=== PATIENT | female | born 1990 | race Caucasian/White ===

== ENCOUNTER 2021-11-12 09:19 | Outpatient (CLI) | payer OTHER, SELFPAY ==
[2021-11-12 10:00] LABS: Hemoglobin* 11.7 gm/dL (12.0-16.0)
[2021-11-13 20:11] LABS: Rapid Plasma Reagin (RPR) Non Reactive (Non Reactive)
== END 2021-11-12 09:20 | disposition home or self-care (01) ==
PROVIDERS: Advanced Practice Midwife; Visit Provider Advanced Practice Midwife
DX: Z34.93 Encounter for supervision of normal pregnancy, unspecified, third trimester (principal); Z3A.28 28 weeks gestation of pregnancy
CPT/HCPCS: 85018; 86592

== ENCOUNTER 2022-01-06 11:04 | Outpatient (CLI) | payer OTHER, SELFPAY ==
--- OUTSIDE RECORDS SUMMARY | 2022-01-06 11:07 | XMS_ITS | Encounter Summary ---
:1990 Author Organization [facility] Address [address] [place] [address] Care Team Providers Name Role Phone Leidy Sauceda APRN, C.NKobe., M.S. Primary Care Provider [phone] Encounter Details Date Type Department Care Team Description 05/24/2021 Orders Only Department of Carlotta Araujo Examination Obstetrics and N, R.N. Unconfirmed Result Gynecology in [address] [facility] (Primary Dx) [place], [place] [address] [facility] [address] [place], [place] [phone] (Work) [phone] Social History Tobacco Use Types Packs/Day Years Used Date Smoking Tobacco: Never Smokeless Tobacco: Never Alcohol Use Standard Drinks/Week Comments Yes 0 (1 standard drink = 0.6 oz pure rare u se, couple times per month alcohol) Alcohol Habits Answer Date Recorded How often do you have a drink Monthly or less 05/08/2021 containing alcohol? How many drinks containing alcohol do 1 or 2 you have on a typical day when you are drinking? How often do you have six or more Never 2021 drinks on one occasion? Comment: rare use, couple times per month 021 Social Isolation Answer Date Recorded In a typical week, how many times do you More than three orion es a week 05/08/2021 talk on the phone with family, friends, or neighbors? How often do you get together with friends Once a week 05/08/2021 or relatives? How often do you attend adventist or More than 4 times per year 05/08/2021 pentecostal services? Do you belong to any clubs or Yes 05/08/2021 organizations such as adventist groups, unions, fraternal or athletic groups, or school groups? How often do you attend meetings of the More than 4 times pe r year 05/08/2021 clubs or organizations you belong to? Are you now , , , 05/08/2021 , never or living with a partner? Physical Activity Answer Date Recorded On average, how many days per week do you engage in moderate to 5 days 05/08/2021 strenuous exercise (like walking fast, running, jogging, dancing, swimming, biking, or other activities that cause a light or heavy sweat)? On average, how many minutes do you engage in exercise at th is 30 min 05/08/2021 level? Stress Answer Date Recorded Do you feel stress - tense, restless, nervous, or Only a lit tle 05/08/2021 anxious, or unable to sleep at night because your mind is troubled all the time - these days? Financial Resource Strain Answer Date Recorded How hard is it for you to pay for the very basics like Not h heide at all 05/08/2021 food, housing, medical care, and heating? Intimate Partner Violence Answer Date Recorded Within the last year, have you been afraid of your partner o r No 05/08/2021 ex-partner? Within the last year, have you been humiliated or emotionall y No 05/08/2021 abused in other ways by your partner or ex-partner? Within the last year, have you been kicked, hit, slapped, or No 05/08/2021 otherwise physically hurt by your partner or ex-partner? Within the last year, have you been raped or forced to have any No 05/08/2021 kind of sexual activity by your partner or ex-partner? Food Insecurity Answer Date Recorded Within the past 12 months, you worried that your food would Never true 05/08/2021 run out before you got money to buy more. Within the past 12 months, the food you bought just didn't N ever true 05/08/2021 last and you didn't have money to get more. Transportation Needs Answer Date Recorded In the past 12 months, has lack of transportation kept you f rom No 05/08/2021 medical appointments or from getting medications? In the past 12 months, has lack of transportation kept you f rom No 05/08/2021 meetings, work, or getting things needed for daily living? Housing Stability Answer Date Recorded In the last 12 months, was there a time when you were not ab le No 05/08/2021 to pay the mortgage or rent on time? In the last 12 months, how many places have you lived? 1 05/08/2021 In the last 12 months, was there a time when you did not hav e a No 05/08/[address] or slept in a intermediate (including now)? Education Answer Date Recorded What is the highest level of school Bachelor's degree (e.g., BA, AB, 09/22/2020 you have completed or the highest BS) degree you have received? Sex Assigned at Date Recorded Female 09/07/2017 4:11 PM CDT documented as of this encounter Plan of Treatment Not on filedocumented as of this encounter Visit Diagnoses Diagnosis Examination Unconfirmed Result - Primary documented in this encounter Additional Health Concerns Assessment Noted Time PHQ-9 Depression Total Score: 1 09/25/2020 7:35 AM CDT documented as of this encounter Care Teams Vp Integration Relationship Specialty Start Date End Date Leidy aSuceda APRN, C.N.P., M.S. PCP - General Family Medicine 04/10/15 [address] [place] [address] documented as of this encounter
--- OUTSIDE RECORDS SUMMARY | 2022-01-06 11:07 | XMS_ITS | Encounter Summary ---
:1990 Author Organization [facility] Address [address] [place] [address] Care Team Providers Name Role Phone Leidy Sauceda APRN, C.N.P., M.S. Primary Care Provider Encounter Details Date Type Department Care Team Description 03/25/2021 Orders Only Pharmacy Prior Auth RO Leidy Sauceda APRN, C.N.P., M.S. [address] [place] [address] (Wo rk) Social History Tobacco Use Types Packs/Day Years [...] or relatives? How often do you attend adventism or More than 4 times per year 05/08/2021 restoration services? Do you belong to any clubs or Yes 05/08/2021 organizations such as adventism groups, unions, fraternal or athletic groups, or [...] place to sleep or slept in a longterm (including now)? Education Answer Date Recorded What is the highest level of school Bachelor's degree (e.g., BA, AB, 09/22/2020 you have completed or the highest BS) degree you have received? Sex Assigned at Date Recorded Female 09/07/2017 4:11 PM CDT documented as of this encounter Plan of Treatment Not on filedocumented as of this encounter Visit Diagnoses Not on filedocumented in this encounter Additional Health Concerns Assessment Noted Time PHQ-9 Depression Total Score: 1 09/25/2020 7:35 AM CDT documented as of this encounter Care Teams Tabular Typist Relationship Specialty Start Date End Date Leidy Sauceda APRN, C.N.P., M.S. PCP - General Family Medicine 04/10/15 [address] [place] [address] documented as of this encounter
--- OUTSIDE RECORDS SUMMARY | 2022-01-06 11:07 | XMS_ITS | Encounter Summary ---
:1990 Author Organization [facility] Address [address] [place] [address] Care Team Providers Name Role Phone Leidy Sauceda APRN, C.N.P., M.S. Primary Care Provider [phone] Reason for Visit Reason Comments Medication Question Encounter Details Date Type Department Care Team Description 01/21/2021 Clinical Communication Department of Mary Jaquez Obstetrics and Nicole Madrigal R.N. Gynecology in [address] [place] [phone] [place] [address] [place], [place] (Work) [phone] Social History Tobacco Use Types Packs/Day Years [...] or relatives? How often do you attend scientology or More than 4 times per year 05/08/2021 latter-day services? Do you belong to any clubs or Yes 05/08/2021 organizations such as scientology groups, unions, fraternal or athletic groups, or [...] place to sleep or slept in a senior living (including now)? Education Answer Date Recorded What is the highest level of school Bachelor's degree (e.g., BA, AB, 09/22/2020 you have completed or the highest BS) degree you have received? Sex Assigned at Date Recorded Female 09/07/2017 4:11 PM CDT documented as of this encounter Miscellaneous Notes Telephone Encounter - Nicole Jaquez R.N. - 01/21/2021 4:24 PM CDT PLAN The following information was provided: Patient had questions about the timing of her Letrozole. She wanted to know more about Ovidrel. She perfers this cycle to be just Letrozole and TIC. She is willing to discuss more options if this cycleis unsuccessful. Information/Education: patient/caller able to teach back The following references were used: nursing clinical judgement documented in this encounter Plan of Treatment Not on filedocumented as of this encounter Visit Diagnoses Not on filedocumented in this encounter Additional Health Concerns Assessment Noted Time PHQ-9 Depression Total Score: 1 09/25/2020 7:35 AM CDT documented as of this encounter Care Teams Rn Navigator Relationship Specialty Start Date End Date Leidy Sauceda APRN, C.N.P., M.S. PCP - General Family Medicine 04/10/15 [address] [place] [address] documented as of this encounter
--- OUTSIDE RECORDS SUMMARY | 2022-01-06 11:07 | XMS_ITS | Encounter Summary ---
:1990 Author Organization [facility] Address [address] [place] [address] Care Team Providers Name Role Phone Leidy Sauceda APRN, C.N.P., M.S. Primary Care Provider [phone] Reason for Referral Outpatient (Routine) - Authorized Specialty Diagnoses / Procedures Referred By Contact Refer red To Contact Obstetrics and Diagnoses [facility] Harmony Workman M.D. [address] [place] [address] Referral ID Status Reason Start Date Expiration Date Visits V isits Requested Authorized [id number] Authorized 03/23/2021 03/23/2022 1 1 edication Prior Authorization - Denied Specialty Diagnoses / Procedures Referred By Contact Refer red To Contact Harmony Chavez M.D. [address] [place] [address] Referral ID Status Reason Start Date Expiration Date Visits Requ ested Visits Authorized [id number] Denied 1 1 LY CHAIN LOGISTICS MANAGER Encounter Details Date Type Department Care Team Description 03/23/2021 Orders Only Department of Nancy Vicente Infertilit y Female Obstetrics and R.N. (Primary Dx) Gynecology in [address] [place], [place] [address] [facility] [address] [place] [address] Social History Tobacco Use Types Packs/Day Years [...] or relatives? How often do you attend christianity or More than 4 times per year 05/08/2021 congregational services? Do you belong to any clubs or Yes 05/08/2021 organizations such as christianity groups, unions, fraternal or athletic groups, or [...] place to sleep or slept in a assisted (including now)? Education Answer Date Recorded What is the highest level of school Bachelor's degree (e.g., BA, AB, 09/22/2020 you have completed or the highest BS) degree you have received? Sex Assigned at Date Recorded Female 09/07/2017 4:11 PM CDT documented as of this encounter Plan of Treatment Scheduled Referrals Name Type Priority Associated Order Schedule Diagnoses SALOME Referral Outpatient Referral Routine Infertility Female Ex pected: authorization and 03/23/2021 , benefits check Expires: 03/23/2022 documented as of this encounter Results US SALOME Pelvic - Follicle Tracking OI (04/01/2021 9:22 AM SUPPLY CHAIN LOGISTICS MANAGER) Anatomical Region Laterality Modality Ultrasound OB RST LOS, Ultrasound ARZ LOS Ultrasound Specimen (Source) Anatomical Location Collection Method / Collectio n Time Received Time / Laterality Volume Narrative 04/01/2021 11:12 AM SUPPLY CHAIN LOGISTICS MANAGER 9b Lt adx ff Harmony Nunez M.D. IMG OB US PROCEDURES documented in this encounter Visit Diagnoses Diagnosis Infertility Female - Primary Infertility Female documented in this encounter Additional Health Concerns Assessment Noted Time PHQ-9 Depression Total Score: 1 09/25/2020 7:35 AM CDT documented as of this encounter Care Teams Manager Cancer Relationship Specialty Start Date End Date Leidy Sauceda APRN, C.N.P., M.S. PCP - General Family Medicine 04/10/15 [address] [place] [address] documented as of this encounter
--- OUTSIDE RECORDS SUMMARY | 2022-01-06 11:07 | XMS_ITS | Encounter Summary ---
:1990 Author Organization [facility] Address [address] [place] [address] Care Team Providers Name Role Phone Leidy Sauceda APRN, C.N.P., M.S. Primary Care Provider [phone] Reason for Referral Outpatient (Routine) - Authorized Specialty Diagnoses / Procedures Referred By Contact Refer red To Contact Obstetrics and Diagnoses Infertility Female Rakel Nelson [facility] Gynecology Malcom, Ph.D. [address] [place] [address] Referral ID Status Reason Start Date Expiration Date Visits V isits Requested Authorized [id number] Authorized 01/21/2021 01/21/2022 1 1 utpatient (Routine) - Closed Specialty Diagnoses / Procedures Referred By Contact Refer red To Contact Diagnoses Infertility Female Rakle Nelson [facility] Procedures [place] Hysterosalpingogram Malocm, Ph.D. [address] [place] [address] Referral ID Status Reason Start Date Expiration Date Visits Requ ested Visits Authorized [id number] Closed 01/21/2021 01/21/2022 1 1 Encounter Details Date Type Department Care Team Description 01/21/2021 Orders Only Department of Brandie Crouch SalvadorRubio ty Female Obstetrics and R.N. (Primary Dx) Gynecology in 200 [place], [place] 200 [email or web address] [address] [place], [place] [phone] [address] (Work) [phone] Social History Tobacco Use Types Packs/Day Years [...] or relatives? How often do you attend gnosticism or More than 4 times per year 05/08/2021 moravian services? Do you belong to any clubs or Yes 05/08/2021 organizations such as gnosticism groups, unions, fraternal or athletic groups, or [...] place to sleep or slept in a long-term (including now)? Education Answer Date Recorded What [...] Routine Infertility Female Ex pected: authorization and 01/21/2021 , benefits check Expires: 01/21/2022 documented as of this encounter Results US SALOME Pelvic - Follicle Tracking OI (02/28/2021 9:57 AM CDT) Anatomical Region Laterality Modality Ultrasound OB RST LOS, Ultrasound ARZ LOS Ultrasound Specimen (Source) Anatomical Location Collection Method / Collectio n Time Received Time / Laterality Volume Narrative 02/28/2021 3:54 PM CDT 6b I have reviewed the ultrasound. Follicle s and findings documented in the stimulation summary. Poli Billy M.D. Rakel Nelson M.D., Ph.D. IMG OB US PROCEDURES [place] Hysterosalpingogram (01/28/2021 2:04 PM CDT) Anatomical Region Laterality Modality Genito Urinary, Abdominal RST LOS, Abdominal ARZ LOS, N/A Digital Radiography Abdominal FLA LOS Specimen (Source) Anatomical Collection Method Collection Time Re ceived Time Location / / Volume Laterality 01/28/2021 2:49 PM CDT Impressions 01/28/2021 3:32 PM CDT Patent right fallopian tube with spillage of contrast into the peritoneal cavity. Left salpingectomy. HAIR OR BEAUTY SALON MANAGER Narrative 01/28/2021 3:32 PM CDT EXAM: ??FL HYSTEROSALPINGOGRAM COMPARISON: ??Pelvic ultrasound 12/29/19 21. FINDINGS: ?? Fluoroscopic hysterosalpingogram was per formed using a retrograde injection of water soluble contrast following cannula tion of the cervical opening with the upholstery cutter. Normal filling of the uterus without chet dence of contour abnormality or filling defect. The right fallopian tube is ramirez nt with spillage of contrast into the peritoneal cavity. The left fallopian tu be was surgically removed. Procedure Note Yudelka Shirley M.D. - 01/28/2021Forma tting of this note might be different from the original. EXAM: FL HYSTEROSALPINGOGRAM COMPARISON: Pelvic ultrasound 12/28/2020 . FINDINGS: Fluoroscopic hysterosalpingogram was per formed using a retrograde injection of water soluble contrast following cannula tion of the cervical opening with the upholstery cutter. Normal filling of the uterus without chet dence of contour abnormality or filling defect. The right fallopian tube is ramirez nt with spillage of contrast into the peritoneal cavity. The left fallopian tu be was surgically removed. IMPRESSION: Patent right fallopian tube with spillag e of contrast into the peritoneal cavity. Left salpingectomy. HAIR OR BEAUTY SALON MANAGER Rakel Nelson M.D., Ph.D. IMG FLUOROSCOPY PROCEDU RES documented in this encounter Visit Diagnoses Diagnosis Infertility Female - Primary Infertility Female Infertility Female documented in this encounter Additional Health Concerns Assessment Noted Time PHQ-9 Depression Total Score: 1 09/25/2020 7:35 AM CDT documented as of this encounter Care Teams Human Factors Specialist Relationship Specialty Start Date End Date Leidy Sauceda APRN, C.N.P., M.S. PCP - General Family Medicine 04/10/15 [address] [place] [address] documented as of this encounter
--- OUTSIDE RECORDS SUMMARY | 2022-01-06 11:07 | XMS_ITS | Encounter Summary ---
:1990 Author Organization [facility] Address [address] [place] [address] Care Team Providers Name Role Phone Leidy Sauceda APRN, C.N.P., M.S. Primary Care Provider [phone] Reason for Visit Reason Comments Proir Authorization Encounter Details Date Type Department Care Team Description 03/25/2021 Clinical Communication Department of Linden Billy Authorization Obstetrics and Malcom [place] Gynecology in [address] [place] [phone] [place] [address] [place], [place] (Work) [phone] Social History Tobacco Use Types Packs/Day Years [...] or relatives? How often do you attend latter-day or More than 4 times per year 05/08/2021 yarsani services? Do you belong to any clubs or Yes 05/08/2021 organizations such as latter-day groups, unions, fraternal or athletic groups, or [...] place to sleep or slept in a correction (including now)? Education Answer Date Recorded What is the highest level of school Bachelor's degree (e.g., BA, AB, 09/22/2020 you have completed or the highest BS) degree you have received? Sex Assigned at Date Recorded Female 09/07/2017 4:11 PM CDT documented as of this encounter Miscellaneous Notes Telephone Encounter - Jody Bello - 03/25/2021 10:23 AM CST We received your prior authorization request for ovidrel and have it added to our workflow. We will get to this as soon as possible. Thank you, [facility] Prior Authorization Team If wishing to discuss this PA with the [facility] Specialty team, please send a communication within [employer] to SPECIALTY [employer] and your inquiry will be reviewed. PATIONAL HEALTH PHYSICIAN Telephone Encounter - Reina Schneider - 03/25/2021 9:10 AM CST Pt calling in to give a number for Ovidrel prior authorization. Pt was told that [phone] needed to be call to get [facility] you. PATIONAL HEALTH PHYSICIAN documented in this encounter Plan of Treatment Not on filedocumented as of this encounter Visit Diagnoses Not on filedocumented in this encounter Additional Health Concerns Assessment Noted Time PHQ-9 Depression Total Score: 1 09/25/2020 7:35 AM CDT documented as of this encounter Care Teams Sand Blaster Relationship Specialty Start Date End Date Leidy Sauceda APRN C.N.P., M.S. PCP - General Family Medicine 04/10/15 [address] [place] [address] documented as of this encounter
--- OUTSIDE RECORDS SUMMARY | 2022-01-06 11:07 | XMS_ITS | Encounter Summary ---
:1990 Author Organization [facility] Address [address] [place] [address] Care Team Providers Name Role Phone Leidy Sauceda APRN, C.N.P., M.S. Primary Care Provider [phone] Reason for Referral Outpatient (Routine) - Closed Specialty Diagnoses / Procedures Referred By Contact Refer red To Contact Diagnoses Infertility Female Rakel Nelson, [facility] Procedures [place] Hysterosalpingogram Malcom, Ph.D. [address] [place] [address] Referral ID Status Reason Start Date Expiration Date Visits Requ ested Visits Authorized [id number] Closed 01/21/2021 01/21/2022 1 1 Reason for Visit Outpatient (Routine) - Closed Specialty Diagnoses / Procedures Referred By Contact Refer red To Contact Diagnoses Infertility Female Rakel Nelson [facility] Procedures [place] Hysterosalpingogram Malcom, Ph.D. [address] [place] [address] Referral ID Status Reason Start Date Expiration Date Visits Requ ested Visits Authorized [id number] Closed 01/21/2021 01/21/2022 1 1 Encounter Details Date Type Department Care Team Description 01/28/2021 Hospital Encounter Department of Maribell Nelson M.D., Ph.D. [address] [place] [phone] Infertility Female Radiology, Reina Huff M.D. [address] [place] [phone] Building, in [place], [place] [address] [place] [phone] Social History Tobacco Use Types Packs/Day Years [...] or relatives? How often do you attend sabianist or More than 4 times per year 05/08/2021 rastafari services? Do you belong to any clubs or Yes 05/08/2021 organizations such as sabianist groups, unions, fraternal or athletic groups, or [...] minutes do you engage in exercise at is 30 min 05/08/2021 level? Stress Answer [...] place to sleep or slept in a alf (including now)? Education Answer Date Recorded What is the highest level of school Bachelor's degree (e.g., BA, AB, 09/22/2020 you have completed or the highest BS) degree you have received? Sex Assigned at Date Recorded Female 09/07/2017 4:11 PM CDT documented as of this encounter Medications at Time of Discharge Medication Sig Dispensed Refills Start Date End Date cholecalciferol, vitamin D3, 0 020 (Vitamin D3) 10 mcg (400 unit) capsule vitamin-iron 0 fumarate-FA 28 mg iron- 800 mcg tablet UNABLE TO FIND Vitex 0 06/29/2020 choriogonadotropin (OVIDREL) Inject 0.5 mL 0.5 mL 0 12/2702/20/2021 250 mcg/0.5 mL syringe (0.25 mg total) injection under the skin as needed (Administer when directed by SALOME team). letrozole (FEMARA) 2.5 mg Take 1 tablet 5 tablet 0 021 02/20/2021 tablet (2.5 mg total) by mouth daily. letrozole (FEMARA) 2.5 mg Take 1 tablet 5 tablet 0 021 02/20/2021 tablet (2.5 mg total) by mouth daily. letrozole (FEMARA) 2.5 mg Take 1 tablet 5 tablet 0 021 02/20/2021 tablet (2.5 mg total) by mouth daily. documented as of this encounter Procedure Notes Harmony Chavez M.D. - 01/28/2021 1:30 PM CDTAssociated Order(s): RAD Hysterosalpingogram Post-Procedure Diagnose(s): Infertility Female RAD Hysterosalpingogram Date/Time: 01/28/2021 3:04 PM Performed by: Harmony Chavez M.D. Authorized by: Reina Carlson M.D. Care team members present 1. Reina Carlson M.D. 2. Veronica Fairchild R.N. 3. Harmony Chavez M.D. PROCEDURE DETAILS Speculum placed in the vagina: yes Cervix prepped with antiseptic solution: yes HSG catheter placed in uterus: yes Balloon inflated: yes Radiopaque dye was administered through catheter into uterine cavity: Yes Speculum removed: yes Fluoroscopic image guidance used to localize target, identify at risk structures, and dynamically used to direct therapy to the target. Image(s) acquired and saved. Catheter was removed: yes Rt fallopian tube: Free, fill and spill Lt fallopian tube: Absent (Laparoscopic salpingectomy for ectopic ) Radiologist present and confirmed findings: Yes HSG uncomplicated. Uterine contour normal in appearance. Bilateral fallopian tubes normal in appearance and patent bilaterally. Patient aware of findings. CONSENT Consent obtained: verbal Consent given by: patient The benefits, risks and alternatives to the procedure and the potential need for sedation or anesthesia as well as the names, roles, and responsibilities of healthcare team members performing significant interventional tasks were discussed with the patient and/or decision maker. UNIVERSAL PROTOCOL All relevant documentation and testing were reviewed and available. All required blood products, implants, devices and or special equipment were made available as applicable. Pre-procedure verificationwas conducted and the correct site was marked if required. A fire risk assessment was done as applicable. The procedural time-out was conducted prior to performing the procedure and confirmed in a procedural pause. PRE-PROCEDURE DETAILS Assessment - reasonably exclude based on: PREG criteria Indications: Infertility Appropriate hand hygiene, gown, cap, mask, protective eyewear, sterile gloves, skin preparation, sterile drape, and strict aseptic technique were utilized as applicable for the procedure.: yes Site preparation: Povidone-iodine SEDATION / ANESTHESIA Anesthesia method: none POST-PROCEDURE DETAILS Patient tolerance of procedure: Patient tolerated the procedure well Procedure completed successfully: yes Complications: no apparent complications ATTESTATION STATEMENT A resident or fellow participated in the procedure, and the philatelic consultant was present for the entire procedure. Genitourinary Comments: Pelvic exam was performed with patient supine. Labia: There is no lesion or ulceration on the right labia. There is no lesion or ulceration on the left labia. Perineum: The perineum is normal. Vagina: The vagina is normal. The vagina exhibits no lesion and no vaginal ulcerations. Cervix: Cervix does not exhibit discharge or lesion. Of note, cervix off to the patient's left. Harmony Nunez M.D. Associated attestation - Reina Carlson M.D. - 01/28/2021 3:26 PM CDT I was present for the entirety of the procedure. documented in this encounter Plan of Treatment Not on filedocumented as of this encounter Procedures Procedure Name Priority Date/Time Associated Comments Diagnosis VT HSG S&I Routine 01/28/2021 Infertility Results for 3:04 PM CDT Female this procedure are in the results section. VT CATH W INJ CNTRST HSG Routine 01/28/2021 Infertility Res ults for 3:04 PM CDT Female this procedure are in the results section. FL HYSTEROSALPINGOGRAM RAD - Routine 01/28/2021 Infertility Resu lts for (most inpatients 2:04 PM CDT Female this proced ure and all are in the outpatients) results section. documented in this encounter Results VT CATH W INJ CNTRST HSG, VT HSG S&I (01/28/2021 3:04 PM CDT) Narrative Reina Carlson M.D. - 01/28/2021 3:04 PM CDT Harmony Chavez M.D. ? 01/28/2021 ??3:08 PM RAD Hysterosalpingogram Date/Time: 01/28/2021 3:04 PM Performed by: Harmony Chavez M.D. Authorized by: Reina Carlson M.D . Care team members present 1. Reina Carlson M.D. 2. Veronica Fairchild R.N. 3. Harmony Chavez M.D. PROCEDURE DETAILS ??Speculum placed in the vagina: yes ?Cervix prepped with antiseptic soluti on: yes ?HSG catheter placed in uterus: yes ?Balloon inflated: yes ?Radiopaque dye was administered throu gh catheter into uterine cavity: Yes ?Speculum removed: yes ?Fluoroscopic image guidance used to l ocalize target, identify at risk structures, and dynamically used to dire ct therapy to the target. Image(s) acquired and saved. ?Catheter was removed: yes ?Rt fallopian tube: ??Free, fill and s pill ??Lt fallopian tube: ??Absent (Laparosc opic salpingectomy for ectopic ) ??Radiologist present and confirmed fin dings: ??Yes ?? HSG uncomplicated. Uterine contour n ormal in appearance. Bilateral fallopian tubes normal in appearance and patent bilaterally. Patient aware of findings. CONSENT Consent obtained: verbal Consent given by: patient The benefits, risks and alternatives to the procedure and the potential need for sedation or anesthesia as well as the names, roles, and responsibilities of healthcare team memb ers performing significant interventional tasks were discussed with the patient and/or decision maker. UNIVERSAL PROTOCOL All relevant documentation and testing w ere reviewed and available. All required blood products, implants, devic es and or special equipment were made available as applicable. Pre-proced ure verification was conducted and the correct site was marked if required. A fire risk assessment was done as applicable. The procedural time-out w as conducted prior to performing the procedure and confirmed in a procedu ral pause. PRE-PROCEDURE DETAILS ?? Assessment - reas onably exclude based on: ??PREG criteria ??Indications: ??Infertility ??Appropriate hand hygiene, gown, cap, mask, protective eyewear, sterile gloves, skin preparation, sterile drape, and strict aseptic technique were utilized as applicable for the procedure .: yes ?Site preparation: ??Povidone-iodine SEDATION / ANESTHESIA Anesthesia method: none POST-PROCEDURE DETAILS ??Patient tolerance of procedure: ??Pat ient tolerated the procedure well ??Procedure completed successfully: yes ?Complications: no apparent complicati ons ?? ATTESTATION STATEMENT A resident or fellow participated in the procedure, and the philatelic consultant was present for the entire procedure. Reina Carlson M.D. OB GYNE ORDERABLES FL Hysterosalpingogram (01/28/2021 2:04 PM CDT) Anatomical Region Laterality Modality Genito Urinary, Abdominal RST LOS, Abdominal ARZ LOS, N/A Digital Radiography Abdominal FLA LOS Specimen (Source) Anatomical Collection Method Collection Time Re ceived Time Location / / Volume Laterality 01/28/2021 2:49 PM CDT Impressions 01/28/2021 3:32 PM CDT Patent right fallopian tube with spillage of contrast into the peritoneal cavity. Left salpingectomy. FIELD NATURALIST Narrative 01/28/2021 3:32 PM CDT EXAM: ??FL HYSTEROSALPINGOGRAM COMPARISON: ??Pelvic ultrasound 12/29/19. FINDINGS: ?? Fluoroscopic hysterosalpingogram was per formed using a retrograde injection of water soluble contrast following cannula tion of the cervical opening with the facing machine operator. Normal filling of the uterus without chet [...] tion of the cervical opening with the facing machine operator. Normal filling of the uterus without chet dence of contour abnormality or filling defect. The right fallopian tube is ramirez nt with spillage of contrast into the peritoneal cavity. The left fallopian tu be was surgically removed. IMPRESSION: Patent right fallopian tube with spillag e of contrast into the peritoneal cavity. Left salpingectomy. FIELD NATURALIST Rakel Nelson M.D., Ph.D. IMG FLUOROSCOPY PROCEDU RES documented in this encounter Visit Diagnoses Diagnosis Infertility Female documented in this encounter Administered Medications Inactive Administered Medications - up to 3 most recent administrations Medication Order MAR Action Action Date Dose Rate Site iothalamate meglumine 60 % Given 01/28/2021 2:05 PM CDT 10 mL injection (CONRAY) intravenous, Code/trauma/sedation medication, Starting on 01/28/21 at 1405 documented in this encounter Additional Health Concerns Assessment Noted Time PHQ-9 Depression Total Score: 1 09/25/2020 7:35 AM CDT documented as of this encounter Care Teams Sandstone Splitter Relationship Specialty Start Date End Date Leidy Sauceda APRN, C.N.P., M.S. PCP - General Family Medicine 04/10/[address] [place] [address] documented as of this encounter
--- OUTSIDE RECORDS SUMMARY | 2022-01-06 11:07 | XMS_ITS | Encounter Summary ---
:1990 Author Organization [facility] Address [address] [place] [address] Care Team Providers Name Role Phone Leidy Sauceda APRN, C.NFantasma, M.S. Primary Care Provider [phone] Encounter Details Date Type Department Care Team Description 01/10/2021 Hospital Encounter Department of Marisol Nelson Female Laboratory Medicine Rakel Ricardo M.D., in [place], Ph.D. [address] [phone] Social History Tobacco Use Types Packs/Day Years [...] or relatives? How often do you attend restorationism or More than 4 times per year 05/08/2021 quaker services? Do you belong to any clubs or Yes 05/08/2021 organizations such as restorationism groups, unions, fraternal or athletic groups, or [...] to sleep or slept in a senior care (including now)? Education Answer Date Recorded What is the highest level of school Bachelor's degree (e.g., BA, AB, 09/22/2020 you have completed or the highest BS) degree you have received? Sex Assigned at Date Recorded Female 09/07/2017 4:11 PM CDT documented as of this encounter Medications at Time of Discharge Medication Sig Dispensed Refills Start Date End Date cholecalciferol, vitamin 0 02/26/2020 D3, (Vitamin D3) 10 mcg (400 unit) capsule vitamin-iron 0 fumarate-FA 28 mg iron- 800 mcg tablet UNABLE TO FIND Vitex 0 06/29/2020 letrozole (FEMARA) 2.5 mg Take 1 tablet (2.5 5 tablet 0 02/20/2021 tablet mg total) by mouth daily. letrozole (FEMARA) 2.5 mg Take 1 tablet (2.5 5 tablet 0 02/20/2021 tablet mg total) by mouth daily. documented as of this encounter Plan of Treatment Not on filedocumented as of this encounter Procedures Procedure Name Priority Date/Time Associated Diagnosis Comme nts PROGESTERONE, S Routine 01/10/2021 1:01 PM Infertility Female Results for this CDT procedure are i n the results section. documented in this encounter Results Progesterone Level (01/10/2021 1:01 PM CDT) P athologist Signature Progesterone, S 22 See Note* 01/10/2021 ECLR ng/mL 10:21 PM CDT Comment: Reference intervals are central 90th % o f healthy population. Follicular phase: <=0.89 ng/mL Ovulation: <=12 ng/mL Luteal phase: 1.8-24 ng/ml Post-menopausal: <0.20 ng/mL 1st Trimester: 11-44 ng/mL 2nd Trimester: 25-83 ng/mL 3rd Trimester: 58-214 ng/mL Biotin has been identified by the james ritchie as a potential interfering substance. ??Higher concentr ations of biotin may be found in multivitamins, hair/nail supple ments, and workout supplements. ??If the result does not ma h clinical observations, repeat testing after patient refrains fr om the use of supplements for at least 12 hours. Specimen Anatomical Collection Method Collection Time Receive d Time (Source) Location / / Volume Laterality Blood (Blood, 01/10/2021 1:01 PM 01/11/20 9:35 Venous) CDT PM CDT Rakel Nelson M.D., Ph.D. LAB BLOOD ADD-ON Performing Organization Address City/State/ZIP Code Phon e Number [facility] [address] [place] [address] [phone] [facility] [place] [address] System in [address] documented in this encounter Visit Diagnoses Diagnosis Infertility Female documented in this encounter Additional Health Concerns Assessment Noted Time PHQ-9 Depression Total Score: 1 09/25/2020 7:35 AM CDT documented as of this encounter Care Teams Band Attacher Relationship Specialty Start Date End Date Leidy Sauceda APRN, C.N.P., M.S. PCP - General Family Medicine 04/10/[address] [place] [address] documented as of this encounter
--- OUTSIDE RECORDS SUMMARY | 2022-01-06 11:07 | XMS_ITS | Encounter Summary ---
:1990 Author Organization [facility] Address [address] [place] [address] Care Team Providers Name Role Phone Leidy Sauceda APRN, C.N.P., M.S. Primary Care Provider [phone] Encounter Details Date Type Department Care Team Description 04/01/2021 Ancillary Procedure Department of Charli limon Female Obstetrics and Rauchfu, Gynecology in [place] Workman M.D. [place], [place] [address] [facility] [address] [place] [phone] Social History Tobacco Use Types Packs/Day Years [...] or relatives? How often do you attend religious or More than 4 times per year 05/08/2021 samaritan services? Do you belong to any clubs or Yes 05/08/2021 organizations such as religious groups, unions, fraternal or athletic groups, or [...] Procedure Name Priority Date/Time Associated Comments Diagnosis US SALOME PELVIC - RAD - Routine 04/01/2021 9:22 Infertility Female Re sults for this FOLLICLE TRACKING (most inpatients AM MAMMALOGY TEACHER proced ure are in OI and all the results outpatients) section. documented in this encounter Results US SALOME Pelvic - Follicle Tracking OI (04/01/2021 9:22 AM MAMMALOGY TEACHER) Anatomical Region Laterality Modality Ultrasound OB RST LOS, Ultrasound ARZ LOS Ultrasound Specimen (Source) Anatomical Location Collection Method / Collectio n Time Received Time / Laterality Volume Narrative 04/01/2021 11:12 AM MAMMALOGY TEACHER 9b Lt adx ff Harmony Nunez M.D. IMHattie OB US PROCEDURES documented in this encounter Visit Diagnoses Diagnosis Infertility Female documented in this encounter Additional Health Concerns Assessment Noted Time PHQ-9 Depression Total Score: 1 09/25/2020 7:35 AM CDT documented as of this encounter Care Teams Water Conservation Specialist Relationship Specialty Start Date End Date Leidy Sauceda, SHA, C.N.P., M.S. PCP - General Family Medicine 04/10/15 [address] [place] [address] documented as of this encounter
--- OUTSIDE RECORDS SUMMARY | 2022-01-06 11:07 | XMS_ITS | Encounter Summary ---
:1990 Author Organization [facility] Address [address] [place] [address] Care Team Providers Name Role Phone Leidy Sauceda APRN, C.NKobe., M.S. Primary Care Provider Encounter Details Date Type Department Care Team Description 05/22/2021 Hospital Encounter Department of Charli Nunez Am enorrhea Laboratory Medicine in [place] Workman M.D. [facility] advertising display rotator [address] [place] [address] [phone] Social History Tobacco Use Types Packs/Day Years [...] or relatives? How often do you attend quaker or More than 4 times per year 05/08/2021 holiness services? Do you belong to any clubs or Yes 05/08/2021 organizations such as quaker groups, unions, fraternal or athletic groups, or [...] place to sleep or slept in a group home (including now)? Education Answer Date Recorded What [...] (Vitamin D3) 10 mcg (400 unit) capsule choriogonadotropin (OVIDREL) Inject 0.5 mL 0.5 mL 0 02/26 250 mcg/0.5 mL syringe (0.25 mg total) injection under the skin as needed (Administer when directed by [facility] team). letrozole (FEMARA) 2.5 mg Take 1 tablet (2.5 5 tablet 0 tablet mg total) by mouth daily. vitamin-iron 0 fumarate-FA 28 mg iron- 800 mcg tablet UNABLE TO FIND Vitex 0 06/29/2020 documented as of this encounter Plan of Treatment Not on filedocumented as of this encounter Procedures Procedure Name Priority Date/Time Associated Comments Diagnosis HUMAN CHORIONIC Routine 05/22/2021 7:19 AM Amenorrhea Result s for this GONADOTROPIN (HCG), PIN TICKET MACHINE OPERATOR procedur e are in MARIA R, the results section. documented in this encounter Results (ABNORMAL) hCG (Human Chorionic Gonadotropin), Quantitative, (05/22/2021 7:19 AM PIN TICKET MACHINE OPERATOR) P athologist Signature HCG, 76 (H) <5 IU/L 05/22/2021 CNFL Quantitative, 7:59 AM PIN TICKET MACHINE OPERATOR , P Comment: Biotin has been identified by the james ritchie as a potential interfering substance. ??Higher concentr ations of biotin may be found in multivitamins, hair/nail supple ments, and workout supplements. ??If the result does not ma [facility] clinical observations, repeat testing after patient refrains fr om the use of supplements for at least 12 hours. Specimen Anatomical Collection Method Collection Time Receive d Time (Source) Location / / Volume Laterality Blood (Blood, 05/22/2021 7:19 AM 05/22/19 22 7:20 Venous) PIN TICKET MACHINE OPERATOR AM PIN TICKET MACHINE OPERATOR Harmony Nunez M.D. LAB BLOOD ADD-ON Performing Organization Address City/State/ZIP Code Phon e Number [address] [address] [place] [address] System in [address] documented in this encounter Visit Diagnoses Diagnosis Amenorrhea documented in this encounter Additional Health Concerns Assessment Noted Time PHQ-9 Depression Total Score: 1 09/25/2020 7:35 AM CDT documented as of this encounter Care Teams Furnace Roaster Relationship Specialty Start Date End Date Leidy Sauceda APRN, C.N.P., M.S. PCP - General Family Medicine 04/10/[address] [place] [address] documented as of this encounter
--- OUTSIDE RECORDS SUMMARY | 2022-01-06 11:07 | XMS_ITS | Encounter Summary ---
:1990 Author Organization [facility] Address [address] [place] [address] Care Team Providers Name Role Phone Leidy Sauceda APRN, C.NFantasma, M.S. Primary Care Provider [phone] Reason for Visit Reason Comments Rx Prior Authorization PA DENIED OVIDREL 250MCG/0.5 ML Encounter Details Date Type Department Care Team Description 03/25/2021 Clinical Department of Charli Rx Prior Communication Obstetrics and Rauchfuss, Authorandres n (DANE Gynecology in [place] Workman M.D. DENIED OVIDREL [place], [address] [place] [address] 250MCG/0.5ML) [place], [place] [address] [facility] [address] [place], [place] [phone] (Work) [phone] Social History Tobacco Use Types Packs/Day Years [...] or relatives? How often do you attend zoroastrianism or More than 4 times per year 05/08/2021 zoroastrian services? Do you belong to any clubs or Yes 05/08/2021 organizations such as zoroastrianism groups, unions, fraternal or athletic groups, or [...] place to sleep or slept in a care home (including now)? Education Answer Date Recorded What is the highest level of school Bachelor's degree (e.g., BA, AB, 09/22/2020 you have completed or the highest BS) degree you have received? Sex Assigned at Date Recorded Female 09/07/2017 4:11 PM CDT documented as of this encounter Miscellaneous Notes Telephone Encounter - Windy Keane R.N. - 03/26/2021 2:41 PM CST Portal message update sent to patient. IFIED ANESTHESIOLOGIST ASSISTANT Telephone Encounter - Royce Botello - 03/25/2021 1:17 PM CST Images from the original note were not included. The patient's health insurer has denied prior authorization for OVIDREL 250MCG/0.5ML. A quick view of the denial reason is in this communication message. To view the denial letter: 1. Go to Snapshot 2. Go to the purple Medications box 3. Click on the blue Prior Authorizations link 4. Under Denied, click on the blue medication link to open and view the attachment. As the prescriber your options are: ??? Appeal the decision to the insurer directly (see denial letter for how to appeal). ??? Write a new Rx for an alternative medication therapy. ??? Release the Rx to the pharmacy so the patient can pay out of pocket if they desire. To Release Rx: Open this encounter, go to Meds & Orders, click on the medication, and click the blue ???Release Rx?? button. PLEASE NOTE: If the ???Release Rx?? button is not visible, the Rx has already been released to the pharmacy. If you have questions, please reply via QuickNote to Emma MALDONADO. Thank you, The [facility]PP[facility] Team IFIED ANESTHESIOLOGIST ASSISTANT documented in this encounter Plan of Treatment Not on filedocumented as of this encounter Visit Diagnoses Not on filedocumented in this encounter Additional Health Concerns Assessment Noted Time PHQ-9 Depression Total Score: 1 09/25/2020 7:35 AM CDT documented as of this encounter Care Teams Heliarc Welder Relationship Specialty Start Date End Date Leidy Sauceda APRN, C.N.P., M.S. PCP - General Family Medicine 04/10/15 [address] [place] [address] documented as of this encounter
--- OUTSIDE RECORDS SUMMARY | 2022-01-06 11:07 | XMS_ITS | Encounter Summary ---
:1990 Author Organization [facility] Address [address] [place] [address] Care Team Providers Name Role Phone Leidy Sauceda APRN, C.NKobe., M.S. Primary Care Provider [phone] Encounter Details Date Type Department Care Team Description 05/24/2021 Hospital Encounter Department of Charli Nunez Am enorrhea Laboratory Medicine in [place] Workman M.D. [facility] umberto [address] [place] [address] [phone] Social History Tobacco Use Types Packs/Day Years [...] or relatives? How often do you attend mosque or More than 4 times per year 05/08/2021 pentecostalism services? Do you belong to any clubs or Yes 05/08/2021 organizations such as mosque groups, unions, fraternal or athletic groups, or [...] place to sleep or slept in a [facility] (including now)? Education Answer Date Recorded What [...] Procedure Name Priority Date/Time Associated Comments Diagnosis TESTING LOCATION Routine 05/24/2021 7:28 AM Resul ts for this YARD SWITCHER procedure are i n the results section. TYPE AND SCREEN Routine 05/24/2021 7:28 AM Amenorrhea Result s for this YARD SWITCHER procedure are i n the results section. HUMAN CHORIONIC Routine 05/24/2021 7:28 AM Amenorrhea Result s for this GONADOTROPIN (HCG), YARD SWITCHER procedur e are in MARIA R, the results section. documented in this encounter Results Testing Location (05/24/2021 7:28 AM YARD SWITCHER) P athologist Signature Testing [facility] DEFAULT 05/24/2021 [facility] Location 7:31 AM YARD SWITCHER Specimen Anatomical Collection Method Collection Time Receive d Time (Source) Location / / Volume Laterality Blood 05/24/2021 7:28 AM 7:31 YARD SWITCHER AM YARD SWITCHER Harmony Nunez M.D. LAB BLOOD BANK TEST OR DERABLES Performing Organization Address City/State/ZIP Code Phon e Number [facility]- [address] [place], [place] [address] [facility] [place] [address] System in [place] [address] Type and Screen (with reflex Antibody ID) (05/24/2021 7:28 AM YARD SWITCHER) [facility] gist Method Time Signature ABO Group A 05/24/2021 RDWG 1:56 PM YARD SWITCHER Rh Type POS 05/24/2021 [facility] 1:56 PM YARD SWITCHER Antibody Screen NEG 05/24/2021 [facility] 1:56 PM YARD SWITCHER Type & Screen 05/27/2021 05/24/2021 [facility] Expiration 23:59 1:56 PM YARD SWITCHER ELXM Eligible Y 05/24/2021 [facility] 1:56 PM YARD SWITCHER Specimen Anatomical Collection Method Collection Time Receive d Time (Source) Location / / Volume Laterality Blood (Blood, 05/24/2021 7:28 AM 05/24/19 22 7:31 Venous) YARD SWITCHER AM YARD SWITCHER Harmony Nunez M.D. LAB BLOOD BANK TEST OR DERABLES Performing Organization Address City/State/ZIP Code Phon e Number [facility]- [address] [place], [place] [address] [facility] [place] [address] System in [place] [address] (ABNORMAL) hCG (Human Chorionic Gonadotropin), Quantitative, (05/24/2021 7:28 AM YARD SWITCHER) P athologist Signature HCG, 206 (H) <5 IU/L 05/24/2021 CNFL Quantitative, 8:02 AM YARD SWITCHER , P Comment: Biotin has been identified by the james ritchie as a potential interfering substance. ??Higher concentr ations of biotin may be found in multivitamins, hair/nail supple ments, and workout supplements. ??If the result does not [facility] clinical observations, repeat testing after patient refrains fr om the use of supplements for at least 12 hours. Specimen Anatomical Collection Method Collection Time Receive d Time (Source) Location / / Volume Laterality Blood (Blood, 05/24/2021 7:28 AM 05/24/19 22 7:31 Venous) YARD SWITCHER AM YARD SWITCHER Harmony Nunez M.D. LAB BLOOD ADD-ON Performing Organization Address City/State/ZIP Code Phon e Number [address] [address] [place] [address] System [address] documented in this encounter Visit Diagnoses Diagnosis Amenorrhea documented in this encounter Additional Health Concerns Assessment Noted Time PHQ-9 Depression Total Score: 1 09/25/2020 7:35 AM CDT documented as of this encounter Care Teams Para Machine Operator Relationship Specialty Start Date End Date Leidy Sauceda APRN, C.N.P., M.S. PCP - General Family Medicine 04/10/[address] [place] [address] documented as of this encounter
--- OUTSIDE RECORDS SUMMARY | 2022-01-06 11:07 | XMS_ITS | Encounter Summary ---
:1990 Author Organization [facility] Address [address] [place] [address] Care Team Providers Name Role Phone Leidy Sauceda APRN, C.NFantasma, M.S. Primary Care Provider [phone] Encounter Details Date Type Department Care Team Description 09/11/2021 Orders Only RST PCP [facility] Rakel Kaur M.D. [address] [place], [place] [phone] (Wo rk) Social History Tobacco Use Types [...] or relatives? How often do you attend presybeterian or More than 4 times per year 05/08/2021 gnosticist services? Do you belong to any clubs or Yes 05/08/2021 organizations such as presybeterian groups, unions, fraternal or athletic groups, or [...] place to sleep or slept in a usp (including now)? Education Answer Date Recorded What [...] documented as of this encounter Care Teams Grocery Carrier Relationship Specialty Start Date End Date Leidy Sauceda APRN, C.N.P., M.S. PCP - General Family Medicine 04/10/15 [address] [place] [address] documented as of this encounter
--- OUTSIDE RECORDS SUMMARY | 2022-01-06 11:07 | XMS_ITS | Encounter Summary ---
:1990 Author Organization [facility] Address [address] [place] [address] Care Team Providers Name Role Phone Leidy Sauceda APRN C.NKobe., M.S. Primary Care Provider [phone] Encounter Details Date Type Department Care Team Description 02/28/2021 Clinical Communication Department of Rakel Nelson Obstetrics and CMalcom, Ph.D. Gynecology in [address] [place], [place] [address] [facility] [address] [place], [place] [phone] (Work) [phone] Social History Tobacco Use Types Packs/Day Years [...] or relatives? How often do you attend bahai or More than 4 times per year 05/08/2021 yazdanism services? Do you belong to any clubs or Yes 05/08/2021 organizations such as bahai groups, unions, fraternal or athletic groups, or [...] documented as of this encounter Care Teams Motor Driver Relationship Specialty Start Date End Date Leidy Sauceda APRN, C.N.P., M.S. PCP - General Family Medicine 04/10/15 [address] [place] [address] documented as of this encounter
--- OUTSIDE RECORDS SUMMARY | 2022-01-06 11:07 | XMS_ITS | Encounter Summary ---
:1990 Author Organization [facility] Address [address] [place] [address] Care Team Providers Name Role Phone Leidy Sauceda APRN, C.N.Emma., M.S. Primary Care Provider Encounter Details Date Type Department Care Team Description 04/05/2021 Orders Only Department of Obstetrics Elizabeth Jaquez ea, and Gynecology in [place], [place] [address] [facility] [address] [place] [address] [phone] Social History Tobacco Use Types Packs/Day Years [...] or relatives? How often do you attend shinto or More than 4 times per year 05/08/2021 yazidism services? Do you belong to any clubs or Yes 05/08/2021 organizations such as shinto groups, unions, fraternal or athletic groups, or [...] place to sleep or slept in a long term (including now)? Education Answer Date Recorded What [...] documented as of this encounter Care Teams Chemical Processing Laborer Relationship Specialty Start Date End Date Leidy Sauceda APRN, C.N.P., M.S. PCP - General Family Medicine 04/10/15 [address] [place] [address] documented as of this encounter
--- OUTSIDE RECORDS SUMMARY | 2022-01-06 11:07 | XMS_ITS | Encounter Summary ---
:1990 Author Organization [facility] Address [address] [place] [address] Care Team Providers Name Role Phone Leiyd Sauceda APRN, C.N.P., M.S. Primary Care Provider [phone] Reason for Referral Specialty Diagnoses / Procedures Referred By Contact Refer red To Contact Rakel Kaur M.D. [facility] [address] [place] [address] Referral ID Status Reason Start Date Expiration Date Visits Requ ested Visits Authorized Encounter Details Date Type Department Care Team Description 01/17/2021 Orders Only [facility] Rakel Kaur M.[facility]. [address] [place] [phone] (Wo rk) Social History Tobacco [...] or relatives? How often do you attend hindu or More than 4 times per year 05/08/2021 congregational services? Do you belong to any clubs or Yes 05/08/2021 organizations such as hindu groups, unions, fraternal or athletic groups, or [...] Name Type Priority Associated Order Schedule Diagnoses Covid immunization Outpatient Referral Routine Ex pected: office visit Booster 021 (Approximate), Expires: 01/17/2022 documented as of this encounter Visit Diagnoses Not on filedocumented in this encounter Additional Health Concerns Assessment Noted Time PHQ-9 Depression Total Score: 1 09/25/2020 7:35 AM CDT documented as of this encounter Care Teams Staple Shear Operator Relationship Specialty Start Date End Date Leidy Sauceda APRN, C.N.P., M.S. PCP - General Family Medicine 04/10/[address] [place] [address] documented as of this encounter
--- OUTSIDE RECORDS SUMMARY | 2022-01-06 11:07 | XMS_ITS | Encounter Summary ---
:[address] [facility] Address [address] [place] [address] Care Team Providers Name Role Phone Leidy Sauceda APRN, C.NFantasma, M.S. Primary Care Provider [phone] Encounter Details Date Type Department Care Team Description 02/28/2021 Ancillary Procedure Department of Vivi Nelson Female Obstetrics and Rakel Ricardo M.D., Gynecology in Ph.D. [place], [place] [address] [facility] [address] [place] [address] [phone] Social History Tobacco Use Types Packs/Day Years [...] or relatives? How often do you attend roman catholic or More than 4 times per year 05/08/2021 episcopal services? Do you belong to any clubs or Yes 05/08/2021 organizations such as roman catholic groups, unions, fraternal or athletic groups, or [...] US [facility] PELVIC - RAD - Routine 02/28/2021 9:57 Infertility Female Re sults for this FOLLICLE TRACKING (most inpatients AM CDT proced ure are in OI and all [...] Nelson M.D., Ph.D. IMG OB US PROCEDURES documented in this encounter Visit Diagnoses Diagnosis Infertility Female documented in this encounter Additional Health Concerns Assessment Noted Time PHQ-9 Depression Total Score: 1 09/25/2020 7:35 AM CDT documented as of this encounter Care Teams Mold Insert Changer Relationship Specialty Start Date End Date Leidy Sauceda APRN C.N.P., M.S. PCP - General Family Medicine 04/10/15 [address] [place] [address] documented as of this encounter
--- OUTSIDE RECORDS SUMMARY | 2022-01-06 11:07 | XMS_ITS | Encounter Summary ---
:1990 Author Organization [facility] Address [address] [place] [address] Care Team Providers Name Role Phone Leidy Sauceda APRN, C.N.P., M.S. Primary Care Provider [phone] Reason for Visit Outpatient (Routine) - Closed Specialty Diagnoses / Procedures Referred By Contact Refer red To Contact Obstetrics and Charli Nunez, [facility] Gynecology Harmony Workman M.D. 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 How often do you attend congregational or More than 4 times per year 05/08/2021 confucianist services? Do you belong to any clubs or Yes 05/08/2021 organizations such as congregational groups, unions, fraternal or athletic groups, or [...] place to sleep or slept in a nursing home (including now)? Education Answer Date Recorded What is the highest level of school Bachelor's degree (e.g., BA, AB, 09/22/2020 you have completed or the highest BS) degree you have received? Sex Assigned at Date Recorded Female 09/07/2017 4:11 PM CDT documented as of this encounter Progress Notes Manuel Eastman M.D. - 05/08/2021 3:30 PM CST SUBJECTIVE Vin Canada is a 30 y.o. who presents today to discuss the option of embryo donation. She is seen today alongside her partner, Pavan. Reproductive history notable for left tubal ectopic s/p left salpingectomy (September 2020) andPCOS. She is s/p 4 cycles of letrozole + timed intercourse without achieving . HSG was completed in January 2021 with no evidence of right tubal occlusion. She is here today to discuss next steps and consideration of embryo donation. OBJECTIVE BMI Readings from Last 1 Encounters: 09/10/18 20.55 kg/m?? Blood Type: Unknown Ovarian [place]: normal for her age and is suggestive of robust ovarian reserve consistent with PCOS. 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 Canada is a 30 yo seen for discussion of next steps and consideration of embryo donation in the setting of PCOS and left salpingectomy 2/2 tubal ectopic. She is s/p 4 cycles of letrozole + OPK + timed intercourse without achieving . We reviewed our spectrum of fertility treatment options ranging from timed intercourse, ovulation induction, Intrauterine Insemination, and In Vitro Fertilization. We compared and contrasted success rates for these options. Given we have been unable to achieve with 4 cycles of letrozole + TIC, we reviewed next steps to consider of letrozole + IUI, IVF or FET with embryo donation. We reviewed level of involvement between biological and intended parents and the ability to specify the couple's preferences through [facility]. We reviewed the pre-embryo donation evaluation including uterine and prepregnancy evaluation, reproductive psychology and coordination of legal contracts. We reviewed the possible limitations of embryo donation including retrospective FDA testing on the donors and risk of thawing an embryo that was created elsewhere. Vin and Pavan will continue to consider their options further. They will reach out via portal with questions and to facilitate next steps once they've reached a decision. In the mean time, they will continue to attempt spontaneous . I personally spent 30 minutes in care of the patient today. Time includes both non face to face and face to face patient care. Manuel Eastman M.D. 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 PCP - General Family Medicine 04/10/15 [address] [place] [address] documented as of this encounter
--- OUTSIDE RECORDS SUMMARY | 2022-01-06 11:07 | XMS_ITS | Encounter Summary ---
:1990 Author Organization [facility] Address [address] [place] [address] Care Team Providers Name Role Phone Leidy Sauceda APRN, C.NFantasma, M.S. Primary Care Provider [phone] Encounter Details Date Type Department Care Team Description 03/25/2021 Orders Only Pharmacy Prior Auth RO Charli Nunez, Harmony Workman M.D. [address] [place] [address] (Wo rk) Social History Tobacco Use Types [...] or relatives? How often do you attend yarsanism or More than 4 times per year 05/08/2021 baptism services? Do you belong to any clubs or Yes 05/08/2021 organizations such as yarsanism groups, unions, fraternal or athletic groups, or [...] place to sleep or slept in a fci (including now)? Education Answer Date Recorded What [...] documented as of this encounter Care Teams Darkroom Worker Relationship Specialty Start Date End Date Leidy Sauceda APRN, C.N.P., M.S. PCP - General Family Medicine 04/10/15 [address] [place] [address] documented as of this encounter
--- OUTSIDE RECORDS SUMMARY | 2022-01-06 11:07 | XMS_ITS | Encounter Summary ---
:1990 Author Organization [facility] Address [address] [place] [address] Care Team Providers Name Role Phone Leidy Sauceda APRN, C.N.P., M.S. Primary Care Provider [phone] Encounter Details Date Type Department Care Team Description 01/28/2021 Clinical Communication Department of Charli Nunez , Obstetrics and Harmony Workman M.D. Gynecology in [address] [place], [place] [address] [facility] [address] [place], [place] [phone] [address] (Work) [phone] Social History Tobacco Use Types Packs/Day Years [...] or relatives? How often do you attend religion or More than 4 times per year 05/08/2021 sabianism services? Do you belong to any clubs or Yes 05/08/2021 organizations such as religion groups, unions, fraternal or athletic groups, or [...] place to sleep or slept in a [place] [facility] [place] (including now)? Education Answer Date Recorded What [...] documented as of this encounter Care Teams Crew Scheduler Relationship Specialty Start Date End Date Leidy Sauceda APRN, C.N.P., M.S. PCP - General Family Medicine 04/10/15 [address] [place] [address] documented as of this encounter
--- OUTSIDE RECORDS SUMMARY | 2022-01-06 11:07 | XMS_ITS | Clinical Summary ---
:1990 Author Organization [facility] Address [address] [place] [address] Care Team Providers Name Role Phone Leidy Sauceda APRN, C.N.P., M.S. Primary Care Provider [phone] Source Comments Patient records contain information from all sites at [facility]. For routine questions regarding patient records, call [phone] during business hours, M-F 8:00 AM - 5:00 PM Central Time. Record requests for emergency care only can be directed to [phone] at any time.[facility] Allergies No known active allergies Medications Medication Sig Dispensed Refills Start Date End Date Status vitamin-iron 0 Active fumarate-FA 28 mg iron- 800 mcg tablet UNABLE TO FIND Vitex 0 06/29/2020 Acti ve cholecalciferol, 0 02/26/2020 Ac tive vitamin D3, (Vitamin D3) 10 mcg (400 unit) capsule letrozole (FEMARA) 2.5 Take 1 tablet (2.5 5 tablet 0 03/23/20 21 Active mg tablet mg total) by mouth daily. Additional Information Patient not taking. Reported on 05/08/2021 choriogonadotropin (OVIDREL) 250 Inject 0.5 mL (0.25 mg 0.5 mL 0 03/24/2021 Active mcg/0.5 mL syringe injection total) under the skin as needed (Administer when directed by [facility] team). Additional Information Patient not taking. Reported on 05/08/2021 Active Problems Problem Noted Date Endometriosis 11/05/2020 Overview: Stage 1-2, Status post fulguration 1 Polycystic Ovary Syndrome 11/05/2020 Gastroesophageal Reflux Disease 09/10/2018 Nevus Face 09/08/2017 Comments Yes Encounters Date Type Specialty Care Team Description 12/13/2021 Orders Only Leidy Sauceda APRN C.N.P., M.S. from Last 3 Months Immunizations Name Administration Dates Next Due HepB, Unspecified 12/23/2011, 07/22/2011, 06/17/2011 Influenza Split 02/24/2017 MMR 04/05/1997, 11/05/1994 Tdap 06/17/2011 ZOHRA 06/17/2011, 05/08/1999 influenza vaccine quad (FLUZONE/FLUARIX) 02/14/2020, 019, 02/14/2015 (6 months and older)(PF) Family History Medical History Relation Name Comments Pancreatic cancer Aunt early detectio n, survivor Healthy adult Father Cardiac pacemaker Maternal Grandfather Heart attack Maternal Grandfather Hypertension Maternal Grandmother Hypertension Mother Parkinson disease Paternal Grandfather Skin cancer Paternal Grandfather Stroke Paternal Grandfather Dementia Paternal Grandmother Healthy adult Sister 3 sisters, mandy nt is a twin Heart valve replacement Uncle Relation Name Status Comments Aunt Father Maternal Grandfather Maternal Grandmother Mother Paternal Grandfather Paternal Grandmother Sister Uncle Social History Tobacco Use Types Packs/Day Years [...] or relatives? How often do you attend worship or More than 4 times per year 05/08/2021 yarsanism services? Do you belong to any clubs or Yes 05/08/2021 organizations such as worship groups, unions, fraternal or athletic groups, or [...] the highest BS) degree you have received? Comments Yes Sex Assigned at Date Recorded Female 09/07/2017 4:11 PM CDT Last Filed Vital Signs Vital Sign Reading Time Taken Comments Blood Pressure 107/70 09/10/2018 12:53 PM CDT Pulse 81 09/10/2018 12:53 PM CDT Temperature - - Respiratory Rate 16 06/18/2016 12:02 Vital sign result PM REFRIGERATION SERVICE TECHNICIAN from Clinical No gabe. Oxygen Saturation - - Inhaled Oxygen - - Concentration Weight 54.6 kg (120 lb 5.9 09/10/2018 12:53 oz) PM CDT Height 163 cm (5' 4.17) 09/10/2018 12:53 PM CDT Body Mass Index 20.55 09/10/2018 12:53 PM CDT Plan of Treatment Health Maintenance Due Date Last Done Comments HIV Screening 1990 Hepatitis C Screening 1990 COVID-19 Vaccine (2 - 01/23/2021 12/26/2020 Elvira risk series) Depression Screening 04/27/2021 (Annual PHQ-2) Cervical Cancer Screening 09/10/2021 09/10/2018, 09/10/2018 Influenza Vaccine (#1) 2022 02/14/2020, 02/01/2019, 02/25/2018, Additional history exists DTaP,Tdap,and Td Vaccines 11/27/2031 11/26/2021, 06/17/2011 (3 - Td or Tdap) Hepatitis B Vaccines Completed 12/23/2011, 07/22/2011, 06/17/2011 Pneumococcal vaccine (0-64 Aged Out No lo nger eligible years) based on patient 's age to complete this topic Insurance Payer Benefit Plan Subscriber ID Effective Phone Address Typ e / Group Dates [facility] [id number] 2020-Pres [phone] [address] 2021 PPO EMPLOYEES [address] [address] (Home) [address] [phone] [place] , ([place]) [place] [address] Care Teams Cleaner Operator Relationship Specialty Start Date End Date Leidy Sauceda, SHA, C.N.P., M.S. PCP - General Family Medicine 04/10/15 [address] [place] [address]
--- OUTSIDE RECORDS SUMMARY | 2022-01-06 11:07 | XMS_ITS | Encounter Summary ---
:1990 Author Organization [facility] Address [address] [place] [address] Care Team Providers Name Role Phone Leidy Sauceda APRN, C.NKobe., M.S. Primary Care Provider [phone] Encounter Details Date Type Department Care Team Description 12/28/2020 Orders Only Department of Obstetrics and Swe Brandie barnes R.N. Gynecology in [place], [address] [place], [place] [address] [facility] [address] [place] [address] [phone] Social History Tobacco Use Types Packs/Day Years [...] More than 4 times per year 05/08/2021 christian services? Do you belong to any clubs [...] documented as of this encounter Care Teams Vice President Corporate Communications Relationship Specialty Start Date End Date Leidy Sauceda APRN, C.N.P., M.S. PCP - General Family Medicine 04/10/15 [address] [place] [address] documented as of this encounter
--- OUTSIDE RECORDS SUMMARY | 2022-01-06 11:07 | XMS_ITS | Encounter Summary ---
:1990 Author Organization [facility] Address [address] [place] [address] Care Team Providers Name Role Phone Leidy Sauceda APRN, C.NFantasma, M.S. Primary Care Provider Reason for Referral Outpatient (Routine) - Authorized Specialty Diagnoses / Procedures Referred By Contact Refer red To Contact Family Medicine Leidy Sauceda APRN [facility] jeremi Lopez, M.S. [address] [place] [phone] Referral ID Status Reason Start Date Expiration Date Visits V isits Requested Authorized [id number] Authorized 12/13/2021 12/12/2024 1 1 Encounter Details Date Type Department Care Team Description 12/13/2021 Orders Only RST PCP HLTH MNT Leidy Sauceda A PRN, C.N.P., M.S. [address] [place] [address] [phone] (Wo rk) Social History Tobacco [...] or relatives? How often do you attend samaritan or More than 4 times per year 05/08/2021 hinduism services? Do you belong to any clubs or Yes 05/08/2021 organizations such as samaritan groups, unions, fraternal or athletic groups, or [...] place to sleep or slept in a fpc (including now)? Education Answer Date Recorded What is the highest level of school Bachelor's degree (e.g., BA, AB, 09/22/2020 you have completed or the highest BS) degree you have received? Sex Assigned at Date Recorded Female 09/07/2017 4:11 PM CDT documented as of this encounter Plan of Treatment Scheduled Referrals Name Type Priority Associated Diagnoses Order [facility] Family Medicine Outpatient Referral Routine Expec arnulfo: office visit 12/27/2021, (clinic) Expires: 06/11/2022 documented as of this encounter Visit Diagnoses Not on filedocumented in this encounter Additional Health Concerns Assessment Noted Time PHQ-9 Depression Total Score: 1 09/25/2020 7:35 AM CDT documented as of this encounter Care Teams Book Mender Relationship Specialty Start Date End Date Leidy Sauceda APRN, C.N.P., M.S. PCP - General Family Medicine 04/10/[address] [place] [address] documented as of this encounter
--- OUTSIDE RECORDS SUMMARY | 2022-01-06 11:07 | XMS_ITS | Encounter Summary ---
:1990 Author Organization [facility] Address [address] [place] [address] Care Team Providers Name Role Phone Leidy Sauceda APRN, C.N.P., M.S. Primary Care Provider [phone] Reason for Referral Outpatient (Routine) - Closed Specialty Diagnoses / Procedures Referred By Contact Refer red To Contact Obstetrics and Charli Nunez [facility] Gynecology Harmony Workman M.D. 200 [place] [address] Referral ID Status Reason Start Date Expiration Date Visits Requ ested Visits Authorized [id number] Closed 04/01/2021 04/01/2022 1 1 Scheduling Instructions Next Step Visit (non IVF) CH SALES MANAGER Encounter Details Date Type Department Care Team Description 04/01/2021 Clinical Communication Department of Avery Chavez and Harmony Workman M.D. Gynecology in [address] [place] [address] [place] [address] [place], [place] [phone] (Work) [phone] Social History Tobacco Use Types Packs/Day Years [...] or relatives? How often do you attend buddhist or More than 4 times per year 05/08/2021 confucianist services? Do you belong to any clubs or Yes 05/08/2021 organizations such as buddhist groups, unions, fraternal or athletic groups, or [...] Name Type Priority Associated Order Schedule Diagnoses Obstetrics and Outpatient Referral Routine Expect ed: Gynecology office 04/01/2021 visit (clinic) (Approximate) , Expires: 06/30/2022 documented as of this encounter Visit Diagnoses Not on filedocumented in this encounter Additional Health Concerns Assessment Noted Time PHQ-9 Depression Total Score: 1 09/25/2020 7:35 AM CDT documented as of this encounter Care Teams Branch Rental Manager Relationship Specialty Start Date End Date Leidy Sauceda APRN, C.N.P., M.S. PCP - General Family Medicine 04/10/15 [address] [place] [address] documented as of this encounter
--- OUTSIDE RECORDS SUMMARY | 2022-01-06 11:07 | XMS_ITS | Encounter Summary ---
:1990 Author Organization [facility] Address [address] [place] [address] Care Team Providers Name Role Phone Leidy Sauceda APRN, C.NKobe., M.S. Primary Care Provider [phone] Encounter Details Date Type Department Care Team Description 01/21/2021 Clinical Communication Department of Brandie Crouch, Obstetrics and R.Maryam. Gynecology in [address] [place], [place] [address] [facility] [address] [place], [place] [phone] (Work) [phone] Social History Tobacco Use Types Packs/Day Years [...] or relatives? How often do you attend yazidi or More than 4 times per year 05/08/2021 rastafari services? Do you belong to any clubs or Yes 05/08/2021 organizations such as yazidi groups, unions, fraternal or athletic groups, or [...] place to sleep or slept in a mcfp (including now)? Education Answer Date Recorded What [...] documented as of this encounter Care Teams Protective Signal Operator Relationship Specialty Start Date End Date Leidy Sauceda APRN, C.N.P., M.S. PCP - General Family Medicine 04/10/15 [address] [place] [address] documented as of this encounter
--- OUTSIDE RECORDS SUMMARY | 2022-01-06 11:07 | XMS_ITS | Encounter Summary ---
:1990 Author Organization [facility] Address [address] [place] [address] Care Team Providers Name Role Phone Leidy Sauceda APRN, C.N.P., M.S. Primary Care Provider [phone] Encounter Details Date Type Department Care Team Description 05/21/2021 Orders Only Department of Ami Vidal (Primary Obstetrics and M, R.N. Dx) Gynecology in [address] [place] [address] [place] [phone] [place] [phone] Social History Tobacco Use Types Packs/Day Years [...] More than 4 times per year 05/08/2021 christianity services? Do you belong to any clubs [...] place to sleep or slept in a detention (including now)? Education Answer Date Recorded What is the highest level of school Bachelor's degree (e.g., BA, AB, 09/22/2020 you have completed or the highest BS) degree you have received? Sex Assigned at Date Recorded Female 09/07/2017 4:11 PM CDT documented as of this encounter Plan of Treatment Not on filedocumented as of this encounter Results Type and Screen (with reflex Antibody ID) (05/24/2021 7:28 AM CITY BAILIFF) [facility] gist Method Time Signature ABO Group A 05/24/2021 RDWG 1:56 PM CITY BAILIFF Rh Type POS 05/24/2021 RDWG 1:56 PM CITY BAILIFF Antibody Screen NEG 05/24/2021 RDWG 1:56 PM CITY BAILIFF Type & Screen 05/27/2021 05/24/2021 RDWG Expiration 23:59 1:56 PM CITY BAILIFF ELXM Eligible Y 05/24/2021 RDWG 1:56 PM CITY BAILIFF Specimen Anatomical Collection Method Collection Time Receive d Time (Source) Location / / Volume Laterality Blood (Blood, 05/24/2021 7:28 AM 05/24/19 7:31 Venous) CITY BAILIFF AM [facility] BAILIFF Harmony Nunez M.D. LAB BLOOD BANK TEST OR DERABLES Performing Organization Address City/State/ZIP Code Phon e Number [facility]- [address] [facility] RDWG [facility] [place] [address] System in [place] [address] (ABNORMAL) hCG (Human Chorionic Gonadotropin), Quantitative, (05/24/2021 7:28 AM CITY BAILIFF) athologist Signature HCG, 206 (H) <5 IU/L 05/24/2021 CNFL Quantitative, 8:02 AM CITY BAILIFF , P Comment: Biotin has been identified by the james ritchie as a potential interfering substance. ??Higher concentr ations of biotin may be found in multivitamins, hair/nail supple ments, and workout supplements. ??If the result does not ma tc clinical observations, repeat testing after patient refrains fr om the use of supplements for at least 12 hours. Specimen Anatomical Collection Method Collection Time Receive d Time (Source) Location / / Volume Laterality Blood (Blood, 05/24/2021 7:28 AM 05/24/19 7:31 Venous) CITY BAILIFF AM [facility] BAILIFF Harmony Nunez M.D. LAB BLOOD ADD-ON Performing Organization Address City/State/ZIP Code Phon e Number [facility]- [address] [place] [address] [place] [address] (ABNORMAL) hCG (Human Chorionic Gonadotropin), Quantitative, (05/22/2021 7:19 AM CITY BAILIFF) athologist Signature HCG, 76 (H) <5 IU/L 05/22/2021 CNFL Quantitative, 7:59 AM CITY BAILIFF , P Comment: Biotin has been identified by the james ritchie as a potential interfering substance. ??Higher concentr ations of biotin may be found in multivitamins, hair/nail supple ments, and workout supplements. ??If the result does not ma tc clinical observations, repeat testing after patient refrains fr om the use of supplements for at least 12 hours. Specimen Anatomical Collection Method Collection Time Receive d Time (Source) Location / / Volume Laterality Blood (Blood, 05/22/2021 7:19 AM 05/22/19 22 7:20 Venous) CITY BAILIFF AM CITY BAILIFF Harmony M Charli Rauchfuss M.D. LAB BLOOD ADD-ON Performing Organization Address City/State/ZIP Code Phon e Number [facility]- [address] [place] [address] [place] [address] [place] [address] System [address] documented in this encounter Visit Diagnoses Diagnosis Amenorrhea - Primary documented in this encounter Additional Health Concerns Assessment Noted Time PHQ-9 Depression Total Score: 1 09/25/2020 7:35 AM CDT documented as of this encounter Care Teams Beater Engineer Relationship Specialty Start Date End Date Leidy Sauceda APRN, C.N.P., M.S. PCP - General Family Medicine 04/10/[address] [place] [address] documented as of this encounter
--- OUTSIDE RECORDS SUMMARY | 2022-01-06 11:07 | XMS_ITS | Encounter Summary ---
:1990 Author Organization [facility] Address [address] [place] [address] Care Team Providers Name Role Phone Leidy Sauceda APRN, C.NFantasma, M.S. Primary Care Provider [phone] Reason for Referral Outpatient (Routine) - Authorized Specialty Diagnoses / Procedures Referred By Contact Refer red To Contact Obstetrics and Diagnoses [facility]ertility [facility] Harmony Workman M.D. [address] [place] [address] Referral ID Status Reason Start Date Expiration Date Visits V isits Requested Authorized [id number] Authorized 02/20/2021 02/20/2022 1 1 Encounter Details Date Type Department Care Team Description 02/20/2021 Orders Only Department of Windy Keane Infertilit y Female Obstetrics and R.N. (Primary Dx) Gynecology in [place], [place] [address] [place] [phone] Social History Tobacco Use Types Packs/Day Years [...] or relatives? How often do you attend mormonism or More than 4 times per year 05/08/2021 anglican services? Do you belong to any clubs or Yes 05/08/2021 organizations such as mormonism groups, unions, fraternal or athletic groups, or [...] Routine Infertility Female Ex pected: authorization and 02/20/2021 , benefits check Expires: 02/20/2022 documented as of this encounter Visit Diagnoses Diagnosis Infertility Female - Primary documented in this encounter Additional Health Concerns Assessment Noted Time PHQ-9 Depression Total Score: 1 09/25/2020 7:35 AM CDT documented as of this encounter Care Teams Bowling Pin Refinisher Relationship Specialty Start Date End Date Leidy Sauceda APRN, C.N.P., M.S. PCP - General Family Medicine 04/10/15 [address] [place] [address] documented as of this encounter
--- OUTSIDE RECORDS SUMMARY | 2022-01-06 11:08 | XMS_ITS | Encounter Summary ---
:1990 Author Organization [facility] Address [address] [place] [address] Care Team Providers Name Role Phone Leidy Sauceda APRN, C.N.P., M.S. Primary Care Provider [phone] Reason for Referral Outpatient (Routine) - Closed Specialty Diagnoses / Procedures Referred By Contact Refer red To Contact Obstetrics and Tenisha Alicea [facility] Gynecology Malcom Madrigal 200 [place] [address] Referral ID Status Reason Start Date Expiration Date Visits Requ ested Visits Authorized [id number] Closed 10/08/2020 10/08/2021 1 1 Scheduling Instructions Review results of ordered testing Encounter Details Date Type Department Care Team Description 10/08/2020 Orders Only Department of Mariam Corbett Amenorrhea (Primary Obstetrics and M, R.N. Dx) Gynecology in [phone] [place], [place] (Work) [address] [place] [phone] Social History Tobacco Use Types Packs/Day Years [...] or relatives? How often do you attend uatsdin or More than 4 times per year 05/08/2021 buddhist services? Do you belong to any clubs or Yes 05/08/2021 organizations such as uatsdin groups, unions, fraternal or athletic groups, or [...] Outpatient Referral Routine Expect ed: Gynecology office 10/22/2020 visit (clinic) (Approximate) , Expires: 10/09/2023 documented as of this encounter Visit Diagnoses Diagnosis Amenorrhea - Primary documented in this encounter Additional Health Concerns Assessment Noted Time PHQ-9 Depression Total Score: 1 09/25/2020 7:35 AM CDT documented as of this encounter Care Teams Clinical Operations Consultant Relationship Specialty Start Date End Date Leidy Sauceda APRN, C.N.P., M.S. PCP - General Family Medicine 04/10/[address] [place] [phone] documented as of this encounter
--- OUTSIDE RECORDS SUMMARY | 2022-01-06 11:08 | XMS_ITS | Encounter Summary ---
:1990 Author Organization [facility] Address [address] [place] [address] Care Team Providers Name Role Phone Leidy Sauceda APRN, C.NFantasma, M.S. Primary Care Provider [phone] Encounter Details Date Type Department Care Team Description 12/04/2020 Admin Visit Urgent Care in [address] [phone] Social History Tobacco Use Types Packs/Day Years [...] or relatives? How often do you attend moravian or More than 4 times per year 05/08/2021 anabaptist services? Do you belong to any clubs or Yes 05/08/2021 organizations such as moravian groups, unions, fraternal or athletic groups, or [...] place to sleep or slept in a residential (including now)? Education Answer Date Recorded What [...] filedocumented in this encounter Additional Health Concerns Infection Onset Date Last Indicated Resolved Time COVID19 Pending 12/04/2020 12/04/2020 12/05/2020 2:47 AM CDT Assessment Noted Time PHQ-9 Depression Total Score: 1 09/25/2020 7:35 AM CDT documented as of this encounter Care Teams Brush And Broom Clipper Relationship Specialty Start Date End Date Leidy Sauceda APRN, C.N.P., M.S. PCP - General Family Medicine 04/10/15 [address] [place] [address] documented as of this encounter
--- OUTSIDE RECORDS SUMMARY | 2022-01-06 11:08 | XMS_ITS | Encounter Summary ---
:[address] [facility] Address [address] [place] [address] Care Team Providers Name Role Phone Leidy Sauceda APRN C.NKobe., M.S. Primary Care Provider [phone] Encounter Details Date Type Department Care Team Description 12/28/2020 Clinical Communication Department of Rakel Nelson Obstetrics and CMalcom, Ph.D. Gynecology in [address] [place], [place] [address] [facility] [address] [place], [place] [phone] (Work) [phone] Social History Tobacco Use Types Packs/Day Years [...] documented as of this encounter Care Teams Waterproof Bag Cutting Machine Operator Relationship Specialty Start Date End Date Leidy Sauceda APRN, C.N.P., M.S. PCP - General Family Medicine 04/10/15 [address] [place] [address] documented as of this encounter
--- OUTSIDE RECORDS SUMMARY | 2022-01-06 11:08 | XMS_ITS | Encounter Summary ---
:1990 Author Organization [facility] Address [address] [place] [address] Care Team Providers Name Role Phone Leidy Sauceda APRN, C.N.PAilin, M.S. Primary Care Provider Encounter Details Date Type Department Care Team Description 10/04/2020 Hospital Encounter Department of Rayray Angulo ecified Laboratory Medicine Veronica Franco APRN, Abnor mal Uterine And in [place]MamtaNFantasma, M.S. Vaginal Bleeding [place] [address] [phone] Social History Tobacco Use Types Packs/Day Years [...] or relatives? How often do you attend scientologist or More than 4 times per year 05/08/2021 confucianism services? Do you belong to any clubs or Yes 05/08/2021 organizations such as scientologist groups, unions, fraternal or athletic groups, or [...] place to sleep or slept in a retirement (including now)? Education Answer Date Recorded What is the highest level of school Bachelor's degree (e.g., BA, AB, 09/22/2020 you have completed or the highest BS) degree you have received? Sex Assigned at Date Recorded Female 09/07/2017 4:11 PM CDT documented as of this encounter Medications at Time of Discharge Medication Sig Dispensed Refills Start Date End Date cholecalciferol, vitamin D3, (Vitamin D3) 0 02/26/2020 10 mcg (400 unit) capsule vitamin-iron fumarate-FA 28 mg 0 iron- 800 mcg tablet UNABLE TO FIND Vitex 0 06/29/2020 documented as of this encounter Plan of Treatment Not on filedocumented as of this encounter Procedures Procedure Name Priority Date/Time Associated Comments Diagnosis HUMAN CHORIONIC Routine 10/04/2020 3:33 PM Other Specified Res ults for this GONADOTROPIN (HCG), CDT Abnormal Uterine proc edure are in MARIA R, And Vaginal the results Bleeding section. documented in this encounter Results (ABNORMAL) hCG (Human Chorionic Gonadotropin), Quantitative, (10/04/2020 3:33 PM CDT) P athologist Signature HCG, 153 (H) <5 IU/L 10/04/2020 CNFL Quantitative, 4:00 PM CDT , P Comment: Biotin has been identified [...] Location / / Volume Laterality Blood (Blood, 10/04/2020 3:33 PM 10/05/19 3:35 Venous) CDT PM CDT Yenifer Shah APRN.Emma., M.S. LAB BLOOD ADD-ON Performing Organization Address City/State/[facility] Phon e Number [facility]- [address] [place] [address] [place] [address] System [address] documented in this encounter Visit Diagnoses Diagnosis Other Specified Abnormal Uterine And Vag inal Bleeding documented in this encounter Additional Health Concerns Assessment Noted Time PHQ-9 Depression Total Score: 1 09/25/2020 7:35 AM CDT documented as of this encounter Care Teams Bottom Hoop Driver Relationship Specialty Start Date End Date Leidy Sauceda APRN, C.N.P., M.S. PCP - General Family Medicine 04/10/15 [address] [place] [address] documented as of this encounter
--- OUTSIDE RECORDS SUMMARY | 2022-01-06 11:08 | XMS_ITS | Encounter Summary ---
:1990 Author Organization [facility] Address [address] [place] [address] Care Team Providers Name Role Phone Leidy Sauceda APRN, C.NFantasma, M.S. Primary Care Provider [phone] Encounter Details Date Type Department Care Team Description 10/02/2020 Ancillary Department of Leighann Patel Counseling Procedure Obstetrics and Malcom Workman Preconception Gynecology in [place], [place] [address] [place] [address] Social History Tobacco Use Types Packs/Day Years [...] place to sleep or slept in a penitentiary (including now)? Education Answer Date Recorded What [...] Name Priority Date/Time Associated Diagnosis Comme nts SAOLME PELVIC - RAD - Routine 10/02/2020 3:06 Counseling Results for DIAGNOSTIC AND (most inpatients PM CDT Preconception this pro cedure ANTRAL FOLLICLE and all are in the COUNT outpatients) results section. documented in this encounter Results US SALOME Pelvic Diagnostic and Antral Follicle Count (10/02/2020 3:06 PM CDT) Anatomical Region Laterality Modality Ultrasound OB RST LOS, Ultrasound ARZ LOS Ultrasound Specimen (Source) Anatomical Location Collection Method / Collectio n Time Received Time / Laterality Volume Narrative 10/02/2020 4:57 PM CDT GUERRERO CANADA SALOME Pelvic Ultrasound Exam, 10/02/2020 EXAM INFORMATION Patient Name: ??GUERRERO CANADA : ??1990 Age: ??29 yrs Sex: ??Female Ref Phys: ??LEIGHANN PATEL Exam Date: 10/02/2020 Procedure: [facility] PELVIC - DIAGNOSTIC AND A NTRAL FOLLICLE COUNT Exam Site: [facility] #1 History: ?? afc/diagnosticcd 4 IMPRESSION: Normal uterus and ovaries. Total AFC= 40 FINDINGS: Uterus ------ The uterus appears normal and measures 4 .26 cm x 4.48 cm x 4.87 cm with a volume of 48.67 cm3. Endometrium The endometrium measures 6.73 mm in [facility]. Right Ovary The right ovary appear normal and measur es 3.39 cm x 2.37 cm x 1.8 cm with a volume of 7.57 cm3. AFC=18. Right Adnexa No abnormality visualized. Left Ovary The left ovary appears normal and measur es 2.28 cm x 3.27 cm x 1.51 cm with a volume of 5.9 cm3. AFC=22. Left Adnexa No abnormality visualized. Cul-de-Sac There is a small amount of fluid in the cul-de-sac. Doppler ------- Color Doppler was performed to assess th e vascularity of the ovaries. Preliminary Read by Marybel Wellington on 10/02/2020 2:47:17 PM. Medical Underwriter: ?Agustin Wellington Thank You For This Referral Procedure Note Reina Carlson M.D. - 10/02/2020F ormatting of this note might be different from the original. GUERRERO CANADA Pelvic Ultrasound Exam, 10/02/2020 EXAM INFORMATION Patient Name: GUERRERO CANADA : 1990 Age: 29 yrs Sex: Female Ref Phys: LEIGHANN Jacinta PATEL Exam Date: 10/02/2020 Procedure: [facility] PELVIC - DIAGNOSTIC AND A NTRAL FOLLICLE COUNT Exam Site: [facility] #1 History: afc/diagnosticcd 4 IMPRESSION: Normal uterus and ovaries. Total AFC= 40 FINDINGS: Uterus ------ The uterus appears normal and measures 4 .26 cm x 4.48 cm x 4.87 cm with a volume of 48.67 cm3. Endometrium The endometrium measures 6.73 mm in [facility]. Right Ovary The right ovary appear normal and measur es 3.39 cm x 2.37 cm x 1.8 cm with a volume of 7.57 cm3. AFC=18. Right Adnexa No abnormality visualized. Left Ovary The left ovary appears normal and measur es 2.28 cm x 3.27 cm x 1.51 cm with a volume of 5.9 cm3. AFC=22. Left Adnexa No abnormality visualized. Cul-de-Sac There is a small amount of fluid in the cul-de-sac. Doppler ------- Color Doppler was performed to assess th e vascularity of the ovaries. Preliminary Read by Marybel Be on 10/02/2020 2:47:17 PM. Medical Underwriter: Marybel Be Thank You For This Referral Leighann Patel M.D. IMG OB US PROCEDURES documented in this encounter Visit Diagnoses Diagnosis Counseling Preconception documented in this encounter Additional Health Concerns Assessment Noted Time PHQ-9 Depression Total Score: 1 09/25/2020 7:35 AM CDT documented as of this encounter Care Teams Corporation Secretary Relationship Specialty Start Date End Date Leidy Sauceda APRN, C.N.P., M.S. PCP - General Family Medicine 04/10/15 [address] [place] [address] documented as of this encounter
--- OUTSIDE RECORDS SUMMARY | 2022-01-06 11:08 | XMS_ITS | Encounter Summary ---
:1990 Author Organization [facility] Address [address] [place] [address] Care Team Providers Name Role Phone Leidy Sauceda APRN, C.N.P., M.S. Primary Care Provider [phone] Reason for Visit Reason Onset Date Comments Testing For Upper Respiratory Virus Symptoms 12/04/2020 Encounter Details Date Type Department Care Team Description 12/04/2020 External Outreach Department of [facility] Tiana Waters Contact With And Medicine, Valatie Dave Mccain (Suspected) Exposure Clinic, in [address] To [facility]-19 (Primary [place], [place] Dx) [address] [place] [address] [place], [place] [phone] (Work) [phone] Social History Tobacco Use Types Packs/Day Years [...] or relatives? How often do you attend anglican or More than 4 times per year 05/08/2021 yazdanism services? Do you belong to any clubs or Yes 05/08/2021 organizations such as anglican groups, unions, fraternal or athletic groups, or [...] documented as of this encounter Progress Notes Alyssa Cleveland R.N. - 12/04/2020 11:25 AM CDT Encounter created for symptomatic infectious disease screening with possible COVID, Influenza, RSV, and/or Group A Strep testing. documented in this encounter Miscellaneous Notes Result Encounter Note - Veronica Xavier R.N. - 12/05/2020 8:15 AM CDT The patient will be contacted if they are eligible for Monoclonal Antibody Infusion (MASS 1 or greater) and/or Remote Patient Monitoring (MASS 3 or greater). The [facility] (CCT) sends general guidance about COVID-19 to all patients by letter or portal, except when a patient is hospitalized or resides in a retirement. [facility] will call all adult patients at highest risk for severe complications of COVID-19 (MASS 3 or greater), those without an online services account, and those who require an silvering department supervisor. Any patient with a MASS score 1 or greater or a COVID-19 score 1 or greater may be at higher risk ofsevere disease. These patients will follow up directly with primary care. The primary care team willdecide if the patient needs a phone call or a follow up portal message to assess symptom severity, provide individualized guidance on symptom monitoring or symptom management, or to reinforce when to se ek care. [facility] encourages patients to follow up with their PCP with questions, worsening symptoms, or for symptom management. For questions, contact the [facility] ([facility]): Pager: [phone] In basket: P RST/[facility] COVID-19 POSITIVE Covid Care e-consult Components of the Monoclonal Antibody Selection Score (MASS) Compromised Immune System/Transplant = 4 points Chronic Kidney Disease on Dialysis = 4 points Age greater than or equal to 55 and chronic pulmonary disease = 3 points Age greater than or equal to 65 = 2 points Age greater than or equal to = 2 points Diabetes = 2 points Age greater than or equal to 55 AND cardiovascular disease = 2 points Age greater than or equal to 55 and hypertension = 1 point NOTE: At the time of testing, patients are instructed to obtain the result by calling the [employer] result line or by checking the online services account. documented in this encounter Plan of Treatment Not on filedocumented as of this encounter Procedures Procedure Name Priority Date/Time Associated Diagnosis Comme nts SARS CORONAVIRUS-2 Routine 12/04/2020 4:19 PM Contact With And Results for this RNA, V CDT (Suspected) Exposure procedu re are in To COVID-19 the results section. documented in this encounter Results (ABNORMAL) SARS Coronavirus-2 RNA, V Symptomatic (12/04/2020 4:19 PM CDT) [facility] Method Time Signature SARS-CoV-2 Swab, 12/05/2020 ECLR Specimen Nasopharynx 2:46 AM CDT Source SARS CoV-2 Detected (A) Undetected 12/05/2020 ECLR RNA, TMA 2:46 AM CDT Comment: SARS-CoV-2 RNA present. ----ADDITIONAL INFORMATION---- This molecular amplification test was pe rformed using the Aptima SARS-CoV-2 assay ([employer] on the Primes[employer] tem under emergency use authorization (EUA) by the U.S. Food and Drug Administ heather. Fact sheets for this EUA assay can be fo und at the following links: For Healthcare Providers: https://www.Additech a.gov/media/456725/download For Patients: https://www.fda.gov/media/ 290801/download Specimen Anatomical Collection Method Collection Time Receive d Time (Source) Location / / Volume Laterality Varies 12/04/2020 4:19 PM 9:28 (Nasopharynx) CDT PM CDT Eric Waters P.A.-C. LAB MICROBIOLOGY - GENERAL O [place] Performing Organization Address City/State/ZIP Code Phon e Number [facility]- [address] [place] [phone] [facility] [place] [address] System [address] documented in this encounter Visit Diagnoses Diagnosis Contact With And (Suspected) Exposure To COVID-19 - Primary documented in this encounter Additional Health Concerns Infection Onset Date Last Indicated Resolved Time COVID19 Pending 12/04/2020 12/04/2020 12/05/2020 2:47 AM CDT Assessment Noted Time PHQ-9 Depression Total Score: 1 09/25/2020 7:35 AM CDT documented as of this encounter Care Teams Registered Pharmacist Relationship Specialty Start Date End Date Leidy Sauceda APRN C.N.P., M.S. PCP - General Family Medicine 04/10/15 [address] [place] [address] documented as of this encounter
--- OUTSIDE RECORDS SUMMARY | 2022-01-06 11:08 | XMS_ITS | Encounter Summary ---
:1990 Author Organization [facility] Address [address] [place] [address] Care Team Providers Name Role Phone Leidy Sauceda APRN, C.N.P., M.S. Primary Care Provider [phone] Encounter Details Date Type Department Care Team Description 10/04/2020 Orders Only Department of Brandie Crouch Amenorrhe a (Primary Dx) Obstetrics and R.N. Gynecology in [address] [place], [place] [address] [facility] [address] [place], [place] [phone] (Work) [phone] Social History Tobacco Use Types Packs/Day Years [...] or relatives? How often do you attend voodoo or More than 4 times per year 05/08/2021 lutheran services? Do you belong to any clubs or Yes 05/08/2021 organizations such as voodoo groups, unions, fraternal or athletic groups, or [...] on filedocumented as of this encounter Results (ABNORMAL) hCG (Human Chorionic Gonadotropin), Quantitative, (2020 9:45 AM CDT) P athologist Signature HCG, 205 (H) <5 IU/L 2020 [place] Quantitative, 10:13 AM CDT , P Comment: Biotin has been identified by the james ritchie as a potential interfering substance. ??Higher concentr ations of biotin may be found in multivitamins, hair/nail supple ments, and workout supplements. ??If the result does not ma [facility] clinical observations, repeat testing after patient refrains fr om the use of supplements for at least 12 hours. Specimen Anatomical Collection Method Collection Time Receive d Time (Source) Location / / Volume Laterality Blood (Blood, 2020 9:45 AM 10/07/19 9:53 Venous) CDT AM CDT Tenisha Alicea M.D. LAB BLOOD ADD-ON Performing Organization Address City/State/ZIP Code Phon e Number [facility]- [address] [address] [place] [address] System in [address] documented in this encounter Visit Diagnoses Diagnosis Amenorrhea - Primary documented in this encounter Additional Health Concerns Assessment Noted Time PHQ-9 Depression Total Score: 1 09/25/2020 7:35 AM CDT documented as of this encounter Care Teams B2B Sales Executive Relationship Specialty Start Date End Date Leidy Sauceda APRN, C.N.P., M.S. PCP - General Family Medicine 04/10/15 [address] [place] [address] documented as of this encounter
--- OUTSIDE RECORDS SUMMARY | 2022-01-06 11:08 | XMS_ITS | Encounter Summary ---
:1990 Author Organization [facility] Address [address] [place] [address] Care Team Providers Name Role Phone Leidy Sauceda APRN, C.NFantasma, M.S. Primary Care Provider Reason for Visit Reason Comments Patient Education Encounter Details Date Type Department Care Team Description 12/05/2020 Clinical Communication Department of Chana Ware ent Education Infusion Therapy in Corrina Gregory [place], [address] [place], [place] [address] [address] [place] [phone] Social History Tobacco Use Types Packs/Day Years [...] or relatives? How often do you attend rastafarian or More than 4 times per year 05/08/2021 baptist services? Do you belong to any clubs or Yes 05/08/2021 organizations such as rastafarian groups, unions, fraternal or athletic groups, or [...] this encounter Miscellaneous Notes Telephone Encounter - Nay Ware RAilinN. - 12/05/2020 4:31 PM CDT SUBJECTIVE CHIEF COMPLAINT / REASON FOR CALL Patient Education Information Discussed Monoclonal education: Patient feels she doing well and does not need the monoclonal education or medication. Sym 8-5-21. documented in this encounter Plan of Treatment Not on filedocumented as of this encounter Visit Diagnoses Not on filedocumented in this encounter Additional Health Concerns Infection Onset Date Last Indicated Resolved Time COVID19 Pending 12/04/2020 12/04/2020 12/05/2020 2:47 AM CDT COVID19 12/04/2020 12/04/2020 12/24/2020 4:45 AM CDT Assessment Noted Time PHQ-9 Depression Total Score: 1 09/25/2020 7:35 AM CDT documented as of this encounter Care Teams Station Engineer Main Line Relationship Specialty Start Date End Date Leidy Sauceda APRN, C.N.P., M.S. PCP - General Family Medicine 12/15/15 [address] [place] [address] documented as of this encounter
--- OUTSIDE RECORDS SUMMARY | 2022-01-06 11:08 | XMS_ITS | Encounter Summary ---
:1990 Author Organization [facility] Address [address] [place] [address] Care Team Providers Name Role Phone Leidy Sauceda APRN, C.NKobe., M.S. Primary Care Provider [phone] Encounter Details Date Type Department Care Team Description 12/18/2020 Hospital Encounter Department of Charli Nunez Am enorrhea Laboratory Medicine in [place] Workman M.D. [facility] qa software tester [address] [place] [id number] [phone] Social History Tobacco Use Types Packs/Day Years [...] or relatives? How often do you attend denominational or More than 4 times per year 05/08/2021 sabianist services? Do you belong to any clubs or Yes 05/08/2021 organizations such as denominational groups, unions, fraternal or athletic groups, or [...] Date/Time Associated Comments Diagnosis HUMAN CHORIONIC Routine 12/18/2020 11:42 Amenorrhea Results for this GONADOTROPIN (HCG), AM CDT procedur e are in MARIA R, the results section. documented in this encounter Results hCG (Human Chorionic Gonadotropin), Quantitative, (12/18/2020 11:42 AM CDT) P athologist Signature HCG, <0.5 <5 IU/L 12/18/2020 [facility] Quantitative, 12:05 PM CDT , P Comment: Biotin has been identified by the james ritchie as a potential interfering substance. ??Higher concentr ations of biotin may be found in multivitamins, hair/nail supple ments, and workout supplements. ??If the result does not ma tch clinical observations, repeat testing after patient refrains fr om the use of supplements for at least 12 hours. Specimen Anatomical Collection Method Collection Time Receive d Time (Source) Location / / Volume Laterality Blood (Blood, 12/18/2020 11:42 12/18/2020 Venous) AM CDT 11:43 AM CDT Harmony Nunez M.D. LAB BLOOD ADD-ON Performing Organization Address City/State/[facility] Code Phon e Number [address] [address] [place] [address] System in [address] documented in this encounter Visit Diagnoses Diagnosis Amenorrhea documented in this encounter Additional Health Concerns Infection Onset Date Last Indicated Resolved Time COVID19 12/04/2020 12/04/2020 12/24/2020 4:45 AM CDT Assessment Noted Time PHQ-9 Depression Total Score: 1 09/25/2020 7:35 AM CDT documented as of this encounter Care Teams Process Engineering Technician Relationship Specialty Start Date End Date Leidy Sauceda APRN, C.N.P., M.S. PCP - General Family Medicine 04/10/15 [address] [place] [address] documented as of this encounter
--- OUTSIDE RECORDS SUMMARY | 2022-01-06 11:08 | XMS_ITS | Encounter Summary ---
:1990 Author Organization [facility] Address [address] [place] [address] Care Team Providers Name Role Phone Leidy Sauceda APRN, C.NFantasma, M.S. Primary Care Provider [phone] Encounter Details Date Type Department Care Team Description 10/10/2020 Orders Only Department of Brandie Crouch Amenorrhe a (Primary Dx) Obstetrics and R.N. Gynecology in [address] [place], [place] [address] [facility] [address] [place], [place] [phone] [address] (Work) [phone] Social History Tobacco Use Types Packs/Day Years [...] More than 4 times per year 05/08/2021 bahai services? Do you belong to any clubs [...] on filedocumented as of this encounter Results hCG (Human Chorionic Gonadotropin), Quantitative, (10/22/2020 1:47 PM CDT) P athologist Signature HCG, 0.7 <5 IU/L 10/22/2020 [facility] Quantitative, 2:17 PM CDT , P Comment: Biotin has been identified by the james ritchie as a potential interfering substance. ??Higher concentr ations of biotin may be found in multivitamins, hair/nail supple ments, and workout supplements. ??If the result does not ma [facility] clinical observations, repeat testing after patient refrains fr om the use of supplements for at least 12 hours. Specimen Anatomical Collection Method Collection Time Receive d Time (Source) Location / / Volume Laterality Blood (Blood, 10/22/2020 1:47 PM 10/23/19 1:50 Venous) CDT PM CDT Layo Santiago II, M.D. LAB BLOOD ADD-ON Performing Organization Address City/State/ZIP Code Phon e Number [facility]- [address] [place] [place] [address] [place] [address] System in [place] [address] [address] documented in this encounter Visit Diagnoses Diagnosis Amenorrhea - Primary documented in this encounter Additional Health Concerns Assessment Noted Time PHQ-9 Depression Total Score: 1 09/25/2020 7:35 AM CDT documented as of this encounter Care Teams Shotweld Operator Relationship Specialty Start Date End Date Leidy Sauceda APRN C.N.P., M.S. PCP - General Family Medicine 04/10/15 [address] [place] [address] documented as of this encounter
--- OUTSIDE RECORDS SUMMARY | 2022-01-06 11:08 | XMS_ITS | Encounter Summary ---
:1990 Author Organization [facility] Address [address] [place] [address] Care Team Providers Name Role Phone Leidy Sauceda APRN, C.N.P., M.S. Primary Care Provider [phone] Encounter Details Date Type Department Care Team Description 2020 Hospital Encounter Department of Tenisha Aliceaorrhea Laboratory Medicine in [place] Madrigal Wisner, [address] [place] [address] [place], [place] [phone] (W ork) [address] [phone] Social History Tobacco Use Types Packs/Day Years [...] or relatives? How often do you attend lutheran or More than 4 times per year 05/08/2021 congregation services? Do you belong to any clubs or Yes 05/08/2021 organizations such as lutheran groups, unions, fraternal or athletic groups, or [...] place to sleep or slept in a chcf (including now)? Education Answer Date Recorded What [...] Date/Time Associated Comments Diagnosis HUMAN CHORIONIC Routine 2020 9:45 AM Amenorrhea Result s for this GONADOTROPIN (HCG), CDT procedur e are in MARIA R, the results section. documented in this encounter Results (ABNORMAL) hCG (Human Chorionic Gonadotropin), Quantitative, (2020 9:45 AM CDT) P athologist Signature HCG, 205 (H) <5 IU/L 2020 [facility] Quantitative, 10:13 AM CDT , P Comment: Biotin has been identified by the james ritchie as a potential interfering substance. ??Higher concentr ations of biotin may be found in multivitamins, hair/nail supple ments, and workout supplements. ??If the result does not ma [facility] clinical observations, repeat testing after patient refrains fr om the use of supplements for at least 12 hours. Specimen Anatomical Collection Method Collection Time Receive d Time (Source) Location / / Volume Laterality Blood (Blood, 2020 9:45 AM 10/07/19 9:53 Venous) CDT AM CDT Tenisha Alicea M.D. LAB BLOOD ADD-ON Performing Organization Address City/State/[facility] Code Phon e Number [facility]- [address] [place] [address] Bl[address] [place], [place] [id number] [place] [address] [place] [address] System in [address] documented in this encounter Visit Diagnoses Diagnosis Amenorrhea documented in this encounter Additional Health Concerns Assessment Noted Time PHQ-9 Depression Total Score: 1 09/25/2020 7:35 AM CDT documented as of this encounter Care Teams Personnel Coordinator Relationship Specialty Start Date End Date Leidy Sauceda, SHA, C.N.P., M.S. PCP - General Family Medicine 04/10/[address] [place] [address] documented as of this encounter
--- OUTSIDE RECORDS SUMMARY | 2022-01-06 11:08 | XMS_ITS | Encounter Summary ---
:1990 Author Organization [facility] Address [address] [place] [address] Care Team Providers Name Role Phone Leidy Sauceda APRN, C.N.P., M.S. Primary Care Provider [phone] Reason for Visit Reason Comments Communication Encounter Details Date Type Department Care Team Description 12/18/2020 Clinical Communication Department of Poli Billy C ommunication Obstetrics and M.D. Gynecology in [address] [place], [place] [address] [facility] [address] [place], [place] [phone] [address] (Work) [phone] Social History Tobacco Use Types Packs/Day Years [...] or relatives? How often do you attend advent or More than 4 times per year 05/08/2021 buddhist services? Do you belong to any clubs or Yes 05/08/2021 organizations such as advent groups, unions, fraternal or athletic groups, or [...] this encounter Miscellaneous Notes Telephone Encounter - Brandie Crouch R.N. - 12/18/2020 10:05 AM CDT Information Discussed Plan to do a HCG today to rule out with past history of negative home test, but then positive blood test prior to her ectopic . If HCG is negative and patient establishes a menses (cycle day 1) today, we will set up Letrozole cycle. Pain has subsided currently to 1-2/10 from 01/04 earlier today. Did provide ectopic precautions and when to seek medical attention. PLAN Disposition/Recommendation: patient to schedule appointment and will call Information/Education: patient/caller able to teach back Caller agreeable to plan of care: yes The following references were used: provider fellow Telephone Encounter - Brandie Crouch R.N. - 12/18/2020 9:39 AM CDT ASSESSMENT Not currently . Cycle day 34 of her cycle. She has taken test on Thursday and one yesterday morning which are both negatvie. Cramping for the last 3-4 hours which was sustained-low abdominal pain and radiating down both of her inner thighs. Her pain was very severe this morning, like her ectopic pain. Unlike her ectopic ,it was only one sided. Some bleeding started this morning and it is bright red. She has not needed to change a pad yet. Nausea also noted this morning with the pain, this has improved. Lower back tightness noted. She took tylenol 1000 mg this morning. Has also tried a heating pad with no improvement. Positive with Covid 19. She had chills, never really had fever, sore throat, loss of taste and smell. She is back to work already and symptoms have improved. One period since her ectopic and it was a phlebotomy specialist period that time. She did not note the pain with that she is experiencing today. PLAN Share this information with the providers and reach out with a plan. Patient will also let us know if her bleeding continues. Disposition/Recommendation: notified provider and awaiting recommendations. Information/Education: not applicable . Caller agreeable to plan of care: yes. The following references were used: none. Telephone Encounter - Claudy Jiménez - 12/18/2020 9:10 AM CDT Pt called in wanting to speak with a steam boiler fireman as she has been having extreme pain and cramping. She stated she experienced an ectopic a couple months ago and her symptoms feel very similarto that. Please reach out to pt. Thanks! documented in this encounter Plan of Treatment Not on filedocumented as of this encounter Results hCG (Human Chorionic Gonadotropin), Quantitative, (12/18/2020 11:42 AM CDT) P athologist Signature HCG, <0.5 <5 IU/L 12/18/2020 [facility] Quantitative, 12:05 PM CDT , P Comment: Biotin has been identified by the manufa cturer as a potential interfering substance. ??Higher concentr ations of biotin may be found in multivitamins, hair/nail supple ments, and workout supplements. ??If the result does not ma [facility] clinical observations, repeat testing after patient refrains fr om the use of supplements for at least 12 hours. Specimen Anatomical Collection Method Collection Time Receive d Time (Source) Location / / Volume Laterality Blood (Blood, 12/18/2020 11:42 12/18/2020 Venous) AM CDT 11:43 AM CDT Harmony Nunez M.D. LAB BLOOD ADD-ON Performing Organization Address City/State/[facility] Code Phon e Number [facility]- [address] [place] [address] [place] [address] System in [address] documented in this encounter Visit Diagnoses Diagnosis Amenorrhea - Primary documented in this encounter Additional Health Concerns Infection Onset Date Last Indicated Resolved Time COVID19 12/04/2020 12/04/2020 12/24/2020 4:45 AM CDT Assessment Noted Time PHQ-9 Depression Total Score: 1 09/25/2020 7:35 AM CDT documented as of this encounter Care Teams Weight Shifter Relationship Specialty Start Date End Date Leidy Sauceda APRN, C.N.P., M.S. PCP - General Family Medicine 04/10/15 [address] [place] [address] documented as of this encounter
--- OUTSIDE RECORDS SUMMARY | 2022-01-06 11:08 | XMS_ITS | Encounter Summary ---
:1990 Author Organization [facility] Address [address] [place] [address] Care Team Providers Name Role Phone Leidy Sauceda APRN, C.N.P., M.S. Primary Care Provider [phone] Reason for Visit Reason Comments COVID Inquiry Encounter Details Date Type Department Care Team Description 10/22/2020 Clinical Communication Department of Leidy Lr, COVID Inquiry Medicine, [facility] John DALTON, Clinic [facility], in [place]. [place], [place] [address] [place] [id number] [facility] [place] [phone] Social History Tobacco Use Types Packs/Day Years [...] or relatives? How often do you attend alevism or More than 4 times per year 05/08/2021 gnosticist services? Do you belong to any clubs or Yes 05/08/2021 organizations such as alevism groups, unions, fraternal or athletic groups, or [...] this encounter Miscellaneous Notes Telephone Encounter - Shyanne Christensen I - 10/22/2020 8:07 AM CDT What is the purpose of the call?: Standard Appointment Process Standard Appointment Process Have you tested positive for COVID-19 in the last 20 days OR do you have a pending COVID-19 test because you had symptoms?: No, neither apply What region is the appointment being requested?: Less than 14 days [place] In the past 14 days are any of the following symptoms new to you and not related to an existing health condition?: No symptoms noted In the past 14 days have you had close contact* with a person who has a LABORATORY CONFIRMED case ofCOVID-19?: No exposure noted, follow appt process (End Screening) Testing Recommendation Endpoint Is testing recommended? : Not recommended to test Plan: Endpoint recommendation: Followed regional OTG *Reminder if sending patient for testing in [facility] or [facility], route encounter to the correct testing pool. documented in this encounter Plan of Treatment Not on filedocumented as of this encounter Visit Diagnoses Not on filedocumented in this encounter Additional Health Concerns Assessment Noted Time PHQ-9 Depression Total Score: 1 09/25/2020 7:35 AM CDT documented as of this encounter Care Teams Ambulatory Care Relationship Specialty Start Date End Date Leidy Sauceda APRN, C.N.P., M.S. PCP - General Family Medicine 04/10/15 [address] [place] [address] documented as of this encounter
--- OUTSIDE RECORDS SUMMARY | 2022-01-06 11:08 | XMS_ITS | Encounter Summary ---
:1990 Author Organization [facility] Address [address] [place] [address] Care Team Providers Name Role Phone Leidy Sauceda APRN, C.NFantasma, M.S. Primary Care Provider [phone] Encounter Details Date Type Department Care Team Description 12/24/2020 Orders Only Department of Brandie Crouch Infertili ty Female Obstetrics and R.N. (Primary Dx) Gynecology in [address] [place], [place] [address] [facility] [address] [place], [place] [phone] (Work) [phone] Social History Tobacco Use Types Packs/Day Years [...] More than 4 times per year 05/08/2021 sikh services? Do you belong to any clubs [...] on filedocumented as of this encounter Results US SALOME Pelvic - Follicle Tracking OI (12/28/2020 9:58 AM CDT) Anatomical Region Laterality Modality Ultrasound OB RST LOS, Ultrasound ARZ LOS Ultrasound Specimen (Source) Anatomical Location Collection Method / Collectio n Time Received Time / Laterality Volume Narrative 12/28/2020 11:13 AM CDT 9b Left ovary >10 echogenic FF noted small amount Rakel Nelson M.D., Ph.D. IMG OB US PROCEDURES documented in this encounter Visit Diagnoses Diagnosis Infertility Female - Primary Infertility Female documented in this encounter Additional Health Concerns Infection Onset Date Last Indicated Resolved Time COVID19 12/04/2020 12/04/2020 12/24/2020 4:45 AM CDT Assessment Noted Time PHQ-9 Depression Total Score: 1 09/25/2020 7:35 AM CDT documented as of this encounter Care Teams Lock Plater Relationship Specialty Start Date End Date Leidy Sauceda, SHA, C.N.P., M.S. PCP - General Family Medicine 04/10/15 [address] [place] [address] documented as of this encounter
--- OUTSIDE RECORDS SUMMARY | 2022-01-06 11:08 | XMS_ITS | Encounter Summary ---
:1990 Author Organization [facility] Address [address] [place] [address] Care Team Providers Name Role Phone Leidy Sauceda APRN, C.N.P., M.S. Primary Care Provider [phone] Reason for Visit Reason Comments Treatment Questions Encounter Details Date Type Department Care Team Description 10/31/2020 Clinical Communication Department of Mimi Angulo Questions Obstetrics and Veronica Franco, [facility] [address] [facility] [address] [place] [address] [phone] Social History Tobacco Use Types Packs/Day Years [...] or relatives? How often do you attend protestant or More than 4 times per year 05/08/2021 gnosticist services? Do you belong to any clubs or Yes 05/08/2021 organizations such as protestant groups, unions, fraternal or athletic groups, or [...] this encounter Miscellaneous Notes Telephone Encounter - Veronica Angulo APRN, C.N.P., M.S. - 11/05/2020 11:44 AM CDT Agree, I am not seeing concerns of endometriosis, unless this was diagnosis made at another facility. I'm happy to discuss at her appointment. Telephone Encounter - Nikki Marion - 10/31/2020 3:53 PM CDT Pt has a video consult with Veronica on 11/05. She calls asking if from her [facility] if we can determine thestage of her endometriosis. This was never discussed with her at the other facility. Pt can discuss before or during her appt on 11/05. Thank you documented in this encounter Plan of Treatment Not on filedocumented as of this encounter Visit Diagnoses Not on filedocumented in this encounter Additional Health Concerns Assessment Noted Time PHQ-9 Depression Total Score: 1 09/25/2020 7:35 AM CDT documented as of this encounter Care Teams Stereotype Molder Relationship Specialty Start Date End Date Leidy Sauceda APRN C.N.P., M.S. PCP - General Family Medicine 04/10/15 [address] [place] [address] documented as of this encounter
--- OUTSIDE RECORDS SUMMARY | 2022-01-06 11:08 | XMS_ITS | Encounter Summary ---
:1990 Author Organization [facility] Address [address] [place] [address] Care Team Providers Name Role Phone Leidy Sauceda APRN, C.N.Alison, M.S. Primary Care Provider [phone] Reason for Visit Outpatient (Routine) - Closed Specialty Diagnoses / Procedures Referred By Contact Refer red To Contact Obstetrics and Leighann Kennedy [facility] Gynecology [place] Referral ID Status Reason Start Date Expiration Date Visits Requ ested Visits Authorized [id number] Closed 09/25/2020 09/25/2021 1 1 Encounter Details Date Type Department Care Team Description 10/04/2020 Telemedicine Department of Veronica Angulo Spec ified Abnormal Uterine And Vaginal Bleeding (Primary Dx); Obstetrics and KSHA C.NAilinPAilin, Polycysti c Ovary Syndrome Gynecology in [place], [place] 200 [facility] [address] [place] [address] [phone] Social History Tobacco Use Types Packs/Day Years [...] or relatives? How often do you attend congregation or More than 4 times per year 05/08/2021 adventism services? Do you belong to any clubs or Yes 05/08/2021 organizations such as congregation groups, unions, fraternal or athletic groups, or [...] documented as of this encounter Progress Notes Veronica Angulo, SHA, C.N.P., M.S. - 10/04/2020 2:30 PM CDT SUBJECTIVE Vin Canada is a 29 y.o. who presents today to review test results. Please see prior notes for details. In summary, Vin has noted irregular and longer cycles, averaging up to 38 days. Most recently, she has noted abnormal uterine bleeding, with prolonged bleeding and at times severe cramping. She took a home test this morning which was positive. She believes her last menstrual period was 09/15/20, prior to that was 08/08/2020 (detected surge on 08/29). She has irregular ovulation, with irregular detection in LH surge. OBJECTIVE BMI Readings from Last 1 Encounters: 09/10/18 20.55 kg/m?? 05/31/20 FSH 8.4, E2 50 AMH 18.803 TSH 1.590 17 OHP (119.6) Testosterone (Total 39, Free 4.6) Prolactin 5.2 Rubella immune Ovarian [place]: normal for her age and is suggestive of robust ovarian reserve. AFC 40 Sperm parameters: normal Tubal evaluation: not assessed, low risk ASSESSMENT / PLAN #1 Other Specified Abnormal Uterine And Vaginal Bleeding #2 Irregular and long cycles, r/t mild PCOS #3 Recent positive home test It was a pleasure to meet with Vin and Pavan today to review recent fertility testing. We reviewed her ultrasound, consistent with polycystic ovarian morphology. As she has evidence of oligo ovulation, she meets [place]ter[place] criteria for PCOS. She reports a positive home test today, we will confirm this with serum testing. Dating isuncertain, given her irregular ovulation, as well as persistent bleeding. We will plan for early ultrasound for determination of due date. Cramping has since subsided, if she would note severe crampingonce again, she will reach out. We reviewed her ultrasound from 2 days ago, where no intrauterine is present, and no adnexal masses. We discussed ovulation induction as desired in the setting of oligo-ovulation. In the event that this is nonviable, we discussed consideration of letrozole cycles. This can be discussed further at a future appointment as needed. PLAN: 1. HCG today, repeat 48 hrs (patient will contact via portal message with desired clinic. 2. If HCG appropriately rising, obtain US scan when HCG at least 1500, or with change in bleeding/pain. TT 30 min. Veronica Angulo APRN, C.N.P., M.S. documented in this encounter Plan of Treatment [...] supplements. ??If the result does not ma [facility] clinical observations, repeat testing after patient refrains fr om the use of supplements for at least 12 hours. Specimen Anatomical Collection Method Collection Time Receive d Time (Source) Location / / Volume Laterality Blood (Blood, 10/04/2020 3:33 PM 10/05/19 3:35 Venous) CDT PM CDT Davion Shah APRN.N.Emma., M.S. LAB BLOOD ADD-ON Performing Organization Address City/State/ZIP Code Phon e Number [address] [address] [place] [address] System [address] documented in this encounter Visit Diagnoses Diagnosis Other Specified Abnormal Uterine And Vag inal Bleeding - Primary Polycystic Ovary Syndrome documented in this encounter Additional Health Concerns Assessment Noted Time PHQ-9 Depression Total Score: 1 09/25/2020 7:35 AM CDT documented as of this encounter Care Teams Accident Report Clerk Relationship Specialty Start Date End Date Leidy Sauceda APRN C.N.P., M.S. PCP - General Family Medicine 04/10/[address] [place] [address] documented as of this encounter
--- OUTSIDE RECORDS SUMMARY | 2022-01-06 11:08 | XMS_ITS | Encounter Summary ---
:1990 Author Organization [facility] Address [address] [place] [address] Care Team Providers Name Role Phone Leidy Sauceda APRN, C.NKobe., M.S. Primary Care Provider [phone] Encounter Details Date Type Department Care Team Description 12/18/2020 Orders Only Department of Obstetrics and Swe Brandie barnes R.N. Gynecology in [place], [address] [place], [place] [address] [facility] [address] [place] [address] [phone] Social History Tobacco Use Types Packs/Day Years [...] or relatives? How often do you attend sabianism or More than 4 times per year 05/08/2021 yazidi services? Do you belong to any clubs or Yes 05/08/2021 organizations such as sabianism groups, unions, fraternal or athletic groups, or [...] place to sleep or slept in a custodial (including now)? Education Answer Date Recorded What [...] documented as of this encounter Care Teams Hepatologist Relationship Specialty Start Date End Date Leidy Sauceda APRN, C.N.P., M.S. PCP - General Family Medicine 04/10/15 [address] [place] [address] documented as of this encounter
--- OUTSIDE RECORDS SUMMARY | 2022-01-06 11:08 | XMS_ITS | Encounter Summary ---
:1990 Author Organization [facility] Address [address] [place] [address] Care Team Providers Name Role Phone Leidy Sauceda APRN, C.NFantasma, M.S. Primary Care Provider [phone] Encounter Details Date Type Department Care Team Description 12/03/2020 Patient Self-Triage CONNECTED CARE Symptom Electronics Hardware Design Engineer, Provider Social History Tobacco Use Types Packs/Day Years [...] of the More than 4 times pe year 05/08/2021 clubs or organizations you belong [...] place to sleep or slept in a skilled nursing (including now)? Education Answer Date Recorded What [...] documented as of this encounter Care Teams Grinder Lap Relationship Specialty Start Date End Date Leidy Sauceda APRN, C.N.P., M.S. PCP - General Family Medicine 04/10/15 [address] [place] [address] documented as of this encounter
--- OUTSIDE RECORDS SUMMARY | 2022-01-06 11:08 | XMS_ITS | Encounter Summary ---
:1990 Author Organization [facility] Address [address] [place] [address] Care Team Providers Name Role Phone Leidy Sauceda APRN, C.NFantasma, M.S. Primary Care Provider [phone] Encounter Details Date Type Department Care Team Description 12/28/2020 Ancillary Procedure Department of Vivi Nelson Female Obstetrics and Rakel Ricardo M.D., Gynecology in Ph.D. [place], [place] [address] [facility] [address] [place] [address] [phone] Social History Tobacco Use Types Packs/Day Years [...] or relatives? How often do you attend yazdanism or More than 4 times per year 05/08/2021 restorationist services? Do you belong to any clubs or Yes 05/08/2021 organizations such as yazdanism groups, unions, fraternal or athletic groups, or [...] US SALOME PELVIC - RAD - Routine 12/28/2020 9:58 Infertility Female Re sults for this FOLLICLE [...] documented as of this encounter Care Teams Metal Furniture Assembly Supervisor Relationship Specialty Start Date End Date Leidy Sauceda APRN, C.N.P., M.S. PCP - General Family Medicine 04/10/15 [address] [place] [address] documented as of this encounter
--- OUTSIDE RECORDS SUMMARY | 2022-01-06 11:08 | XMS_ITS | Encounter Summary ---
:[address] [facility] Address [address] [place] [address] Care Team Providers Name Role Phone Leidy Sauceda APRN, C.NFantasma, M.S. Primary Care Provider [phone] Reason for Visit Outpatient (Routine) - Closed Specialty Diagnoses / Procedures Referred By Contact Refer red To Contact Obstetrics and Tenisha Alicea [facility] Gynecology [place] Madrigal [address] [place] [address] Referral ID Status Reason Start Date Expiration Date Visits Requ ested Visits Authorized [id number] Closed 10/08/2020 10/08/2021 1 1 Encounter Details Date Type Department Care Team Description 11/05/2020 Telemedicine Department of Veronica Angulo Counseling Fertility (Primary Dx); Obstetrics and KSHA C.N.PAilin, Polycysti c Ovary Syndrome; Gynecology in .[place]. Salpingectomy Unilateral Status Post; [place], [place] [address] [facility] Endometriosis [address] [place] [phone] Social History Tobacco Use Types Packs/Day Years [...] or relatives? How often do you attend evangelical or More than 4 times per year 05/08/2021 mandaeism services? Do you belong to any clubs or Yes 05/08/2021 organizations such as evangelical groups, unions, fraternal or athletic groups, or [...] documented as of this encounter Progress Notes Windy Keane R.N. - 11/05/2020 2:00 PM CDT I met with Vin to review the timeline and medication instructions for a Letrozole cycle. We discussed that ultrasound is only planned for her first cycle if appropriate follicle growth is seen. We discussed using ovulation predictor kits and timing intercourse approximately 12-36 hours following a pos itive test. Veronica Angulo, SHA, C.N.P., M.S. - 11/05/2020 2:00 PM CDT SUBJECTIVE Vin Canada is a 30 y.o. who presents today to to discuss next steps. Please see prior notes for details. In summary, this patient presented with oligo menorrhea, meetingRotterdam criteria for PCOS with polycystic ovarian morphology on ultrasound imaging. At her last appointment, she noted a positive spontaneous home test. She had an abnormal rise in serum HCG, and experienced left adnexal pain. She was seen in [place] (on vacation), and underwent left salpingectomy for ruptured ectopic . At the time of surgery, to endometriosis implants were alsonoted in the posterior cul-de-sac, reported at approximately 1 cm and 1 mm, which were fulgurated. OBJECTIVE BMI Readings from Last 1 Encounters: 09/10/18 20.55 kg/m?? 05/31/20 FSH 8.4, E2 50 AMH 18.803 TSH 1.590 17 OHP (119.6) Testosterone (Total 39, Free 4.6) Prolactin 5.2 Rubella immune Ovarian [place]: normal for her age and is suggestive of normal ovarian reserve. AFC 40 Sperm parameters: normal Tubal evaluation: s/p salpingectomy, right tube reported appeared normal at time of surgery ASSESSMENT / PLAN #1 Counseling Fertility #2 Polycystic Ovary Syndrome #3 Hx of ectopic , s/p left salpingectomy #4 Endometriosis, stage 1, s/p fulguration It was a pleasure to meet with Vin and Pavan today to discuss next steps. Condolences were offered on their recent loss. The couple is interested in moving forward with next steps. We discussed my suspicion for oligo-ovulation as a primary cause of the couples' subfertility, however, endometriosis/tubal factor as a secondary factor. We discussed consideration of hysterosalpingogram to further evaluate tubal patency of her remaining right fallopian tube. As previously discussed, Vin has experienced oligo ovulation related to PCOS. We discussed ovulation induction in the setting of PCOS including use of letrozole. She would like to proceed with ovulation induction cycles. The risks, benefits and alternatives of letrozole were discussed with the patient for the indicationof ovulatory dysfunction. The risks of letrozole include, but are not limited to: multiple (primarily twins but small risk of high order multiple gestation), ovarian cysts, cancellation, ovarian hyperstimulation, ectopic , miscarriage, defects, ovarian cyst formation and direct effects of fertility drugs on the ovaries. We recommend checking a test before beginning each new round of letrozole. This is an off label use of this medication. The patient verbalized understanding and wishes to proceed. All of the patient's questions were answered. The plan is for the patient to undergo a maximum of 4 cycles of letrozole before reevaluation. If she attempts these cycles consecutively, she may require baseline ultrasound evaluations to rule out residual cysts. Letrozole was given at a dose of2.5 mg to be taken on cycle days 3-7. The treatment plan will also include use of ultrasound monitoring of timed intercourse. PLAN: 1. Consider HSG to determine right tubal patency. I will message with results. 2. Letrozole 2.5 mg + US (first cycle only) + LH surge + TI, 4 cycles 3. Ectopic precautions with future pregnancies TT 30 min. Veronica Angulo APRN, Davion.N.P., M.S. documented in this encounter Plan of Treatment Not on filedocumented as of this encounter Visit Diagnoses Diagnosis Counseling Fertility - Primary Polycystic Ovary Syndrome Salpingectomy Unilateral Status Post Endometriosis documented in this encounter Additional Health Concerns Assessment Noted Time PHQ-9 Depression Total Score: 1 09/25/2020 7:35 AM CDT documented as of this encounter Care Teams Garland Machine Operator Relationship Specialty Start Date End Date Leidy Sauceda APRN C.N.P., M.S. PCP - General Family Medicine 04/10/[address] [place] [address] documented as of this encounter
--- OUTSIDE RECORDS SUMMARY | 2022-01-06 11:08 | XMS_ITS | Encounter Summary ---
:1990 Author Organization [facility] Address [address] [place] [address] Care Team Providers Name Role Phone Leidy Sauceda APRN, C.NKobe., M.S. Primary Care Provider [phone] Encounter Details Date Type Department Care Team Description 10/22/2020 Hospital Encounter Department of Layo Santiago Am Laboratory Medicine in [place] ANGLIN [facility] umberto [address] [place] [address] [phone] Social History Tobacco Use Types Packs/Day Years [...] place to sleep or slept in a fdc (including now)? Education Answer Date Recorded What [...] tablet UNABLE TO FIND Vitex 0 06/29/2020 ibuprofen (ADVIL,MOTRIN) Take 600 mg by 0 021 11/07/2020 600 mg tablet mouth. documented as of this encounter Plan of Treatment Not on filedocumented as of this encounter Procedures Procedure Name Priority Date/Time Associated Comments Diagnosis HUMAN CHORIONIC Routine 10/22/2020 1:47 PM Amenorrhea Result s for this GONADOTROPIN (HCG), CDT procedur e are in MARIA R, the results section. documented in this encounter Results hCG (Human Chorionic Gonadotropin), Quantitative, (10/22/2020 1:47 PM CDT) P athologist Signature HCG, 0.7 <5 IU/L 10/22/2020 [facility]FL Quantitative, 2:17 PM CDT , P Comment: Biotin has been identified by the james ritchie as a potential interfering substance. ??Higher concentr ations of biotin may be found in multivitamins, hair/nail supple ments, and workout supplements. ??If the result does not [facility] clinical observations, repeat testing after patient refrains fr om the use of supplements for at least 12 hours. Specimen Anatomical Collection Method Collection Time Receive d Time (Source) Location / / Volume Laterality Blood (Blood, 10/22/2020 1:47 PM 10/23/19 1:50 Venous) CDT PM CDT Layo Santiago II, M.D. LAB BLOOD ADD-ON Performing Organization Address City/State/[facility] Phon e Number [address] [address] [place] [address] System in [address] documented in this encounter Visit Diagnoses Diagnosis Amenorrhea documented in this encounter Additional Health Concerns Assessment Noted Time PHQ-9 Depression Total Score: 1 09/25/2020 7:35 AM CDT documented as of this encounter Care Teams Tube Mounter Relationship Specialty Start Date End Date Leidy Sauceda APRN, C.N.P., M.S. PCP - General Family Medicine 04/10/[address] [place] [address] documented as of this encounter
--- OUTSIDE RECORDS SUMMARY | 2022-01-06 11:08 | XMS_ITS | Encounter Summary ---
:1990 Author Organization [facility] Address [address] [place] [id number] Care Team Providers Name Role Phone Leidy Sauceda APRN, C.N.P., M.S. Primary Care Provider [phone] Reason for Visit Reason Comments [facility] [place] Miguel Gupta Encounter Details Date Type Department Care Team Description 10/09/2020 Clinical Communication Department of [facility] for Miguel Gupta Obstetrics and [facility] in [address] [place] [phone] [place] [address] [place], [place] (Work) [phone] Social History Tobacco Use [...] or relatives? How often do you attend mormon or More than 4 times per year 05/08/2021 jainism services? Do you belong to any clubs or Yes 05/08/2021 organizations such as mormon groups, unions, fraternal or athletic groups, or [...] place to sleep or slept in a halfway (including now)? Education Answer Date Recorded What is the highest level of school Bachelor's degree (e.g., BA, AB, 09/22/2020 you have completed or the highest BS) degree you have received? Sex Assigned at Date Recorded Female 09/07/2017 4:11 PM CDT documented as of this encounter Miscellaneous Notes Telephone Encounter - Brandie Crouch R.N. - 10/10/2020 11:30 AM CDT Lab work was reordered to Miguel Gupta to follow the beta to zero after an ectopic . The follow up appointment is later than 2 weeks as requested by the provider. Did ask patient if this was ascheduling conflict for her or if it was on our end. Telephone Encounter - Carina Sparrow - 10/09/2020 3:41 PM CDT Pt has orders for a repeat HCG for 10/22 to be done in [place] right now. Pt is hoping to get orders switched to Miguel Gupta. Please place orders for CF if appropriate. Thanks! documented in this encounter Plan of Treatment Not on filedocumented as of this encounter Visit Diagnoses Not on filedocumented in this encounter Additional Health Concerns Assessment Noted Time PHQ-9 Depression Total Score: 1 09/25/2020 7:35 AM CDT documented as of this encounter Care Teams Rn Clinical Trials Relationship Specialty Start Date End Date Leidy Sauceda APRN C.N.P., M.S. PCP - General Family Medicine 04/10/15 [address] [place] [address] documented as of this encounter
--- OUTSIDE RECORDS SUMMARY | 2022-01-06 11:09 | XMS_ITS | Encounter Summary ---
:1990 Author Organization [facility] Address [address] [place] [address] Care Team Providers Name Role Phone Leidy Sauceda APRN, C.NFantasma, M.S. Primary Care Provider Encounter Details Date Type Department Care Team Description 05/10/2020 Orders Only [facility] PCP [facility] Sa chano Steinberg M.D. [address] [place], [place] [phone] (Wo rk) Social History Tobacco Use Types Packs/Day Years Used Date Smoking Tobacco: Never Smokeless Tobacco: Never Alcohol Use Standard Drinks/Week Comments Yes 0 (1 standard drink = 0.6 oz pure alcoho l) rare use Alcohol Habits Answer Date Recorded How often do you have a drink containing alcohol? Monthly or less 05/08/2021 How many drinks containing alcohol do you have on a 1 or 2 05/08/2021 typical day when you are drinking? How often do you have six or more drinks on one Never 05/08/2021 occasion? Comment: rare use 09/08/2017 Social Isolation Answer Date Recorded In a typical week, how many times do you More than three orion es a week 05/08/2021 talk on the phone with family, friends, or neighbors? How often do you get together with friends Once a week 05/08/2021 or relatives? How often do you attend anabaptist or More than 4 times per year 05/08/2021 gnosticism services? Do you belong to any clubs or Yes 05/08/2021 organizations such as anabaptist groups, unions, fraternal or athletic groups, or [...] or slept in a [facility] (including now)? Sex Assigned at Date Recorded Female 09/07/2017 4:11 PM CDT documented as of this encounter Plan of Treatment Not on filedocumented as of this encounter Visit Diagnoses Not on filedocumented in this encounter Care Teams Strip Cleaner Relationship Specialty Start Date End Date Leidy Sauceda APRN, C.N.P., M.S. PCP - General Family Medicine 04/10/15 [address] [place] [address] documented as of this encounter
--- OUTSIDE RECORDS SUMMARY | 2022-01-06 11:09 | XMS_ITS | Encounter Summary ---
:1990 Author Organization [facility] Address [address] [place] [address] Care Team Providers Name Role Phone Leidy Sauceda APRN, C.N.P., M.S. Primary Care Provider [phone] Reason for Visit Reason Comments Med Refill Encounter Details Date Type Department Care Team Description 02/18/2019 Refill Department of Family Medicine, Leidy Sauceda APRN, Med Refill [facility] Mamta Arreguin N.P., M.S. in [facility] umberto [address] [facility] [address] [place] [address] [place], [place] [address] [phone] Social History Tobacco Use Types Packs/Day Years [...] or relatives? How often do you attend confucianism or More than 4 times per year 05/08/2021 jew services? Do you belong to any clubs or Yes 05/08/2021 organizations such as confucianism groups, unions, fraternal or athletic groups, or [...] or slept in a [facility] (including now)? Sex Assigned at Date Recorded Female 09/07/2017 4:11 PM CDT documented as of this encounter Plan of Treatment Not on filedocumented as of this encounter Visit Diagnoses Not on filedocumented in this encounter Care Teams Manager Clinic Relationship Specialty Start Date End Date Leidy Sauceda APRN, C.N.P., M.S. PCP - General Family Medicine 04/10/15 [address] [place] [address] documented as of this encounter
--- OUTSIDE RECORDS SUMMARY | 2022-01-06 11:09 | XMS_ITS | Encounter Summary ---
:1990 Author Organization [facility] Address [address] [place] [address] Care Team Providers Name Role Phone Leidy Sauceda APRN, C.NFantasma, M.S. Primary Care Provider [phone] Reason for Referral Outpatient (Routine) - Closed Specialty Diagnoses / Procedures Referred By Contact Refer red To Contact Obstetrics and Leighann Patel [facility] jesus manuel Dawn M.D. Referral ID Status Reason Start Date Expiration Date Visits Requ ested Visits Authorized [id number] Closed 09/25/2020 09/25/2021 1 1 Scheduling Instructions Review results of ordered testing Reason for Visit Appointment Request (Routine) - Closed Specialty Diagnoses / Procedures Referred By Contact Refer red To Contact Reproductive Diagnoses Infertility Female Endocrinology Referral ID Status Reason Start Date Expiration Date Visits Requ ested Visits Authorized [id number] Closed 09/21/2020 09/21/2021 1 1 Encounter Details Date Type Department Care Team Description 09/25/2020 Telemedicine Department of Leighann Patel Counseling Preconception (Primary Dx); Obstetrics christi Workman M.D. Oligoovulatio n Gynecology in [place], [place] [address] [place] [address] Social History Tobacco Use Types Packs/Day Years [...] or relatives? How often do you attend taoism or More than 4 times per year 05/08/2021 adventist services? Do you belong to any clubs or Yes 05/08/2021 organizations such as taoism groups, unions, fraternal or athletic groups, or [...] PM CDT documented as of this encounter Patient Instructions Patient InstructionsLeighann Patel M.D. - 09/25/2020 8:00 AM CDT Plan 1. Call us/portal message us with 1st day of bleeding to schedule ultrasound in [place]. If no period by cycle day 40, message us about inducing a period 2. Semen analysis for Pavan 3. Return visit in [place] or via video to review the results 4. Consider genetic counseling 5. Continue testing for surge with digital ovulation predictor kits between cycle day 10-26. [place] on the day of surge plus 1-2 days after 6. Call with + test for early monitoring 7. Consider tubal patency testing in the future if unsuccessful after inducing regular ovulation documented in this encounter Consult Notes Leighann Patel M.D. - 09/25/2020 8:00 AM CDT SUBJECTIVE Reason For Consult: infertility, irregular menses History of Present Illness: Guerrero Canada is a 29 y.o. who presents for a Reproductive Endocrinology and Infertility consultation. She is alone today. Her partner is Pavan Canada [phone]. Consult conducted via real-time audio/video technology by Leighann Patel M.D. in [facility] to the patient in he r home. Presenting Problem: Desire to conceive;Abnormal periods Attempting for: Over a year Successful pregnancies with current partner: No Prior fertility evaluation: Bloodwork Prior fertility evaluation: Evaluation and bloodwork done at [facility] in May. Notes and labs faxed to your department. Prior treatment(s): Other Prior treatment(s): Started taking a natural supplement, Vitex (Chasteberry), at the beginning of June per self Other issues/comments/concerns: My cycle is hard to predict. From about Feb-May I had light spottingthat could hardly be considered a period. It seems to be a bit more normal after starting Vitex in June, but my cycles are still long and irregular (last one was 38 days). I have been doing ovulation tests regularly during what I suspect to be my fertile window based on cervical mucous changes, but Ihaven???t been able to consistently get a positive test. I am wondering if I am not ovulating, what further tests could be done to determine why my cycles are irregular, and your advice on taking Clomid like my doctor in [place] suggested or other treatment. Guerrero Canada is a very pleasant 29 y.o. F who presents today for a discussion of infertility x 1 year associated with irregular menses. She reports a long history of irregular cycles and did undergo evaluation in her early 20's as she had missed multiple months in a row of periods. She reportedly had an ultrasound that was overall normal. She was briefly on OCPs for 2 years at the beginning ofher marriage for cycle regulation as well as contraception. She has been trying to conceive with her partner Pavan since August of 2019 without success. She will occasionally get positive OPKs but other times her surge is hard to predict/detect. She was recently evaluated at the [facility] and her testing is below. She has not started infertility treatments at this point. She states that she exercises about 5 days per week, alternating between running for30 minutes or biking/playing tennis for 60 minutes. 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 She denies hirsutism or acne. 05/31/20 FSH 8.4, E2 50 AMH 18.803 TSH 1.590 17 OHP (119.6), Testosterone (Total 39, Free 4.6), Prolactin 5.2 Rubella immune OB History Para Term AB Living 0 0 0 0 0 0 SAB TAB Ectopic Molar Multiple Live Births 0 0 0 0 0 0 Tablet Repair History: Age of menarche: 17 Period length: 5 Regular periods?: Irregular Longest period interval: 43 Shortest period interval: 30 Patient's last menstrual period was 09/15/2020. Intermenstrual bleeding: No Dysmenorrhea: Moderate Can detect ovulation with OPK: Yes Chronic pelvic pain: No H/o contraceptive use: Pills;Condoms Last contraceptive use: 09/01/19 H/o pelvic infections: No Last Pap smear: 09/10/18 H/o abnormal Pap: No Had a mammogram?: No [place] frequency: On average twice/three times per week, but try for ar least every other day during fertile window Uses lubricant with intercourse: Yes Finds intercourse painful: Never Partner History: Partnered: Yes Partnered for: Over 2.5 years Partner age: 26 Partner in good health?: Yes Partner with children from prior relationships?: No Partner tobacco use: No Partner ETOH use: Yes, rarely Partner drug use: No Partner occupation: gauge controller Partner's sex: Male Partner semen eval: No Partner ejaculation/erection problems: No Partner H/o genital surgery: No Past medical history, past surgical history, family history, obstetrical history, genetic history, medications and social history were reviewed and updated through the appropriate history tools. Review of Systems Answers for HPI/ROS submitted by the patient on 09/22/2020 No general issues: Yes No eye issues: Yes No ENT issues: Yes No heart issues: Yes No respiratory issues: Yes No GI issues: Yes No muscle/bone issues: Yes No skin issues: Yes No neurologic issues: Yes No mental health issues: Yes No blood/lymph issues: Yes Menses change or abnormal: Yes OBJECTIVE VITAL SIGNS BMI Readings from Last 1 Encounters: 09/10/18 20.55 kg/m?? Blood Type: A+ per patient report Screening: PHQ9 Score 09/25/2020 PHQ-9 Total Score (max 27) 1 CHERIE-7 Total Score (max 21): 2 (09/25/2020 7:36 AM) Depression and anxiety screening were completed and reviewed at the visit today. Patient was given resources for anxiety and depression, and offered referral as clinically indicated. ASSESSMENT / PLAN Assessment #1 Counseling Preconception #2 Oligoovulation 29 y.o. with irregular menstrual cycles and a history of 1 year of infertility. We reviewed that infertility is defined as the inability to achieve after one year of regular, unprotected intercourse, but that evaluation may be initiated sooner in patients who have risk factors for infertility or if the female partner is older than 35 years. I explained that causes of infertility include male factors, ovulatory dysfunction, uterine abnormalities, and tubal obstruction. Likely, the biggest issue appears to be oligoovulation leading to irregular menstrual cycles. Guerrero has had normal ovarian reserve testing with normal FSH/E2 and elevated AMH as well as normal TSH and Prolactin studies. We reviewed other common causes of oligoovulation including intense exercise and PCOS. We discussed a healthy/moderate amount of exercise, healthy diet, and normal BMI. We reviewed theRotterdam criteria used to make the diagnosis of Polycystic Ovary Syndrome including needing two of the following three: (1) oligoovulation; (2) clinical evidence and/or laboratory evidence of hyperandrogenism; and (3) polycystic appearing ovaries. Based on this, the patient may meet criteria for PCOS. Additional testing for PCOS includes: diagnostic ultrasound for assessment of polycystic ovarian morphology. If +PCOS, would need additional work-up with DHEA-S. We briefly reviewed the diagnosis of PCOS as well as the retirement health implications, including the increased risk of type 2 diabetes, obesity, hypertension, and heart disease. Lack of ovulation can expose the uterus to continuous high levels of estrogen, increasing the risk of abnormal uterine bleeding and endometrial cancer. We discussed that this will be a long-term issue whether her oligoovulation is caused by PCOS or not. I recommended that if she skips 2-3 menstrual cycles she should take Provera to induce a withdrawal bleed. We reviewed options for treatment of anovulation oral ovulation induction medications including clomid and letrozole. We discussed that Pavan should undergo evaluation with a semen analysis. This was ordered today. Evaluation of the uterus and fallopian tubes can be performed by tubal patency study and pelvic ultrasound. We will proceed with evaluation of the uterus via diagnostic ultrasound. Guerrero does not have risk factors for tubal obstruction so we will hold off on this testing unless the couple is unsuccessful after induction of regular, timed ovulation. Preconception issues relevant to infertility patients were discussed including the importance of documenting rubella immunity and a normal TSH, and the use of folic acid supplementation. The adverse effects of smoking, an abnormal body mass index, and stress on fertility were also reviewed as well as current information regarding the retirement risks of fertility drugs and divisional guidelines regarding fertility treatment in the setting of medically complicated obesity. Guerrero is already taking a vitamin and additional vitamin D supplementation. We discussed the option of genetic carrier screening which provides a better understanding of the likelihood and potential impact of inherited genetic disorders on future offspring. We reviewed that traditionally, it has been used with at-risk populations based on ethnicity, focusing on only one or two of the most likely disorders. Today, advances in NGS have led to expanded carrier screening, makingit easier to screen for a greater number of disorders. I explained that the ideal time to do carrierscreening is preconception, as this allows for more options. We also reviewed the implications of negative and positive expanded carrier screening result. Guerrero will consider whether they wish to meet with the genetic counselors for further discussion and testing. We reviewed how to test for +LH surge with digital OPKs. I recommended she reach out to us with a positive home test for early monitoring. All other questions at this point were answered. Plan 1. Diagnostic ultrasound for uterine assessment as well as assessment for PCOM on cycle days 3-12. Call us/portal message us with 1st day of bleeding to schedule. If no period by cycle day 40, message us to set up progesterone/ testing followed by Provera 10mg x 10 days to induce a period 2. Semen analysis for Pavan 3. Return visit to review the results, discuss additional testing if needed, and treatment 4. Consider genetic counseling 5. Continue testing for surge with digital OPKs between cycle day 10-26. [place] on the day of surge plus 1-2 days after 6. Call with + test for early monitoring with beta hcg 7. Consider tubal evaluation if not after successful ovulation induction I personally spent over half of a total 40 minutes face to face with the patient in counseling and discussion and/or coordination of care as described above. Leighann Patel M.D. documented in this encounter Plan of Treatment Scheduled Referrals Name Type Priority Associated Order Schedule Diagnoses Obstetrics and Outpatient Referral Routine Expect ed: Gynecology office 09/25/2020 visit (clinic) (Approximate) , Expires: 09/26/2023 documented as of this encounter Results US [facility] Pelvic Diagnostic and Antral Follicle Count (10/02/2020 3:06 PM CDT) Anatomical Region Laterality Modality Ultrasound OB [facility] LOS, Ultrasound [facility] Ultrasound Specimen (Source) Anatomical Location Collection Method / Collectio n Time Received Time / Laterality Volume Narrative 10/02/2020 4:57 PM CDT GUERRERO CANADA Pelvic Ultrasound Exam, 10/02/2020 EXAM INFORMATION Patient Name: ??GUERRERO CANADA : ??1990 Age: ??29 yrs Sex: ??Female Ref Phys: ??LEIGHANN PATEL Exam Date: 10/02/2020 Procedure: [facility] PELVIC - DIAGNOSTIC AND A NTRAL FOLLICLE COUNT Exam Site: [facility] #1 History: ?? afc/diagnosticcd 4 IMPRESSION: Normal uterus and ovaries. Total AFC= 40 FINDINGS: Uterus ------ The uterus appears normal and measures 4 .26 cm x 4.48 cm x 4.87 cm with a volume of 48.67 cm3. Endometrium The endometrium measures 6.73 mm in [facility]. Right Ovary The right ovary appear normal [...] by Marybel Wellington on 10/02/2020 2:47:17 PM. Business Education Instructor: ??Marybel ?Josue Thank You For This Referral Procedure Note Reina Carlson M.D. - 10/02/2020F ormatting of this note might be different from the original. GUERRERO [place]NADA Pelvic Ultrasound Exam, 10/02/2020 EXAM INFORMATION Patient Name: GUERRERO CANADA : 1990 Age: 29 yrs Sex: Female Ref Phys: LEIGHANN PATEL Exam Date: 10/02/2020 Procedure: [facility] PELVIC - DIAGNOSTIC AND A NTRAL FOLLICLE COUNT Exam Site: [facility] #1 History: afc/diagnosticcd 4 IMPRESSION: Normal uterus and ovaries. Total AFC= 40 FINDINGS: Uterus ------ The uterus appears normal and measures 4 .26 cm x 4.48 cm x 4.87 cm with a volume of 48.67 cm3. Endometrium The endometrium measures 6.73 mm in [facility]. Right Ovary The right ovary appear normal [...] by Marybel Be on 10/02/2020 2:47:17 PM. Business Education Instructor: Marybel Be Thank You For This Referral Leighann Patel M.D. IMG OB US PROCEDURES documented in this encounter Visit Diagnoses Diagnosis Counseling Preconception - Primary Oligoovulation Counseling Preconception documented in this encounter Additional Health Concerns Assessment Noted Time PHQ-9 Depression Total Score: 1 09/25/2020 7:35 AM CDT documented as of this encounter Care Teams Forging Die Sinker Relationship Specialty Start Date End Date Leidy Sauceda APRN, C.N.P., M.S. PCP - General Family Medicine 04/10/15 [address] [place] [address] documented as of this encounter
--- OUTSIDE RECORDS SUMMARY | 2022-01-06 11:09 | XMS_ITS | Encounter Summary ---
:1990 Author Organization [facility] Address [address] [place] [address] Care Team Providers Name Role Phone Leidy Sauceda APRN, C.N.P., M.S. Primary Care Provider [phone] Reason for Visit Reason Comments Annual Exam Encounter Details Date Type Department Care Team Description 09/08/2017 Comprehensive Visit Department of Leidy Lr, General Medical Medicine, [place] DALTON.N.PAilin, Examination Adult [facility] M.S. (Primary Dx) [facility], in [address] [place], [place] [address] [address] [place] [phone] [place], [place] (Work) [phone] Social History Tobacco Use Types Packs/Day Years [...] or relatives? How often do you attend jainism or More than 4 times per year 05/08/2021 orthodoxy services? Do you belong to any clubs or Yes 05/08/2021 organizations such as jainism groups, unions, fraternal or athletic groups, or [...] place to sleep or slept in a half-way (including now)? Sex Assigned at Date Recorded Female 09/07/2017 4:11 PM CDT documented as of this encounter Last Filed Vital Signs Vital Sign Reading Time Taken Comments Blood Pressure - - Pulse - - Temperature - - Respiratory Rate - - Oxygen Saturation - - Inhaled Oxygen Concentration - - Weight 52.3 kg (115 lb 4.8 oz) 09/08/2017 7:59 AM CDT Height 165 cm (5' 4.96) 09/08/2017 7:59 AM CDT Body Mass Index 19.21 09/08/2017 7:59 AM CDT documented in this encounter H&P Notes Leidy Sauceda APRN C.N.P., M.S. - 09/08/2017 8:00 AM CDT General Medical Examination Chief Complaint: Annual Exam History of present illness: Vin Knapp is a 26 y.o. 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 Her current FTE 0.8 the combination of 8 and 12 hr shifts date evening rotation. She is engaged to be this fall, her fiance works as an lawnmower repair mechanic. She does wish to discuss control methods during today's visit. Will proceed with oral control pills, discussed continuous use with 4menstrual cycles per year. Patient is very active and enjoys pedal bike, tennis, running, hiking. Discussed mosquito antic prevention. Patient has multiple nevus none with recent changes, will continueto monitor have provided melanoma refrigerator car during today's visit. Problem Nevus Face The following portions of the patient's history were reviewed and updated as appropriate: allergies,current medications, family history, medical history, social history, surgical history and problem list. Review of Systems: Allergic/immunologic, constitutional, psychiatric, eyes, ears, nose, mouth, throat, cardiovascular, respiratory, hematologic/lymphatic, gastrointestinal, genitourinary, musculoskeletal, integumentary/skin/breast, neurologic, endocrine comprehensive review of systems done and otherwise negative except as noted above. Past Medical History: History reviewed. No pertinent past medical history. Social History: reports that she has never smoked. She has never used smokeless tobacco. She reports that she drinks alcohol. She reports that she does not use drugs. Family History: family history includes Cardiac pacemaker (age of onset: 70) in her maternal grandfather; Dementia (age of onset: 70) in her paternal grandmother; Healthy adult in her father and sister; Heart attack (age of onset: 70) in her maternal grandfather; Heart valve replacement in her uncle; Hypertension in her maternal grandmother and mother; Pancreatic cancer (age of onset: 40) in her aunt; Parkinson disease (age of onset: 70) in her paternal grandfather; Skin cancer in her paternal grandfather; Stroke (age of onset: 70) in her paternal grandfather. Allergies: No Known Allergies Medications: Current Outpatient Prescriptions on File Prior to Visit Medication Sig Dispense Refill ??? MULTIVITAMIN ORAL Take 1 tablet by mouth daily. wooju ??? [DISCONTINUED] HYDROcodone-acetaminophen (for_NORCO) 5-325 mg per tablet Take 1 tablet by mouth every 4 (four) hours as needed. pain No current facility-administered medications on file prior to visit. Physical Examination: There were no vitals filed for this visit. Ht 165 cm Wt 52.3 kg BMI 19.21 kg/m?? General: Neatly groomed dressed appropriately for season. Head: Atraumatic, normocephalic. Skin: Warm, dry, intact, multiple nevus noted none worrisome. Eyes: Pupils equal round reactive light and accommodation, sclera without icterus or injection. ENT: Examined and normal. Neck: Supple without lymphadenopathy. Heart: S1-S2, regular rate and rhythm, without rub gallop or murmur. Lungs: Clear to auscultation all lobes. Abdomen: Flat, soft, without pain, negative hepatosplenomegaly, active bowel sounds x4 quadrants. Mental: Alert and oriented, answers questions appropriately. Lower extremities: Without cyanosis, clubbing, or edema. Neuro: Deep tendon reflexes brisk and symmetric bilaterally. Impression report plan: #1 General Medical Examination Adult Other orders - drospirenone-ethinyl estradiol (TRACEY, 28,) 3-0.02 mg per tablet; Take 1 tablet by mouth daily., Starting Thu09/08/2017, Until Thu09/08/2018, Normal Satisfactory general medical exam to establish care with me today. Will proceed with oral control monophasic tablet have instructed patient in continuous use, with menstrual cycles 4 times per year. She is to contact the clinic should she have any issues or concerns with this. She reports her sisters had difficulty with nausea with oral control pills, however her mother took them withoutdifficulty. She is due for Pap smear testing today, she does wish to defer this secondary to her menstrual cycle will repeat with general medical evaluation next year. Patient education: Ready to learn, no apparent learning barriers were identified; learning preferences include listening. Explained diagnosis and treatment plan; patient/child/caregiver expressed understanding of the content. Answers for HPI/ROS submitted by the patient on 09/07/2017 No general issues: Yes No eye issues: Yes No ENT issues: Yes No heart issues: Yes No respiratory issues: Yes No GI issues: Yes No muscle/bone issues: Yes No skin issues: Yes No neurologic issues: Yes No mental health issues: Yes No blood/lymph issues: Yes No urinary/reproductive issues: Yes documented in this encounter Plan of Treatment Not on filedocumented as of this encounter Visit Diagnoses Diagnosis General Medical Examination Adult - Prim kinjal documented in this encounter Care Teams Marketing Clerk Relationship Specialty Start Date End Date Leidy Sauceda APRN, C.N.P., M.S. PCP - General Family Medicine 04/10/15 [address] [place] [address] documented as of this encounter
--- OUTSIDE RECORDS SUMMARY | 2022-01-06 11:09 | XMS_ITS | Encounter Summary ---
:1990 Author Organization [facility] Address [address] [place] [address] Care Team Providers Name Role Phone Leidy Sauceda APRN C.N.P., M.S. Primary Care Provider Encounter Details Date Type Department Care Team Description 08/05/2017 Abstract DATA ABSTRACTION Provider, Historical Social History Tobacco Use Types Packs/Day Years Used Date Smoking Tobacco: Never Alcohol Habits Answer Date Recorded How often do you have a drink containing alcohol? Monthly or less 05/08/2021 How many drinks containing alcohol do you have on a 1 or 2 05/08/2021 typical day when you are drinking? How often do you have six or more drinks on one Never 05/08/2021 occasion? Comment: Not asked Social Isolation Answer Date Recorded In a typical week, how many times do you More than three orion es a week 05/08/2021 talk on the phone with family, friends, or neighbors? How often do you get together with friends Once a week 05/08/2021 or relatives? How often do you attend buddhism or More than 4 times per year 05/08/2021 yarsanism services? Do you belong to any clubs or Yes 05/08/2021 organizations such as buddhism groups, unions, fraternal or athletic groups, or [...] on filedocumented in this encounter Care Teams Diesel Fitter Mechanic Relationship Specialty Start Date End Date Leidy Sauceda APRN, C.N.P., M.S. PCP - General Family Medicine 04/10/15 [address] [place] [address] documented as of this encounter
--- OUTSIDE RECORDS SUMMARY | 2022-01-06 11:09 | XMS_ITS | Encounter Summary ---
:1990 Author Organization [facility] Address [address] [place] [address] Care Team Providers Name Role Phone Leidy Sauceda APRN, C.NFantasma, M.S. Primary Care Provider [phone] Reason for Visit Reason Onset Date Comments Outpatient COVID-19 Testing 10/25/2019 Encounter Details Date Type Department Care Team Description 10/25/2019 External Outreach Department of Sharee Waters, P.AGabrielC. [address] [place] [address] Encounter For Family Medicine, Employer Based, Covid Serology Testing Screening For Other [facility], in [place], [place] (COVID-19) (Primary [address] [facility] [place]x) [place] [address] Social History Tobacco Use Types Packs/Day Years [...] or relatives? How often do you attend druze or More than 4 times per year 05/08/2021 gnosticism services? Do you belong to any clubs or Yes 05/08/2021 organizations such as druze groups, unions, fraternal or athletic groups, or [...] or slept in a retirement (including now)? Sex Assigned at Date Recorded Female 09/07/2017 4:11 PM CDT documented as of this encounter Progress Notes Jaleesa Mcneil L.P.N. - 10/25/2019 10:31 AM CDT Encounter created for COVID-19 screening. documented in this encounter Plan of Treatment Not on filedocumented as of this encounter Procedures Procedure Name Priority Date/Time Associated Diagnosis Comme nts SARS-COV-2 IGG, Routine 10/25/2019 10:33 AM Encounter For Resu lts for this CORBY, EMP SCRN, CDT Screening For Other proc edure are in BLOOD SPOT Viral Diseases the results (COVID-19) section. documented in this encounter Results SARS-CoV-2 IgG, CORBY, Emp Scrn, Blood Spot (10/25/2019 10:33 AM CDT) P athologist Signature SARS-CoV-2 IgG Negative Negative 10/26/2019 [facility] Emp Scrn, Ab 10:26 PM CDT Comment: No IgG antibodies to SARS-CoV-2 detected . ?? Negative results may occur if the test i s done too soon following infection, or in immunosuppres sed patients. ?? This test does not rule out active or re cent COVID-19. ?? Testing was performed using the [employer] N [id number] CORBY (IgG). ??This test has received Emergency Use Authorization (EUA) by the U.S. Food and Drug Administration and is used per television and radio repairer's instructions, but it is modified from the television and radio repairer's instructions wit h a bridging study to include dried blood spot specimens. ? ? Performance characteristics were verifie d by [facility] in a manner consistent with CLIA require ments. Performance characteristics were verifie d by [facility] in a manner consistent with CLIA require ments. ?? Specimen Anatomical Collection Method Collection Time Receive d Time (Source) Location / / Volume Laterality Blood (Blood, 10/25/2019 10:33 10/26/2019 5:59 Venous) AM CDT PM CDT Covid Serology Testing Employer Based LAB MICROBIOLOGY - BLOOD ORDERABLES Performing Organization Address City/State/ZIP Code Phon e Number [facility] [address] [place], [place] [address] [facility] [place] [address] Laboratory Medicine and Pathology [address] [place] documented in this encounter Visit Diagnoses Diagnosis Encounter For Screening For Other Viral Diseases (COVID-19) - Primary documented in this encounter Care Teams Regulation Supervisor Relationship Specialty Start Date End Date Leidy Sauceda APRN, C.N.P., M.S. PCP - General Family Medicine 04/10/[address] [place] [id number] documented as of this encounter
--- OUTSIDE RECORDS SUMMARY | 2022-01-06 11:09 | XMS_ITS | Encounter Summary ---
:1990 Author Organization [facility] Address [address] [place] [address] Care Team Providers Name Role Phone Leidy Sauceda APRN, C.N.PAilin, M.S. Primary Care Provider Reason for Visit Reason Comments Annual Exam Appointment Request (Routine) - Closed Specialty Diagnoses / Procedures Referred By Contact Refer red To Contact Family Medicine Referral ID Status Reason Start Date Expiration Date Visits Requ ested Visits Authorized [id number] Closed 06/28/2018 06/28/2019 1 1 Encounter Details Date Type Department Care Team Description 09/10/2018 Comprehensive Visit Department of Leidy Sauceda ar Examination (Primary Dx); Family MedicineJacinta APRN, Gastroesoph ageal Reflux Disease [facility] C.N.P., M.S. [facility], in [address] [facility], [facility] [place] [place] [address] [place], [place] [phone] [address] (Work) [phone] Social History Tobacco Use Types Packs/Day Years [...] 05/08/2021 organizations such as mormonism groups, unions, [employer] or athletic groups, or school groups? How [...] PM CDT Temperature - - Respiratory Rate - - Oxygen Saturation - - Inhaled Oxygen Concentration - - Weight 54.6 kg (120 lb 5.9 oz) 09/10/2018 12:53 PM CDT Height 163 cm (5' 4.17) 09/10/2018 12:53 PM CDT Body Mass Index 20.55 09/10/2018 12:53 PM CDT documented in this encounter H&P Notes Leidy Sauceda, SHA, C.N.P., M.S. - 09/10/2018 1:00 PM CDT SUBJECTIVE CHIEF COMPLAINT/REASON FOR VISIT General medical evaluation Pap smear evaluation HISTORY OF PRESENT ILLNESS Vin Canada is a 27 y.o. female, primary care patient mine, who presents today for general medical evaluation. She has no specific concerns, and enjoys high degree of health. Lives with her in [facility] on the [place]. They are both beginning kayak enthusiasts. She reports always wearing her life jacket while on her kayak. 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 Oral control medication, Tita being utilized for family planning. This is patient's 1st Pap smear evaluation. She has 1 lifetime partner, no concerns for STIscreening, no abnormal vaginal discharge, no abnormal periods. Patient reports some dyspepsia, strong family history for same. She reports dentist's has remarked on last to teeth with evidence of erosion. Have discussed elevation of head of bed during sleep, conservative care measures, and Zantac medication 150 mg at bedtime daily. Should patient not have complete resolution of symptoms she will contact the clinic at which time we will proceed with EGD evaluation. The following portions of the patient's history were reviewed and updated as appropriate: allergies,current medications, family history, medical history, social history, surgical history and problem list. REVIEW OF SYSTEMS Gastrointestinal: Positive for diarrhea and heartburn. Neurological: Positive for headaches. The following systems were negative: Constitutional, Skin, Eyes, ENT, CV, Respiratory, , Hematologic, Musculoskeletal, Psych OBJECTIVE VITAL SIGNS Vitals: 09/10/18 1253 BP: 107/70 Pulse: 81 PHYSICAL EXAMINATION General: Neatly groomed dressed appropriately for season. Head: Atraumatic normal cephalic, age appropriate fontanels. Skin: Warm, dry, intact with good turgor, without rashes. Eyes: Pupils equal round reactive to light accommodation sclerae without icterus or injection, EOM intact without nystagmus. ENT: Auditory canals without debris, tympanic membranes clear with prominent landmarks, cone of light present, nasal mucosa pink moist, oral mucosa pink and moist, posterior pharynx unremarkable. Neck: Supple without lymphadenopathy. Heart: S1, S2, regular rate and rhythm, without rubs, gallop, or murmur. Lungs: Clear to auscultation all lobes, without wheezing or focal consolidate. Abdomen: Soft, flat, nontender, without hepatosplenomegaly, negative CV tenderness. Lower extremities: Without cyanosis, clubbing, or edema. Neuro: Deep tendon reflexes brisk and symmetric, cranial nerves II-XII intact. Romberg negative. Mental: Alert and oriented answers questions appropriately. Genitalia: Labia majora labia minora without worrisome lesions, vaginal introitus without discharge,speculum exam reveals healthy vaginal rugae, bimanual exam negative. Breasts: Deferred ASSESSMENT / PLAN #1 Pap Smear Examination - ThinPrep Screen HPV Reflex #2 Gastroesophageal Reflux Disease Other orders - drospirenone-ethinyl estradiol (TITA, 28,) 3-0.02 mg per tablet; Take 1 tablet by mouth daily., Starting Thu09/10/2018, Until 09/10/2019, Normal PLAN: Will contact patient via patient portal with test results and next steps plan of care concerning herPap smear testing. Have renewed yet as medication for an additional year. Have encouraged patient touse [id number] Zantac 150 mg daily at bedtime to help with symptoms GERD. PATIENT EDUCATION: Ready to learn, no apparent learning barriers were identified; learning preferences include listening. Explained diagnosis and treatment plan; patient/child/caregiver expressed understanding of the content. documented in this encounter Plan of Treatment Not on filedocumented as of this encounter Procedures Procedure Name Priority Date/Time Associated Diagnosis Comme nts PHYSICIAN INTERP Routine 09/10/2018 1:20 PM Resul ts for this SCREEN CDT procedure are i n the results section. THINPREP SCREEN HPV Routine 09/10/2018 1:20 PM Pap Smear Re sults for this REFLEX CDT Examination procedure are i n the results section. HPV WITH Routine 09/10/2018 1:20 PM Results f or this GENOTYPING, PCR, CDT procedure a re in THINPREP the results section. documented in this encounter Results Physician Interp Screen (09/10/2018 1:20 PM CDT) Analysis Performed At Patho logist Time Signature PHYSICIAN Performed DEFAULT 09/16/2018 [facility] INTERP SCREEN 11:16 AM CDT LABORATORIES - [facility] Specimen Anatomical Collection Method Collection Time Receive d Time (Source) Location / / Volume Laterality Varies 09/10/2018 1:20 PM 9 4:57 CDT PM CDT Leidy Sauceda APRN C.N.P., M.S. LAB SURG PATH ORDERABLE S Performing Organization Address City/[facility] Code Phon e Number [facility] LAB[facility]ATORIES - [address] [place] [phone] [facility] HPV with Genotyping, PCR, ThinPrep (09/10/2018 1:20 PM CDT) [facility] [employer] Method Time Signature Specimen CERVIX/ENDOC 09/17/2018 [facility] Source ERVIX 5:18 PM CDT LABORATORIES - [facility] HPV High Risk Negative Negative 09/17/2018 [facility] type 16, PCR 5:18 PM CDT LABORATORIES - [facility] HPV High Risk Negative Negative 09/17/2018 [facility] type 18, PCR 5:18 PM CDT LABORATORIES - [facility] HPV other Negative Negative 09/17/2018 [facility] High Risk 5:18 PM CDT LABORATORIES - types, PCR [facility] Comment: The following Other High Risk HPV types were not detected: 31, 33, 35, 39, 45, 51, 52, 56, 58, 59, 66, and 68 This test was ordered in the context of a [facility] SECURITY SERGEANT Cytology case; this result should be int erpreted within the context of the SECURITY SERGEANT cytology report. Specimen Anatomical Collection Method Collection Time Receive d Time (Source) Location / / Volume Laterality Varies 09/10/2018 1:20 PM 9 4:57 CDT PM CDT Mamta Wiggins APRNNKobe., M.S. LAB MICROBIOLOGY - GENE [facility] ORDERABLES Performing Organization Address [facility] Phon e Number [facility]ORATORIES - [address] [place] [phone] [facility] (ABNORMAL) ThinPrep Screen HPV Reflex (09/10/2018 1:20 PM CDT) Component Value Ref Test Analysis Performed At [facility] [employer] Range Method Time Signature (A) 09/21/2018 [facility] 11:53 AM LABORATORIES - CDT [facility] Participated in Gretel Eldridge, 09/21/2018 [facility] the SULEMA, 11:53 AM LABORATORIES - Interpretation B.Ch.-Pathology CDT [facility] (A) CAMPUS Report Luma Rosales M.D. 09/21/2018 [facility] electronically Cytology performed by: Latonya Sahni M.D. 11:53 AM LABORATORIES - signed by HPV results released by: Luma Rosales M.D. CDT [facility] I verify that I have examined all relevant slides/materials CAMPUS for the specimen(s) and rendered or confirmed the diagnosis. (A) Gross Description Received 09/21/2018 [facility] specimen in a 11:53 AM LABORATORIES - ThinPrep vial. CDT [facility] (A) CAMPUS Pap Test Source Cervical/Endoce 09/21/2018 [facility] rvical (A) 11:53 AM LABORATORIES - CDT [facility] Hormone None/Not known 09/21/2018 [facility] Therapy/Contracep (A) 11:53 AM LABORATORIES - tives T [facility] Interpretation Cervical/Endocervical ??(ThinPrep): 09/21/2018 [facility] Satisfactory for Evaluation 11:53 AM [place] BORATORIES - Epithelial Cell Abnormality CDT [facility] Atypical squamous cells of undetermined significance CAMPUS ??High Risk HPV testing results are NEGATIVE. See specific genotype results below. HPV with Genotyping, PCR, ThinPrep: ??HPV High Risk Type 16, PCR: ??NEGATIVE ??HPV High Risk Type 18, PCR: ??NEGATIVE ??HPV other High Risk types, PCR: ??NEGATIVE Other High Risk HPV types include: 31, 33, 35, 39, 45, 51, 52, 56, 58, 59, 66, and 68. (A) Specimen Anatomical Collection Method Collection Time Receive d Time (Source) Location / / Volume Laterality Varies 09/10/2018 1:20 PM 9 4:57 (Cervix/Endocerv CDT PM CDT ix) Narrative This result has an attachment that is no t available. Leidy Sauceda APRN, C.N.P., M.S. LAB PAP PATHDX ORDERABL ES Performing Organization Address City/State/ZIP Code Phon e Number [facility]ATORIES - [address] [place], [place] [address] [facility] documented in this encounter Visit Diagnoses Diagnosis Pap Smear Examination - Primary Gastroesophageal Reflux Disease documented in this encounter Care Teams Welding Machine Operator Electroslag Relationship Specialty Start Date End Date Leidy Sauceda APRN, C.N.P., M.S. PCP - General Family Medicine 04/10/[address] [place] [address] documented as of this encounter
--- OUTSIDE RECORDS SUMMARY | 2022-01-06 11:09 | XMS_ITS | Encounter Summary ---
:1990 Author Organization [facility] Address [address] [place] [address] Care Team Providers Name Role Phone Leidy Sauceda APRN, C.N.P., M.S. Primary Care Provider [phone] Reason for Visit Reason Comments Med Refill Encounter Details Date Type Department Care Team Description 05/25/2019 Refill Department of Family Medicine, Leidy Sauceda APRN, Med Refill [facility] Mamta Arreguin N.P., M.S. in [facility] umberto [address] [facility] [address] [place] [address] [place], [place] [address] [phone] Social History Tobacco Use Types Packs/Day Years [...] or relatives? How often do you attend mandaeism or More than 4 times per year 05/08/2021 christian services? Do you belong to any clubs or Yes 05/08/2021 organizations such as mandaeism groups, unions, fraternal or athletic groups, or [...] place to sleep or slept in a prison (including now)? Sex Assigned at Date Recorded Female 09/07/2017 4:11 PM CDT documented as of this encounter Plan of Treatment Not on filedocumented as of this encounter Visit Diagnoses Not on filedocumented in this encounter Care Teams Creative Engagement Director Relationship Specialty Start Date End Date Leidy Sauceda APRN, C.N.P., M.S. PCP - General Family Medicine 04/10/15 [address] [place] [address] documented as of this encounter
[2022-01-07 13:47] LABS: Strep B DNA Probe NEGATIVE (Negative)
== END 2022-01-06 11:05 | disposition home or self-care (01) ==
LOC: NFLDREF 11:05
PROVIDERS: Visit Provider Advanced Practice Midwife
DX: Z34.93 Encounter for supervision of normal pregnancy, unspecified, third trimester (principal); Z3A.36 36 weeks gestation of pregnancy
CPT/HCPCS: 87081; 87653

== ENCOUNTER 2022-02-01 02:40 | Inpatient (IN) | payer OTHER, SELFPAY ==
[2022-02-01] VITALS (41 sets, daily range): BP systolic 92–132; BP diastolic 54–91; PULSE 62–132; RESP 14–18; TEMP 36.4–37.1; O2SAT 94–100; BMI 25.6
--- OUTSIDE RECORDS SUMMARY | 2022-02-01 01:59 | XMS_ITS | Clinical Summary ---
:1990 Author Organization [facility] Address [address] [place] [address] Care Team Providers Name Role Phone Leidy Sauceda APRN, C.N.P., M.S. Primary Care Provider [phone] Source Comments Patient records contain information from all sites at [facility]. For routine questions regarding patient records, call [phone] during business hours, M-F 8:00 AM - 5:00 PM Central Time. Record requests for emergency care only can be directed to [phone] at any time.[facility] Allergies No known active allergies Medications Medication Sig Dispensed Refills Start Date End Date Status vitamin-iron 0 Active fumarate-FA 28 mg iron- 800 mcg tablet UNABLE TO FIND Vitex 0 06/29/2020 Acti ve cholecalciferol, vitamin 0 02/26/2020 Active D3, (Vitamin D3) 10 mcg (400 unit) capsule choriogonadotropin Inject 0.5 mL 0.5 mL 0 03/24/2021 Active (OVIDREL) 250 mcg/0.5 mL (0.25 mg total) syringe injection under the skin as needed (Administer when directed by SALOME team). Additional Information Patient not taking. Reported on 05/08/2021 letrozole (FEMARA) 2.5 TAKE 1 TABLET BY 5 tablet 0 03/23/2021 03/23/2022 Active mg tablet MOUTH DAILY Additional Information Patient not taking. Reported on 05/08/2021 Active Problems Problem Noted Date Endometriosis 11/05/2020 Overview: Stage 1-2, Status post fulguration Polycystic Ovary Syndrome 11/05/2020 Gastroesophageal Reflux Disease 09/10/2018 Nevus Face 09/08/2017 Comments Yes Encounters Date Type Specialty Care Team Description 12/13/2021 Orders Only Leidy Sauceda, SHA, C.N.P., M.S. from Last 3 Months Immunizations [...] or relatives? How often do you attend episcopalian or More than 4 times per year 05/08/2021 sabianist services? Do you belong to any clubs or Yes 05/08/2021 organizations such as episcopalian groups, unions, fraternal or athletic groups, or [...] place to sleep or slept in a snf (including now)? Education Answer Date Recorded What [...] 16 06/18/2016 12:02 Vital sign result PM IRONING WORKER from Clinical No gabe. Oxygen Saturation - [...] Phone Address Typ e / Group Dates [facility] [id number] 2020[facility] [phone] [address] [employer] EM[employer] [address] [address] (Home) [address] [phone] [facility] ([place]) [place] [address] Care Teams Traveling Construction Superintendent Relationship Specialty Start Date End Date Leidy Sauceda, SHA, C.N.P., M.S. PCP - General Family Medicine 04/10/15 [address] [place] [address]
--- OUTSIDE RECORDS SUMMARY | 2022-02-01 01:59 | XMS_ITS | Encounter Summary ---
:1990 Author Organization [facility] Address [address] [place] [address] Care Team Providers Name Role Phone Leidy Sauceda APRN, C.NKobe., M.S. Primary Care Provider [phone] Encounter Details Date Type Department Care Team Description 05/24/2021 Orders Only Department of Carlotta Araujo Examination Obstetrics and N, R.N. Unconfirmed Result Gynecology in [address] [facility] (Primary Dx) [place], [place] [address] [facility] [address] [place], [place] [phone] [address] (Work) [phone] Social History Tobacco Use Types Packs/Day Years [...] More than 4 times per year 05/08/2021 rastafarian services? Do you belong to any clubs [...] as of this encounter Care Teams Water Hydrant Installer Relationship Specialty Start Date End Date Leidy Sauceda APRN, C.N.P., M.S. PCP - General Family Medicine 04/10/15 [address] [place] [address] documented as of this encounter
--- OUTSIDE RECORDS SUMMARY | 2022-02-01 01:59 | XMS_ITS | Encounter Summary ---
:1990 Author Organization [facility] Address [address] [place] [address] Care Team Providers Name Role Phone Leidy Sauceda APRN, C.NKobe., M.S. Primary Care Provider Encounter Details Date Type Department Care Team Description 05/22/2021 Hospital Encounter Department of Charli Nunez Am enorrhea Laboratory Medicine in [place] Workman M.D. [facility] potato chip cooker machine [address] [place] [address] [phone] Social History Tobacco Use Types Packs/Day Years [...] by SALOME team). letrozole (FEMARA) 2.5 mg TAKE 1 TABLET BY 5 tablet 0 02/2603/23/2022 tablet MOUTH DAILY vitamin-iron 0 fumarate-FA 28 mg iron- 800 mcg tablet UNABLE TO FIND Vitex 0 06/29/2020 documented as of this encounter Plan of Treatment Not on filedocumented as of this encounter Procedures Procedure Name Priority Date/Time Associated Comments Diagnosis HUMAN CHORIONIC Routine 05/22/2021 7:19 AM Amenorrhea Result s for this GONADOTROPIN (HCG), BLANKET BINDER procedur e are in MARIA R, the results section. documented in this encounter Results (ABNORMAL) hCG (Human Chorionic Gonadotropin), Quantitative, (05/22/2021 7:19 AM BLANKET BINDER) P athologist Signature HCG, 76 (H) <5 IU/L 05/22/2021 CNFL Quantitative, 7:59 AM BLANKET BINDER , P Comment: Biotin has been identified [...] Laterality Blood (Blood, 05/22/2021 7:19 AM 05/22/19 7:20 Venous) BLANKET BINDER AM BLANKET BINDER [place] Nunez M.D. LAB BLOOD ADD-ON Performing Organization Address City/State/[facility] Code Phon e Number [address] [address] [place] [address] System [address] documented in this encounter Visit Diagnoses Diagnosis Amenorrhea documented in this encounter Additional Health Concerns Assessment Noted Time PHQ-9 Depression Total Score: 1 09/25/2020 7:35 AM CDT documented as of this encounter Care Teams Automotive Parts Salesperson Relationship Specialty Start Date End Date Leidy Sauceda APRN, C.N.P., M.S. PCP - General Family Medicine 04/10/[address] [place] [address] documented as of this encounter
--- OUTSIDE RECORDS SUMMARY | 2022-02-01 01:59 | XMS_ITS | Encounter Summary ---
:1990 Author Organization [facility] Address [address] [place] [address] Care Team Providers Name Role Phone Leidy Sauceda APRN, C.NFantasma, M.S. Primary Care Provider Reason for Referral Outpatient (Routine) - Authorized Specialty Diagnoses / Procedures Referred By Contact Refer red To Contact Family Medicine Leidy Sauceda APRN [facility] Lopez, M.S. [address] [place] [phone] Referral ID Status Reason Start Date Expiration Date Visits V isits Requested Authorized [id number] Authorized 12/13/2021 12/12/2024 1 1 Encounter Details Date Type Department Care Team Description 12/13/2021 Orders Only RST PCP [facility] MNT Leidy Sauceda A PRN, C.N.P., M.S. [address] [place] [phone] (Wo rk) Social History Tobacco [...] Name Type Priority Associated Diagnoses Order S [facility] Family Medicine Outpatient Referral Routine Expec arnulfo: office visit 12/27/2021, (clinic) Expires: 06/11/2022 documented as of this encounter Visit Diagnoses Not on filedocumented in this encounter Additional Health Concerns Assessment Noted Time PHQ-9 Depression Total Score: 1 09/25/2020 7:35 AM CDT documented as of this encounter Care Teams Middle School Baseball Coach Relationship Specialty Start Date End Date Leidy Sauceda APRN, C.N.P., M.S. PCP - General Family Medicine 04/10/[address] [place] [address] documented as of this encounter
--- OUTSIDE RECORDS SUMMARY | 2022-02-01 01:59 | XMS_ITS | Encounter Summary ---
:[address] [facility] Address [address] [place] [address] Care Team Providers Name Role Phone Leidy Sauceda APRN, C.NFantasma, M.S. Primary Care Provider [phone] Encounter Details Date Type Department Care Team Description 09/11/2021 Orders Only RST PCP [facility] Rakel Kaur M.D. [address] [place], [place] [phone] (Wo rk) Social History [...] documented as of this encounter Care Teams Pipe Organ Installer Relationship Specialty Start Date End Date Leidy Sauceda APRN, C.N.P., M.S. PCP - General Family Medicine 04/10/15 [address] [place] [address] documented as of this encounter
--- OUTSIDE RECORDS SUMMARY | 2022-02-01 02:00 | XMS_ITS | Encounter Summary ---
:1990 Author Organization [facility] Address [address] [place] [address] Care Team Providers Name Role Phone Leidy Sauceda APRN, C.NFantasma, M.S. Primary Care Provider Reason for Visit Reason Comments Patient Education Encounter Details Date Type Department Care Team Description 12/05/2020 Clinical Communication Department of Chana Ware ent Education Infusion Therapy in Corrina Gregory [place], [address] [place], [place] [address] [address] [place] [address] Social History Tobacco Use Types Packs/Day Years [...] More than 4 times per year 05/08/2021 temple services? Do you belong to any clubs [...] documented as of this encounter Care Teams Pre Sales Technical Consultant Relationship Specialty Start Date End Date Leidy Sauceda APRN, C.N.P., M.S. PCP - General Family Medicine 12/15/15 [address] [place] [address] documented as of this encounter
--- OUTSIDE RECORDS SUMMARY | 2022-02-01 02:00 | XMS_ITS | Encounter Summary ---
:1990 Author Organization [facility] Address [address] [place] [address] Care Team Providers Name Role Phone Leidy Sauceda APRN C.NKobe., M.S. Primary Care Provider [phone] Encounter Details Date Type Department Care Team Description 02/28/2021 Clinical Communication Department of Rakel Nelson Obstetrics and CMalcom, Ph.D. Gynecology in [address] [place], [place] [address] [facility] [address] [place], [place] [phone] (Work) [phone] Social History Tobacco Use Types Packs/Day Years [...] More than 4 times per year 05/08/2021 muslim services? Do you belong to any clubs [...] documented as of this encounter Care Teams Court Specialist Relationship Specialty Start Date End Date Leidy Sauceda APRN, C.N.P., M.S. PCP - General Family Medicine 04/10/15 [address] [place] [address] documented as of this encounter
--- OUTSIDE RECORDS SUMMARY | 2022-02-01 02:00 | XMS_ITS | Encounter Summary ---
:[address] [facility] Address [address] [place] [address] Care Team Providers Name Role Phone Leidy Sauceda APRN, C.N.P., M.S. Primary Care Provider [phone] Encounter Details Date Type Department Care Team Description 05/21/2021 Orders Only Department of Ami Vidal (Primary Obstetrics and M, R.N. Dx) Gynecology in [address] [place] [address] [place] [address] [place] [address] Social History Tobacco Use Types Packs/Day Years [...] (with reflex Antibody ID) (05/24/2021 7:28 AM INTERNAL AUDIT SENIOR MANAGER) [facility] gist Method Time Signature ABO Group A 05/24/2021 RDWG 1:56 PM INTERNAL AUDIT SENIOR MANAGER Rh Type POS 05/24/2021 RDWG 1:56 PM INTERNAL AUDIT SENIOR MANAGER Antibody Screen NEG 05/24/2021 RDWG 1:56 PM INTERNAL AUDIT SENIOR MANAGER Type & Screen 05/27/2021 05/24/2021 RDWG Expiration 23:59 1:56 PM INTERNAL AUDIT SENIOR MANAGER ELXM Eligible Y 05/24/2021 RDWG 1:56 PM INTERNAL AUDIT SENIOR MANAGER Specimen Anatomical Collection Method Collection Time Receive d Time (Source) Location / / Volume Laterality Blood (Blood, 05/24/2021 7:28 AM 05/24/19 7:31 Venous) INTERNAL AUDIT SENIOR MANAGER AM INTERNAL AUDIT SENIOR MANAGER Harmony Nunez M.D. LAB BLOOD BANK TEST OR DERABLES Performing Organization Address City/State/ZIP Code Phon e Number [facility]- [address]IM[address] [place] RDWG [facility] [address] System in [place] [address] (ABNORMAL) hCG (Human Chorionic Gonadotropin), Quantitative, (05/24/2021 7:28 AM INTERNAL AUDIT SENIOR MANAGER) athologist Signature HCG, 206 (H) <5 IU/L 05/24/2021 CNFL Quantitative, 8:02 AM INTERNAL AUDIT SENIOR MANAGER , P Comment: Biotin has been identified [...] (Blood, 05/24/2021 7:28 AM 05/24/19 7:31 Venous) INTERNAL AUDIT SENIOR MANAGER AM INTERNAL AUDIT SENIOR MANAGER Harmony Nunez M.D. LAB BLOOD ADD-ON Performing Organization Address City/State/ZIP Code Phon e Number [facility]- [address] [place] [address] [place] [address] (ABNORMAL) hCG (Human Chorionic Gonadotropin), Quantitative, (05/22/2021 7:19 AM INTERNAL AUDIT SENIOR MANAGER) athologist Signature HCG, 76 (H) <5 IU/L 05/22/2021 CNFL Quantitative, 7:59 AM INTERNAL AUDIT SENIOR MANAGER , P Comment: Biotin has been identified [...] 05/22/2021 7:19 AM 05/22/19 22 7:20 Venous) INTERNAL AUDIT SENIOR MANAGER AM INTERNAL AUDIT SENIOR MANAGER [place]ony M Charli Rauchfuss M.D. LAB BLOOD ADD-ON Performing Organization Address City/State/ZIP Code Phon e Number [facility]- [address] [place] [address] [place] [address] [place] [address] System in [address] documented in this encounter Visit Diagnoses Diagnosis Amenorrhea - Primary documented in this encounter Additional Health Concerns Assessment Noted Time PHQ-9 Depression Total Score: 1 09/25/2020 7:35 AM CDT documented as of this encounter Care Teams Specialty Transformer Assembler Relationship Specialty Start Date End Date Leidy Sauceda APRN, C.N.P., M.S. PCP - General Family Medicine 04/10/[address] [place] [address] documented as of this encounter
--- OUTSIDE RECORDS SUMMARY | 2022-02-01 02:00 | XMS_ITS | Encounter Summary ---
:1990 Author Organization [facility] Address [address] [place] [address] Care Team Providers Name Role Phone Leidy Sauceda APRN, C.N.P., M.S. Primary Care Provider [phone] Reason for Referral Outpatient (Routine) - Authorized Specialty Diagnoses / Procedures Referred By Contact Refer red To Contact Obstetrics and Diagnoses [facility] [place] Workman M.D. [address] [place] [address] Referral ID Status Reason Start Date Expiration Date Visits V isits Requested Authorized [id number] Authorized 03/23/2021 03/23/2022 1 1 edication Prior Authorization - Denied Specialty Diagnoses / Procedures Referred By Contact Refer red To Contact Harmony Chavez M.D. 200 [place] [address] Referral ID Status Reason Start Date Expiration Date Visits Requ ested Visits Authorized [id number] Denied 1 1 TAL COMPUTER SYSTEMS ANALYST Encounter Details Date Type Department Care Team Description 03/23/2021 Orders Only Department of Nancy Vicente Infertilit y Female Obstetrics and R.N. (Primary Dx) Gynecology in [address] [place], [place] [address] [facility] [address] [place] [address] Social History Tobacco Use Types Packs/Day Years [...] or relatives? How often do you attend holiness or More than 4 times per year 05/08/2021 alevism services? Do you belong to any clubs or Yes 05/08/2021 organizations such as holiness groups, unions, fraternal or athletic groups, or [...] - Follicle Tracking OI (04/01/2021 9:22 AM DIGITAL COMPUTER SYSTEMS ANALYST) Anatomical Region Laterality Modality Ultrasound OB RST LOS, Ultrasound ARZ LOS Ultrasound Specimen (Source) Anatomical Location Collection Method / Collectio n Time Received Time / Laterality Volume Narrative 04/01/2021 11:12 AM DIGITAL COMPUTER SYSTEMS ANALYST 9b Lt adx ff Harmony Nunez M.D. IMG OB US PROCEDURES documented in this encounter Visit Diagnoses Diagnosis Infertility Female - Primary Infertility Female documented in this encounter Additional Health Concerns Assessment Noted Time PHQ-9 Depression Total Score: 1 09/25/2020 7:35 AM CDT documented as of this encounter Care Teams Auxiliary Power Equipment Operator Relationship Specialty Start Date End Date Leidy Sauceda APRN, C.N.P., M.S. PCP - General Family Medicine 04/10/15 [address] [place] [address] documented as of this encounter
--- OUTSIDE RECORDS SUMMARY | 2022-02-01 02:00 | XMS_ITS | Encounter Summary ---
:1990 Author Organization [facility] Address [address] [place] [address] Care Team Providers Name Role Phone Leidy Sauceda APRN, C.N.P., M.S. Primary Care Provider [phone] Reason for Visit Reason Comments Proir Authorization Encounter Details Date Type Department Care Team Description 03/25/2021 Clinical Communication Department of Linden Billy Authorization Obstetrics and [place] [place] Gynecology in [address] [place] [address] [place] [phone] Social History Tobacco Use Types Packs/Day [...] or relatives? How often do you attend pentecostalism or More than 4 times per year 05/08/2021 adventism services? Do you belong to any clubs or Yes 05/08/2021 organizations such as pentecostalism groups, unions, fraternal or athletic groups, or [...] this as soon as possible. Thank you, [facility] Specialty Outpatient Pharmacy Prior Authorization Team If wishing to discuss this PA with the [facility] Specialty team, please send a communication within [employer]Pub to SPECIALTY EPA POOL and your inquiry will be reviewed. TRANSMISSION SPECIALIST Telephone Encounter - Reina Schneider - 03/25/2021 9:10 AM CST Pt calling in to give a number for Ovidrel prior authorization. Pt was told that [phone] needed to be call to get prior authorization for [facility] Thank you. TRANSMISSION SPECIALIST documented in this encounter Plan of Treatment Not on filedocumented as of this encounter Visit Diagnoses Not on filedocumented in this encounter Additional Health Concerns Assessment Noted Time PHQ-9 Depression Total Score: 1 09/25/2020 7:35 AM CDT documented as of this encounter Care Teams Financial Sales Advisor Relationship Specialty Start Date End Date Leidy Sauceda APRN C.N.P., M.S. PCP - General Family Medicine 04/10/15 [address] [place] [address] documented as of this encounter
--- OUTSIDE RECORDS SUMMARY | 2022-02-01 02:00 | XMS_ITS | Encounter Summary ---
:1990 Author Organization [facility] Address [address] [place] [address] Care Team Providers Name Role Phone Leidy Sauceda APRN, C.NFantasam, M.S. Primary Care Provider [phone] Encounter Details Date Type Department Care Team Description 12/04/2020 Admin Visit Urgent Care in [address] [phone] Social History Tobacco Use Types Packs/Day [...] documented as of this encounter Care Teams Diesel Tractor Operator Relationship Specialty Start Date End Date Leidy Sauceda APRN, C.N.P., M.S. PCP - General Family Medicine 04/10/15 [address] [place] [address] documented as of this encounter
--- OUTSIDE RECORDS SUMMARY | 2022-02-01 02:00 | XMS_ITS | Encounter Summary ---
:1990 Author Organization [facility] Address [address] [place] [address] Care Team Providers Name Role Phone Leidy Sauceda APRN, C.N.Emma., M.S. Primary Care Provider Encounter Details Date Type Department Care Team Description 04/05/2021 Orders Only Department of Obstetrics Elizabeth Jaquez ea, and Gynecology in [place], [place] [address] [facility] [address] [place] [address] [phone] Social History Tobacco Use Types Packs/Day Years [...] or relatives? How often do you attend hinduism or More than 4 times per year 05/08/2021 gnosticist services? Do you belong to any clubs or Yes 05/08/2021 organizations such as hinduism groups, unions, fraternal or athletic groups, or [...] documented as of this encounter Care Teams Cartridge Assembler Relationship Specialty Start Date End Date Leidy Sauceda APRN, C.N.P., M.S. PCP - General Family Medicine 04/10/15 [address] [place] [address] documented as of this encounter
--- OUTSIDE RECORDS SUMMARY | 2022-02-01 02:00 | XMS_ITS | Encounter Summary ---
:1990 Author Organization [facility] Address [address] [place] [address] Care Team Providers Name Role Phone Leidy Sauceda APRN, C.NKobe., M.S. Primary Care Provider Encounter Details Date Type Department Care Team Description 12/18/2020 Hospital Encounter Department of Charli Nunez Am enorrhea Laboratory Medicine in [place] Workman M.D. [facility] rotary peel oven tender [address] [place] [address] [phone] Social History Tobacco Use Types Packs/Day Years [...] or relatives? How often do you attend jewish or More than 4 times per year 05/08/2021 bahai services? Do you belong to any clubs or Yes 05/08/2021 organizations such as jewish groups, unions, fraternal or athletic groups, or [...] M.D. LAB BLOOD ADD-ON Performing Organization Address City/State/[facility] Code Phon e Number [address] [address] [place] [address] System [address] documented in this encounter Visit Diagnoses Diagnosis Amenorrhea documented in this encounter Additional Health Concerns Infection Onset Date Last Indicated Resolved Time COVID19 12/04/2020 12/04/2020 12/24/2020 4:45 AM CDT Assessment Noted Time PHQ-9 Depression Total Score: 1 09/25/2020 7:35 AM CDT documented as of this encounter Care Teams Applications Specialist Relationship Specialty Start Date End Date Leidy Sauceda APRN, C.N.P., M.S. PCP - General Family Medicine 04/10/15 [address] [place] [address] documented as of this encounter
--- OUTSIDE RECORDS SUMMARY | 2022-02-01 02:00 | XMS_ITS | Encounter Summary ---
:1990 Author Organization [facility] Address [address] [place] [address] Care Team Providers Name Role Phone Leidy Sauceda APRN, C.NFantasma, M.S. Primary Care Provider Encounter Details Date Type Department Care Team Description 01/17/2021 Orders Only RST PCP [facility] Rakel Kaur M.D. [address] [place], [place] [phone] (Wo rk) Social History [...] documented as of this encounter Care Teams Welfare Worker Relationship Specialty Start Date End Date Leidy Sauceda APRN, C.N.P., M.S. PCP - General Family Medicine 04/10/15 [address] [place] [address] documented as of this encounter
--- OUTSIDE RECORDS SUMMARY | 2022-02-01 02:00 | XMS_ITS | Encounter Summary ---
:1990 Author Organization [facility] Address [address] [place] [address] Care Team Providers Name Role Phone Leidy Sauceda APRN, C.N.P., M.S. Primary Care Provider [phone] Reason for Visit Reason Comments Communication Encounter Details Date Type Department Care Team Description 12/18/2020 Clinical Communication Department of Poli Billy C ommunication Obstetrics and M.D. Gynecology in [address] [place], [place] [address] [facility] [address] [place], [place] [phone] [address] (Work) [phone] Social History Tobacco Use Types Packs/Day Years [...] since her ectopic and it was a envelope sealer period that time. She did not note [...] called in wanting to speak with a production team advisor as she has been having extreme pain [...] supplements. ??If the result does not [facility] clinical observations, repeat testing after patient refrains fr om the use of supplements for at least 12 hours. Specimen Anatomical Collection Method Collection Time Receive d Time (Source) Location / / Volume Laterality Blood (Blood, 12/18/2020 11:42 12/18/2020 Venous) AM CDT 11:43 AM CDT Harmony Nunez M.D. LAB BLOOD ADD-ON Performing Organization Address City/State/[facility] Code Phon e Number [facility]- [address] [place] [address] [place] [address] System in [address] documented in this encounter Visit Diagnoses Diagnosis Amenorrhea - Primary documented in this encounter Additional Health Concerns Infection Onset Date Last Indicated Resolved Time COVID19 12/04/2020 12/04/2020 12/24/2020 4:45 AM CDT Assessment Noted Time PHQ-9 Depression Total Score: 1 09/25/2020 7:35 AM CDT documented as of this encounter Care Teams Starcher And Tenter Range Feeder Relationship Specialty Start Date End Date Leidy Sauceda APRN, C.N.P., M.S. PCP - General Family Medicine 04/10/15 [address] [place] [address] documented as of this encounter
--- OUTSIDE RECORDS SUMMARY | 2022-02-01 02:00 | XMS_ITS | Encounter Summary ---
:1990 Author Organization [facility] Address [address] [place] [address] Care Team Providers Name Role Phone Leidy Sauceda APRN, C.NFantasma, M.S. Primary Care Provider [phone] Reason for Referral Outpatient (Routine) - Authorized Specialty Diagnoses / Procedures Referred By Contact Refer red To Contact Obstetrics and Diagnoses [facility]ertility [facility] Harmony Workman M.D. [address] [place] [address] Referral ID Status Reason Start Date Expiration Date Visits V isits Requested Authorized [id number] Authorized 02/20/2021 02/20/2022 1 1 Encounter Details Date Type Department Care Team Description 02/20/2021 Orders Only Department of Windy Keane Infertilit y Female Obstetrics and R.N. (Primary Dx) Gynecology in [place], [place] [address] [place] [phone] Social History Tobacco Use Types Packs/Day Years [...] or relatives? How often do you attend orthodoxy or More than 4 times per year 05/08/2021 mormonism services? Do you belong to any clubs or Yes 05/08/2021 organizations such as orthodoxy groups, unions, fraternal or athletic groups, or [...] documented as of this encounter Care Teams Peoplesoft Crm Developer Relationship Specialty Start Date End Date Leidy Sauceda APRN, C.N.P., M.S. PCP - General Family Medicine 04/10/15 [address] [place] [address] documented as of this encounter
--- OUTSIDE RECORDS SUMMARY | 2022-02-01 02:00 | XMS_ITS | Encounter Summary ---
:1990 Author Organization [facility] Address [address] [place] [address] Care Team Providers Name Role Phone Leidy Sauceda APRN C.NKobe., M.S. Primary Care Provider [phone] Encounter Details Date Type Department Care Team Description 12/28/2020 Clinical Communication Department of Rakel Nelson Obstetrics and CMalcom, Ph.D. Gynecology in [address] [place], [place] [address] [facility] [address] [place], [place] [phone] (Work) [phone] Social History Tobacco Use Types Packs/Day Years [...] or relatives? How often do you attend jew or More than 4 times per year 05/08/2021 orthodoxy services? Do you belong to any clubs or Yes 05/08/2021 organizations such as jew groups, unions, fraternal or athletic groups, or [...] documented as of this encounter Care Teams Traffic Line Painter Relationship Specialty Start Date End Date Leidy Sauceda APRN, C.N.P., M.S. PCP - General Family Medicine 04/10/15 [address] [place] [address] documented as of this encounter
--- OUTSIDE RECORDS SUMMARY | 2022-02-01 02:00 | XMS_ITS | Encounter Summary ---
:1990 Author Organization [facility] Address [address] [place] [address] Care Team Providers Name Role Phone Leidy Sauceda APRN, C.NKobe., M.S. Primary Care Provider [phone] Encounter Details Date Type Department Care Team Description 01/21/2021 Clinical Communication Department of Brandie Crouch, Obstetrics and R.Maryam. Gynecology in [address] [place], [place] [address] [facility] [address] [place], [place] [phone] (Work) [phone] Social History Tobacco Use Types Packs/Day Years [...] or relatives? How often do you attend judaism or More than 4 times per year 05/08/2021 tenriism services? Do you belong to any clubs or Yes 05/08/2021 organizations such as judaism groups, unions, fraternal or athletic groups, or [...] documented as of this encounter Care Teams Enforcement Manager Relationship Specialty Start Date End Date Leidy Sauceda APRN, C.N.P., M.S. PCP - General Family Medicine 04/10/15 [address] [place] [address] documented as of this encounter
--- OUTSIDE RECORDS SUMMARY | 2022-02-01 02:00 | XMS_ITS | Encounter Summary ---
:1990 Author Organization [facility] Address [address] [place] [address] Care Team Providers Name Role Phone Leidy Sauceda APRN, C.NFantasma, M.S. Primary Care Provider [phone] Encounter Details Date Type Department Care Team Description 02/28/2021 Ancillary Procedure Department of Vivi Nelson Female Obstetrics and Rakel Ricardo M.D., Gynecology in Ph.D. [place], [place] [address] [facility] [address] [place] [address] [phone] Social History Tobacco Use Types Packs/Day Years [...] More than 4 times per year 05/08/2021 synagogue services? Do you belong to any clubs [...] documented as of this encounter Care Teams Train Controller Relationship Specialty Start Date End Date Leidy Sauceda APRN C.N.P., M.S. PCP - General Family Medicine 04/10/15 [address] [place] [address] documented as of this encounter
--- OUTSIDE RECORDS SUMMARY | 2022-02-01 02:00 | XMS_ITS | Encounter Summary ---
:[address] [facility] Address [address] [place] [address] Care Team Providers Name Role Phone Leidy Sauceda APRN, C.N.P., M.S. Primary Care Provider [phone] Reason for Visit Reason Comments Medication Question Encounter Details Date Type Department Care Team Description 01/21/2021 Clinical Communication Department of Mary Jaquez Obstetrics and Nicole Madrigal R.N. Gynecology in [address] [place] [address] [place] [address] [place], [place] (Work) [phone] Social History Tobacco Use Types Packs/Day Years [...] or relatives? How often do you attend rastafari or More than 4 times per year 05/08/2021 scientology services? Do you belong to any clubs or Yes 05/08/2021 organizations such as rastafari groups, unions, fraternal or athletic groups, or [...] as of this encounter Care Teams Manager Of Supply Chain Relationship Specialty Start Date End Date Leidy Sauceda APRN, C.N.P., M.S. PCP - General Family Medicine 04/10/15 [address] [place] [address] documented as of this encounter
--- OUTSIDE RECORDS SUMMARY | 2022-02-01 02:00 | XMS_ITS | Encounter Summary ---
:1990 Author Organization [facility] Address [address] [place] [address] Care Team Providers Name Role Phone Leidy Sauceda APRN, C.NFantasma, M.S. Primary Care Provider [phone] Encounter Details Date Type Department Care Team Description 12/24/2020 Orders Only Department of Brandie Crouch Infertili ty Female Obstetrics and R.N. (Primary Dx) Gynecology in [address] [place], [place] [address] [facility] [address] [place], [place] [phone] (Work) [phone] Social History Tobacco Use Types Packs/Day Years [...] documented as of this encounter Care Teams Wired Music Operator Relationship Specialty Start Date End Date Leidy Sauceda, SHA, C.N.P., M.S. PCP - General Family Medicine 04/10/15 [address] [place] [address] documented as of this encounter
--- OUTSIDE RECORDS SUMMARY | 2022-02-01 02:00 | XMS_ITS | Encounter Summary ---
:1990 Author Organization [facility] Address [address] [place] [address] Care Team Providers Name Role Phone Leidy Sauceda APRN, C.NFantasma, M.S. Primary Care Provider [phone] Reason for Visit Reason Comments Rx Prior Authorization PA DENIED OVIDREL 250MCG/0.5 ML Encounter Details Date Type Department Care Team Description 03/25/2021 Clinical Department of Charli Rx Prior Communication Obstetrics and Rauchfuss, Authorandres n (DANE Gynecology in Harmony Workman M.D. DENIED OVIDREL [place], [address] [place] [address] 250MCG/0.5ML) [place], [place] [address] [facility] [address] [place], [place] [phone] (Work) [phone] Social History Tobacco Use Types Packs/Day Years [...] or relatives? How often do you attend baptist or More than 4 times per year 05/08/2021 mu-ism services? Do you belong to any clubs or Yes 05/08/2021 organizations such as baptist groups, unions, fraternal or athletic groups, or [...] CST Portal message update sent to patient. S BELT SANDER Telephone Encounter - Royce Botello - 03/25/2021 [...] Emma MALDONADO. Thank you, The OPPA Team S BELT SANDER documented in this encounter Plan of Treatment Not on filedocumented as of this encounter Visit Diagnoses Not on filedocumented in this encounter Additional Health Concerns Assessment Noted Time PHQ-9 Depression Total Score: 1 09/25/2020 7:35 AM CDT documented as of this encounter Care Teams Vp [employer] Solutions Relationship Specialty Start Date End Date Leidy Sauceda APRN, C.N.P., M.S. PCP - General Family Medicine 04/10/15 [address] [place] [address] documented as of this encounter
--- OUTSIDE RECORDS SUMMARY | 2022-02-01 02:00 | XMS_ITS | Encounter Summary ---
:[address] [facility] Address [address] [place] [address] Care Team Providers Name Role Phone Leidy Sauceda APRN, C.NFantasma, M.S. Primary Care Provider [phone] Encounter Details Date Type Department Care Team Description 12/03/2020 Patient Self-Triage CONNECTED CARE Symptom Building Consultant, Provider Social History Tobacco Use Types Packs/Day [...] or relatives? How often do you attend taoist or More than 4 times per year 05/08/2021 jewish services? Do you belong to any clubs or Yes 05/08/2021 organizations such as taoist groups, unions, fraternal or athletic groups, or [...] documented as of this encounter Care Teams Shotblaster Relationship Specialty Start Date End Date Leidy Sauceda APRN, C.N.P., M.S. PCP - General Family Medicine 04/10/15 [address] [place] [address] documented as of this encounter
--- OUTSIDE RECORDS SUMMARY | 2022-02-01 02:00 | XMS_ITS | Encounter Summary ---
:1990 Author Organization [facility] Address [address] [place] [address] Care Team Providers Name Role Phone Leidy Sauceda APRN, C.N.P., M.S. Primary Care Provider Encounter Details Date Type Department Care Team Description 03/25/2021 Orders Only Pharmacy Prior Auth RO Leidy Sauceda APRN, C.N.P., M.S. [address] [place] [address] (Wo rk) Social History Tobacco Use Types [...] documented as of this encounter Care Teams Flat Sheet Maker Relationship Specialty Start Date End Date Leidy Sauceda APRN, C.N.P., M.S. PCP - General Family Medicine 04/10/15 [address] [place] [address] documented as of this encounter
--- OUTSIDE RECORDS SUMMARY | 2022-02-01 02:00 | XMS_ITS | Encounter Summary ---
:1990 Author Organization [facility] Address [address] [place] [address] Care Team Providers Name Role Phone Leidy Sauceda APRN, C.NFantasma, M.S. Primary Care Provider [phone] Reason for Referral Outpatient (Routine) - Closed Specialty Diagnoses / Procedures Referred By Contact Refer red To Contact Diagnoses Infertility Female Rakel Nelson, [facility] Procedures [place] Hysterosalpingogram Malcom, Ph.D. [address] [place] [address] Referral ID Status Reason Start Date Expiration Date Visits Requ ested Visits Authorized [id number] Closed 01/21/2021 01/21/2022 1 1 Encounter Details Date Type Department Care Team Description 01/21/2021 Orders Only Department of Brandie Crouch Infertili ty Female Obstetrics and R.N. (Primary Dx) Gynecology in [address] [place] [address] [place] [address] [place], [place] [phone] (Work) [phone] Social History Tobacco Use Types Packs/Day Years [...] contrast into the peritoneal cavity. Left salpingectomy. HORTICULTURE SUPERVISOR Narrative 01/28/2021 3:32 PM CDT EXAM: ??FL HYSTEROSALPINGOGRAM COMPARISON: ??Pelvic ultrasound 12/29/19. FINDINGS: ?? Fluoroscopic hysterosalpingogram was per formed using a retrograde injection of water soluble contrast following cannula tion of the cervical opening with the mixer operator tablets. Normal filling of the uterus without chet [...] tion of the cervical opening with the mixer operator tablets. Normal filling of the uterus without chet dence of contour abnormality or filling defect. The right fallopian tube is ramirez nt with spillage of contrast into the peritoneal cavity. The left fallopian tu be was surgically removed. IMPRESSION: Patent right fallopian tube with spillag e of contrast into the peritoneal cavity. Left salpingectomy. HORTICULTURE SUPERVISOR Rakel Nelson M.D., Ph.D. IMG FLUOROSCOPY PROCEDU RES documented in this encounter Visit Diagnoses Diagnosis Infertility Female - Primary Infertility Female Infertility Female documented in this encounter Additional Health Concerns Assessment Noted Time PHQ-9 Depression Total Score: 1 09/25/2020 7:35 AM CDT documented as of this encounter Care Teams Manager Area Relationship Specialty Start Date End Date Leidy Sauceda APRN, C.N.P., M.S. PCP - General Family Medicine 04/10/15 [address] [place] [address] documented as of this encounter
--- OUTSIDE RECORDS SUMMARY | 2022-02-01 02:00 | XMS_ITS | Encounter Summary ---
:1990 Author Organization [facility] Address [address] [place] [address] Care Team Providers Name Role Phone Leidy Sauceda APRN, C.N.P., M.S. Primary Care Provider [phone] Reason for Visit Reason Onset Date Comments Testing For Upper Respiratory Virus Symptoms 12/04/2020 Encounter Details Date Type Department Care Team Description 12/04/2020 External Outreach Department of [facility] Tiana Waters Contact With And Medicine, [place] Dave Mccain (Suspected) Exposure Clinic, in [address] To [facility] (Primary [place], [place] Dx) [address] [place] [address] [place], [place] [phone] [phone] (Work) [phone] Social History Tobacco Use Types Packs/Day Years [...] Patient Monitoring (MASS 3 or greater). The [place] Covid Care Team (CCT) sends general guidance about COVID-19 to all patients by letter or portal, except when a patient is hospitalized or resides in a long term. [facility] will call all adult patients at highest risk for severe complications of COVID-19 (MASS 3 or greater), those without an online services account, and those who require an translator/interpreter. Any patient with a MASS score 1 [...] for symptom management. For questions, contact the [place] Covid Care Team ([facility]): Pager: [phone] In basket: P RST/[facility] COVID-19 POSITIVE Covid [...] to obtain the result by calling the [employer] result line or by checking the online [...] RNA, V Symptomatic (12/04/2020 4:19 PM CDT) [facility] Method Time Signature SARS-CoV-2 Swab, 12/05/2020 ECLR Specimen Nasopharynx 2:46 AM CDT Source SARS CoV-2 Detected (A) Undetected 12/05/2020 ECLR RNA, TMA 2:46 AM CDT Comment: SARS-CoV-2 RNA present. ----ADDITIONAL INFORMATION---- This molecular amplification test was pe rformed using the Aptima SARS-CoV-2 assay ([employer] on the [employer] tem under emergency use authorization (EUA) by the U.S. Food and Drug Administ heather. Fact sheets for this EUA assay can be fo und at the following links: For Healthcare Providers: https://www.[employer] a.gov/media/139913/download For Patients: https://www.fda.gov/media/ 247825/download Specimen Anatomical Collection Method Collection Time Receive d Time (Source) Location / / Volume Laterality Varies 12/04/2020 4:19 PM 9:28 (Nasopharynx) CDT PM CDT Eric Waters P.A.-C. LAB MICROBIOLOGY - GENERAL O LUXERALACY Performing Organization Address City/State/ZIP Code Phon e Number [facility]- [address] [place] [phone] [facility] [place] [address] System [address] documented in this encounter Visit Diagnoses Diagnosis Contact With And (Suspected) Exposure To COVID-19 - Primary documented in this encounter Additional Health Concerns Infection Onset Date Last Indicated Resolved Time COVID19 Pending 12/04/2020 12/04/2020 12/05/2020 2:47 AM CDT Assessment Noted Time PHQ-9 Depression Total Score: 1 09/25/2020 7:35 AM CDT documented as of this encounter Care Teams Manufacturing Quality Manager Relationship Specialty Start Date End Date Leidy Sauceda APRN C.N.P., M.S. PCP - General Family Medicine 04/10/15 [address] [place] [address] documented as of this encounter
--- OUTSIDE RECORDS SUMMARY | 2022-02-01 02:00 | XMS_ITS | Encounter Summary ---
:1990 Author Organization [facility] Address [address] [place] [address] Care Team Providers Name Role Phone Leidy Sauceda APRN, C.N.P., M.S. Primary Care Provider [phone] Encounter Details Date Type Department Care Team Description 04/01/2021 Ancillary Procedure Department of Charli limon Female Obstetrics and Rauchfu, Gynecology in Harmony Workman M.D. [place], [place] [address] [facility] [address] [place] [address] [phone] Social History Tobacco Use Types Packs/Day Years [...] for this FOLLICLE TRACKING (most inpatients AM MICA LAYER proced ure are in OI and all the results outpatients) section. documented in this encounter Results US SALOME Pelvic - Follicle Tracking OI (04/01/2021 9:22 AM MICA LAYER) Anatomical Region Laterality Modality Ultrasound OB RST LOS, Ultrasound ARZ LOS Ultrasound Specimen (Source) Anatomical Location Collection Method / Collectio n Time Received Time / Laterality Volume Narrative 04/01/2021 11:12 AM MICA LAYER 9b Lt adx ff Harmony Nunez M.D. IMHattie OB US PROCEDURES documented in this encounter Visit Diagnoses Diagnosis Infertility Female documented in this encounter Additional Health Concerns Assessment Noted Time PHQ-9 Depression Total Score: 1 09/25/2020 7:35 AM CDT documented as of this encounter Care Teams Benefits Processor Relationship Specialty Start Date End Date Leidy Sauceda, SHA, C.N.P., M.S. PCP - General Family Medicine 04/10/15 [address] [place] [address] documented as of this encounter
--- OUTSIDE RECORDS SUMMARY | 2022-02-01 02:00 | XMS_ITS | Encounter Summary ---
:1990 Author Organization [facility] Address [address] [place] [address] Care Team Providers Name Role Phone Leidy Sauceda APRN, C.NFantasma, M.S. Primary Care Provider [phone] Encounter Details Date Type Department Care Team Description 12/28/2020 Ancillary Procedure Department of Vivi Nelson Female Obstetrics and Rakel Ricardo M.D., Gynecology in Ph.D. [place], [place] [address] [facility] [address] [place] [address] [phone] Social History Tobacco Use Types Packs/Day Years [...] or relatives? How often do you attend pentecostal or More than 4 times per year 05/08/2021 restorationism services? Do you belong to any clubs or Yes 05/08/2021 organizations such as pentecostal groups, unions, fraternal or athletic groups, or [...] documented as of this encounter Care Teams Principal Systems Engineer Relationship Specialty Start Date End Date Leidy Sauceda APRN, C.N.P., M.S. PCP - General Family Medicine 04/10/15 [address] [place] [address] documented as of this encounter
--- OUTSIDE RECORDS SUMMARY | 2022-02-01 02:00 | XMS_ITS | Encounter Summary ---
:[address] [facility] Address [address] [place] [address] Care Team Providers Name Role Phone Leidy Sauceda APRN, C.N.P., M.S. Primary Care Provider [phone] Reason for Visit Outpatient (Routine) - Closed Specialty Diagnoses / Procedures Referred By Contact Refer red To Contact Obstetrics and Charli Nunez, [facility] Gynecology Harmony Workman M.D. 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 Blood Type: Unknown Ovarian [place]: normal for her age and is suggestive [...] to face patient care. Manuel Eastman M.D. 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 PCP - General Family Medicine 04/10/15 [address] [place] [address] documented as of this encounter
--- OUTSIDE RECORDS SUMMARY | 2022-02-01 02:00 | XMS_ITS | Encounter Summary ---
:1990 Author Organization [facility] Address [address] [place] [address] Care Team Providers Name Role Phone Leidy Sauceda APRN, C.NFantasma, M.S. Primary Care Provider [phone] Encounter Details Date Type Department Care Team Description 01/10/2021 Hospital Encounter Department of Marisol Nelson Female Laboratory Medicine Rakel Ricardo M.D., in [place], Ph.D. [address] [phone] Social History Tobacco Use Types Packs/Day Years [...] or relatives? How often do you attend gnosticist or More than 4 times per year 05/08/2021 latter-day services? Do you belong to any clubs or Yes 05/08/2021 organizations such as gnosticist groups, unions, fraternal or athletic groups, or [...] Organization Address City/State/ZIP Code Phon e Number [facility]- [address] [place] [address] 54 [phone] [facility] [place] [address] System [address] documented in this encounter Visit Diagnoses Diagnosis Infertility Female documented in this encounter Additional Health Concerns Assessment Noted Time PHQ-9 Depression Total Score: 1 09/25/2020 7:35 AM CDT documented as of this encounter Care Teams Automotive Glazier Relationship Specialty Start Date End Date Leidy Sauceda APRN, C.N.P., M.S. PCP - General Family Medicine 04/10/[address] [place] [address] documented as of this encounter
--- OUTSIDE RECORDS SUMMARY | 2022-02-01 02:00 | XMS_ITS | Encounter Summary ---
:1990 Author Organization [facility] Address [address] [place] [address] Care Team Providers Name Role Phone Leidy Sauceda APRN, C.NKobe., M.S. Primary Care Provider [phone] Encounter Details Date Type Department Care Team Description 12/28/2020 Orders Only Department of Obstetrics and Swe Brandie barnes R.N. Gynecology in [place], [address] [place], [place] [address] [place] [address] [place] [address] [phone] Social History Tobacco Use Types Packs/Day Years [...] More than 4 times per year 05/08/2021 advent services? Do you belong to any clubs [...] or slept in a prison (including now)? Education Answer Date Recorded What [...] documented as of this encounter Care Teams Vessel Scrapper Relationship Specialty Start Date End Date Leidy Sauceda APRN, C.N.P., M.S. PCP - General Family Medicine 04/10/15 [address] [place] [address] documented as of this encounter
--- OUTSIDE RECORDS SUMMARY | 2022-02-01 02:00 | XMS_ITS | Encounter Summary ---
:1990 Author Organization [facility] Address [address] [place] [address] Care Team Providers Name Role Phone Leidy Sauceda APRN, C.NFantasma, M.S. Primary Care Provider [phone] Encounter Details Date Type Department Care Team Description 03/25/2021 Orders Only Pharmacy Prior Auth RO Charli Nunez, Harmony Workman M.D. [address] [place] [address] (Wo rk) Social History Tobacco Use Types [...] or relatives? How often do you attend spiritism or More than 4 times per year 05/08/2021 mosque services? Do you belong to any clubs or Yes 05/08/2021 organizations such as spiritism groups, unions, fraternal or athletic groups, or [...] place to sleep or slept in a jail (including now)? Education Answer Date Recorded What [...] documented as of this encounter Care Teams Tower Equipment Installer Relationship Specialty Start Date End Date Leidy Sauceda APRN, C.N.P., M.S. PCP - General Family Medicine 04/10/15 [address] [place] [address] documented as of this encounter
--- OUTSIDE RECORDS SUMMARY | 2022-02-01 02:00 | XMS_ITS | Encounter Summary ---
:1990 Author Organization [facility] Address [address] [place] [address] Care Team Providers Name Role Phone Leidy Sauceda APRN, C.NKobe., M.S. Primary Care Provider [phone] Encounter Details Date Type Department Care Team Description 12/18/2020 Orders Only Department of Obstetrics and Swe Brandie barnes R.N. Gynecology in [place], [address] [place], [place] [address] [facility] [address] [place] [address] [phone] Social History Tobacco Use Types Packs/Day Years [...] or relatives? How often do you attend anabaptism or More than 4 times per year 05/08/2021 latter-day services? Do you belong to any clubs or Yes 05/08/2021 organizations such as anabaptism groups, unions, fraternal or athletic groups, or [...] documented as of this encounter Care Teams Shopping Inspector Relationship Specialty Start Date End Date Leidy Sauceda APRN, C.N.P., M.S. PCP - General Family Medicine 04/10/15 [address] [place] [address] documented as of this encounter
--- OUTSIDE RECORDS SUMMARY | 2022-02-01 02:00 | XMS_ITS | Encounter Summary ---
:1990 Author Organization [facility] Address [address] [place] [address] Care Team Providers Name Role Phone Leidy Sauceda APRN, C.N.P., M.S. Primary Care Provider [phone] Reason for Referral Outpatient (Routine) - Closed Specialty Diagnoses / Procedures Referred By Contact Refer red To Contact Diagnoses Infertility Female Rakel Nelson, [facility] Procedures [place] Hysterosalpingogram Malcom, Ph.D. [address] [place] [address] Referral ID Status Reason Start Date Expiration Date Visits Requ ested Visits Authorized [id number] Closed 01/21/2021 01/21/2022 1 1 Reason for Visit Outpatient (Routine) - Closed Specialty Diagnoses / Procedures Referred By Contact Refer red To Contact Diagnoses Infertility Female Rakel Nelson [facility] Procedures [place] Hysterosalpingogram Malcom, Ph.D. [address] [place] [address] Referral ID Status Reason Start Date Expiration Date Visits Requ ested Visits Authorized [id number] Closed 01/21/2021 01/21/2022 1 1 Encounter Details Date Type Department Care Team Description 01/28/2021 Hospital Encounter Department of Maribell Nelson M.D., Ph.D. [address] [place] [address] Infertility Female Radiology, Reina Huff M.D. [address] [place] [address] Building, in [place], [place] [address] [place] [address] Social History Tobacco Use Types Packs/Day Years [...] fellow participated in the procedure, and the consumer experience consultant was present for the entire procedure. [...] Procedure Name Priority Date/Time Associated Comments Diagnosis [place] HSG S&I Routine 01/28/2021 Infertility Results for 3:04 PM CDT Female this procedure are in the results section. [place] CATH W INJ CNTRST HSG Routine 01/28/2021 Infertility Res ults for 3:04 PM CDT Female this procedure are in the results section. [place] HYSTEROSALPINGOGRAM RAD - Routine 01/28/2021 Infertility Resu lts for (most inpatients 2:04 PM CDT Female this proced ure and all are in the outpatients) results section. documented in this encounter Results TX CATH W INJ CNTRST HSG, [place] HSG S&I (01/28/2021 3:04 PM CDT) Narrative [...] fellow participated in the procedure, and the consumer experience consultant was present for the entire procedure. [...] contrast into the peritoneal cavity. Left salpingectomy. TOP CASE ASSEMBLER Narrative 01/28/2021 3:32 PM CDT EXAM: ??[place] HYSTEROSALPINGOGRAM COMPARISON: ??Pelvic ultrasound 12/29/19. FINDINGS: ?? Fluoroscopic hysterosalpingogram was per formed using a retrograde injection of water soluble contrast following cannula tion of the cervical opening with the study lead. Normal filling of the uterus without chet [...] tion of the cervical opening with the study lead. Normal filling of the uterus without chet dence of contour abnormality or filling defect. The right fallopian tube is ramirez nt with spillage of contrast into the peritoneal cavity. The left fallopian tu be was surgically removed. IMPRESSION: Patent right fallopian tube with spillag e of contrast into the peritoneal cavity. Left salpingectomy. TOP CASE ASSEMBLER Rakel Nelson M.D., Ph.D. IMG FLUOROSCOPY PROCEDU [...] documented as of this encounter Care Teams Call Specialist Relationship Specialty Start Date End Date Leidy Sauceda APRN, C.N.P., M.S. PCP - General Family Medicine 04/10/[address] [place] [address] documented as of this encounter
--- OUTSIDE RECORDS SUMMARY | 2022-02-01 02:00 | XMS_ITS | Encounter Summary ---
:1990 Author Organization [facility] Address [address] [place] [address] Care Team Providers Name Role Phone Leidy Sauceda APRN, C.N.P., M.S. Primary Care Provider [phone] Reason for Referral Outpatient (Routine) - Closed Specialty Diagnoses / Procedures Referred By Contact Refer red To Contact Obstetrics and Charli Nunez [facility] Gynecology Harmony Wrokman M.D. [address] [place] [address] Referral ID Status Reason Start Date Expiration Date Visits Requ ested Visits Authorized [id number] Closed 04/01/2021 04/01/2022 1 1 Scheduling Instructions Next Step Visit (non IVF) TOP SUPPORT ENGINEER Encounter Details Date Type Department Care Team Description 04/01/2021 Clinical Communication Department of Avery Chavez and Harmony Workman M.D. Gynecology in [address] [place] [address] [place] [address] [place], [place] [phone] (Work) [phone] Social History Tobacco Use Types Packs/Day Years [...] or slept in a half-way (including now)? Education Answer Date Recorded What [...] documented as of this encounter Care Teams Community Service Specialist Relationship Specialty Start Date End Date Leidy Sauceda APRN, C.N.P., M.S. PCP - General Family Medicine 04/10/15 [address] [place] [address] documented as of this encounter
--- OUTSIDE RECORDS SUMMARY | 2022-02-01 02:00 | XMS_ITS | Encounter Summary ---
:1990 Author Organization [facility] Address [address] [place] [address] Care Team Providers Name Role Phone Leidy Sauceda APRN, C.N.P., M.S. Primary Care Provider [phone] Encounter Details Date Type Department Care Team Description 01/28/2021 Clinical Communication Department of Charli Nunez , Obstetrics and Harmony Workman M.D. Gynecology in [address] [place], [place] [address] [facility] [address] [place], [place] [phone] [address] (Work) [phone] Social History Tobacco Use Types Packs/Day Years [...] documented as of this encounter Care Teams Market Analyst Relationship Specialty Start Date End Date Leidy Sauceda APRN, C.N.P., M.S. PCP - General Family Medicine 04/10/15 [address] [place] [address] documented as of this encounter
--- OUTSIDE RECORDS SUMMARY | 2022-02-01 02:01 | XMS_ITS | Encounter Summary ---
:1990 Author Organization [facility] Address [address] [place] [address] Care Team Providers Name Role Phone Leidy Sauceda APRN, C.N.PAilin, M.S. Primary Care Provider [phone] Encounter Details Date Type Department Care Team Description 10/04/2020 Hospital Encounter Department of Rayray Angulo ecified Laboratory Medicine Veronica Franco APRN, Abnor mal Uterine And in [place], M.S. Vaginal Bleeding [place] [address] [address] Social History Tobacco Use Types Packs/Day Years [...] or relatives? How often do you attend tenriism or More than 4 times per year 05/08/2021 muslim services? Do you belong to any clubs or Yes 05/08/2021 organizations such as tenriism groups, unions, fraternal or athletic groups, or [...] M.S. LAB BLOOD ADD-ON Performing Organization Address City/State/[facility] Phon e Number [facility]- [address] [place] [address] [place] [address] System in [address] documented in this encounter Visit Diagnoses Diagnosis Other Specified Abnormal Uterine And Vag inal Bleeding documented in this encounter Additional Health Concerns Assessment Noted Time PHQ-9 Depression Total Score: 1 09/25/2020 7:35 AM CDT documented as of this encounter Care Teams Toxicologist Relationship Specialty Start Date End Date Leidy Sauceda APRN, C.N.P., M.S. PCP - General Family Medicine 04/10/15 [address] [place] [address] documented as of this encounter
--- OUTSIDE RECORDS SUMMARY | 2022-02-01 02:01 | XMS_ITS | Encounter Summary ---
:1990 Author Organization [facility] Address [address] [place] [address] Care Team Providers Name Role Phone Leidy Sauceda APRN, C.N.P., M.S. Primary Care Provider [phone] Reason for Visit Reason Comments [facility] for Miguel Gupta Encounter Details Date Type Department Care Team Description 10/09/2020 Clinical Communication Department of SCOTT Billy for Miguel Gupta Obstetrics and Malcom Ashton Gynecology in [address] [place] [address] [place] [address] [place], [place] (Work) [phone] Social History Tobacco Use [...] documented as of this encounter Care Teams Heating And Ventilating Tender Relationship Specialty Start Date End Date Leidy Sauceda APRN C.N.P., M.S. PCP - General Family Medicine 04/10/15 [address] [place] [address] documented as of this encounter
--- OUTSIDE RECORDS SUMMARY | 2022-02-01 02:01 | XMS_ITS | Encounter Summary ---
:1990 Author Organization [facility] Address [address] [place] [address] Care Team Providers Name Role Phone Leidy Sauceda APRN, C.NFantasma, M.S. Primary Care Provider [phone] Encounter Details Date Type Department Care Team Description 10/10/2020 Orders Only Department of Brandie Crouch Amenorrhe a (Primary Dx) Obstetrics and R.N. Gynecology in [address] [place], [place] [address] [facility] [address] [place], [place] [phone] (Work) [phone] Social History Tobacco Use Types Packs/Day Years [...] athologist Signature HCG, 0.7 <5 IU/L 10/22/2020 [facility] Quantitative, 2:17 PM CDT , P Comment: Biotin has been identified by the james ritchie as a potential interfering substance. ??Higher concentr ations of biotin may be found in multivitamins, hair/nail supple ments, and workout supplements. ??If the result does not [facility] clinical observations, repeat testing after patient refrains fr om the use of supplements for at least 12 hours. Specimen Anatomical Collection Method Collection Time Receive d Time (Source) Location / / Volume Laterality Blood (Blood, 10/22/2020 1:47 PM 10/23/19 1:50 Venous) CDT PM CDT Layo Santiago II, M.D. LAB BLOOD ADD-ON Performing Organization Address City/State/ZIP Code Phon e Number [facility]- [address] [place] [address] [place] [address] System in [place] [address] [address] documented in this encounter Visit Diagnoses Diagnosis Amenorrhea - Primary documented in this encounter Additional Health Concerns Assessment Noted Time PHQ-9 Depression Total Score: 1 09/25/2020 7:35 AM CDT documented as of this encounter Care Teams It Security Consultant Relationship Specialty Start Date End Date Leidy Sauceda APRN C.N.P., M.S. PCP - General Family Medicine 04/10/15 [address] [place] [address] documented as of this encounter
--- OUTSIDE RECORDS SUMMARY | 2022-02-01 02:01 | XMS_ITS | Encounter Summary ---
:[address] [facility] Address [address] [place] [address] Care Team Providers Name Role Phone Leidy [...] or relatives? How often do you attend cheondoism or More than 4 times per year 05/08/2021 congregation services? Do you belong to any clubs or Yes 05/08/2021 organizations such as cheondoism groups, unions, fraternal or athletic groups, or [...] or slept in a intermediate (including now)? Sex Assigned at Date Recorded Female 09/07/2017 4:11 PM CDT documented as of this encounter Plan of Treatment Not on filedocumented as of this encounter Visit Diagnoses Not on filedocumented in this encounter Care Teams Floor Framer Relationship Specialty Start Date End Date Leidy Sauceda APRN, C.N.P., M.S. PCP - General Family Medicine 04/10/15 [address] [place] [address] documented as of this encounter
--- OUTSIDE RECORDS SUMMARY | 2022-02-01 02:01 | XMS_ITS | Encounter Summary ---
:1990 Author Organization [facility] Address [address] [place] [address] Care Team Providers Name Role Phone Leidy Sauceda APRN, C.NFantasma, M.S. Primary Care Provider [phone] Reason for Referral Outpatient (Routine) - Closed Specialty Diagnoses / Procedures Referred By Contact Refer red To Contact Obstetrics and Leighann Patel [facility] jesus manuel Dawn M.D. Referral ID Status Reason Start Date Expiration Date Visits Requ ested Visits Authorized [id number] Closed 09/25/2020 09/25/2021 1 1 Scheduling Instructions Review results of ordered testing Reason for Visit Appointment Request (Routine) - Closed Specialty Diagnoses / Procedures Referred By Contact Refer red To Contact Reproductive Diagnoses Infertility Female Endocrinology Referral ID Status Reason Start Date Expiration Date Visits Requ ested Visits Authorized [id number] Closed 09/21/2020 09/21/2021 1 1 Encounter Details Date Type Department Care Team Description 09/25/2020 Telemedicine Department of Leighann Patel Counseling Preconception (Primary Dx); Obstetrics christi Workman M.D. Oligoovulatio n Gynecology in [place], [place] [address] [place] [address] Social History Tobacco Use Types Packs/Day Years [...] or relatives? How often do you attend oriental orthodox or More than 4 times per year 05/08/2021 judaism services? Do you belong to any clubs or Yes 05/08/2021 organizations such as oriental orthodox groups, unions, fraternal or athletic groups, or [...] day of bleeding to schedule ultrasound in [place]. If no period by cycle day 40, message us about inducing a period 2. Semen analysis for [place] 3. Return visit in [place] or via video to review the results 4. Consider genetic counseling 5. Continue testing for surge with digital ovulation predictor kits between cycle day 10-26. [place] on the day of surge plus 1-2 days after 6. Call with + test for early monitoring 7. Consider tubal patency testing in the future if unsuccessful after inducing regular ovulation documented in this encounter Consult Notes Leighann Patel M.D. - 09/25/2020 8:00 AM CDT SUBJECTIVE Reason For Consult: infertility, irregular menses History of Present Illness: Guerrero Caanda is a 29 y.o. who presents for a Reproductive Endocrinology and Infertility consultation. She is alone today. Her partner is Pavan [place] [phone]. Consult conducted via real-time audio/video technology by Leighann Patel M.D. in [facility] to the patient in he r home. Presenting Problem: Desire to conceive;Abnormal periods Attempting for: Over a year Successful pregnancies with current partner: No Prior fertility evaluation: Bloodwork Prior fertility evaluation: Evaluation and bloodwork done at [facility] in May. Notes and labs faxed to [...] on taking Clomid like my doctor in [place] suggested or other treatment. Guerrero [place] is [...] predict/detect. She was recently evaluated at the [facility] and her testing is below. She has not started infertility treatments at this point. She states that she exercises about 5 days per week, alternating between running for30 minutes or biking/playing tennis for 60 minutes. 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 She denies hirsutism or acne. 05/31/20 FSH 8.4, E2 50 AMH 18.803 TSH 1.590 17 OHP (119.6), Testosterone (Total 39, Free 4.6), Prolactin 5.2 Rubella immune OB History Para Term AB Living 0 0 0 0 0 0 SAB TAB Ectopic Molar Multiple Live Births 0 0 0 0 0 0 Animal Pathologist History: Age of menarche: 17 Period length: [...] abnormal Pap: No Had a mammogram?: No [place] frequency: On average twice/three times per week, [...] rarely Partner drug use: No Partner occupation: chief controller station Partner's sex: Male Partner semen eval: No [...] diagnosis of PCOS as well as the longterm health implications, including the increased risk of [...] as well as current information regarding the longterm risks of fertility drugs and divisional guidelines [...] with digital OPKs between cycle day 10-26. [place] on the day of surge plus 1-2 [...] Modality Ultrasound OB RST LOS, Ultrasound [facility] Ultrasound Specimen (Source) Anatomical Location Collection Method / Collectio n Time Received Time / Laterality Volume Narrative 10/02/2020 4:57 PM CDT GUERRERO CANADA Pelvic Ultrasound Exam, 10/02/2020 EXAM INFORMATION Patient Name: ??GUERRERO CANADA : ??1990 Age: ??29 yrs Sex: ??Female Ref Phys: ??LEIGHANN PATEL Exam Date: 10/02/2020 Procedure: SALOME PELVIC - DIAGNOSTIC AND A NTRAL FOLLICLE COUNT Exam Site: [facility] SALOME #1 History: ?? afc/diagnosticcd 4 IMPRESSION: Normal uterus and ovaries. Total AFC= 40 FINDINGS: Uterus ------ The uterus appears normal and measures 4 .26 cm x 4.48 cm x 4.87 cm with a volume of 48.67 cm3. Endometrium The endometrium measures 6.73 mm in [facility]. Right Ovary The right ovary appear normal [...] by Marybel Wellington on 10/02/2020 2:47:17 PM. Horse Trader: ??Marybel ?Josue Thank You For This Referral [...] NTRAL FOLLICLE COUNT Exam Site: [facility] SALOME #1 History: afc/diagnosticcd 4 IMPRESSION: Normal uterus and ovaries. Total AFC= 40 FINDINGS: Uterus ------ The uterus appears normal and measures 4 .26 cm x 4.48 cm x 4.87 cm with a volume of 48.67 cm3. Endometrium The endometrium measures 6.73 mm in [facility]. Right Ovary The right ovary appear normal [...] by Marybel Be on 10/02/2020 2:47:17 PM. Horse Trader: Marybel Be Thank You For This Referral Leighann Patel M.D. IMG OB US PROCEDURES documented in this encounter Visit Diagnoses Diagnosis Counseling Preconception - Primary Oligoovulation Counseling Preconception documented in this encounter Additional Health Concerns Assessment Noted Time PHQ-9 Depression Total Score: 1 09/25/2020 7:35 AM CDT documented as of this encounter Care Teams Relief Mate Relationship Specialty Start Date End Date Leidy Sauceda APRN, C.N.P., M.S. PCP - General Family Medicine 04/10/15 [address] [place] [address] documented as of this encounter
--- OUTSIDE RECORDS SUMMARY | 2022-02-01 02:01 | XMS_ITS | Encounter Summary ---
:1990 Author Organization [facility] Address [address] [place] [address] Care Team Providers Name Role Phone Leidy Sauceda APRN, C.N.P., M.S. Primary Care Provider [phone] Reason for Visit Reason Comments Treatment Questions Encounter Details Date Type Department Care Team Description 10/31/2020 Clinical Communication Department of Mimi Angulo Questions Obstetrics and Veronica Franco, [facility] [address] [facility] [address] [place] [address] [phone] Social History Tobacco Use Types Packs/Day Years [...] or relatives? How often do you attend caodaism or More than 4 times per year 05/08/2021 gnosticist services? Do you belong to any clubs or Yes 05/08/2021 organizations such as caodaism groups, unions, fraternal or athletic groups, or [...] documented as of this encounter Care Teams Oil Field Equipment Mechanic Supervisor Relationship Specialty Start Date End Date Leidy Sauceda APRN C.N.P., M.S. PCP - General Family Medicine 04/10/15 [address] [place] [address] documented as of this encounter
--- OUTSIDE RECORDS SUMMARY | 2022-02-01 02:01 | XMS_ITS | Encounter Summary ---
:1990 Author Organization [facility] Address [address] [place] [address] Care Team Providers Name Role Phone Leidy Sauceda APRN, C.N.P., M.S. Primary Care Provider [phone] Reason for Visit Reason Comments Med Refill Encounter Details Date Type Department Care Team Description 02/18/2019 Refill Department of Family Medicine, Leidy Sauceda APRN, Med Refill [facility] Mamta Arreguin N.P., M.S. in [facility] umberto [address] [facility] [address] [place] [address] [place], [place] [address] [phone] Social History Tobacco Use Types Packs/Day Years [...] More than 4 times per year 05/08/2021 anabaptism services? Do you belong to any clubs [...] slept in a nursing home (including now)? Sex Assigned at Date Recorded Female 09/07/2017 4:11 PM CDT documented as of this encounter Plan of Treatment Not on filedocumented as of this encounter Visit Diagnoses Not on filedocumented in this encounter Care Teams Coke Worker Relationship Specialty Start Date End Date Leidy Sauceda APRN, C.N.P., M.S. PCP - General Family Medicine 04/10/15 [address] [place] [address] documented as of this encounter
--- OUTSIDE RECORDS SUMMARY | 2022-02-01 02:01 | XMS_ITS | Encounter Summary ---
:1990 Author Organization [facility] Address [address] [place] [address] Care Team Providers Name Role Phone Leidy Sauceda APRN, C.N.P., M.S. Primary Care Provider [phone] Reason for Visit Reason Comments Annual Exam Encounter Details Date Type Department Care Team Description 09/08/2017 Comprehensive Visit Department of Leidy Lr, General Medical Medicine, Mead Davion DALTON.N.PAilin, Examination Adult [facility] M.S. (Primary Dx) [facility], in [address] [place], [place] [address] [address] [place] [phone] [place], [place] (Work) [address] Social History Tobacco Use [...] or relatives? How often do you attend orthodox or More than 4 times per year 05/08/2021 hinduism services? Do you belong to any clubs or Yes 05/08/2021 organizations such as orthodox groups, unions, fraternal or athletic groups, [...] or slept in a usp (including now)? 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 Her current FTE 0.8 the combination of 8 and 12 hr shifts date evening rotation. She is engaged to be this fall, her fiance works as an track repairer helper. She does wish to discuss control methods [...] ORAL Take 1 tablet by mouth daily. Planana ??? [DISCONTINUED] HYDROcodone-acetaminophen (for_NORCO) 5-325 mg per [...] kinjal documented in this encounter Care Teams Photographer Finish Relationship Specialty Start Date End Date Leidy Sauceda APRN, C.N.P., M.S. PCP - General Family Medicine 04/10/15 [address] [place] [address] documented as of this encounter
--- OUTSIDE RECORDS SUMMARY | 2022-02-01 02:01 | XMS_ITS | Encounter Summary ---
:1990 Author Organization [facility] Address [address] [place] [address] Care Team Providers Name Role Phone Leidy Sauceda APRN, C.N.P., M.S. Primary Care Provider [phone] Reason for Visit Reason Comments Med Refill Encounter Details Date Type Department Care Team Description 05/25/2019 Refill Department of Family Medicine, Leidy Sauceda APRN, Med Refill [facility] Mamta Arreguin N.P., M.S. in [facility] umberto [address] [facility] [address] [place] [address] [place], [place] [address] [phone] Social History Tobacco Use Types Packs/Day Years [...] More than 4 times per year 05/08/2021 sikhism services? Do you belong to any clubs [...] or slept in a fpc (including now)? Sex Assigned at Date Recorded Female 09/07/2017 4:11 PM CDT documented as of this encounter Plan of Treatment Not on filedocumented as of this encounter Visit Diagnoses Not on filedocumented in this encounter Care Teams Farm Owner Operator Relationship Specialty Start Date End Date Leidy Sauceda APRN, C.N.P., M.S. PCP - General Family Medicine 04/10/15 [address] [place] [address] documented as of this encounter
--- OUTSIDE RECORDS SUMMARY | 2022-02-01 02:01 | XMS_ITS | Encounter Summary ---
:1990 Author Organization [facility] Address [address] [place] [address] Care Team Providers Name Role Phone Leidy Sauceda APRN, C.N.PAilin, M.S. Primary Care Provider [phone] Reason for Visit Reason Comments Annual Exam Appointment Request (Routine) - Closed Specialty Diagnoses / Procedures Referred By Contact Refer red To Contact Family Medicine Referral ID Status Reason Start Date Expiration Date Visits Requ ested Visits Authorized [id number] Closed 06/28/2018 06/28/2019 1 1 Encounter Details Date Type Department Care Team Description 09/10/2018 Comprehensive Visit Department of Leidy Sauceda ar Examination (Primary Dx); Family MedicineJacinta APRN, Gastroesoph ageal Reflux Disease [facility] C.N.P., M.S. [facility], in [address] [facility], [facility] [address] [facility] [place] [address] [place], [place] [phone] [address] (Work) [phone] Social History Tobacco Use Types Packs/Day Years [...] More than 4 times per year 05/08/2021 denominational services? Do you belong to any clubs or Yes 05/08/2021 organizations such as protestant groups, unions, [employer] or athletic groups, or school groups? How [...] or slept in a detention (including now)? Sex Assigned at Date Recorded [...] degree of health. Lives with her in [facility] on the [place]. They are both beginning kayak enthusiasts. She reports always wearing her life jacket while on her kayak. 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 Oral control medication, Tita being utilized for [...] an additional year. Have encouraged patient touse [id number] Zantac 150 mg daily at bedtime to [...] logist Time Signature PHYSICIAN Performed DEFAULT 09/16/2018 [facility] INTERP SCREEN 11:16 AM CDT LABORATORIES - [facility] Specimen Anatomical Collection Method Collection Time Receive d Time (Source) Location / / Volume Laterality Varies 09/10/2018 1:20 PM 9 4:57 CDT PM CDT Leidy Sauceda APRN C.N.P., M.S. LAB SURG PATH ORDERABLE S Performing Organization Address City/[facility] Code Phon e Number [facility] LABORATORIES - [address] [place] [phone] [facility] HPV with Genotyping, PCR, ThinPrep (09/10/2018 1:20 PM CDT) [facility] [employer] Method Time Signature Specimen CERVIX/ENDOC 09/17/2018 [facility] Source ERVIX 5:18 PM CDT LABORATORIES - [facility] HPV High Risk Negative Negative 09/17/2018 [facility] type 16, PCR 5:18 PM CDT LABORATORIES - [facility] HPV High Risk Negative Negative 09/17/2018 [facility] type 18, PCR 5:18 PM CDT LABORATORIES - [facility] HPV other Negative Negative 09/17/2018 [facility] High Risk 5:18 PM CDT LABORATORIES - types, PCR [facility] Comment: The following Other High Risk HPV types were not detected: 31, 33, 35, 39, 45, 51, 52, 56, 58, 59, 66, and 68 This test was ordered in the context of a [facility] Cytology case; this result should be int erpreted within the context of the [facility] cytology report. Specimen Anatomical Collection Method Collection Time Receive d Time (Source) Location / / Volume Laterality Varies 09/10/2018 1:20 PM 9 4:57 CDT PM CDT Mamta Wiggins APRNNKobe., M.S. LAB MICROBIOLOGY - GENE [facility] ORDERABLES Performing Organization Address [facility] Phon e Number [facility] LABORATORIES - [address] [place] [phone] [facility] (ABNORMAL) ThinPrep Screen HPV Reflex (09/10/2018 1:20 PM CDT) Component Value Ref Test Analysis Performed At [facility] [employer] Range Method Time Signature (A) 09/21/2018 [facility] 11:53 AM LABORATORIES - CDT [facility] Participated in Gretel Eldridge, 09/21/2018 [facility] the SULEMA, 11:53 AM LABORATORIES - Interpretation B.Ch.-Pathology CDT [facility] (A) CAMPUS Report Luma Rosales M.D. 09/21/2018 [facility] electronically Cytology performed by: Latonya Sahni M.D. 11:53 AM LABORATORIES - signed by HPV results released by: Luma Rosales M.D. CDT [facility] I verify that I have examined all relevant slides/materials CAMPUS for the specimen(s) and rendered or confirmed the diagnosis. (A) Gross Description Received 09/21/2018 [facility] specimen in a 11:53 AM LABORATORIES - ThinPrep vial. CDT [facility] (A) CAMPUS Pap Test Source Cervical/Endoce 09/21/2018 [facility] rvical (A) 11:53 AM LABORATORIES - CDT [facility] Hormone None/Not known 09/21/2018 [facility] Therapy/Contracep (A) 11:53 AM LABORATORIES - tives T [facility] Interpretation Cervical/Endocervical ??(ThinPrep): 09/21/2018 [facility] Satisfactory for Evaluation 11:53 AM [place] BORATORIES - Epithelial Cell Abnormality CDT [facility] Atypical squamous cells of undetermined significance CAMPUS [...] Organization Address City/State/ZIP Code Phon e Number [facility] LABORATORIES - [address] [place], [place] [address] [facility] documented in this encounter Visit Diagnoses Diagnosis Pap Smear Examination - Primary Gastroesophageal Reflux Disease documented in this encounter Care Teams Secy Relationship Specialty Start Date End Date Leidy Sauceda APRN, C.N.P., M.S. PCP - General Family Medicine 04/10/[address] [place] [address] documented as of this encounter
--- OUTSIDE RECORDS SUMMARY | 2022-02-01 02:01 | XMS_ITS | Encounter Summary ---
:1990 Author Organization [facility] Address [address] [place] [address] Care Team Providers Name Role Phone Leidy Sauceda APRN, C.N.Alison, M.S. Primary Care Provider [phone] Reason for Visit Outpatient (Routine) - Closed Specialty Diagnoses / Procedures Referred By Contact Refer red To Contact Obstetrics and Leighann Kennedy [facility] Gynecology [place] Referral ID Status Reason Start Date Expiration Date Visits Requ ested Visits Authorized [id number] Closed 09/25/2020 09/25/2021 1 1 Encounter Details Date Type Department Care Team Description 10/04/2020 Telemedicine Department of Veronica Angulo Spec ified Abnormal Uterine And Vaginal Bleeding (Primary Dx); Obstetrics and KSHA C.NAilinPAilin, Polycysti c Ovary Syndrome Gynecology in [place], [place] 200 [facility] [address] [place] [address] [phone] Social History Tobacco Use Types Packs/Day Years [...] More than 4 times per year 05/08/2021 zoroastrianism services? Do you belong to any clubs [...] Free 4.6) Prolactin 5.2 Rubella immune Ovarian [place] Eagle: normal for her age and is suggestive [...] Biotin has been identified by the james ricthie as a potential interfering substance. ??Higher concentr ations of biotin may be found in multivitamins, hair/nail supple ments, and workout supplements. ??If the result does not [facility] clinical observations, repeat testing after patient refrains fr om the use of supplements for at least 12 hours. Specimen Anatomical Collection Method Collection Time Receive d Time (Source) Location / / Volume Laterality Blood (Blood, 10/04/2020 3:33 PM 10/05/19 3:35 Venous) CDT PM CDT Davion Shah APRN.N.Emma., M.S. LAB BLOOD ADD-ON Performing Organization Address City/State/ZIP Code Phon e Number [address] [address] [place] [address] System [address] documented in this encounter Visit Diagnoses Diagnosis Other Specified Abnormal Uterine And Vag inal Bleeding - Primary Polycystic Ovary Syndrome documented in this encounter Additional Health Concerns Assessment Noted Time PHQ-9 Depression Total Score: 1 09/25/2020 7:35 AM CDT documented as of this encounter Care Teams Cut Off Sawyer Relationship Specialty Start Date End Date Leidy Sauceda APRN C.N.P., M.S. PCP - General Family Medicine 04/10/[address] [place] [address] documented as of this encounter
--- OUTSIDE RECORDS SUMMARY | 2022-02-01 02:01 | XMS_ITS | Encounter Summary ---
:1990 Author Organization [facility] Address [address] [place] [address] Care Team Providers Name Role Phone Leidy Sauceda APRN, C.NFantasma, M.S. Primary Care Provider Encounter Details Date Type Department Care Team Description 2020 Orders Only Department of Brandie Crouch Amenorrhe a (Primary Dx) Obstetrics and R.N. Gynecology in [address] [place], [place] [address] [facility] [address] [place], [place] [phone] (Work) [phone] Social History Tobacco Use Types Packs/Day Years [...] documented as of this encounter Care Teams Industrial Garage Servicer Relationship Specialty Start Date End Date Leidy Sauceda APRN, C.N.P., M.S. PCP - General Family Medicine 04/10/15 [address] [place] [address] documented as of this encounter
--- OUTSIDE RECORDS SUMMARY | 2022-02-01 02:01 | XMS_ITS | Encounter Summary ---
:1990 Author Organization [facility] Address [address] [place] [address] Care Team Providers Name Role Phone Leidy Sauceda APRN, C.N.P., M.S. Primary Care Provider [phone] Reason for Referral Outpatient (Routine) - Closed Specialty Diagnoses / Procedures Referred By Contact Refer red To Contact Obstetrics and Tenisha Alicea [facility] Gynecology [place] Madrigal [address] [place] [address] Referral ID Status Reason Start Date Expiration Date Visits Requ ested Visits Authorized [id number] Closed 10/08/2020 10/08/2021 1 1 Scheduling Instructions Review results of ordered testing Encounter Details Date Type Department Care Team Description 10/08/2020 Orders Only Department of Mariam Corbett Amenorrhea (Primary Obstetrics and M, R.N. Dx) Gynecology in [phone] [place], [place] (Work) [address] [place] [address] Social History Tobacco Use Types Packs/Day Years [...] or relatives? How often do you attend restoration or More than 4 times per year 05/08/2021 yarsani services? Do you belong to any clubs or Yes 05/08/2021 organizations such as restoration groups, unions, fraternal or athletic groups, or [...] documented as of this encounter Care Teams Hansard Reporter Relationship Specialty Start Date End Date Leidy Sauceda APRN, C.N.P., M.S. PCP - General Family Medicine 04/10/[address] [place] [address] documented as of this encounter
--- OUTSIDE RECORDS SUMMARY | 2022-02-01 02:01 | XMS_ITS | Encounter Summary ---
:1990 Author Organization [facility] Address [address] [place] [address] Care Team Providers Name Role Phone Leidy Sauceda APRN, C.N.P., M.S. Primary Care Provider [phone] Encounter Details Date Type Department Care Team Description 10/04/2020 Orders Only Department of Brandie Crouch Amenorrhe a (Primary Dx) Obstetrics and R.N. Gynecology in [address] [place], [place] [address] [facility] [address] [place], [place] [phone] (Work) [phone] Social History Tobacco Use Types Packs/Day Years [...] supplements. ??If the result does not [facility] clinical observations, repeat testing after patient refrains fr om the use of supplements for at least 12 hours. Specimen Anatomical Collection Method Collection Time Receive d Time (Source) Location / / Volume Laterality Blood (Blood, 2020 9:45 AM 10/07/19 9:53 Venous) CDT AM CDT Tenisha Alicea M.D. LAB BLOOD ADD-ON Performing Organization Address City/State/ZIP Code Phon e Number [facility] [address] [address] [place] [facility] [place] [address] System in [address] documented in this encounter Visit Diagnoses Diagnosis Amenorrhea - Primary documented in this encounter Additional Health Concerns Assessment Noted Time PHQ-9 Depression Total Score: 1 09/25/2020 7:35 AM CDT documented as of this encounter Care Teams Regulatory Process Manager Relationship Specialty Start Date End Date Leidy Sauceda APRN, C.N.P., M.S. PCP - General Family Medicine 04/10/15 [address] [place] [address] documented as of this encounter
--- OUTSIDE RECORDS SUMMARY | 2022-02-01 02:01 | XMS_ITS | Encounter Summary ---
:1990 Author Organization [facility] Address [address] [place] [address] Care Team Providers Name Role Phone Leidy Sauceda APRN, C.NFantasma, M.S. Primary Care Provider Encounter Details Date Type Department Care Team Description 05/10/2020 Orders Only [facility] PCP [facility] Sa chano Steinberg M.D. [address] [place], [place] [phone] (Wo rk) Social History [...] More than 4 times per year 05/08/2021 presybeterian services? Do you belong to any clubs [...] on filedocumented in this encounter Care Teams Bread Supervisor Relationship Specialty Start Date End Date Leidy Sauceda APRN, C.N.P., M.S. PCP - General Family Medicine 04/10/15 [address] [place] [address] documented as of this encounter
--- OUTSIDE RECORDS SUMMARY | 2022-02-01 02:01 | XMS_ITS | Encounter Summary ---
:1990 Author Organization [facility] Address [address] [place] [address] Care Team Providers Name Role Phone Leidy Sauceda APRN, C.N.P., M.S. Primary Care Provider [phone] Reason for Visit Reason Comments COVID Inquiry Encounter Details Date Type Department Care Team Description 10/22/2020 Clinical Communication Department of Leidy Lr, COVID Inquiry Medicine, [facility] John DALTON, Clinic [facility], in .S. [place], [place] [address] [place] [address] [facility] [place] [phone] Social History Tobacco Use Types Packs/Day Years [...] or relatives? How often do you attend methodist or More than 4 times per year 05/08/2021 orthodoxy services? Do you belong to any clubs or Yes 05/08/2021 organizations such as methodist groups, unions, fraternal or athletic groups, or [...] appointment being requested?: Less than 14 days [place] In the past 14 days are any [...] sending patient for testing in [facility], route encounter to the correct testing pool. documented in this encounter Plan of Treatment Not on filedocumented as of this encounter Visit Diagnoses Not on filedocumented in this encounter Additional Health Concerns Assessment Noted Time PHQ-9 Depression Total Score: 1 09/25/2020 7:35 AM CDT documented as of this encounter Care Teams Boatwright Relationship Specialty Start Date End Date Leidy Sauceda APRN, C.N.P., M.S. PCP - General Family Medicine 04/10/15 [address] [place] [address] documented as of this encounter
--- OUTSIDE RECORDS SUMMARY | 2022-02-01 02:01 | XMS_ITS | Encounter Summary ---
:1990 Author Organization [facility] Address [address] [place] [address] Care Team Providers Name Role Phone Leidy Sauceda APRN, C.NFantasma, M.S. Primary Care Provider [phone] Reason for Visit Reason Onset Date Comments Outpatient COVID-19 Testing 10/25/2019 Encounter Details Date Type Department Care Team Description 10/25/2019 External Outreach Department of Sharee Waters, P.AGabrielC. [address] [place] [address] Encounter For Family Medicine, Employer Based, Covid Serology Testing Screening For Other [facility], in [place], [place] (COVID-19) (Primary [address] [facility] Dx) [place] [address] Social History Tobacco Use Types [...] athologist Signature SARS-CoV-2 IgG Negative Negative 10/26/2019 [facility] Emp Scrn, Ab 10:26 PM CDT Comment: No IgG antibodies to SARS-CoV-2 detected . ?? Negative results may occur if the test i s done too soon following infection, or in immunosuppres sed patients. ?? This test does not rule out active or re cent COVID-19. ?? Testing was performed using the [employer] N Xxpe-HWPV-[id number]-2 CORBY (IgG). ??This test has received Emergency Use Authorization (EUA) by the U.S. Food and Drug Administration and is used per sweeper driver's instructions, but it is modified from the sweeper driver's instructions wit h a bridging study to include dried blood spot specimens. ? ? Performance characteristics were verifie d by [facility] in a manner consistent with CLIA require ments. Performance characteristics were verifie d by [facility] in a manner consistent with CLIA require ments. ?? Specimen Anatomical Collection Method Collection Time Receive d Time (Source) Location / / Volume Laterality Blood (Blood, 10/25/2019 10:33 10/26/2019 5:59 Venous) AM CDT PM CDT Covid Serology Testing Employer Based LAB MICROBIOLOGY - BLOOD ORDERABLES Performing Organization Address City/State/ZIP Code Phon e Number [facility] [address] [place], [place] [address] SUPPORT [facility] [place] [address] Laboratory Medicine and Pathology [address] [place] documented in this encounter Visit Diagnoses Diagnosis Encounter For Screening For Other Viral Diseases (COVID-19) - Primary documented in this encounter Care Teams Acid Tester Relationship Specialty Start Date End Date Leidy Sauceda APRN, C.N.P., M.S. PCP - General Family Medicine 04/10/[address] [place] [address] documented as of this encounter
--- OUTSIDE RECORDS SUMMARY | 2022-02-01 02:01 | XMS_ITS | Encounter Summary ---
:1990 Author Organization [facility] Address [address] [place] [address] Care Team Providers Name Role Phone Leidy Sauceda APRN, C.NKobe., M.S. Primary Care Provider Encounter Details Date Type Department Care Team Description 10/22/2020 Hospital Encounter Department of Layo Santiago Am Laboratory Medicine in [place] [facility] umberto [address] [place] [address] [phone] Social History Tobacco Use Types Packs/Day Years [...] or relatives? How often do you attend amish or More than 4 times per year 05/08/2021 temple services? Do you belong to any clubs or Yes 05/08/2021 organizations such as amish groups, unions, fraternal or athletic groups, or [...] supplements. ??If the result does not [facility] clinical observations, repeat testing after patient refrains fr om the use of supplements for at least 12 hours. Specimen Anatomical Collection Method Collection Time Receive d Time (Source) Location / / Volume Laterality Blood (Blood, 10/22/2020 1:47 PM 10/23/19 1:50 Venous) CDT PM CDT Layo Santiago II, M.D. LAB BLOOD ADD-ON Performing Organization Address City/State/[facility] Phon e Number [address] [address] [place] [address] System in [address] documented in this encounter Visit Diagnoses Diagnosis Amenorrhea documented in this encounter Additional Health Concerns Assessment Noted Time PHQ-9 Depression Total Score: 1 09/25/2020 7:35 AM CDT documented as of this encounter Care Teams Sales And Retail Management Recruiter Relationship Specialty Start Date End Date Leidy Sauceda APRN, C.N.P., M.S. PCP - General Family Medicine 04/10/[address] [place] [address] documented as of this encounter
--- OUTSIDE RECORDS SUMMARY | 2022-02-01 02:01 | XMS_ITS | Encounter Summary ---
:1990 Author Organization [facility] Address [address] [place] [address] Care Team Providers Name Role Phone Leidy Sauceda APRN, C.N.P., M.S. Primary Care Provider [phone] Encounter Details Date Type Department Care Team Description 2020 Hospital Encounter Department of Tenisha Aliceaorrhea Laboratory Medicine in [place] [facility] [place], [address] [place] [id number] [place], [place] [phone] (W ork) [id number] [phone] Social History Tobacco Use Types Packs/Day Years [...] More than 4 times per year 05/08/2021 uatsdin services? Do you belong to any clubs [...] supplements. ??If the result does not [facility] clinical observations, repeat testing after patient refrains fr om the use of supplements for at least 12 hours. Specimen Anatomical Collection Method Collection Time Receive d Time (Source) Location / / Volume Laterality Blood (Blood, 2020 9:45 AM 10/07/19 9:53 Venous) CDT AM CDT Tenisha Alicea M.D. LAB BLOOD ADD-ON Performing Organization Address City/State/[facility] Code Phon e Number [facility]- [address] [place] [address] Bl[address] [place], [place] [id number] [place] [address] [place] [address] System [address] documented in this encounter Visit Diagnoses Diagnosis Amenorrhea documented in this encounter Additional Health Concerns Assessment Noted Time PHQ-9 Depression Total Score: 1 09/25/2020 7:35 AM CDT documented as of this encounter Care Teams Assurance Senior Relationship Specialty Start Date End Date Leidy Sauceda, SHA, C.N.P., M.S. PCP - General Family Medicine 04/10/[address] [place] [address] documented as of this encounter
--- OUTSIDE RECORDS SUMMARY | 2022-02-01 02:01 | XMS_ITS | Encounter Summary ---
:1990 Author Organization [facility] Address [address] [place] [address] Care Team Providers Name Role Phone Leidy Sauceda APRN, C.NFantasma, M.S. Primary Care Provider [phone] Reason for Visit Outpatient (Routine) - Closed Specialty Diagnoses / Procedures Referred By Contact Refer red To Contact Obstetrics and Tenisha Alicea [facility] Gynecology [place] [address] [place] [address] Referral ID Status Reason Start Date Expiration Date Visits Requ ested Visits Authorized [id number] Closed 10/08/2020 10/08/2021 1 1 Encounter Details Date Type Department Care Team Description 11/05/2020 Telemedicine Department of Veronica Angulo Counseling Fertility (Primary Dx); Obstetrics and K[facility] C.N.PAilin, Polycysti c Ovary Syndrome; Gynecology in .[place]. Salpingectomy Unilateral Status Post; [place], [place] [address] [facility] Endometriosis [address] [place] [phone] Social History Tobacco Use Types Packs/Day Years [...] left adnexal pain. She was seen in [place] (on vacation), and underwent left salpingectomy for [...] Free 4.6) Prolactin 5.2 Rubella immune Ovarian [place]: normal for her age and is suggestive [...] documented as of this encounter Care Teams Head Cleaning Porter Relationship Specialty Start Date End Date Leidy Sauceda APRN C.N.P., M.S. PCP - General Family Medicine 04/10/[address] [place] [address] documented as of this encounter
--- OUTSIDE RECORDS SUMMARY | 2022-02-01 02:01 | XMS_ITS | Encounter Summary ---
:1990 Author Organization [facility] Address [address] [place] [address] Care Team Providers Name Role Phone Leidy Sauceda APRN, C.NFantasma, M.S. Primary Care Provider [phone] Encounter Details Date Type Department Care Team Description 10/02/2020 Ancillary Department of Leighann Patel Counseling Procedure Obstetrics and [place] Work[facility] Preconception Gynecology in [place], [place] [address] [place] [address] Social History Tobacco Use Types Packs/Day Years [...] Name Priority Date/Time Associated Diagnosis Comme nts SALOME PELVIC - RAD - Routine 10/02/2020 3:06 [...] AND A NTRAL FOLLICLE COUNT Exam Site: [facility] SALOME #1 History: ?? afc/diagnosticcd 4 IMPRESSION: Normal uterus and ovaries. Total AFC= 40 FINDINGS: Uterus ------ The uterus appears normal and measures 4 .26 cm x 4.48 cm x 4.87 cm with a volume of 48.67 cm3. Endometrium The endometrium measures 6.73 mm in [facility]. Right Ovary The right ovary appear [...] by Marybel Wellington on 10/02/2020 2:47:17 PM. Fuel System Maintenance Supervisor: ?Agustin Wellington Thank You For This Referral Procedure Note Reina Carlson M.D. - 10/02/2020F ormatting of this note might be different from the original. GUERRERO CANADA Pelvic Ultrasound Exam, 10/02/2020 EXAM INFORMATION Patient Name: GUERRERO CANADA : 1990 Age: 29 yrs Sex: Female Ref Phys: LEIGHANN Jacinta PATEL Exam Date: 10/02/2020 Procedure: SALOME PELVIC - DIAGNOSTIC AND A NTRAL FOLLICLE COUNT Exam Site: [facility] SALOME #1 History: afc/diagnosticcd 4 IMPRESSION: Normal uterus and ovaries. Total AFC= 40 FINDINGS: Uterus ------ The uterus appears normal and measures 4 .26 cm x 4.48 cm x 4.87 cm with a volume of 48.67 cm3. Endometrium The endometrium measures 6.73 mm in [facility]. Right Ovary The right ovary appear normal [...] by Marybel Be on 10/02/2020 2:47:17 PM. Fuel System Maintenance Supervisor: Marybel Be Thank You For This Referral Leighann Patel M.D. IMG OB US PROCEDURES documented in this encounter Visit Diagnoses Diagnosis Counseling Preconception documented in this encounter Additional Health Concerns Assessment Noted Time PHQ-9 Depression Total Score: 1 09/25/2020 7:35 AM CDT documented as of this encounter Care Teams Industrial Production Manager Relationship Specialty Start Date End Date Leidy Sauceda APRN, C.N.P., M.S. PCP - General Family Medicine 04/10/15 [address] [place] [address] documented as of this encounter
--- NOTE | 2022-02-01 03:22 | W.PM.LDBA ---
Subjective History of Present Illness Time Seen by Provider: 03:15 Date Seen: 02/01/22 Narrative: Patient is being admitted to Labor and Delivery for labor/SROM. She is a 31 year old at 40.1 weeks gestation. Her full history and physical was dictated by Angi Quinones on 01/14/22. Please see this for details. She states ctx started yesterday, becoming more intense around 1600. SROM occurred at 0115, clear fluid. Grossly ruptured per RN. Breathing through ctx in good control. Currently sitting on ball in the shower. Partner and wood room hand at bedside for support. blood type: A positive H&P done 01/14/22 by VENUS Higginbotham 1. Hx of infertility. 4 unsuccessful medicated cycles with SALOME. Spontaneously conceived after a + ovulation test 2. Hx of ectopic, L tube removed in 2020 3. PCOS, workup done at [facility] 4. Hx of ASCUS in 2019. Pap NILM at [facility]. 5. Small SELINA noted on u/s OB - H&P: Exam Physical Exam: Vital signs: Temp Pulse Resp BP Pulse Ox 98.3 F 83 16 120/77 97 02/01/22 02:15 02/01/22 02:12 02/01/22 02:15 02/01/22 02:12 02/01/22 02:15 Constitutional: Constitutional: no acute distress (moaning/breathing through ctx in good control) Routine HEENT Exam: Head: Present normocephalic Routine Neck Exam: Neck: Present full ROM Routine Respiratory Exam: Respiratory: Present CTA bilaterally Routine Cardiovascular Exam: Cardiovascular: RRR Detailed Abdominal Exam: Comments: Gravid Routine Exam: Patient deferred: external exam (Declined SVE on admit) Detailed Labor and Delivery Exam: Patient Gravid: yes Contraction frequency (min): 2 (q 1-3 min) Contraction intensity: Strong/Firm Fetus (Single): Amniotic Membrane Status: SROM (clear fluid at 0115) Amniotic Membrane Fluid Description: Clear Heart Rate Baseline: 125 Monitor Decelerations: None (difficult to trace r/t maternal movement in labor) Routine Extremities Exam: Extremities: Present full ROM; Absent pedal edema Routine Back/Spine/Pelvis Exam: Back/Spine: full ROM Routine Skin Exam: Present intact Routine Neurological Exam: Present alert and oriented X3 OB - Problem Based A/P Additional Plan (1) : Status: Acute (2) SROM (spontaneous rupture of membranes): Status: Acute (3) Active labor at term: Status: Acute Plan at 40.1 weeks GBS neg Uncomplicated SROM X 1.5 hours Assumed active labor, declined SVE Admit to L & d Expectant management at this time Candidate for analgesia of choice. Planning unmedicated Desires waterbirth. Consent signed and Hep C negative. Intermittent monitoring per policy No IV necessary at this time Encouraged movement and positioning to help with labor and Anticipate progress to NVD Delivery/Labor/Induction Plan Plan: expectant management
[2022-02-01 03:57] LABS: SARS PCR* Negative SARS-CoV-2 (Negative)
--- NOTE | 2022-02-01 06:40 | PM.OBPNL ---
Subjective Time Seen by Provider: 05:45 Date Seen: 02/01/22 Narrative: Vin continued to labor in the tub, partner and office inspector remained at bedside for support. Per doppler, possible early decels noted with baseline 130, allyn to 115-125. Decision made to place on external monitoring at that time while she remained in the tub. Spontaneous pushing noted around 0515. After about 30 mins of observing her push, CNM noted may be resisting pushing. Decision made for SVE. Objective Exam: VSS Breathing through ctx in good control. FHTs: 130, mod variability, occ early or small variable decel. Accels present. Ctx: q 1-4 min SVE 7-8/90/0 SROM: clear fluid X 5.5 hrs Vital Signs: Last Vital Signs Temp 97.6 F 02/01/22 05:32 Pulse 83 02/01/22 02:12 Resp 18 02/01/22 04:58 BP 114/68 02/01/22 04:58 Pulse Ox 97 02/01/22 02:15 Pelvic Exam Dilation (cm): 7-8 Effacement (%): 90 Station: 0 Contractions Monitor mode: External Contraction frequency: 2 (q 1-4 min) Contraction pattern: Regular Contraction intensity: Strong/Firm Assessment Assessment: active labor Station: 0 Amniotic Membrane Status: SROM (clear fluid at 0115) Heart Rate Baseline: 130 Cyanide Case Hardener Variability: Moderate (6-25) Monitor Accelerations: Present Monitor Decelerations: Variable (difficult to trace r/t maternal movement in labor) Tracing Comments: Occ early and small variable ctx noted Maternal Status: at 40.1 weeks GBS neg Uncomplicated SROM, clear fluid Active labor Plan Plan: Decision made to get out of the tub for the time being and try other positions to facilitate labor Ok to switch back to intermittent doppler. Difficult to trace ctx on monitor r/t pt position. Will continue to monitor, and if audible decels deepening, will place back on Continue with plan for unmedicated waterbirth if pt desires. Anticipate progress to NVD.
[2022-02-01] MEDS: miSOPROStoL 800 MCG/4 TABLET PR (09:58)
--- NOTE | 2022-02-01 10:26 | PM.OBPRCVD ---
Procedure Delivery date: 02/01/22 Procedure Done: Global Procedure Details: The patient is a 31 year-old G2 now P1 admitted on 02/01/22 at 40.1 Weeks gestation for SROM/active labor..? Cervical exam on admission was deferred with membranes ruptured in vertex presentation.? Contractions were every 1-3 minutes.? SROM occurred at 0115 with clear fluid. ? Labor Analgesia:? none ? Pitocin:? no ? Labor onset:? 0115 ? Complete:? 0847 ? Pushing:? 0847 ? heart tones during second stage were 115, moderate variability. Occ early and variable decels noted with ctx. As pushing progressed, decels to the 70s noted after ctx. Around 0800, SVE done, Anterior lip noted. Pt agreed to allow CNM to attempt to reduce it. Attempted twice, able to reduce with pushing, but did not stay behind head. FHTs baseline 120, down to 70s w/ practice pushing. Small area of bright red blood noted under patient and wth SVE. CNM requested Dr. Denson in house in case pushing not tolerated. Pt agreed to labor down to allow anterior lip to resolve. Some spontaneous pushing noted w/ laboring down, but attempting to breathe through ctx as much as able. Reassessed SVE at 0847, noted to be complete, pushing initiated. Slow crown noted. ? At 0953 a viable male delivered in vertex OA presentation over intact perineum via spontaneous vaginal delivery.? Thick meconium noted with delivery of head, previously clear fluid. was placed on maternal abdomen.? Noted to be vigorous, and remained there. Cord was clamped and cut after a 5+ minute delay when it had stopped pulsing.? weight pending.? 8 at 1 minute and 9 at 5 minutes.? Shoulder dystocia: no.? Nuchal cord: no. Cord however noted wrapped tightly around infants ankle. Pt agreeable to AMTSL. Due to national pitocin shortage, pt given cytotec orally. Pt is aware of change and agrees to this. ? Placenta delivered spontaneously and complete at 1003 with a 3 vessel cord. ? Mother and infant were stable after delivery. ? Lacerations:? 3rd degree noted, repaired by Dr. Denson. See her note for further details. ? Blood loss: 200 Blood loss measurement type: QBL ? Sponge and needles counts are correct. Intrapartal Events: Mod/Heavy Meconium Fluid (Thick mec noted with delivery) Delivery monitor: external FHT and external uterine Route of delivery: Laceration description: Perineal - 3rd Degree Anesthesia type: None Infant Gender: Male presentation: vertex Placental Delivery Description: Spontaneous Cord Description: 3 Vessels and Around Extremity x1 (tight around ankle) OB Vag Delivery Procedures Additional Procedures ECV: No Cook Catheter Insertion: No NST: No D&C: No Laceration Repair: Yes (3rd degree repaired by Dr. Denson) Tubal Ligation : No Other: No
--- NOTE | 2022-02-01 10:53 | PM.OBCN1 ---
OB - CN: HPI Date of Consult Date Seen: 02/01/22 Consult date: 02/01/22 Requesting Physician: Lindsey Roberto CNM Primary Care Provider: Tatiana Provider Generic Consult Narrative Reason for consult: other Narrative: The patient is a 31 year old G 1 P 1001 at 40 1/7 weeks gestation that was admitted to the Center on 02/01/22 for delivery. Patient had a with our CNM Nicky Roberto, I was asked to come in for evaluation of a possible 3rd degree perineal laceration. History History 2 Elective abortions Para 0 Spontaneous abortions Hx # Term Pregnancies Ectopic pregnancies 1 Hx # Pregnancies Multiple births Number of Living Children 0 Past Pregnancies Del. Date GA/Weeks Outcome Route wt Inf Gender Labor Lgth Anesthesia Location Provider Compli 10/10/20 6 ectopic [facility] other Delivery Date: 10/10/20 Last Updated by: Mavis Quinones CNM Left salpingectomy Labs OB Labs: Lab Assessment Start: 02/01/22 02:14 Freq: ONCE Status: Complete Protocol: PC.OBGBS Activity Type Activity Date Activity User E-sign Co-sign Detail Recorded Client Recorded Date Recorded By Document 02/01/22 02:37 CORTES DAEMON [id number] 02/01/22 02:37 CORTES DABIMAL(2) 02/01/22 02:37 Lab Assessment GBS Negative PFSH PFSH Medical History (Updated 02/01/22 @ 04:03 by Lindsey Roberto CNM) Ectopic Surgical History (Updated 01/14/22 @ 10:41 by Mavis Quinones CNM) Hx of unilateral salpingectomy No history of previous surgery [place] teeth extracted Family History (Updated 01/14/22 @ 10:36 by Mavsi Quinones CNM) Mother High blood pressure Social History (Updated 01/14/22 @ 10:33 by Mavis Quinones CNM) Narrative: SOCIAL Education: bachelors Work: [employer] [place] 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[place], , 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 Lives with: Pavan Pets: denies Abuse: Denies past/denies present Special Diet: Denies Ok with a blood transfusion: yes Culture or taoism beliefs: denies RISK FACTORS Exercise Times/wk: skiing, run, walk, bike, tennis Depression/Anxiety: denies CHERIE: 1 PHQ 9: 0 Seat Belt Use: Routinely Smoking: Denies past/present Alcohol/day: Denies while Caffeine: minimal Drug Use: Denies past/present Chicken Pox: vaccine as a child MRSA: Denies Smoking Status: Never smoker Meds Home Medications and Allergies Home Medications Medication Instructions Recorded Confirmed Type ergocalciferol (vitamin D2) 10 mcg 400 unit PO BID 11/12/21 02/01/22 History (400 unit) tablet prenat.vits,socrates,[id number] 1 tab PO QDAY 11/12/21 02/01/22 History ferrous sulfate 325 mg (65 mg 325 mg PO QDAY 11/26/21 02/01/22 History iron) tablet magnesium 250 mg tablet 250 mg PO QDAY 12/10/21 02/01/22 History Allergies Allergy/AdvReac Type Severity Reaction Status Date / Time No Known Allergies Allergy Verified 02/01/22 02:20 OB - H&P: Exam Physical Exam: Vital signs: Temp Pulse Resp BP Pulse Ox 97.9 F 76 16 132/74 99 02/01/22 06:40 02/01/22 10:51 02/01/22 06:40 02/01/22 10:51 02/01/22 09:54 Narrative: Pelvic exam: Evidence of a 3b perineal laceration. Repair of laceration details: Interrupted Vicryl 3-0 sutures placed at the external anal sphincter muscle and knotting done midline, 3 interrupted sutures placed. Another interrupted suture of Vicryl 3-0 was utilized to form an additional layer of vaginal mucosa over intact rectal mucosa for further support. Then the 3rd degree laceration was repaired in the usual manner starting at the vertex, continuously and crossing them for further hemostasis. Hemostasis achieved. A rectal exam was completed at the end of procedure, rectal mucosa was found intact w/o evidence of suture material. Patient was asked to strain and the muscle felt to have contracted appropriately in a circumferential manner. Antibiotics were not administered, no IV line and patient preference. OB - CN: A/P Assessment and Plan (1) : Status: Acute (2) SROM (spontaneous rupture of membranes): Status: Acute (3) Active labor at term: Status: Acute Plan Encouraged bowel regimen to avoid straining Can always consider PT after 6 week pp visit
[2022-02-01] MEDS: IBUPROFEN 600 MG TABLET PO ×2 (14:27→20:36)
[2022-02-01] MEDS: DOCUSATE SODIUM 100 MG CAPSULE PO (20:37)
[2022-02-02] MEDS: ACETAMINOPHEN 500 MG TABLET 1000 MG PO ×3 (00:36→15:07)
[2022-02-02 04:15] VITALS: BP 114/72; PULSE 61; RESP 16; TEMP 36.6; O2SAT 97
[2022-02-02] MEDS: IBUPROFEN 600 MG TABLET PO ×2 (04:18→12:51)
[2022-02-02 08:30] VITALS: BP 127/76; PULSE 78; RESP 16; TEMP 36.4; O2SAT 97
[2022-02-02 09:06] VITALS: TEMP 36.4
[2022-02-02] MEDS: DOCUSATE SODIUM 100 MG CAPSULE PO (09:15)
--- NOTE | 2022-02-02 09:28 | P.DS_ITS ---
DS: Providers Provider Date Seen: 02/02/22 Date of admission: 02/01/22 02:40 Primary care physician: Tatiana Provider Generic Admitting Clinician: Lindsey Roberto CNM Attending Physician on discharge: Lindsey Roberto CNM Date of Discharge: 02/02/22 Exam Const: Vital Signs, click to edit/add: Vital Signs - 24 hr 02/01/22 09:29 02/01/22 09:34 02/01/22 09:39 Temperature Pulse Rate Pulse Rate [Pulse Oximeter] Respiratory Rate Blood Pressure Blood Pressure [Ri ght Arm] Pulse Oximetry 100 100 100 Oxygen Delivery Me thod 02/01/22 09:44 02/01/22 09:49 02/01/22 09:54 Temperature Pulse Rate Pulse Rate [Pulse Oximeter] Respiratory Rate Blood Pressure Blood Pressure [Ri ght Arm] Pulse Oximetry 100 100 99 Oxygen Delivery Me thod 02/01/22 10:23 02/01/22 10:36 02/01/22 10:51 Temperature Pulse Rate 76 80 76 Pulse Rate [Pulse Oximeter] Respiratory Rate Blood Pressure 129/75 129/69 132/74 Blood Pressure [Ri ght Arm] Pulse Oximetry Oxygen Delivery Me thod 02/01/22 11:07 02/01/22 11:21 02/01/22 11:37 Temperature Pulse Rate 80 85 81 Pulse Rate [Pulse Oximeter] Respiratory Rate Blood Pressure 120/74 110/73 125/91 H Blood Pressure [Ri ght Arm] Pulse Oximetry Oxygen Delivery Me thod 02/01/22 11:52 02/01/22 12:06 02/01/22 10:22 Temperature 98.6 F Pulse Rate 75 82 Pulse Rate [Pulse Oximeter] 76 Respiratory Rate 16 Blood Pressure 123/65 117/70 Blood Pressure [Ri ght Arm] 129/75 Pulse Oximetry Oxygen Delivery Me thod 02/01/22 14:27 02/01/22 10:36 02/01/22 10:51 Temperature 98.1 F Pulse Rate Pulse Rate [Pulse Oximeter] 80 76 Respiratory Rate 16 15 Blood Pressure Blood Pressure [Ri ght Arm] 129/69 132/74 Pulse Oximetry Oxygen Delivery Me thod 02/01/22 11:06 02/01/22 11:21 02/01/22 11:36 Temperature Pulse Rate Pulse Rate [Pulse Oximeter] 80 85 81 Respiratory Rate 16 16 15 Blood Pressure Blood Pressure [Ri ght Arm] 120/74 110/73 125/91 H Pulse Oximetry Oxygen Delivery Me thod 02/01/22 11:52 02/01/22 12:06 02/01/22 16:07 Temperature 98.6 F 97.9 F Pulse Rate Pulse Rate [Pulse Oximeter] 75 82 85 Respiratory Rate 16 16 16 Blood Pressure Blood Pressure [Ri ght Arm] 123/65 117/70 119/77 Pulse Oximetry 97 Oxygen Delivery Me thod Room Air 02/01/22 20:18 02/01/22 23:51 02/02/22 04:15 Temperature 98.8 F 97.7 F 97.8 F Pulse Rate Pulse Rate [Pulse Oximeter] 97 79 61 Respiratory Rate 16 14 16 Blood Pressure Blood Pressure [Ri ght Arm] 114/80 92/54 L 114/72 Pulse Oximetry 96 97 97 Oxygen Delivery Me thod Room Air Room Air Room Air 02/02/22 08:30 02/02/22 09:06 Temperature 97.6 F 97.6 F Pulse Rate Pulse Rate [Pulse Oximeter] 78 Respiratory Rate 16 Blood Pressure Blood Pressure [Ri ght Arm] 127/76 Pulse Oximetry 97 Oxygen Delivery Me thod Room Air Documenting provider has reviewed patient's vital signs: yes Common normals: no apparent distress, average body habitus, oriented x3, no limitations, healthy appearing, alert and well nourished HENMT: Common normals: normocephalic and hearing grossly normal bilaterally Head and scalp: normocephalic Face and sinus: normal facial exam Eye: General eye: normal appearance of both eyes Neck & C-Spine: Common normals: full ROM, supple and no JVD Resp: Common normals: normal respiratory effort, no retractions, no use of accessory muscles and clear to auscultation bilaterally Auscultation: clear to auscultation bilaterally Cardio: Common normals: no JVD, regular rate, regular rhythm, S1 normal heart sound, S2 normal heart sound, no gallops, no clicks, no murmurs and no rub Rate: regular rate Rhythm: regular rhythm Heart sounds: S1 normal and S2 normal GI: Common normals: soft to palpation and non-tender Palpation: soft : Common normals: external appearance normal Speculum exam - vagina: vaginal laceration, vaginal swelling and vaginal tenderness Uterus: U/2 Lochia: small Extremity: Common normals: full ROM Neuro: Common normals: oriented x3 Sensorium/orientation: alert Psych: Common normals: mental status grossly normal OB - DS: Summary Hospital Course Hospital Course: The patient is a 31 year old G 2 now P 1 at 40.1 weeks gestation that was admitted to the [facility] on 02/01/22 for active labor. She had a vaginal delivery complicated by meconium stained fluid and a 3rd degree laceration. She delivered a viable male infant. She is breast feeding and feels it is going good. The patient feels well.? The pain is well controlled with current medications. She is taking ibuprofen and Tylenol scheduled to stay on top of the pain. Denies the need for additional pain medication.?Encouraged the use of tucks, Dermoplast, ice, and a sits bath for additional pain relief. She has no new complaints.? Urinary output is adequate and she is voiding without difficulty.? Has a good appetite, is tolerating a general diet, is passing flatus, and has not had a bowel movement.?She is taking a stool softener twice a day. Has a small amount of rubra lochia.? She is ambulating well.? the patient has done well. She is considering discharging today but may choose to stay another day for help and help from the nursing staff. Peripartum Data Infant delivery method: Vaginal Laceration description: Perineal - 3rd Degree Episiotomy description: None complications: none Martell Gender: Male Discharge Plan: Home Status at Discharge Functional status at discharge: independent ambulation Overall status at discharge: patient is progressing back to baseline Time Spent with Patient Time attestation: Total time spent providing and/or coordinating discharge services: Discharge Plan Discharge Disposition: Home, Self-Care Date of Admission: 02/01/22 02:40 Attending Provider on Discharge: Giuliana Bullock Primary Care Provider: Tatiana Puckett Provider Condition: Stable Anticipated Discharge Date/Time: 02/02/22 18:00 Discharge Medications: New docusate sodium 100 mg Capsule 100 mg PO BID Qty: 100 1RF ibuprofen 600 mg Tablet 600 mg PO Q6H PRNQty: 90 1RF Continued prenat.vits,socrates,[id number] Tablet 1 tab PO QDAY ergocalciferol (vitamin D2) 10 mcg (400 unit) tablet 400 unit PO BID Discontinued ferrous sulfate 325 mg (65 mg iron) tablet 325 mg PO QDAY magnesium 250 mg tablet 250 mg PO QDAY Discharge Orders: Discharge Order (Routine); Ordered 02/02/22 Ordered By: Giuliana Bullock Patient Education: OB Vaginal/Breast Feeding Activity Restrictions/Additional Instructions: Discharge instructions were reviewed with the patient including signs and symptoms of infection and home going medications.? Do not drive while taking narcotic pain meds.? Off Work or School for 6 weeks.? ?? Symptoms to report to doctor:? -Bleeding that saturates more than one pad per hour? -Passing clots larger than the size of a golf ball? -Pain not relieved by prescribed medication? -Fever above 100.4 degrees Fahrenheit? -A foul vaginal odor? -Difficulty in emotions, mood and functions? -Thoughts of hurting yourself and/or ? -Painful, reddened area in your breast? -Any drainage, redness or tenderness in your IV/epidural site? -Severe headache that doesn't improve after taking medications? -Changes in vision, including temporary loss of vision, blurred vision, and/or light sensitivity? -Upper abdominal pain (usually under ribs on the right side)? -Decrease in urination or painful, frequent urinating? -Chest pain? -Shortness of breath? -Tenderness or pain with redness and/swelling in the calf(s) of your leg? ?? Follow Up in clinic in 2 and 6 weeks.? ?? consultation services are available to all mothers and babies for the first year after delivery.? To make an appointment, please call [phone].? Activity Level: Activity as Tolerated Discharge Diet: Regular Follow Up Appointments: [facility] [Provider Group] Forms: MyHealth Info Instructions
[2022-02-02 15:55] VITALS: BP 111/70; PULSE 63; RESP 16; TEMP 36.4; O2SAT 96
== END 2022-02-02 18:51 | disposition home or self-care (01) | DRG 768 ==
LOC: OB OUT 03:01 → OB 03:01
PROVIDERS: Admitting Provider Advanced Practice Midwife; Visit Provider Advanced Practice Midwife
DX: O77.0 Labor and delivery complicated by meconium in amniotic fluid (principal); Z37.0 Single live birth; O70.22 Third degree perineal laceration during delivery, IIIb; O76 Abnormality in fetal heart rate and rhythm complicating labor and delivery; Z3A.40 40 weeks gestation of pregnancy
CPT/HCPCS: 87635; A9270

== ENCOUNTER 2022-02-10 13:42 | Outpatient (CLI) | payer OTHER, SELFPAY ==
--- OUTSIDE RECORDS SUMMARY | 2022-02-10 13:45 | XMS_ITS | Encounter Summary ---
:1990 Author Organization [facility] Address [address] [place] [address] Care Team Providers Name Role Phone Leidy Sauceda APRN, C.N.P., M.S. Primary Care Provider [phone] Encounter Details Date Type Department Care Team Description 05/24/2021 Hospital Encounter Department of Charli Nunez Am enorrhea Laboratory Medicine in [place] Workman M.D. [facility] surgical scheduler [address] [place] [phone] Social History Tobacco Use Types Packs/Day Years [...] more drinks on one Never 05/08/2021 occasion? Social Isolation Answer Date Recorded In a typical week, how many times do you More than three orion es a week 05/08/2021 talk on the phone with family, friends, or neighbors? How often do you get together with friends Once a week 05/08/2021 or relatives? How often do you attend jewish or More than 4 times per year 05/08/2021 protestant services? Do you belong to any clubs [...] 05/24/2021 7:28 AM Resul ts for this LOCOMOTIVE REPAIRER DIESEL procedure are i n the results section. TYPE AND SCREEN Routine 05/24/2021 7:28 AM Amenorrhea Result s for this LOCOMOTIVE REPAIRER DIESEL procedure are i n the results section. HUMAN CHORIONIC Routine 05/24/2021 7:28 AM Amenorrhea Result s for this GONADOTROPIN (HCG), LOCOMOTIVE REPAIRER DIESEL procedur e are in MARIA R, the results section. documented in this encounter Results Testing Location (05/24/2021 7:28 AM LOCOMOTIVE REPAIRER DIESEL) athologist Signature Testing [facility] DEFAULT 05/24/2021 [facility] Location 7:31 AM LOCOMOTIVE REPAIRER DIESEL Specimen Anatomical Collection Method Collection Time Receive d Time (Source) Location / / Volume Laterality Blood 05/24/2021 7:28 AM 7:31 LOCOMOTIVE REPAIRER DIESEL AM LOCOMOTIVE REPAIRER DIESEL [place] Nunez M.D. LAB BLOOD BANK TEST OR DERABLES Performing Organization Address City/State/ZIP Code Phon e Number [facility]- [address] [place], [place] [address] [place] [address] System in [place] [address] Type and Screen (with reflex Antibody ID) (05/24/2021 7:28 AM LOCOMOTIVE REPAIRER DIESEL) [facility] Method Time Signature ABO Group A 05/24/2021 [facility] 1:56 PM LOCOMOTIVE REPAIRER DIESEL Rh Type POS 05/24/2021 [facility] 1:56 PM LOCOMOTIVE REPAIRER DIESEL Antibody Screen NEG 05/24/2021 [facility] 1:56 PM LOCOMOTIVE REPAIRER DIESEL Type & Screen 05/27/2021 05/24/2021 [facility] Expiration 23:59 1:56 PM LOCOMOTIVE REPAIRER DIESEL ELXM Eligible Y 05/24/2021 [facility] 1:56 PM LOCOMOTIVE REPAIRER DIESEL Specimen Anatomical Collection Method Collection Time Receive d Time (Source) Location / / Volume Laterality Blood (Blood, 05/24/2021 7:28 AM 05/24/19 7:31 Venous) LOCOMOTIVE REPAIRER DIESEL AM LOCOMOTIVE REPAIRER DIESEL [place] Nunez M.D. LAB BLOOD BANK TEST OR DERABLES Performing Organization Address City/State/ZIP Code Phon e Number [facility]- [address] [place], [place] [address] [place] [address] System in [place] [address] (ABNORMAL) hCG (Human Chorionic Gonadotropin), Quantitative, (05/24/2021 7:28 AM LOCOMOTIVE REPAIRER DIESEL) P athologist Signature HCG, 206 (H) <5 IU/L 05/24/2021 CNFL Quantitative, 8:02 AM LOCOMOTIVE REPAIRER DIESEL , P Comment: Biotin has been identified [...] 05/24/2021 7:28 AM 05/24/19 22 7:31 Venous) LOCOMOTIVE REPAIRER DIESEL AM LOCOMOTIVE REPAIRER DIESEL [place] Nunez M.D. LAB BLOOD ADD-ON Performing Organization Address City/State/ZIP Code Phon e Number [address] [address] [place] [address] System [address] documented in this encounter Visit Diagnoses Diagnosis Amenorrhea documented in this encounter Additional Health Concerns Assessment Noted Time PHQ-9 Depression Total Score: 1 09/25/2020 7:35 AM CDT documented as of this encounter Care Teams Party Bus Driver Relationship Specialty Start Date End Date Leidy Sauceda APRN, C.N.P., M.S. PCP - General Family Medicine 04/10/[address] [place] [address] documented as of this encounter
--- OUTSIDE RECORDS SUMMARY | 2022-02-10 13:45 | XMS_ITS | Encounter Summary ---
:1990 Author Organization [facility] Address [address] [place] [address] Care Team Providers Name Role Phone Leidy Sauceda APRN, C.N.P., M.S. Primary Care Provider [phone] Encounter Details Date Type Department Care Team Description 05/22/2021 Hospital Encounter Department of Charli Nunez Am enorrhea Laboratory Medicine in [place] Workman M.D. [facility] umberto [address] [place] [phone] Social History Tobacco Use Types Packs/Day Years [...] skin as needed (Administer when directed by SAOLME team). letrozole (FEMARA) 2.5 mg TAKE 1 [...] Amenorrhea Result s for this GONADOTROPIN (HCG), COUNTER PERSON procedur e are in MARIA R, the results section. documented in this encounter Results (ABNORMAL) hCG (Human Chorionic Gonadotropin), Quantitative, (05/22/2021 7:19 AM COUNTER PERSON) P athologist Signature HCG, 76 (H) <5 IU/L 05/22/2021 CNFL Quantitative, 7:59 AM COUNTER PERSON , P Comment: Biotin has been identified [...] 05/22/2021 7:19 AM 05/22/19 22 7:20 Venous) COUNTER PERSON AM COUNTER PERSON [place] Nunez M.D. LAB BLOOD ADD-ON Performing Organization Address City/State/ZIP Code Phon e Number [address] [address] [place] [address] System [address] documented in this encounter Visit Diagnoses Diagnosis Amenorrhea documented in this encounter Additional Health Concerns Assessment Noted Time PHQ-9 Depression Total Score: 1 09/25/2020 7:35 AM CDT documented as of this encounter Care Teams Medical Records Assistant Relationship Specialty Start Date End Date Leidy Sauceda APRN, C.N.P., M.S. PCP - General Family Medicine 04/10/[address] [place] [address] documented as of this encounter
--- OUTSIDE RECORDS SUMMARY | 2022-02-10 13:45 | XMS_ITS | Encounter Summary ---
:1990 Author Organization [facility] Address [address] [place] [address] Care Team Providers Name Role Phone Leidy Sauceda APRN, C.N.P., M.S. Primary Care Provider [phone] Encounter Details Date Type Department Care Team Description 05/21/2021 Orders Only Department of Ami Vidal (Primary Obstetrics and M, R.N. Dx) Gynecology in [address] [place] [address] [place] [phone] [place] [phone] Social History Tobacco Use Types Packs/Day Years [...] or relatives? How often do you attend muslim or More than 4 times per year 05/08/2021 mandaeism services? Do you belong to any clubs or Yes 05/08/2021 organizations such as muslim groups, unions, fraternal or athletic groups, or [...] (with reflex Antibody ID) (05/24/2021 7:28 AM POLO COACH) [facility] gist Method Time Signature ABO Group A 05/24/2021 [facility] 1:56 PM POLO COACH Rh Type POS 05/24/2021 [facility] 1:56 PM POLO COACH Antibody Screen NEG 05/24/2021 [facility] 1:56 PM POLO COACH Type & Screen 05/27/2021 05/24/2021 [facility] Expiration 23:59 1:56 PM POLO COACH ELXM Eligible Y 05/24/2021 [facility] 1:56 PM POLO COACH Specimen Anatomical Collection Method Collection Time Receive d Time (Source) Location / / Volume Laterality Blood (Blood, 05/24/2021 7:28 AM 05/24/19 7:31 Venous) POLO COACH AM POLO COACH [place] Nunez M.D. LAB BLOOD BANK TEST OR DERABLES Performing Organization Address City/State/ZIP Code Phon e Number [facility]- [facility] [address] [place] [address] [place] [address] System in [place] (ABNORMAL) hCG (Human Chorionic Gonadotropin), Quantitative, (05/24/2021 7:28 AM POLO COACH) athologist Signature HCG, 206 (H) <5 IU/L 05/24/2021 CNFL Quantitative, 8:02 AM POLO COACH , P Comment: Biotin has been identified [...] 05/24/2021 7:28 AM 05/24/19 22 7:31 Venous) POLO COACH AM POLO COACH [place] Nunez M.D. LAB BLOOD ADD-ON Performing Organization Address City/[facility] Code Phon e Number [address] [place] [address] System [address] (ABNORMAL) hCG (Human Chorionic Gonadotropin), Quantitative, (05/22/2021 7:19 AM POLO COACH) athologist Signature HCG, 76 (H) <5 IU/L 05/22/2021 CNFL Quantitative, 7:59 AM POLO COACH , P Comment: Biotin has been identified [...] 05/22/2021 7:19 AM 05/22/19 22 7:20 Venous) POLO COACH AM POLO COACH [place] Nunez M.D. LAB BLOOD ADD-ON Performing Organization Address City/State/ZIP Code Phon e Number [facility]- [address] [place] [address] [place] [address] [place] [address] System [address] documented in this encounter Visit Diagnoses Diagnosis Amenorrhea - Primary documented in this encounter Additional Health Concerns Assessment Noted Time PHQ-9 Depression Total Score: 1 09/25/2020 7:35 AM CDT documented as of this encounter Care Teams Motorbike Courier Relationship Specialty Start Date End Date Leidy Sauceda APRN C.N.P., M.S. PCP - General Family Medicine 04/10/[address] [place] [address] documented as of this encounter
--- OUTSIDE RECORDS SUMMARY | 2022-02-10 13:45 | XMS_ITS | Encounter Summary ---
:1990 Author Organization [facility] Address [address] [place] [address] Care Team Providers Name Role Phone Leidy Sauceda APRN, C.NFantasma, M.S. Primary Care Provider Reason for Referral Outpatient (Routine) - Authorized Specialty Diagnoses / Procedures Referred By Contact Refer red To Contact Family Medicine [facility] jeremi Lopez, M.S. [address] [place] [phone] Referral ID Status Reason Start Date Expiration Date Visits V isits Requested Authorized [id number] Authorized 12/13/2021 12/12/2024 1 1 Encounter Details Date Type Department Care Team Description 12/13/2021 Orders Only RST PCP HLTH MNT Leidy Sauceda A PRN, C.N.P., M.S. [address] [place] [phone] (Wo rk) Social History Tobacco [...] 05/08/2021 organizations such as jew groups, unions, fra55social or athletic groups, or school groups? How [...] Name Type Priority Associated Diagnoses Order S [facility] Family Medicine Outpatient Referral Routine Expec arnulfo: office visit 12/27/2021, (clinic) Expires: 06/11/2022 documented as of this encounter Visit Diagnoses Not on filedocumented in this encounter Additional Health Concerns Assessment Noted Time PHQ-9 Depression Total Score: 1 09/25/2020 7:35 AM CDT documented as of this encounter Care Teams Lumber Tailer Relationship Specialty Start Date End Date Leidy Sauceda APRN, C.N.P., M.S. PCP - General Family Medicine 04/10/15 [address] [place] [address] documented as of this encounter
--- OUTSIDE RECORDS SUMMARY | 2022-02-10 13:45 | XMS_ITS | Encounter Summary ---
:1990 Author Organization [facility] Address [address] [place] [address] Care Team Providers Name Role Phone Leidy Sauceda APRN, C.N.P., M.S. Primary Care Provider [phone] Encounter Details Date Type Department Care Team Description 09/11/2021 Orders Only RST PCP HLTH [facility] Rakel Kaur M.D. [address] [place], [place] [phone] (Wo rk) Social History [...] More than 4 times per year 05/08/2021 episcopalian services? Do you belong to any clubs [...] documented as of this encounter Care Teams Home Therapy Clinician Relationship Specialty Start Date End Date Leidy Sauceda APRN, C.N.P., M.S. PCP - General Family Medicine 04/10/15 [address] [place] [address] documented as of this encounter
--- OUTSIDE RECORDS SUMMARY | 2022-02-10 13:45 | XMS_ITS | Encounter Summary ---
:1990 Author Organization [facility] Address [address] [place] [address] Care Team Providers Name Role Phone Leidy Sacueda APRN, C.N.P., M.S. Primary Care Provider [phone] Encounter Details Date Type Department Care Team Description 05/24/2021 Orders Only Department of Carlotta Araujo Examination Obstetrics and N, R.N. Unconfirmed Result Gynecology in [address] [place] [address] (Primary Dx) [place], [place] [address] [place] [phone] [place], [place] [phone] (Work) [phone] Social History Tobacco Use Types Packs/Day Years [...] documented as of this encounter Care Teams Crewman Main Battle Tank Relationship Specialty Start Date End Date Leidy Sauceda APRN, C.N.P., M.S. PCP - General Family Medicine 04/10/15 [address] [place] [address] documented as of this encounter
--- OUTSIDE RECORDS SUMMARY | 2022-02-10 13:45 | XMS_ITS | Clinical Summary ---
:1990 Author Organization [facility] Address [address] [place] [address] Care Team Providers Name Role Phone Leidy Sauceda APRN, C.N.P., M.S. Primary Care Provider [phone] Source Comments Patient records contain information from all sites at [facility]. For routine questions regarding patient records, call [phone] during business hours, M-F 8:00 AM - 5:00 PM Central Time. Record requests for emergency care only can be directed to [phone] at any time.[facility] Allergies No known active allergies Medications Medication Sig Dispensed Refills Start Date End Date Status vitamin-iron 0 Active fumarate-FA 28 mg iron- 800 mcg tablet UNABLE TO FIND Vitex 0 06/29/2020 Acti ve cholecalciferol, vitamin 0 02/26/2020 Active D3, (Vitamin D3) 10 mcg (400 unit) capsule ibuprofen (ADVIL,MOTRIN) Take 600 mg by 0 10/07/2020 Active 600 mg tablet mouth. choriogonadotropin Inject 0.5 mL 0.5 mL 0 03/24/2021 Active (OVIDREL) 250 mcg/0.5 mL (0.25 mg total) syringe injection under the skin as needed (Administer when directed by SAL[facility] team). Additional Information Patient not taking. Reported on 05/08/2021 letrozole (FEMARA) 2.5 TAKE 1 TABLET BY 5 tablet 0 03/23/2021 03/23/2022 Active mg tablet MOUTH DAILY Additional Information Patient not taking. Reported on 05/08/2021 docusate sodium (COLACE) Take 1 capsule (100 mg 100 capsule 1 02/02/2022 Active 100 mg capsule total) by mouth 2 (two) times a day. ibuprofen (ADVIL,MOTRIN) Take 1 tablet (600 mg 90 tablet 1 12/2021 Active 600 mg tablet total) by mouth every 6 (six) hours as needed. Active Problems Problem Noted Date Endometriosis 11/05/2020 [...] Paternal Grandmother Healthy adult Sister 3 sisters, patie nt is a twin Heart valve replacement [...] 05/08/2021 organizations such as quaker groups, unions, [employer] or athletic groups, or school groups? How [...] 16 06/18/2016 12:02 Vital sign result PM BIZTALK SOFTWARE DEVELOPER from Clinical No gabe. Oxygen Saturation - [...] Phone Address Typ e / Group Dates [facility] [email or web address] 2020-Pres [phone] [address] [employer] [address] [address] (Home) [address] [phone] [place] , ([place]) [place] [address] Care Teams Intranet Developer Relationship Specialty Start Date End Date Leidy Sauceda APRN, C.N.P., M.S. PCP - General Family Medicine 04/10/15 [address] [place] [address]
--- OUTSIDE RECORDS SUMMARY | 2022-02-10 13:46 | XMS_ITS | Encounter Summary ---
:1990 Author Organization [facility] Address [address] [place] [address] Care Team Providers Name Role Phone Leidy Sauceda APRN, C.N.P., M.S. Primary Care Provider [phone] Encounter Details Date Type Department Care Team Description 12/28/2020 Clinical Communication Department of Rakel [place] Obstetrics and CMalcom, Ph.D. Gynecology in [address] [place] [address] [place] [address] [place], [place] [phone] (Work) [phone] Social History Tobacco Use Types Packs/Day Years [...] documented as of this encounter Care Teams Mine Shifter Relationship Specialty Start Date End Date Leidy Sauceda APRN, C.N.P., M.S. PCP - General Family Medicine 04/10/15 [address] [place] [address] documented as of this encounter
--- OUTSIDE RECORDS SUMMARY | 2022-02-10 13:46 | XMS_ITS | Encounter Summary ---
:1992 Author Organization [facility] Address [address] [place] [address] Care Team Providers Name Role Phone Leidy Sauceda APRN, C.N.P., M.S. Primary Care Provider [phone] Reason for Referral Outpatient (Routine) - Authorized Specialty Diagnoses / Procedures Referred By Contact Refer red To Contact Obstetrics and Diagnoses Infertility [facility] Harmony Workman M.D. [address] [place] [phone] Referral ID Status Reason Start Date Expiration Date Visits V isits Requested Authorized [id number] Authorized 03/23/2021 03/23/2022 1 1 edication Prior Authorization - Denied Specialty Diagnoses / Procedures Referred By Contact Refer red To Contact Harmony Chavez M.D. [address] [place] [phone] Referral ID Status Reason Start Date Expiration Date Visits Requ ested Visits Authorized [id number] Denied 1 1 RAL DIRECTOR AND EMBALMER Encounter Details Date Type Department Care Team Description 03/23/2021 Orders Only Department of Lujero, Celeste, Infertilit y Female Obstetrics and R.N. (Primary Dx) Gynecology in [address] [place], [place] 200 [facility] [address] [place] [address] Social History Tobacco Use Types Packs/Day Years [...] - Follicle Tracking OI (04/01/2021 9:22 AM FUNERAL DIRECTOR AND EMBALMER) Anatomical Region Laterality Modality Ultrasound OB RST LOS, Ultrasound ARZ LOS Ultrasound Specimen (Source) Anatomical Location Collection Method / Collectio n Time Received Time / Laterality Volume Narrative 04/01/2021 11:12 AM FUNERAL DIRECTOR AND EMBALMER 9b Lt adx ff Harmony Nunez M.D. IMHattie OB US PROCEDURES documented in this encounter Visit Diagnoses Diagnosis Infertility Female - Primary Infertility Female documented in this encounter Additional Health Concerns Assessment Noted Time PHQ-9 Depression Total Score: 1 09/25/2020 7:35 AM CDT documented as of this encounter Care Teams Chart Snatcher Relationship Specialty Start Date End Date Leidy Sauceda APRN, C.N.P., M.S. PCP - General Family Medicine 04/10/15 [address] [place] [address] documented as of this encounter
--- OUTSIDE RECORDS SUMMARY | 2022-02-10 13:46 | XMS_ITS | Encounter Summary ---
:1990 Author Organization [facility] Address [address] [place] [address] Care Team Providers Name Role Phone Leidy Sauceda APRN, C.N.P., M.S. Primary Care Provider [phone] Encounter Details Date Type Department Care Team Description 01/28/2021 Clinical Communication Department of Charli Nunez , Obstetrics and Harmony Workman M.D. Gynecology in [address] [place] [address] [address] [facility] [address] [place], [place] [phone] (Work) [phone] Social History Tobacco Use Types Packs/Day Years [...] More than 4 times per year 05/08/2021 taoist services? Do you belong to any clubs [...] documented as of this encounter Care Teams Apartment Maintenance Manager Relationship Specialty Start Date End Date Leidy Sauceda APRN, C.N.P., M.S. PCP - General Family Medicine 04/10/15 [address] [place] [address] documented as of this encounter
--- OUTSIDE RECORDS SUMMARY | 2022-02-10 13:46 | XMS_ITS | Encounter Summary ---
:1992 Author Organization [facility] Address [address] [place] [address] Care Team Providers Name Role Phone Leidy Sauceda APRN, C.N.P., M.S. Primary Care Provider [phone] Reason for Visit Reason Comments Communication Encounter Details Date Type Department Care Team Description 12/18/2020 Clinical Communication Department of Poli Billy C ommunication Obstetrics and M.D. Gynecology in [address] [place] [address] [place] [address] [place], [place] [phone] (Work) [phone] Social History Tobacco Use Types Packs/Day Years [...] or relatives? How often do you attend episcopal or More than 4 times per year 05/08/2021 quaker services? Do you belong to any clubs or Yes 05/08/2021 organizations such as episcopal groups, unions, fraternal or athletic groups, or [...] Pain has subsided currently to 1-2/10 from 910 earlier today. 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 She did not note [...] called in wanting to speak with a hourly team members as she has been having extreme pain [...] Organization Address City/State/ZIP Code Phon e Number [facility]- [address] [place] [address] [facility] [place] [address] System [address] documented in this encounter Visit Diagnoses Diagnosis Amenorrhea - Primary documented in this encounter Additional Health Concerns Infection Onset Date Last Indicated Resolved Time COVID19 12/04/2020 12/04/2020 12/24/2020 4:45 AM CDT Assessment Noted Time PHQ-9 Depression Total Score: 1 09/25/2020 7:35 AM CDT documented as of this encounter Care Teams Mat Man Relationship Specialty Start Date End Date Leidy Sauceda APRN, C.N.P., M.S. PCP - General Family Medicine 04/10/[address] [place] [address] documented as of this encounter
--- OUTSIDE RECORDS SUMMARY | 2022-02-10 13:46 | XMS_ITS | Encounter Summary ---
:1992 Author Organization [facility] Address [address] [place] [address] Care Team Providers Name Role Phone Leidy Sauceda APRN, C.N.P., M.S. Primary Care Provider [phone] Encounter Details Date Type Department Care Team Description 01/10/2021 Hospital Encounter Department of Marisol Nelson Female Laboratory Medicine Rakel Ricardo M.D., in [place], Ph.D. [address] [phone] Social History Tobacco Use Types Packs/Day Years [...] Organization Address City/State/ZIP Code Phon e Number [facility]- [address] [place] [phone] [facility] [place] [place] [address] System in [address] documented in this encounter Visit Diagnoses Diagnosis Infertility Female documented in this encounter Additional Health Concerns Assessment Noted Time PHQ-9 Depression Total Score: 1 09/25/2020 7:35 AM CDT documented as of this encounter Care Teams Institutional Aide Relationship Specialty Start Date End Date Leidy Sauceda APRN, C.N.P., M.S. PCP - General Family Medicine 04/10/[address] [place] [address] documented as of this encounter
--- OUTSIDE RECORDS SUMMARY | 2022-02-10 13:46 | XMS_ITS | Encounter Summary ---
:1990 Author Organization [facility] Address [address] [place] [address] Care Team Providers Name Role Phone Leidy Sauceda APRN, C.N.P., M.S. Primary Care Provider Reason for Referral Outpatient (Routine) - Closed Specialty Diagnoses / Procedures Referred By Contact Refer red To Contact Diagnoses Infertility Female Rakel Nelson, [facility] Procedures [place] Hysterosalpingogram Malcom, Ph.D. [address] [place] [phone] Referral ID Status Reason Start Date Expiration Date Visits Requ ested Visits Authorized [id number] Closed 01/21/2021 01/21/2022 1 1 Encounter Details Date Type Department Care Team Description 01/21/2021 Orders Only Department of Brandie Crouch Infertili ty Female Obstetrics and R.N. (Primary Dx) Gynecology in [address] [place] [address] [place] [address] [place], [place] [phone] (Work) [phone] Social History Tobacco Use Types Packs/Day Years [...] or relatives? How often do you attend zoroastrian or More than 4 times per year 05/08/2021 baptism services? Do you belong to any clubs or Yes 05/08/2021 organizations such as zoroastrian groups, unions, fraternal or athletic groups, or [...] contrast into the peritoneal cavity. Left salpingectomy. [employer] Narrative 01/28/2021 3:32 PM CDT EXAM: ??[place] HYSTEROSALPINGOGRAM COMPARISON: ??Pelvic ultrasound 12/29/19. FINDINGS: ?? Fluoroscopic hysterosalpingogram was per formed using a retrograde injection of water soluble contrast following cannula tion of the cervical opening with the marine painter. Normal filling of the uterus without chet [...] tion of the cervical opening with the marine painter. Normal filling of the uterus without chet dence of contour abnormality or filling defect. The right fallopian tube is ramirez nt with spillage of contrast into the peritoneal cavity. The left fallopian tu be was surgically removed. IMPRESSION: Patent right fallopian tube with spillag e of contrast into the peritoneal cavity. Left salpingectomy. [employer] Rakel Nelson M.D., Ph.D. IMG FLUOROSCOPY PROCEDU RES documented in this encounter Visit Diagnoses Diagnosis Infertility Female - Primary Infertility Female Infertility Female documented in this encounter Additional Health Concerns Assessment Noted Time PHQ-9 Depression Total Score: 1 09/25/2020 7:35 AM CDT documented as of this encounter Care Teams Carbide Powder Processor Relationship Specialty Start Date End Date Leidy Sauceda APRN, C.N.P., M.S. PCP - General Family Medicine 04/10/[address] [place] [address] documented as of this encounter
--- OUTSIDE RECORDS SUMMARY | 2022-02-10 13:46 | XMS_ITS | Encounter Summary ---
:1992 Author Organization [facility] Address [address] [place] [address] Care Team Providers Name Role Phone Leidy Sauceda APRN, C.N.P., M.S. Primary Care Provider Encounter Details Date Type Department Care Team Description 03/25/2021 Orders Only Pharmacy Prior Auth RO Leidy Sauceda APRN, C.N.P., M.S. [address] [place] [address] (Wo rk) Social History Tobacco Use Types [...] meetings of the More than 4 times r year 05/08/2021 clubs or organizations you [...] documented as of this encounter Care Teams Gas System Operator Relationship Specialty Start Date End Date Leidy Sauceda APRN, C.N.P., M.S. PCP - General Family Medicine 04/10/15 [address] [place] [address] documented as of this encounter
--- OUTSIDE RECORDS SUMMARY | 2022-02-10 13:46 | XMS_ITS | Encounter Summary ---
:1990 Author Organization [facility] Address [address] [place] [address] Care Team Providers Name Role Phone Leidy Sauceda APRN, C.N.P., M.S. Primary Care Provider [phone] Reason for Visit Reason Comments Medication Question Encounter Details Date Type Department Care Team Description 01/21/2021 Clinical Communication Department of Mary Jaquez [facility] Armando Obstetrics and Nicole Madrigal R.N. Gynecology in [address] [place] [address] [place] [address] [place], [place] (Work) [phone] Social History Tobacco Use Types Packs/Day Years [...] documented as of this encounter Care Teams Dye Tub Tender Relationship Specialty Start Date End Date Leidy Sauceda APRN, C.N.P., M.S. PCP - General Family Medicine 04/10/15 [address] [place] [address] documented as of this encounter
--- OUTSIDE RECORDS SUMMARY | 2022-02-10 13:46 | XMS_ITS | Encounter Summary ---
:1990 Author Organization [facility] Address [address] [place] [address] Care Team Providers Name Role Phone Leidy Sauceda APRN, C.N.P., M.S. Primary Care Provider [phone] Reason for Visit Reason Comments Patient Education Encounter Details Date Type Department Care Team Description 12/05/2020 Clinical Communication Department of Chana Ware Education Infusion Therapy in Corrina Gregory [place], [address] [place], [place] [address] [address] [place] [phone] Social History Tobacco Use Types Packs/Day Years [...] documented as of this encounter Care Teams Neck Pinner Relationship Specialty Start Date End Date Leidy Sauceda APRN, C.N.P., M.S. PCP - General Family Medicine 04/10/15 [address] [place] [address] documented as of this encounter
--- OUTSIDE RECORDS SUMMARY | 2022-02-10 13:46 | XMS_ITS | Encounter Summary ---
:1992 Author Organization [facility] Address [address] [place] [address] Care Team Providers Name Role Phone Leidy Sauceda APRN, C.N.P., M.S. Primary Care Provider [phone] Encounter Details Date Type Department Care Team Description 02/28/2021 Clinical Communication Department of Rakel Nelson Obstetrics and CMalcom, Ph.D. Gynecology in [address] [place] [address] [place] [address] [place], [place] [phone] (Work) [phone] Social History Tobacco Use Types Packs/Day Years [...] or relatives? How often do you attend yazidism or More than 4 times per year 05/08/2021 synagogue services? Do you belong to any clubs or Yes 05/08/2021 organizations such as yazidism groups, unions, fraternal or athletic groups, or [...] documented as of this encounter Care Teams Lead Custodian Relationship Specialty Start Date End Date Leidy Sauceda APRN, C.N.P., M.S. PCP - General Family Medicine 04/10/15 [address] [place] [address] documented as of this encounter
--- OUTSIDE RECORDS SUMMARY | 2022-02-10 13:46 | XMS_ITS | Encounter Summary ---
:1990 Author Organization [facility] Address [address] [place] [address] Care Team Providers Name Role Phone Leidy Sauceda APRN, C.N.P., M.S. Primary Care Provider [phone] Encounter Details Date Type Department Care Team Description 12/18/2020 Orders Only Department of Obstetrics and Swe Brandie barnes R.N. Gynecology in [place], [address] [place], [place] [address] [facility] [address] [place] [address] [phone] Social History Tobacco Use Types Packs/Day Years [...] documented as of this encounter Care Teams Boom Stick Man Relationship Specialty Start Date End Date Leidy Sauceda APRN, C.N.P., M.S. PCP - General Family Medicine 04/10/15 [address] [place] [address] documented as of this encounter
--- OUTSIDE RECORDS SUMMARY | 2022-02-10 13:46 | XMS_ITS | Encounter Summary ---
:1992 Author Organization [facility] Address [address] [place] [address] Care Team Providers Name Role Phone Leidy Sauceda APRN, C.N.P., M.S. Primary Care Provider [phone] Reason for Visit Reason Comments Proir Authorization Encounter Details Date Type Department Care Team Description 03/25/2021 Clinical Communication Department of Linden Billy Authorization Obstetrics and Malcom [place]hton Gynecology in [address] [place] [address] [place] [address] [place], [place] (Work) [phone] Social History Tobacco Use [...] this as soon as possible. Thank you, [facility] Specialty Outpatient Pharmacy Prior Authorization Team If wishing to discuss this PA with the [facility] Specialty team, please send a communication within [employer] to SPECIALTY EPA POOL and your inquiry will be reviewed. T ROOM HAND Telephone Encounter - Reina Schneider - 03/25/2021 9:10 AM CST Pt calling in to give a number for Ovidrel prior authorization. Pt was told that [phone] needed to be call to get [facility]. T ROOM HAND documented in this encounter Plan of Treatment Not on filedocumented as of this encounter Visit Diagnoses Not on filedocumented in this encounter Additional Health Concerns Assessment Noted Time PHQ-9 Depression Total Score: 1 09/25/2020 7:35 AM CDT documented as of this encounter Care Teams Fiction And Nonfiction Prose Writer Relationship Specialty Start Date End Date Leidy Sauceda APRN, C.N.P., M.S. PCP - General Family Medicine 04/10/[address] [place] [address] documented as of this encounter
--- OUTSIDE RECORDS SUMMARY | 2022-02-10 13:46 | XMS_ITS | Encounter Summary ---
:1990 Author Organization [facility] Address [address] [place] [address] Care Team Providers Name Role Phone Leidy Sauceda APRN, C.N.P., M.S. Primary Care Provider [phone] Reason for Visit Outpatient (Routine) - Closed Specialty Diagnoses / Procedures Referred By Contact Refer red To Contact Obstetrics and Charli Nunez, [facility] Gynecology Harmony Workman M.D. 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 - 05/08/2021 3:30 PM CST [...] 09/10/18 20.55 kg/m?? Blood Type: Unknown Ovarian [place]: normal for her age and is suggestive [...] to face patient care. Manuel Eastman M.D. ORT PLANNER documented in this encounter Plan of Treatment Not on filedocumented as of this encounter Visit Diagnoses Diagnosis Infertility Tubal Origin Female - Primar y Polycystic Ovary Syndrome documented in this encounter Additional Health Concerns Assessment Noted Time PHQ-9 Depression Total Score: 1 09/25/2020 7:35 AM CDT documented as of this encounter Care Teams Development Scientist Relationship Specialty Start Date End Date Leidy Sauceda APRN, C.N.P., M.S. PCP - General Family Medicine 04/10/[address] [place] [address] (work) documented as of this encounter
--- OUTSIDE RECORDS SUMMARY | 2022-02-10 13:46 | XMS_ITS | Encounter Summary ---
:1990 Author Organization [facility] Address [address] [place] [address] Care Team Providers Name Role Phone Leidy Sauceda APRN, C.N.P., M.S. Primary Care Provider Encounter Details Date Type Department Care Team Description 12/28/2020 Orders Only Department of Obstetrics and Swe Brandie barnes R.N. Gynecology in [place], [address] [place], [place] [address] [facility] [address] [place] [address] [phone] Social History Tobacco Use Types Packs/Day Years [...] documented as of this encounter Care Teams Form Setter Relationship Specialty Start Date End Date Leidy Sauceda, SHA, C.N.P., M.S. PCP - General Family Medicine 04/10/15 [address] [place] [address] documented as of this encounter
--- OUTSIDE RECORDS SUMMARY | 2022-02-10 13:46 | XMS_ITS | Encounter Summary ---
:1990 Author Organization [facility] Address [address] [place] [address] Care Team Providers Name Role Phone Leidy Sauceda APRN, C.N.P., M.S. Primary Care Provider [phone] Encounter Details Date Type Department Care Team Description 01/17/2021 Orders Only RST PCP [facility] Rakel Kaur M.D. [address] [place], [place] [phone] (Wo rk) Social History [...] documented as of this encounter Care Teams Photostat Operator Relationship Specialty Start Date End Date Leidy Sauceda APRN, C.N.P., M.S. PCP - General Family Medicine 04/10/15 [address] [place] [address] documented as of this encounter
--- OUTSIDE RECORDS SUMMARY | 2022-02-10 13:46 | XMS_ITS | Encounter Summary ---
:1990 Author Organization [facility] Address [address] [place] [address] Care Team Providers Name Role Phone Leidy Sauceda APRN, C.N.P., M.S. Primary Care Provider [phone] Encounter Details Date Type Department Care Team Description 03/25/2021 Orders Only Pharmacy Prior Auth RO Charli Nunez, Harmony Workman M.D. [address] [place] [address] (Wo rk) Social History Tobacco Use Types [...] documented as of this encounter Care Teams Retail Solar Advisor Relationship Specialty Start Date End Date Leidy Sauceda APRN, C.N.P., M.S. PCP - General Family Medicine 04/10/15 [address] [place] [address] documented as of this encounter
--- OUTSIDE RECORDS SUMMARY | 2022-02-10 13:46 | XMS_ITS | Encounter Summary ---
:1990 Author Organization [facility] Address [address] [place] [address] Care Team Providers Name Role Phone Leidy Sauceda APRN, C.N.P., M.S. Primary Care Provider [phone] Encounter Details Date Type Department Care Team Description 04/01/2021 Ancillary Procedure Department of Charli limon Female Obstetrics and Rauchfuss, Gynecology in Harmony Workman M.D. [place], [place] [address] [facility] [address] [place] [address] [phone] Social History Tobacco Use Types Packs/Day Years [...] for this FOLLICLE TRACKING (most inpatients AM HEALTH CARE MARKETING MANAGER proced ure are in OI and all the results outpatients) section. documented in this encounter Results US SALOME Pelvic - Follicle Tracking OI (04/01/2021 9:22 AM HEALTH CARE MARKETING MANAGER) Anatomical Region Laterality Modality Ultrasound OB RST LOS, Ultrasound ARZ LOS Ultrasound Specimen (Source) Anatomical Location Collection Method / Collectio n Time Received Time / Laterality Volume Narrative 04/01/2021 11:12 AM HEALTH CARE MARKETING MANAGER 9b Lt adx ff Harmony Nunez M.D. IMG OB US PROCEDURES documented in this encounter Visit Diagnoses Diagnosis Infertility Female documented in this encounter Additional Health Concerns Assessment Noted Time PHQ-9 Depression Total Score: 1 09/25/2020 7:35 AM CDT documented as of this encounter Care Teams Wet Process Miller Head Relationship Specialty Start Date End Date Leidy Sauceda APRN, C.N.P., M.S. PCP - General Family Medicine 04/10/15 [address] [place] [address] documented as of this encounter
--- OUTSIDE RECORDS SUMMARY | 2022-02-10 13:46 | XMS_ITS | Encounter Summary ---
:1990 Author Organization [facility] Address [address] [place] [address] Care Team Providers Name Role Phone Leidy Sauceda APRN, C.N.P., M.S. Primary Care Provider [phone] Encounter Details Date Type Department Care Team Description 12/18/2020 Hospital Encounter Department of Charli Nunez Am enorrhea Laboratory Medicine in Harmony Workman M.D. [facility] umberto [address] [place] [address] [phone] Social History Tobacco Use Types Packs/Day Years [...] M.D. LAB BLOOD ADD-ON Performing Organization Address City/State/[facility] Code Phon e Number [address] [address] [place] [address] System in [address] documented in this encounter Visit Diagnoses Diagnosis Amenorrhea documented in this encounter Additional Health Concerns Infection Onset Date Last Indicated Resolved Time COVID19 12/04/2020 12/04/2020 12/24/2020 4:45 AM CDT Assessment Noted Time PHQ-9 Depression Total Score: 1 09/25/2020 7:35 AM CDT documented as of this encounter Care Teams Cloth Boil Off Machine Operator Relationship Specialty Start Date End Date Leidy Sauceda APRN, C.N.P., M.S. PCP - General Family Medicine 04/10/15 [address] [place] [address] documented as of this encounter
--- OUTSIDE RECORDS SUMMARY | 2022-02-10 13:46 | XMS_ITS | Encounter Summary ---
:1990 Author Organization [facility] Address [address] [place] [address] Care Team Providers Name Role Phone Leidy Sauceda APRN, C.N.P., M.S. Primary Care Provider [phone] Encounter Details Date Type Department Care Team Description 02/28/2021 Ancillary Procedure Department of Vivi Nelson Female Obstetrics and Rakel Ricardo M.D., Gynecology in Ph.D. [place], [place] [address] [facility] [address] [place] [phone] [phone] Social History Tobacco Use Types Packs/Day Years [...] documented as of this encounter Care Teams Customer Sales Advisor Relationship Specialty Start Date End Date Sohail, Leidylavell Workman APRN, C.N.Emma., M.S. PCP - General Family Medicine 04/10/15 [address] [place] [address] documented as of this encounter
--- OUTSIDE RECORDS SUMMARY | 2022-02-10 13:46 | XMS_ITS | Encounter Summary ---
:1990 Author Organization [facility] Address [address] [place] [address] Care Team Providers Name Role Phone Leidy Sauceda APRN, C.N.P., M.S. Primary Care Provider Reason for Referral Outpatient (Routine) - Closed Specialty Diagnoses / Procedures Referred By Contact Refer red To Contact Diagnoses Infertility Female Rakel Nelson, [facility] Procedures [place] Hysterosalpingogram Malcom, Ph.D. 200 [place] [address] Referral ID Status Reason Start Date Expiration Date Visits Requ ested Visits Authorized [id number] Closed 01/21/2021 01/21/2022 1 1 Reason for Visit Outpatient (Routine) - Closed Specialty Diagnoses / Procedures Referred By Contact Refer red To Contact Diagnoses Infertility Female Rakel Nelson, [facility] Procedures [place] Hysterosalpingogram Malcom, Ph.D. [address] [place] [address] Referral ID Status Reason Start Date Expiration Date Visits Requ ested Visits Authorized [id number] Closed 01/21/2021 01/21/2022 1 1 Encounter Details Date Type Department Care Team Description 01/28/2021 Hospital Encounter Department of Jennifer Nelson M.D., Ph.D. 200 [place] [phone] Infertility Female Radiology, Reina Huff M.D. 200 [place] [phone] Building, in [place], [place] 200 [place] [address] Social History Tobacco Use Types Packs/Day Years [...] fellow participated in the procedure, and the showroom consultant was present for the entire procedure. [...] Procedure Name Priority Date/Time Associated Comments Diagnosis RI HSG S&I Routine 01/28/2021 Infertility Results for 3:04 PM CDT Female this procedure are in the results section. RI CATH W INJ CNTRST HSG Routine 01/28/2021 Infertility Res ults for 3:04 PM CDT Female this procedure are in the results section. FL HYSTEROSALPINGOGRAM RAD - Routine 01/28/2021 Infertility Resu lts for (most inpatients 2:04 PM CDT Female this proced ure and all are in the outpatients) results section. documented in this encounter Results RI CATH W INJ CNTRST HSG, RI HSG S&I (01/28/2021 3:04 PM CDT) Narrative Reina Carlson M.D. - 01/28/2021 3:04 PM CDT Harmony Chavez M.D. ? 01/28/2021 ??3:08 PM RAD Hysterosalpingogram Date/Time: 01/28/2021 3:04 PM Performed by: Harmony Chavez M.D. Authorized by: Reian Carlson M.D . Care team members present [...] ectopic ) ??Radiologist present and confirmed fin dingjennifer: ??Yes ?? HSG uncomplicated. Uterine contour n [...] fellow participated in the procedure, and the showroom consultant was present for the entire procedure. [...] contrast into the peritoneal cavity. Left salpingectomy. REINFORCEMENT MAKER Narrative 01/28/2021 3:32 PM CDT EXAM: ??FL HYSTEROSALPINGOGRAM COMPARISON: ??Pelvic ultrasound 12/29/19. FINDINGS: ?? Fluoroscopic hysterosalpingogram was per formed using a retrograde injection of water soluble contrast following cannula tion of the cervical opening with the office systems technology instructor. Normal filling of the uterus without chet [...] tion of the cervical opening with the office systems technology instructor. Normal filling of the uterus without chet dence of contour abnormality or filling defect. The right fallopian tube is ramirez nt with spillage of contrast into the peritoneal cavity. The left fallopian tu be was surgically removed. IMPRESSION: Patent right fallopian tube with spillag e of contrast into the peritoneal cavity. Left salpingectomy. REINFORCEMENT MAKER Rakel Nelson M.D., Ph.D. IMG FLUOROSCOPY PROCEDU [...] documented as of this encounter Care Teams Retread Operator Relationship Specialty Start Date End Date Leidy Sauceda APRN, C.N.P., M.S. PCP - General Family Medicine 04/10/[address] [place] [address] documented as of this encounter
--- OUTSIDE RECORDS SUMMARY | 2022-02-10 13:46 | XMS_ITS | Encounter Summary ---
:1990 Author Organization [facility] Address [address] [place] [address] Care Team Providers Name Role Phone Leidy Sauceda APRN, C.N.P., M.S. Primary Care Provider [phone] Encounter Details Date Type Department Care Team Description 01/21/2021 Clinical Communication Department of Brandie Crouch, Obstetrics and R.N. Gynecology in [address] [place], [place] [address] [facility] [address] [place], [place] [phone] (Work) [phone] Social History Tobacco Use Types Packs/Day Years [...] documented as of this encounter Care Teams Costume Director Relationship Specialty Start Date End Date Leidy Sauceda, SHA, C.N.P., M.S. PCP - General Family Medicine 04/10/15 [address] [place] [address] documented as of this encounter
--- OUTSIDE RECORDS SUMMARY | 2022-02-10 13:46 | XMS_ITS | Encounter Summary ---
:1990 Author Organization [facility] Address [address] [place] [address] Care Team Providers Name Role Phone Leidy Sauceda APRN, C.N.P., M.S. Primary Care Provider [phone] Reason for Referral Outpatient (Routine) - Closed Specialty Diagnoses / Procedures Referred By Contact Refer red To Contact Obstetrics and Charli Nunez [facility] Gynecology Harmony Workman M.D. [address] [place] [phone] Referral ID Status Reason Start Date Expiration Date Visits Requ ested Visits Authorized [id number] Closed 04/01/2021 04/01/2022 1 1 Scheduling Instructions Next Step Visit (non IVF) WELL SERVICE OPERATOR Encounter Details Date Type Department Care Team Description 04/01/2021 Clinical Communication Department of Charli Nunez Obstetrics and Harmony Workman M.D. Gynecology in [address] [place] [address] [place] [address] [place], [place] [phone] (Work) [phone] Social History Tobacco Use Types Packs/Day Years [...] or relatives? How often do you attend christian or More than 4 times per year 05/08/2021 caodaism services? Do you belong to any clubs or Yes 05/08/2021 organizations such as christian groups, unions, fraternal or athletic groups, or [...] of this encounter Care Teams Medical Records Library Professor Relationship Specialty Start Date End Date Leidy Sauceda APRN, C.N.P., M.S. PCP - General Family Medicine 04/10/15 [address] [place] [address] documented as of this encounter
--- OUTSIDE RECORDS SUMMARY | 2022-02-10 13:46 | XMS_ITS | Encounter Summary ---
:1990 Author Organization [facility] Address [address] [place] [address] Care Team Providers Name Role Phone Leidy Sauceda APRN, C.N.P., M.S. Primary Care Provider [phone] Reason for Visit Reason Comments Rx Prior Authorization PA DENIED OVIDREL 250MCG/0.5 ML Encounter Details Date Type Department Care Team Description 03/25/2021 Clinical Department of Charli Rx Prior Communication Obstetrics and Rauchfuss, Authorandres monte (DANE Gynecology in Harmony Workman M.D. DENIED OVIDREL [place], [address] [place] [address] 250MCG/0.5ML) [place], [place] [address] [place] [address] [place], [place] [phone] (Work) [phone] Social History Tobacco Use Types Packs/Day Years [...] Miscellaneous Notes Telephone Encounter - Windy Keane RMinnie. - 03/26/2021 2:41 PM CST Portal message update sent to patient. STRIAL TECHNOLOGY TEACHER Telephone Encounter - Royce Botello - 03/25/2021 [...] Emma MALDONADO. Thank you, The OPPA Team STRIAL TECHNOLOGY TEACHER documented in this encounter Plan of Treatment Not on filedocumented as of this encounter Visit Diagnoses Not on filedocumented in this encounter Additional Health Concerns Assessment Noted Time PHQ-9 Depression Total Score: 1 09/25/2020 7:35 AM CDT documented as of this encounter Care Teams Volunteer Services Assistant Relationship Specialty Start Date End Date Leidy Sauceda, SHA, C.N.P., M.S. PCP - General Family Medicine 04/10/15 [address] [place] [address] documented as of this encounter
--- OUTSIDE RECORDS SUMMARY | 2022-02-10 13:46 | XMS_ITS | Encounter Summary ---
:[address] [facility] Address [address] [place] [address] Care Team Providers Name Role Phone Leidy Sauceda APRN, C.N.P., M.S. Primary Care Provider [phone] Reason for Referral Outpatient (Routine) - Authorized Specialty Diagnoses / Procedures Referred By Contact Refer red To Contact Obstetrics and Diagnoses [facility]ertility [facility] Harmony Workman M.D. [address] [place] [address] Referral ID Status Reason Start Date Expiration Date Visits V isits Requested Authorized [id number] Authorized 02/20/2021 02/20/2022 1 1 Encounter Details Date Type Department Care Team Description 02/20/2021 Orders Only Department of Windy Keane Infertilit y Female Obstetrics and R.N. (Primary Dx) Gynecology in [place], [place] [address] [place] [phone] Social History Tobacco Use Types Packs/Day Years [...] documented as of this encounter Care Teams Rat Farmer Relationship Specialty Start Date End Date Leidy Sauceda APRN, C.N.P., M.S. PCP - General Family Medicine 04/10/15 [address] [place] [address] documented as of this encounter
--- OUTSIDE RECORDS SUMMARY | 2022-02-10 13:46 | XMS_ITS | Encounter Summary ---
:1990 Author Organization [facility] Address [address] [place] [address] Care Team Providers Name Role Phone Leidy Sauceda APRN, C.N.P., M.S. Primary Care Provider [phone] Encounter Details Date Type Department Care Team Description 04/05/2021 Orders Only Department of Obstetrics Elizabeth Jaquez ea, and Gynecology in [place] [address] [facility] [address] [place] [address] [phone] Social History Tobacco Use Types Packs/Day Years [...] documented as of this encounter Care Teams Rfid Developer Relationship Specialty Start Date End Date Leidy Sauceda APRN, C.N.P., M.S. PCP - General Family Medicine 04/10/15 [address] [place] [address] documented as of this encounter
--- OUTSIDE RECORDS SUMMARY | 2022-02-10 13:46 | XMS_ITS | Encounter Summary ---
:1990 Author Organization [facility] Address [address] [place] [address] Care Team Providers Name Role Phone Leidy Sauceda APRN, C.N.P., M.S. Primary Care Provider [phone] Encounter Details Date Type Department Care Team Description 12/24/2020 Orders Only Department of Brandie Crouch Infertili ty Female Obstetrics and R.N. (Primary Dx) Gynecology in [address] [place], [place] [address] [place] [address] [place], [place] [phone] (Work) [phone] Social History Tobacco Use Types Packs/Day Years [...] or relatives? How often do you attend faith or More than 4 times per year 05/08/2021 mandaeism services? Do you belong to any clubs or Yes 05/08/2021 organizations such as faith groups, unions, fraternal or athletic groups, or [...] documented as of this encounter Care Teams Synthetic Staple Extruder Relationship Specialty Start Date End Date Leidy Sauceda APRN, C.N.P., M.S. PCP - General Family Medicine 04/10/15 [address] [place] [address] documented as of this encounter
--- OUTSIDE RECORDS SUMMARY | 2022-02-10 13:46 | XMS_ITS | Encounter Summary ---
:1990 Author Organization [facility] Address [address] [place] [address] Care Team Providers Name Role Phone Leidy Sauceda APRN, C.N.P., M.S. Primary Care Provider [phone] Reason for Visit Reason Onset Date Comments Testing For Upper Respiratory Virus Symptoms 12/04/2020 Encounter Details Date Type Department Care Team Description 12/04/2020 External Outreach Department of [facility] Tiana Waters Contact With And Medicine, Grants Dave Mccain (Suspected) Exposure Clinic, in [address] To [facility]19 (Primary [place], [place] Dx) [address] [place] [address] [place], [place] [phone] (Work) [phone] Social History Tobacco Use Types Packs/Day Years [...] Patient Monitoring (MASS 3 or greater). The [facility] Team (MWCCT) sends general guidance about COVID-19 to all patients by letter or portal, except when a patient is hospitalized or resides in a retirement. MWCCT will call all adult patients at highest risk for severe complications of COVID-19 (MASS 3 or greater), those without an online services account, and those who require an spanish interpreter/translator. Any patient with a MASS score 1 [...] for symptom management. For questions, contact the [facility] Team ([facility]): Pager: [phone] In basket: P RST/MAZIN COVID-19 POSITIVE Covid Care e-consult Components of [...] to obtain the result by calling the [facility] Mobile result line or by checking the online [...] pe rformed using the Aptima SARS-CoV-2 assay ([employer] on the [employer] tem under emergency use authorization (EUA) by the U.S. Food and Drug Administ ration. Fact sheets for this EUA assay can be fo und at the following links: For Healthcare Providers: https://www.fd a.gov/media/534872/download For Patients: https://www.fda.gov/media/ 317618/download Specimen Anatomical Collection Method Collection Time Receive d Time (Source) Location / / Volume Laterality Varies 12/04/2020 4:19 PM 9:28 (Nasopharynx) CDT PM CDT Eric Waters P.A.-C. LAB MICROBIOLOGY - GENERAL O CADENCE Performing Organization Address City/State/[facility] Code Phon e Number [facility]- [address] [place] [address] [phone] [facility] [place] [address] System [address] documented in this encounter Visit Diagnoses Diagnosis Contact With And (Suspected) Exposure To COVID-19 - Primary documented in this encounter Additional Health Concerns Infection Onset Date Last Indicated Resolved Time COVID19 Pending 12/04/2020 12/04/2020 12/05/2020 2:47 AM CDT Assessment Noted Time PHQ-9 Depression Total Score: 1 09/25/2020 7:35 AM CDT documented as of this encounter Care Teams Night Cleaner Relationship Specialty Start Date End Date Leidy Sauceda APRN, C.N.P., M.S. PCP - General Family Medicine 04/10/15 [address] [place] [address] documented as of this encounter
--- OUTSIDE RECORDS SUMMARY | 2022-02-10 13:46 | XMS_ITS | Encounter Summary ---
:[address] [facility] Address [address] [place] [address] Care Team Providers Name Role Phone Leidy Sauceda APRN, C.N.P., M.S. Primary Care Provider [phone] Encounter Details Date Type Department Care Team Description 12/28/2020 Ancillary Procedure Department of Vivi Nelson Female Obstetrics and Rakel Ricardo M.D., Gynecology in Ph.D. [place], [place] [address] [facility] [address] [place] [address] [phone] Social History Tobacco Use Types Packs/Day Years [...] More than 4 times per year 05/08/2021 roman catholic services? Do you belong to any clubs [...] documented as of this encounter Care Teams Poultry Processing Supervisor Relationship Specialty Start Date End Date Leidy Sauceda APRN, C.N.P., M.S. PCP - General Family Medicine 04/10/[address] [place] [address] documented as of this encounter
--- OUTSIDE RECORDS SUMMARY | 2022-02-10 13:47 | XMS_ITS | Encounter Summary ---
:1990 Author Organization [facility] Address [address] [place] [address] Care Team Providers Name Role Phone Leidy Sauceda APRN, C.NFantasma, M.S. Primary Care Provider [phone] Encounter Details Date Type Department Care Team Description 10/04/2020 Hospital Encounter Department of Rayray Angulo ecified Laboratory Medicine Veronica Franco APRN, Abnor mal Uterine And in [place] Gu[place], M.S. Vaginal Bleeding [address] [phone] Social History Tobacco Use Types Packs/Day Years [...] M.S. LAB BLOOD ADD-ON Performing Organization Address City/State/[facility] Code Phon e Number [facility]- [address] [place] [phone] [place] [address] [place] [address] System in [address] documented in this encounter Visit Diagnoses Diagnosis Other Specified Abnormal Uterine And Vag inal Bleeding documented in this encounter Additional Health Concerns Assessment Noted Time PHQ-9 Depression Total Score: 1 09/25/2020 7:35 AM CDT documented as of this encounter Care Teams Marine Engine Machinist Relationship Specialty Start Date End Date Leidy Sauceda APRN C.N.P., M.S. PCP - General Family Medicine 04/10/[address] [place] [address] documented as of this encounter
--- OUTSIDE RECORDS SUMMARY | 2022-02-10 13:47 | XMS_ITS | Encounter Summary ---
:1990 Author Organization [facility] Address [address] [place] [address] Care Team Providers Name Role Phone Leidy Sauceda APRN, C.N.P., M.S. Primary Care Provider Encounter Details Date Type Department Care Team Description 2020 Orders Only Department of Brandie Crouch Amenorrhe a (Primary Dx) Obstetrics and R.N. Gynecology in [address] [place] [address] [place] [address] [place], [place] [phone] (Work) [phone] Social History Tobacco Use Types Packs/Day Years [...] as of this encounter Care Teams Flat Screen Worker Relationship Specialty Start Date End Date Leidy Sauceda APRN, C.N.P., M.S. PCP - General Family Medicine 04/10/15 [address] [place] [address] documented as of this encounter
--- OUTSIDE RECORDS SUMMARY | 2022-02-10 13:47 | XMS_ITS | Encounter Summary ---
:1990 Author Organization [facility] Address [address] [place] [address] Care Team Providers Name Role Phone Leidy Sauceda APRN, C.N.P., M.S. Primary Care Provider Reason for Visit Reason Comments COVID Inquiry Encounter Details Date Type Department Care Team Description 10/22/2020 Clinical Communication Department of Leidy Lr, LEONARDID Inquiry Medicine, [facility] John DALTON, Clinic [facility], in [place], [place] [address] [place] [address] [facility] [place] [phone] Social History Tobacco Use Types Packs/Day Years [...] appointment being requested?: Less than 14 days [place] In the past 14 days are any [...] sending patient for testing in [facility] or [facility], route encounter to the correct testing pool. documented in this encounter Plan of Treatment Not on filedocumented as of this encounter Visit Diagnoses Not on filedocumented in this encounter Additional Health Concerns Assessment Noted Time PHQ-9 Depression Total Score: 1 09/25/2020 7:35 AM CDT documented as of this encounter Care Teams Remelt Operator Relationship Specialty Start Date End Date Leidy Sauceda APRN, C.N.P., M.S. PCP - General Family Medicine 04/10/15 [address] [place] [address] documented as of this encounter
--- OUTSIDE RECORDS SUMMARY | 2022-02-10 13:47 | XMS_ITS | Encounter Summary ---
:1990 Author Organization [facility] Address [address] [place] [address] Care Team Providers Name Role Phone Leidy Sauceda APRN, C.N.P., M.S. Primary Care Provider [phone] Reason for Visit Reason Comments Med Refill Encounter Details Date Type Department Care Team Description 02/18/2019 Refill Department of Family Medicine, Leidy Sauceda APRN, Med Refill [facility] Mamta Arreguin N.P., M.S. in [facility] umberto [address] [facility] [address] [facility] [address] Mary[place] [address] [place], [place] [address] [phone] Social History Tobacco Use Types Packs/Day Years [...] slept in a group home (including now)? Sex Assigned at Date Recorded Female 09/07/2017 4:11 PM CDT documented as of this encounter Plan of Treatment Not on filedocumented as of this encounter Visit Diagnoses Not on filedocumented in this encounter Care Teams Senior Accounting Analyst Relationship Specialty Start Date End Date Leidy Sauceda APRN, C.N.P., M.S. PCP - General Family Medicine 04/10/15 [address] [place] [address] documented as of this encounter
--- OUTSIDE RECORDS SUMMARY | 2022-02-10 13:47 | XMS_ITS | Encounter Summary ---
:1990 Author Organization [facility] Address [address] [place] [address] Care Team Providers Name Role Phone Leidy Sauceda APRN, C.N.P., M.S. Primary Care Provider Reason for Referral Outpatient (Routine) - Closed Specialty Diagnoses / Procedures Referred By Contact Refer red To Contact Obstetrics and Leighann Patel [place] [facility] jesus manuel Dawn M.D. Referral ID Status Reason Start Date Expiration Date Visits Requ ested Visits Authorized [id number] Closed 09/25/2020 09/25/2021 1 1 Scheduling Instructions Review results of ordered testing Reason for Visit Appointment Request (Routine) - Closed Specialty Diagnoses / Procedures Referred By Contact Refer red To Contact Reproductive Diagnoses Infertility Female Endocrinology Referral ID Status Reason Start Date Expiration Date Visits Requ ested Visits Authorized [id number] Closed 09/21/2020 09/21/2021 1 1 Encounter Details Date Type Department Care Team Description 09/25/2020 Telemedicine Department of Leighann Patel Counseling Preconception (Primary Dx); Obstetrics christi Workman M.D. Oligoovulatio n Gynecology in [place], [place] [address] [place] [address] Social History Tobacco Use Types Packs/Day Years [...] or relatives? How often do you attend yarsani or More than 4 times per year 05/08/2021 shinto services? Do you belong to any clubs or Yes 05/08/2021 organizations such as yarsani groups, unions, [employer] or athletic groups, or school groups? How [...] day of bleeding to schedule ultrasound in [place]. If no period by cycle day 40, message us about inducing a period 2. Semen analysis for [place] 3. Return visit in [place] or via video to review the results 4. Consider genetic counseling 5. Continue testing for surge with digital ovulation predictor kits between cycle day 10-26. [place] on the day of surge plus 1-2 [...] alone today. Her partner is Pavan [place] [phone]. Consult conducted via real-time audio/video technology by Leighann Patel M.D. in [facility] to the patient in he home. Presenting Problem: Desire to conceive;Abnormal periods Attempting for: Over a year Successful pregnancies with current partner: No Prior fertility evaluation: Bloodwork Prior fertility evaluation: Evaluation and bloodwork done at [facility] in May. Notes and labs faxed [...] on taking Clomid like my doctor in [place] suggested or other treatment. Gu[place] is [...] predict/detect. She was recently evaluated at the [facility] and her testing is below. She has not started infertility treatments at this point. She states that she exercises about 5 days per week, alternating between running for30 minutes or biking/playing tennis for 60 minutes. 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 She denies hirsutism or acne. 05/31/20 FSH 8.4, E2 50 AMH 18.803 TSH 1.590 17 OHP (119.6), Testosterone (Total 39, Free 4.6), Prolactin 5.2 Rubella immune OB History Para Term AB Living 0 0 0 0 0 0 SAB TAB Ectopic Molar Multiple Live Births 0 0 0 0 0 0 Financial Aid Manager History: Age of menarche: 17 Period length: [...] abnormal Pap: No Had a mammogram?: No [place] frequency: On average twice/three times per week, [...] rarely Partner drug use: No Partner occupation: airway traffic controller Partner's sex: Male Partner semen eval: [...] diagnosis of PCOS as well as the chcf health implications, including the increased risk of [...] as well as current information regarding the chcf risks of fertility drugs and divisional guidelines [...] with digital OPKs between cycle day 10-26. [place] on the day of surge plus 1-2 [...] Modality Ultrasound OB RST LOS, Ultrasound [facility] Ultrasound Specimen (Source) Anatomical Location Collection Method / Collectio n Time Received Time / Laterality Volume Narrative 10/02/2020 4:57 PM CDT GUERRERO CANADA Pelvic Ultrasound Exam, 10/02/2020 EXAM INFORMATION Patient Name: ??GUERRERO CANAAD : ??1990 Age: ??29 yrs Sex: ??Female Ref Phys: ??LEIGHANN PATEL Exam Date: 10/02/2020 Procedure: SALOME PELVIC - DIAGNOSTIC AND A NTRAL FOLLICLE COUNT Exam Site: [facility] SALOME #1 History: ?? afc/diagnosticcd 4 IMPRESSION: Normal uterus and ovaries. Total AFC= 40 FINDINGS: Uterus ------ The uterus appears normal and measures 4 .26 cm x 4.48 cm x 4.87 cm with a volume of 48.67 cm3. Endometrium The endometrium measures 6.73 mm in [facility]. Right Ovary The right ovary appear [...] of the ovaries. Preliminary Read by Marybel ?Josue on 10/02/2020 2:47:17 PM. Sales Representative Printing Supplies: ?[employer] ?Josue Thank You For This Referral Procedure Note Reina Carlson M.D. - 10/02/2020F ormatting of this note might be different from the original. GUERRERO CANADA Pelvic Ultrasound Exam, 10/02/2020 EXAM INFORMATION Patient Name: GUERRERO CANADA : 1990 Age: 29 yrs Sex: Female Ref Phys: LEIGHANN PATEL Exam Date: 10/02/2020 Procedure: SALOME PELVIC - DIAGNOSTIC AND A NTRAL FOLLICLE COUNT Exam Site: [facility] SALOME #1 History: afc/diagnosticcd 4 IMPRESSION: Normal uterus and ovaries. Total AFC= 40 FINDINGS: Uterus ------ The uterus appears normal and measures 4 .26 cm x 4.48 cm x 4.87 cm with a volume of 48.67 cm3. Endometrium The endometrium measures 6.73 mm in [facility]. Right Ovary The right ovary appear [...] by Marybel Be on 10/02/2020 2:47:17 PM. Sales Representative Printing Supplies: Marybel Be Thank You For This Referral Leighann Patel M.D. IMG OB US PROCEDURES documented in this encounter Visit Diagnoses Diagnosis Counseling Preconception - Primary Oligoovulation Counseling Preconception documented in this encounter Additional Health Concerns Assessment Noted Time PHQ-9 Depression Total Score: 1 09/25/2020 7:35 AM CDT documented as of this encounter Care Teams Plumber Pipe Fitting Relationship Specialty Start Date End Date Leidy Sauceda APRN, C.N.P., M.S. PCP - General Family Medicine 04/10/15 [address] [place] [address] documented as of this encounter
--- OUTSIDE RECORDS SUMMARY | 2022-02-10 13:47 | XMS_ITS | Encounter Summary ---
:1990 Author Organization [facility] Address [address] [place] [address] Care Team Providers Name Role Phone Leidy Sauceda APRN, C.N.P., M.S. Primary Care Provider [phone] Encounter Details Date Type Department Care Team Description 2020 Hospital Encounter Department of Tenisha Aliceaorrhea Laboratory Medicine in [place] Mad[place]al Withams, [address] [place] [address] [place], [place] [phone] (W ork) [address] [phone] Social History Tobacco Use Types Packs/Day Years [...] or relatives? How often do you attend mu-ism or More than 4 times per year 05/08/2021 synagogue services? Do you belong to any clubs or Yes 05/08/2021 organizations such as mu-ism groups, unions, fraternal or athletic groups, or [...] Organization Address City/State/ZIP Code Phon e Number [facility]- [address] [place] [address] [address]vd [place] [phone] [place] [address] System in [address] documented in this encounter Visit Diagnoses Diagnosis Amenorrhea documented in this encounter Additional Health Concerns Assessment Noted Time PHQ-9 Depression Total Score: 1 09/25/2020 7:35 AM CDT documented as of this encounter Care Teams Pasting Machine Offbearer Relationship Specialty Start Date End Date Leidy Sauceda APRN, C.N.P., M.S. PCP - General Family Medicine 04/10/15 [address] [place] [address] documented as of this encounter
--- OUTSIDE RECORDS SUMMARY | 2022-02-10 13:47 | XMS_ITS | Encounter Summary ---
:1990 Author Organization [facility] Address [address] [place] [address] Care Team Providers Name Role Phone Leidy Sauceda APRN, C.N.P., M.S. Primary Care Provider [phone] Encounter Details Date Type Department Care Team Description 10/02/2020 Ancillary Department of Leighann Patel Counseling Procedure Obstetrics and [place] Workman Preconception Gynecology in [place], [place] [address] [place] [address] Social History Tobacco Use Types Packs/Day Years [...] NTRAL FOLLICLE COUNT Exam Site: [facility] [place] #1 History: ?? afc/diagnosticcd 4 IMPRESSION: Normal uterus and ovaries. Total AFC= 40 FINDINGS: Uterus ------ The uterus appears normal and measures 4 .26 cm x 4.48 cm x 4.87 cm with a volume of 48.67 cm3. Endometrium The endometrium measures 6.73 mm in [facility]. Right Ovary The right ovary appear [...] by Marybel Wellington on 10/02/2020 2:47:17 PM. Meat Grader: ?Agustin Wellington Thank You For This Referral [...] NTRAL FOLLICLE COUNT Exam Site: [facility] SAL[place] #1 History: afc/diagnosticcd 4 IMPRESSION: Normal uterus and ovaries. Total AFC= 40 FINDINGS: Uterus ------ The uterus appears normal and measures 4 .26 cm x 4.48 cm x 4.87 cm with a volume of 48.67 cm3. Endometrium The endometrium measures 6.73 mm in [facility]. Right Ovary The right ovary appear [...] by Marybel Be on 10/02/2020 2:47:17 PM. Meat Grader: Marybel Be Thank You For This Referral Leighann Patel M.D. IMG OB US PROCEDURES documented in this encounter Visit Diagnoses Diagnosis Counseling Preconception documented in this encounter Additional Health Concerns Assessment Noted Time PHQ-9 Depression Total Score: 1 09/25/2020 7:35 AM CDT documented as of this encounter Care Teams Surgical Physician Assistant Relationship Specialty Start Date End Date Leidy Sauceda APRN C.N.P., M.S. PCP - General Family Medicine 04/10/15 [address] [place] [address] documented as of this encounter
--- OUTSIDE RECORDS SUMMARY | 2022-02-10 13:47 | XMS_ITS | Encounter Summary ---
:1990 Author Organization [facility] Address [address] [place] [address] Care Team Providers Name Role Phone Leidy Sauceda APRN, C.N.P., M.S. Primary Care Provider [phone] Encounter Details Date Type Department Care Team Description 12/04/2020 Admin Visit Urgent Care in [address] [address] Social History Tobacco Use Types Packs/Day [...] documented as of this encounter Care Teams Descriptive Catalog Librarian Relationship Specialty Start Date End Date Leidy Sauceda APRN, C.N.P., M.S. PCP - General Family Medicine 04/10/15 [address] [place] [address] documented as of this encounter
--- OUTSIDE RECORDS SUMMARY | 2022-02-10 13:47 | XMS_ITS | Encounter Summary ---
:1990 Author Organization [facility] Address [address] [place] [address] Care Team Providers Name Role Phone Leidy Sauceda APRN, C.N.P., M.S. Primary Care Provider [phone] Reason for Referral Outpatient (Routine) - Closed Specialty Diagnoses / Procedures Referred By Contact Refer red To Contact Obstetrics and Tenisha Alicea [facility] Gynecology [place] Madrigal [address] [place] [address] Referral ID Status Reason Start Date Expiration Date Visits Requ ested Visits Authorized [id number] Closed 10/08/2020 10/08/2021 1 1 Scheduling Instructions Review results of ordered testing Encounter Details Date Type Department Care Team Description 10/08/2020 Orders Only Department of Mariam Corbett Amenorrhea (Primary Obstetrics and M, R.N. Dx) Gynecology in [phone] [place], [place] (Work) [address] [place] [phone] Social History Tobacco Use Types Packs/Day Years [...] documented as of this encounter Care Teams Remote Sensing Research Scientist Relationship Specialty Start Date End Date Leidy Sauceda APRN, C.N.P., M.S. PCP - General Family Medicine 04/10/15 [address] [place] [address] (work) documented as of this encounter
--- OUTSIDE RECORDS SUMMARY | 2022-02-10 13:47 | XMS_ITS | Encounter Summary ---
:1990 Author Organization [facility] Address [address] [place] [address] Care Team Providers Name Role Phone Lediy Sauceda APRN, C.N.P., M.S. Primary Care Provider [phone] Reason for Visit Reason Onset Date Comments Outpatient COVID-19 Testing 10/25/2019 Encounter Details Date Type Department Care Team Description 10/25/2019 External Outreach Department of Sharee Waters, P.AAilin-C. [address] [place] [address] Encounter For Family Medicine, Employer Based, Covid Serology Testing Screening For Other [facility], in [place], [place] (COVID-19) (Primary [address] Dx) [place] [address] Social History Tobacco Use Types [...] slept in a care home (including now)? Sex Assigned at Date [...] athologist Signature SARS-CoV-2 IgG Negative Negative 10/26/2019 [facility] Emp Scrn, Ab 10:26 PM CDT Comment: No IgG antibodies to SARS-CoV-2 detected . ?? Negative results may occur if the test i s done too soon following infection, or in immunosuppres sed patients. ?? This test does not rule out active or re cent COVID-19. ?? Testing was performed using the EUROIMMU N Piro-WSET-YaG-2 CORBY (IgG). ??This test has received Emergency Use Authorization (EUA) by the U.S. Food and Drug Administration and is used per fuse cup expander's instructions, but it is modified from the fuse cup expander's instructions wit h a bridging study to include dried blood spot specimens. ? ? Performance characteristics were verifie d by [facility] in a manner consistent with CLIA require ments. Performance characteristics were verifie d by [facility] in a manner consistent with CLIA require ments. ?? Specimen Anatomical Collection Method Collection Time Receive d Time (Source) Location / / Volume Laterality Blood (Blood, 10/25/2019 10:33 10/26/2019 5:59 Venous) AM CDT PM CDT Covid Serology Testing Employer Based LAB MICROBIOLOGY - BLOOD ORDERABLES Performing Organization Address City/State/ZIP Code Phon e Number [facility] [address] [place] [address] SUPPORT [facility] [place] [address] Laboratory Medicine and Pathology [address] [place] documented in this encounter Visit Diagnoses Diagnosis Encounter For Screening For Other Viral Diseases (COVID-19) - Primary documented in this encounter Care Teams Hand Stripper Relationship Specialty Start Date End Date Leidy Sauceda APRN, C.N.P., M.S. PCP - General Family Medicine 04/10/[address] [place] [address] documented as of this encounter
--- OUTSIDE RECORDS SUMMARY | 2022-02-10 13:47 | XMS_ITS | Encounter Summary ---
:1990 Author Organization [facility] Address [address] [place] [address] Care Team Providers Name Role Phone Leidy Sauceda APRN, C.N.PAilin, M.S. Primary Care Provider [phone] Reason for Visit Outpatient (Routine) - Closed Specialty Diagnoses / Procedures Referred By Contact Refer red To Contact Obstetrics and Leighann Kennedy [facility] Gynecology [place] Referral ID Status Reason Start Date Expiration Date Visits Requ ested Visits Authorized [id number] Closed 09/25/2020 09/25/2021 1 1 Encounter Details Date Type Department Care Team Description 10/04/2020 Telemedicine Department of Veronica Angulo Spec ified Abnormal Uterine And Vaginal Bleeding (Primary Dx); Obstetrics and KSHA C.N.PAilin, Polycysti c Ovary Syndrome Gynecology in .[place], [place] 200 [facility] [address] [place] [address] [phone] Social History Tobacco Use Types Packs/Day Years [...] 05/08/2021 organizations such as protestant groups, unions, fra[employer] or athletic groups, or school groups? How [...] Free 4.6) Prolactin 5.2 Rubella immune Ovarian [place]: normal for her age and is suggestive [...] 3:35 Venous) CDT PM CDT Davion Shah APRN.N.P., M.S. LAB BLOOD ADD-ON Performing Organization Address City/State/[facility] Code Phon e Number [phone] [place] [address] [place] [address] System in [address] documented in this encounter Visit Diagnoses Diagnosis Other Specified Abnormal Uterine And Vag inal Bleeding - Primary Polycystic Ovary Syndrome documented in this encounter Additional Health Concerns Assessment Noted Time PHQ-9 Depression Total Score: 1 09/25/2020 7:35 AM CDT documented as of this encounter Care Teams Video Production Assistant Relationship Specialty Start Date End Date Leidy Sauceda APRN C.N.P., M.S. PCP - General Family Medicine 04/10/15 [address] [place] [address] documented as of this encounter
--- OUTSIDE RECORDS SUMMARY | 2022-02-10 13:47 | XMS_ITS | Encounter Summary ---
:1990 Author Organization [facility] Address [address] [place] [address] Care Team Providers Name Role Phone Leidy Sauceda APRN, C.N.P., M.S. Primary Care Provider [phone] Reason for Visit Reason Comments Annual Exam Appointment Request (Routine) - Closed Specialty Diagnoses / Procedures Referred By Contact Refer red To Contact Family Medicine Referral ID Status Reason Start Date Expiration Date Visits Requ ested Visits Authorized [id number] Closed 06/28/2018 06/28/2019 1 1 Encounter Details Date Type Department Care Team Description 09/10/2018 Comprehensive Visit Department of Leidy Sauceda ar Examination (Primary Dx); Family MedicineJacinta APRN, Gastroesoph ageal Reflux Disease [facility] C.N.P., M.S. [facility], in [address] [facility] [place] [address] [place], [place] [phone] [address] (Work) [phone] Social History Tobacco Use Types Packs/Day Years [...] or slept in a custodial (including now)? Sex Assigned at Date Recorded [...] in this encounter H&P Notes Leidy Sauceda APRN, C.N.P., M.S. - 09/10/2018 1:00 PM CDT SUBJECTIVE CHIEF COMPLAINT/REASON FOR VISIT General medical evaluation Pap smear evaluation HISTORY OF PRESENT ILLNESS Vin [place] is a 27 y.o. female, primary care patient mine, who presents today for general medical evaluation. She has no specific concerns, and enjoys high degree of health. [place] [facility] are both beginning kayak enthusiasts. She reports always wearing her life jacket while on her kayak. 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 Oral control medication, Tracey being utilized for family planning. This is [...] Reflux Disease Other orders - drospirenone-ethinyl estradiol (TRACEY, 28,) 3-0.02 mg per tablet; Take 1 tablet by mouth daily., Starting Thu09/10/2018, Until 09/10/2019, Normal PLAN: Will contact patient via patient portal with test results and next steps plan of care concerning herPap smear testing. Have renewed yet as medication for an additional year. Have encouraged patient touse [id number] Zantac 150 mg daily at bedtime to [...] logist Time Signature PHYSICIAN Performed DEFAULT 09/16/2018 [facility] INTERP SCREEN 11:16 AM CDT LABORATORIES - [facility] Specimen Anatomical Collection Method Collection Time Receive d Time (Source) Location / / Volume Laterality Varies 09/10/2018 1:20 PM 9 4:57 CDT PM CDT Davion Wiggins APRN.N.P., M.S. LAB SURG PATH ORDERABLE S Performing Organization Address City/State/[facility] Phon e Number [facility] LABORATORIES - [address] [place] [address] [facility] HPV with Genotyping, PCR, ThinPrep (09/10/2018 1:20 PM CDT) [facility] Method Time Signature Specimen CERVIX/ENDOC 09/17/2018 [facility] Source ERVIX 5:18 PM CDT LABORATORIES - [facility] HPV High Risk Negative Negative 09/17/2018 [facility] type 16, PCR 5:18 PM CDT LABORATORIES - [facility] HPV High Risk Negative Negative 09/17/2018 [facility] type 18, PCR 5:18 PM CDT LABORATORIES - [facility] HPV other Negative Negative 09/17/2018 [facility] High Risk 5:18 PM CDT LABORATORIES - types, PCR [facility] Comment: The following Other High Risk HPV types were not detected: 31, 33, 35, 39, 45, 51, 52, 56, 58, 59, 66, and 68 This test was ordered in the context of a [facility] SAS PROGRAMMER ANALYST Cytology case; this result should be int erpreted within the context of the SAS PROGRAMMER ANALYST cytology report. Specimen Anatomical Collection Method Collection Time Receive d Time (Source) Location / / Volume Laterality Varies 09/10/2018 1:20 PM 9 4:57 CDT PM CDT Leidy Sauceda APRN C.N.P., M.S. LAB MICROBIOLOGY - [facility] ORDERABLES Performing Organization Address [facility] Phon e Number [facility] LABORATORIES - [address] [place] [phone] [facility] (ABNORMAL) ThinPrep Screen HPV Reflex (09/10/2018 1:20 PM CDT) Component Value Ref Test Analysis Performed At [facility] [employer] Technology Range Method Time Signature (A) 09/21/2018 [facility] 11:53 AM LABORATORIES - CDT [facility] Participated in Gretel Eldridge, 09/21/2018 [place] C pepe LEONE, 11:53 AM LABORATORIES - Interpretation B.Ch.-Pathology CDT [facility] (A) CAMPUS Report Luma Rosales M.D. 09/21/2018 [facility] electronically Cytology performed by: Latonya Sahni M.D. 11:53 AM LABORATORIES - signed by HPV results released by: Luma Rosales M.D. T [facility] I verify that I have examined all relevant slides/materials CAMPUS for the specimen(s) and rendered or confirmed the diagnosis. (A) Gross Description Received 09/21/2018 [facility] specimen in a 11:53 AM LABORATORIES - ThinPrep vial. T [facility] (A) CAMPUS Pap Test Source Cervical/Endoce 09/21/2018 [facility] rvical (A) 11:53 AM LABORATORIES - T [facility] Hormone None/Not known 09/21/2018 [facility] Therapy/Contracep (A) 11:53 AM LABORATORIES - tives [facility] Interpretation Cervical/Endocervical ??(ThinPrep): 09/21/2018 [facility] Satisfactory for Evaluation 11:53 AM [place] [facility] - Epithelial Cell Abnormality CDT [facility] Atypical squamous cells of undetermined [...] Organization Address City/State/ZIP Code Phon e Number [facility] LABORATORIES - [address] [place], [place] [address] [facility] documented in this encounter Visit Diagnoses Diagnosis Pap Smear Examination - Primary Gastroesophageal Reflux Disease documented in this encounter Care Teams Senior Enterprise Architect Relationship Specialty Start Date End Date Leidy Sauceda APRN, C.N.P., M.S. PCP - General Family Medicine 04/10/[address] [place] [address] documented as of this encounter
--- OUTSIDE RECORDS SUMMARY | 2022-02-10 13:47 | XMS_ITS | Encounter Summary ---
:[address] [facility] Address [address] [place] [address] Care Team Providers Name Role Phone Leidy Sauceda APRN, C.NFantasma, M.S. Primary Care Provider [phone] Reason for Visit Reason Comments Annual Exam Encounter Details Date Type Department Care Team Description 09/08/2017 Comprehensive Visit Department of Leidy Lr, General Medical Medicine, [place] Davion DALTON.N.PAilin, Examination Adult [facility] M.S. (Primary Dx) [place], in [address] [place], [place] [address] [address] [phone] [place] [phone] [place], [place] (Work) [phone] Social History Tobacco Use [...] this encounter H&P Notes Leidy Sauceda APRN, C.NAilinP., M.S. - 09/08/2017 8:00 AM CDT General Medical Examination Chief Complaint: Annual Exam History of present illness: Vin Knapp is a 26 y.o. 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 Her current FTE 0.8 the combination of 8 and 12 hr shifts date evening rotation. She is engaged to be this fall, her fiance works as an computer repair technician. She does wish to discuss control methods [...] ORAL Take 1 tablet by mouth daily. Elepago ??? [DISCONTINUED] HYDROcodone-acetaminophen (for_NORCO) 5-325 mg per [...] kinjal documented in this encounter Care Teams Junior Business Analyst Relationship Specialty Start Date End Date Leidy Sauceda APRN C.N.P., M.S. PCP - General Family Medicine 04/10/[address] [place] [address] documented as of this encounter
--- OUTSIDE RECORDS SUMMARY | 2022-02-10 13:47 | XMS_ITS | Encounter Summary ---
:1990 Author Organization [facility] Address [address] [place] [address] Care Team Providers Name Role Phone Leidy Sauceda APRN, C.N.P., M.S. Primary Care Provider [phone] Encounter Details Date Type Department Care Team Description 12/03/2020 Patient Self-Triage [facility]CTED [facility] Symptom Graduate Nurse, Provider Social History Tobacco Use Types Packs/Day [...] documented as of this encounter Care Teams Fruit Receiver Relationship Specialty Start Date End Date Leidy Sauceda APRN, C.N.P., M.S. PCP - General Family Medicine 04/10/15 [address] [place] [address] documented as of this encounter
--- OUTSIDE RECORDS SUMMARY | 2022-02-10 13:47 | XMS_ITS | Encounter Summary ---
:1990 Author Organization [facility] Address [address] [place] [address] Care Team Providers Name Role Phone Leidy Sauceda APRN, C.N.P., M.S. Primary Care Provider Encounter Details Date Type Department Care Team Description 10/22/2020 Hospital Encounter Department of Layo Santiago Am Laboratory Medicine in [place] pest control supervisor [address] [place] [address] [phone] Social History Tobacco Use Types Packs/Day Years [...] More than 4 times per year 05/08/2021 druze services? Do you belong to any clubs [...] capsule ibuprofen (ADVIL,MOTRIN) Take 600 mg by mouth. 0 10/07/2020 600 mg tablet vitamin-iron 0 fumarate-FA 28 mg iron- 800 [...] M.D. LAB BLOOD ADD-ON Performing Organization Address City/State/[facility] Code Phon e Number [facility]- [address] [place] [address] [place] [address] [place] [address] System in [address] documented in this encounter Visit Diagnoses Diagnosis Amenorrhea documented in this encounter Additional Health Concerns Assessment Noted Time PHQ-9 Depression Total Score: 1 09/25/2020 7:35 AM CDT documented as of this encounter Care Teams Place Change Roof Bolter Relationship Specialty Start Date End Date Leidy Sauceda, SHA, C.N.P., M.S. PCP - General Family Medicine 04/10/[address] [place] [address] documented as of this encounter
--- OUTSIDE RECORDS SUMMARY | 2022-02-10 13:47 | XMS_ITS | Encounter Summary ---
:1990 Author Organization [facility] Address [address] [place] [address] Care Team Providers Name Role Phone Leidy Sauceda APRN, C.NFantasma, M.S. Primary Care Provider [phone] Reason for Visit Outpatient (Routine) - Closed Specialty Diagnoses / Procedures Referred By Contact Refer red To Contact Obstetrics and Ivonne [facility] Gynecology [place] [address] [place] [address] Referral ID Status Reason Start Date Expiration Date Visits Requ ested Visits Authorized [id number] Closed 10/08/2020 10/08/2021 1 1 Encounter Details Date Type Department Care Team Description 11/05/2020 Telemedicine Department of Veronica Angulo Counseling Fertility (Primary Dx); Obstetrics and KSHA C.N.PAilin, Polycysti c Ovary Syndrome; Gynecology in M.S. Salpingectomy Unilateral Status Post; [place], [place] [address] [facility] Endometriosis [address] [place] [phone] Social History Tobacco Use Types Packs/Day Years [...] 05/08/2021 organizations such as mandaeism groups, unions, [employer]ink[employer] or athletic groups, or school groups? How [...] as of this encounter Progress Notes Windy Kenae R.N. - 11/05/2020 2:00 PM CDT I [...] left adnexal pain. She was seen in [place] (on vacation), and underwent left salpingectomy for [...] Free 4.6) Prolactin 5.2 Rubella immune Ovarian [place]: normal for her age and is suggestive [...] pregnancies TT 30 min. Veronica Angulo APRN, C.N.P., M.S. documented in this encounter Plan of Treatment Not on filedocumented as of this encounter Visit Diagnoses Diagnosis Counseling Fertility - Primary Polycystic Ovary Syndrome Salpingectomy Unilateral Status Post Endometriosis documented in this encounter Additional Health Concerns Assessment Noted Time PHQ-9 Depression Total Score: 1 09/25/2020 7:35 AM CDT documented as of this encounter Care Teams Forestry Aid Technician Relationship Specialty Start Date End Date Leidy Sauceda APRN C.N.P., M.S. PCP - General Family Medicine 04/10/15 [address] [place] [address] documented as of this encounter
--- OUTSIDE RECORDS SUMMARY | 2022-02-10 13:47 | XMS_ITS | Encounter Summary ---
:1990 Author Organization [facility] Address [address] [place] [address] Care Team Providers Name Role Phone Leidy Sauceda APRN, C.N.P., M.S. Primary Care Provider Encounter Details Date Type Department Care Team Description 10/04/2020 Orders Only Department of Brandie Crouch Amenorrhe a (Primary Dx) Obstetrics and R.N. Gynecology in [address] [place] [address] [place] [address] [place], [place] [phone] (Work) [phone] Social History Tobacco Use Types Packs/Day Years [...] supplements. ??If the result does not [facility] clinical observations, repeat testing after patient refrains fr om the use of supplements for at least 12 hours. Specimen Anatomical Collection Method Collection Time Receive d Time (Source) Location / / Volume Laterality Blood (Blood, 2020 9:45 AM 10/07/19 9:53 Venous) CDT AM CDT Tenisha Alicea M.D. LAB BLOOD ADD-ON Performing Organization Address City/State/ZIP Code Phon e Number [facility]- [address] [place] [address] [place] [address] [place] [address] System in [place] [address] [address] documented in this encounter Visit Diagnoses Diagnosis Amenorrhea - Primary documented in this encounter Additional Health Concerns Assessment Noted Time PHQ-9 Depression Total Score: 1 09/25/2020 7:35 AM CDT documented as of this encounter Care Teams Hospital Insurance Clerk Relationship Specialty Start Date End Date Leidy Sauceda APRN, C.NKobe., M.S. PCP - General Family Medicine 04/10/[address] [place] [address] documented as of this encounter
--- OUTSIDE RECORDS SUMMARY | 2022-02-10 13:47 | XMS_ITS | Encounter Summary ---
:1990 Author Organization [facility] Address [address] [place] [address] Care Team Providers Name Role Phone Leidy Sauceda APRN, C.N.P., M.S. Primary Care Provider [phone] Reason for Visit Reason Comments [facility] [place] Encounter Details Date Type Department Care Team Description 10/09/2020 Clinical Communication Department of SCOTT Billy for Miguel Gupta Obstetrics and [place] Gynecology in [address] [place] [address] [place] [address] [place], [place] (Work) [phone] Social History Tobacco Use Types Packs/Day Years [...] - General Family Medicine 04/10/15 [address] [place] [address] documented as of this encounter
--- OUTSIDE RECORDS SUMMARY | 2022-02-10 13:47 | XMS_ITS | Encounter Summary ---
:1990 Author Organization [facility] Address [address] [place] [address] Care Team Providers Name Role Phone Leidy Sauceda APRN, C.N.P., M.S. Primary Care Provider Encounter Details Date Type Department Care Team Description 05/10/2020 Orders Only [facility] PCP [facility] Sa chano Steinberg M.D. [address] [place], [place] [phone] (Wo rk) Social History [...] on filedocumented in this encounter Care Teams Grips Relationship Specialty Start Date End Date Leidy Sauceda APRN, C.N.P., M.S. PCP - General Family Medicine 04/10/15 [address] [place] [address] documented as of this encounter
--- OUTSIDE RECORDS SUMMARY | 2022-02-10 13:47 | XMS_ITS | Encounter Summary ---
:1990 Author Organization [facility] Address [address] [place] [address] Care Team Providers Name Role Phone Leidy [...] on filedocumented in this encounter Care Teams Medical Biller Coder Relationship Specialty Start Date End Date Leidy Sauceda APRN, C.N.P., M.S. PCP - General Family Medicine 04/10/15 [address] [place] [address] documented as of this encounter
--- OUTSIDE RECORDS SUMMARY | 2022-02-10 13:47 | XMS_ITS | Encounter Summary ---
:1990 Author Organization [facility] Address [address] [place] [address] Care Team Providers Name Role Phone Leidy Sauceda APRN, C.N.P., M.S. Primary Care Provider [phone] Reason for Visit Reason Comments Med Refill Encounter Details Date Type Department Care Team Description 05/25/2019 Refill Department of Family Medicine, Leidy Sauceda APRN, Med Refill [facility] Mamta Arreguin N.P., M.S. in [facility] umberto [address] [facility] [address] [facility] [place] [address] [employer], [place] [address] [phone] Social History Tobacco Use Types Packs/Day Years [...] on filedocumented in this encounter Care Teams Loading Machine Adjuster Relationship Specialty Start Date End Date Leidy Sauceda APRN, C.N.P., M.S. PCP - General Family Medicine 04/10/15 [address] [place] [address] documented as of this encounter
--- OUTSIDE RECORDS SUMMARY | 2022-02-10 13:47 | XMS_ITS | Encounter Summary ---
:1990 Author Organization [facility] Address [address] [place] [address] Care Team Providers Name Role Phone Leidy Sauceda APRN, C.N.P., M.S. Primary Care Provider [phone] Reason for Visit Reason Comments Treatment Questions Encounter Details Date Type Department Care Team Description 10/31/2020 Clinical Communication Department of Mimi Angulo Questions Obstetrics and Veronica K, [facility]necology [facility] [address] [facility] [address] [place] [address] [phone] Social History Tobacco Use Types Packs/Day Years [...] Miscellaneous Notes Telephone Encounter - Veronica Angulo APRN C.N.P., M.S. - 11/05/2020 11:44 AM CDT [...] documented as of this encounter Care Teams English Composition Instructor Relationship Specialty Start Date End Date Leidy Sauceda APRN, C.N.P., M.S. PCP - General Family Medicine 04/10/[address] [place] [address] documented as of this encounter
--- OUTSIDE RECORDS SUMMARY | 2022-02-10 13:47 | XMS_ITS | Encounter Summary ---
:1990 Author Organization [facility] Address [address] [place] [address] Care Team Providers Name Role Phone Leidy Sauceda APRN, C.N.P., M.S. Primary Care Provider [phone] Encounter Details Date Type Department Care Team Description 10/10/2020 Orders Only Department of Brandie Crouch Amenorrhe a (Primary Dx) Obstetrics and R.N. Gynecology in [address] [place] [address] [place] [address] [place], [place] [phone] (Work) [phone] Social History Tobacco Use Types Packs/Day Years [...] 05/08/2021 organizations such as yarsani groups, unions, fraternal or athletic groups, or [...] Organization Address City/State/ZIP Code Phon e Number [address] [address] [facility] [place] [address] System in [place] [address] documented in this encounter Visit Diagnoses Diagnosis Amenorrhea - Primary documented in this encounter Additional Health Concerns Assessment Noted Time PHQ-9 Depression Total Score: 1 09/25/2020 7:35 AM CDT documented as of this encounter Care Teams Shank Cementer Hand Relationship Specialty Start Date End Date Leidy Sauceda APRN C.N.P., M.S. PCP - General Family Medicine 04/10/15 [address] [place] [address] documented as of this encounter
--- NOTE | 2022-02-10 15:06 | W.PM.LAC.MC ---
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 Concepcion Jaundice: No Reason for Consult Reason for Consult: difficulty latching on right side, sleepy at breast Past Experience Past Experience: No Current Frequency of Day Feedings: every 1.5 - 3 hours Frequency of Night Feedings: about every 3 hours Both Breasts: Yes (usually) Suck: strong when he's not sleepy Latch: fairly wide Length of Time: 10 - 15 minutes/side Goals: as long as possible Pumping Pumping: Yes (only with the Haakaa on occasion) Quantity Pumped: 1 - 1.5 oz each time Supplementing EMB Supplement: No Formula Supplement: No Baby Elimination Number of Wet Diapers a Day: almost every feeding Number of BM a Day: 2 - 3/day Breast/Nipple Condition Breast Information: WNL Engorgement: Yes (resolving) Maternal Nipple Condition - Left: Common Nipple Maternal Nipple Condition - Right: Common Nipple Sore Nipples: No Onsite Pre-Feed weight: 3.808 kg Post-Feed weight: 3.9 kg Milk Transferred (mL): 92 Pre-Nursing Left Nipple: Within Normal Limits Pre-Nursing Right Nipple: Within Normal Limits Post-Nursing Left Nipple: Within Normal Limits Post-Nursing Right Nipple: Within Normal Limits Assessments/Interventions Assessments/Interventions: Met with mom and this now 10 day old ex- term AGA baby for consult.? Mom reports baby has trouble latching on the right side, but she thinks this is beginning to improve.? He's nursing every 1.5 - 3 hours and will usually take both sides.? States there's initial discomfort when he latches, but this usually resolves.? She's somewhat engorged but isn't sure how to relieve the pressure without nursing as she doesn't want to cause an oversupply.? Baby has not taken a bottle and she has questions about when to introduce it. Breasts WNL- symmetrical with rounded lower quadrants.? Nipples are everted and don't flatten or retract with compression; no damage noted. Baby has gained 12 grams/day since his NB visit on 02/05/22, he's 2% below BW.? Per mom he prefers turning his head to the left, but it was noticed he turned it easily to the right in clinic.? He has equal ROM when moving his extremities and mom denies any caput/cephalohematoma at delivery.? His palate is slightly higher then normal.? He has a slightly thicker than usual upper frenulum and his lower frenulum looks like it could be posterior.? He has a strong suck on a finger however and his tongue easily extends past the gum line.? The tongue also has good lateral ROM. Mom latched baby on the right side in the cross cradle hold and the latch was fairly wide.? She was comfortable but reported increased comfort when the lower lip was flanged.? Baby was sleepy and needed quite a bit of stimulation to stay awake but nursed for about 15 minutes.? Mom then woke him up and offered the left side where he was a little more aggressive and nursed about 10 minutes before coming off on his own.? He transferred 92 ml.? Reviewed with mom that although his daily weight gain since his last visit is lower than normal, he's only 2% below BW and he did a great job today transferring the milk. Plan: 1.Continue to breastfeed ALD- try not to go past three hours for now; this can be re-evaluated when he sees PCP for his 2 week WCC on 02/17.? Suggested she hand express to soften the breast before he nurses and/or remove her bra as either/both of these ideas may help baby to latch on more deeply.? Reviewed the importance of helping him stay actively nursing and to offer both sides. 2.Can use the Haakaa or electric pump after nursing as needed- only pump to comfort as this will not cause an oversupply.? 3. No medical need to supplement.? We reviewed the importance of establishing and getting rest; ok to wait until about 4 weeks to introduce a bottle. 4. Gave ideas to help with the ROM in his neck and a handout on stretches for her chest and back. 5. Will f/u on 02/17 with PCP and in on 03/03 for a one month pre and post feeding weight. Meds Home Medications and Allergies Home Medications Medication Instructions Recorded Confirmed Type ergocalciferol (vitamin D2) 10 mcg 400 unit PO BID 11/12/21 02/17/22 History (400 unit) tablet prenat.vits,socrates,[id number] 1 tab PO QDAY 11/12/21 02/17/22 History Allergies Allergy/AdvReac Type Severity Reaction Status Date / Time No Known Drug Allergies Allergy Verified 02/17/22 10:34
== END 2022-02-10 13:43 | disposition home or self-care (01) ==
LOC: OB LAC 13:43
PROVIDERS: Visit Provider Advanced Practice Midwife
DX: Z39.2 Encounter for routine postpartum follow-up (principal)
CPT/HCPCS: 99211

== ENCOUNTER 2023-02-23 11:56 | Outpatient (CLI) | payer OTHER, SELFPAY | END 2023-02-23 11:57 | disposition home or self-care (01) | LOC: NFLDREF 11:58 | PROVIDERS: Visit Provider Advanced Practice Midwife | DX: Z32.00 Encounter for pregnancy test, result unknown (principal) | CPT/HCPCS: 84702 ==

== ENCOUNTER 2023-02-25 14:35 | Outpatient (CLI) | payer OTHER, SELFPAY | END 2023-02-25 14:36 | disposition home or self-care (01) | LOC: NFLDREF 02-27 12:19 | PROVIDERS: Visit Provider Obstetrics & Gynecology | DX: Z87.59 Personal history of other complications of pregnancy, childbirth and the puerperium (principal) | CPT/HCPCS: 84702 ==

== ENCOUNTER 2023-03-11 12:50 | Outpatient (CLI) | payer OTHER, SELFPAY ==
--- NOTE | 2023-03-11 13:00 | CRLHL7_ITS ---
For Patients: As a result of the Century Cures Act, medical imaging exams and procedure reports are released immediately into your electronic medical record. You may view this report before your referring provider. If you have questions, please contact your health care provider. INDICATION: First trimester scan, establish dates. COMPARISON: None. TECHNIQUE: Real-time johnson-scale imaging of the pelvis was performed. FINDINGS: Sonographic imaging demonstrates a single living intrauterine gestation. The embryo demonstrates a regular cardiac rate measuring 122 beats per minute. The embryo`s crown-rump length measurement of 0.6 cm corresponds to a gestational age of 6 weeks 3 days with a sonographic due date of 11/01/2023. There is a normal-appearing yolk sac. There are no gross abnormalities noted within the embryo at this early state of development. The gestational sac has a normal appearance. There is no evidence of a perigestational hemorrhage. The amount of fluid within the sac appears appropriate for gestational age. The cervix is closed. The myometrium appears normal. Unremarkable left ovary. Corpus luteal cyst right ovary. There are no suspicious fluid collections noted in the cul-de-sac. IMPRESSION: Single living intrauterine with sonographic gestational age 6 weeks 3 days and sonographic due date 11/01/2023. Dictated by Robert Hinojosa MD @ 03/12/2023 8:29:56 AM (Electronically Signed)
== END 2023-03-11 12:51 | disposition home or self-care (01) ==
LOC: US 12:51
PROVIDERS: Visit Provider Registered Nurse
DX: Z34.91 Encounter for supervision of normal pregnancy, unspecified, first trimester (principal); Z3A.01 Less than 8 weeks gestation of pregnancy
CPT/HCPCS: 76817; 86703; 86706; 86803; 86850; 86900; 86901; 87086; 87340

== ENCOUNTER 2023-03-11 14:14 | Outpatient (CLI) | payer OTHER, SELFPAY | END 2023-03-11 14:15 | disposition home or self-care (01) | PROVIDERS: Visit Provider Registered Nurse | DX: Z34.91 Encounter for supervision of normal pregnancy, unspecified, first trimester (principal); Z3A.01 Less than 8 weeks gestation of pregnancy | CPT/HCPCS: 86592; 86703; 86704; 86706; 86762; 86787; 86803; 86850; 86900; 86901; 87086; 87340; 87491; 87591 ==

== ENCOUNTER 2023-04-15 10:40 | Outpatient (CLI) | payer OTHER, SELFPAY ==
--- NOTE | 2023-04-15 11:30 | CRLHL7_ITS ---
For Patients: As a result of the Century Cures Act, medical imaging exams and procedure reports are released immediately into your electronic medical record. You may view this report before your referring provider. If you have questions, please contact your health care provider. INDICATION: No heart tones in clinic TECHNIQUE: Ultrasound OB pelvis transabdominal and transvaginal. Real-time johnson-scale imaging of the pelvis was performed. COMPARISON: Obstetric ultrasound on 03/11/2023 FINDINGS: Intrauterine gestational sac: Present, measuring 4.2 centimeters. Embryo present: Yes. Embryo cardiac activity: None [place] rump Length: 2.4 centimeters, consistent with 9 weeks and 3 days. Perigestational hemorrhage: None. Ovaries and adnexae: The right ovary is not visualized. The left ovary is within normal limits in appearance. No suspicious lesions or fluid collections. IMPRESSION: Intrauterine with crown-rump length of 2.4 centimeters consistent with 9 weeks and 3 days. There are no heart tones. Findings are consistent with demise. Dictated by Nba Nicole MD @ 04/15/2023 12:03:08 PM (Electronically Signed)
== END 2023-04-15 10:41 | disposition home or self-care (01) ==
PROVIDERS: Visit Provider Advanced Practice Midwife
DX: O36.8310 Maternal care for abnormalities of the fetal heart rate or rhythm, first trimester, not applicable or unspecified (principal); O02.1 Missed abortion; Z3A.09 9 weeks gestation of pregnancy
CPT/HCPCS: 76801; 76817

== ENCOUNTER 2023-04-18 19:57 | Day surgery (SDC) | payer OTHER, SELFPAY ==
[2023-04-18 20:09] VITALS: BP 125/84; PULSE 82; RESP 16; TEMP 36.5; O2SAT 97; BMI 19.6
--- NOTE | 2023-04-18 20:22 | ED.GENADULT ---
HPI - General Adult General Chief complaint: Vaginal Bleeding Stated complaint: miscarriage; heavy bleeding Time Seen by Provider: 04/18/23 20:20 History of Present Illness HPI narrative: Pt arrives with from home for evaluation of heavy bleeding during a miscarriage. Patient states that she was ~ 11 weeks when they found no heartbeat on the US. Patient states that the heavy bleeding started ~1800 tonight after she passed the baby. Patient states that she has been soaking pads quickly. Patient having large clots and was unable to get off the toliet because there was blood dripping constantly. Patient was advised my OB provider to come in if the bleeding didnt improve within an hour. Patient also feeling dizzy. 32-year-old woman presenting to the emergency department with vaginal bleeding heavily over the last 2 hours. She 3 days ago was noted to have demise on ultrasound. Was bleeding a little bit yesterday into today along with some cramping until about 2 hours prior to arrival in be lab bleeding very heavily. Just could get off the toilet because blood is just constantly going. Apparently passed fetus. She has been soaking multiple pads. Feeling lightheaded. Some abdominal cramping but not pain otherwise. She is not short of breath. Is blood type A positive per report. No fever. G3 with 1 ectopic, last with term and now this miscarriage. Related Data Home Medications Medication Instructions Recorded Confirmed prenat.vits,socrates,[id number] 1 tab PO QDAY 11/12/21 05/05/23 cholecalciferol (vitamin D3) 50 50 mcg PO QDAY 04/15/23 05/05/23 mcg (2,000 unit) capsule multivitamin with iron (Daily 1 tab PO QDAY 05/05/23 05/05/23 Vites/Iron tablet) Allergies Allergy/AdvReac Type Severity Reaction Status Date / Time No Known Drug Allergies Allergy Verified 05/05/23 09:33 Review of Systems Status of ROS: Reports: 6 or more systems reviewed and unremarkable except as noted in History and below [facility] Medical History Infertility Nevus of face (09/08/17) ?D22.30 - Melanocytic nevi of unspecified part of face (ICD-10) Endometriosis (11/05/20) ?N80.9 - Endometriosis, unspecified (ICD-10) History of third degree perineal laceration ?Z87.59 - Personal history of other complications of , childbirth and the puerperium (ICD-10) NVD (normal vaginal delivery) ?O80 - Encounter for full-term uncomplicated delivery (ICD-10) Active labor at term Ectopic ?O00.90 - Unspecified ectopic without intrauterine (ICD-10) Surgical History [place] teeth extracted ?K08.409 - Partial loss of teeth, unspecified cause, unspecified class (ICD-10) Hx of unilateral salpingectomy ?Z90.79 - Acquired absence of other genital organ(s) (ICD-10) Family History Mother High blood pressure Social History Narrative: SOCIAL Education: bachelors 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, [employer]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, , 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 Lives with: Pavan Pets: denies Abuse: Denies past/denies present Special Diet: Denies Ok with a blood transfusion: yes Culture or orthodox beliefs: denies RISK FACTORS Exercise Times/wk: skiing, run, walk, bike, tennis Depression/Anxiety: denies CHERIE: 1 PHQ 9: 0 Seat Belt Use: Routinely Smoking: Denies past/present Alcohol/day: Denies while Caffeine: minimal Drug Use: Denies past/present Chicken Pox: vaccine as a child MRSA: Denies What is your current living situation?: I presently have a place to live Problems where you live: no known problems In the past 12 months, utilities in danger of being shut off: no In past 12 months, lack of transportation kept you from medical appts, meetings, work, or getting things needed for daily living: no In the past 12 mos, have been you worried that your food would run out before you had money to buy more?: never true In the past 12 mos, the food you bought just didn't last and you didn't have money to buy more?: never true Smoking Status: Never smoker Non-prescribed substance use: denies use How often does anyone, including family, friends and others, physically hurt you: never How often does anyone, including family, friends and others, insult or talk down to you: never How often does anyone, including family, friends and others, threaten you with harm: never How often does anyone, including family, friends and others, scream or curse at you: never Little interest or pleasure in doing things: not at all Feeling down, depressed, or hopeless: not at all Exam Narrative: Exam Narrative: Well-nourished. NAD. Seems little uncomfortable. Does run might tension later to a small umbilical hernia that she has been unable to reduce. Appears to be breathing easily. Cranial nerves 2-12 intact. Moving all extremities without difficulty. She is well-perfused peripherally. His heart is in a regular rate and rhythm. Abdomen is soft and not particularly uncomfortable. Is there is a right-sided intra umbilical hernia about dime-sized that I am able to reduce without significant difficulty. It was little uncomfortable. Without inflammatory changes. I was anticipating doing a genitourinary exam but ultrasound has arrived and I will defer to them at this time. Const: Vital Signs, click to edit/add: Vital Signs - 24 hr 04/18/23 20:09 04/18/23 23:53 Temperature 97.7 F 97.8 F Pulse Rate 69 Pulse Rate [Pulse Oximeter] 82 Respiratory Rate 16 13 Blood Pressure 100/56 L Blood Pressure [Le ft Upper Arm] 125/84 Pulse Oximetry 97 98 Oxygen Delivery Me thod Room Air Room Air Documenting provider has reviewed patient's vital signs: yes Course Vital Signs Vital signs: Initial Vital Signs Temperature 97.7 F 04/18/23 20:09 Temperature Source Temporal Artery Scan 04/18/23 20:09 Pulse Rate 82 04/18/23 20:09 Pulse Rhythm Regular 04/18/23 20:09 Pulse Strength 3+ Normal 04/18/23 20:09 Respiratory Rate 16 04/18/23 20:09 Blood Pressure 125/84 04/18/23 20:09 Blood Pressure Mean 97 04/18/23 20:09 Pulse Oximetry 97 04/18/23 20:09 Oxygen Delivery Method Room Air 04/18/23 20:09 Vital Signs Temperature 97.7 F 04/18/23 20:09 Pulse Rate 82 04/18/23 20:09 Respiratory Rate 16 04/18/23 20:09 Blood Pressure 125/84 04/18/23 20:09 Pulse Oximetry 97 04/18/23 20:09 Oxygen Delivery Method Room Air 04/18/23 20:09 Temperature 97.8 F 04/19/23 01:20 Pulse Rate 68 04/19/23 01:20 Respiratory Rate 18 04/19/23 01:20 Blood Pressure 109/73 04/19/23 01:20 Pulse Oximetry 100 04/19/23 01:20 Oxygen Delivery Method Room Air 04/19/23 01:20 Medications Administered Medications: Discontinued Medications Generic Name Dose Route Start Last Admin Trade Name Charlesq PRN Reason Stop Dose Admin Sodium Chloride 1,000 mls @ 1,000 mls/hr 04/18/23 20:23 04/18/23 22:09 0.9 % Sodium Chloride 1000 Ml IV 04/18/23 21:22 Infused .Q1H ONE Infusion Doxycycline Hyclate 200 mg/ 250 mls @ 250 mls/hr 04/18/23 23:05 04/18/23 23:30 Sodium Chloride IVPB 04/18/23 23:06 250 mls/hr ONCE ONE Administration Medical Decision Making MDM Narrative Medical decision making narrative: Certainly of concern is potentially retained product. Should not need RhoGAM as is A positive. Will be type and screening though needing potential blood product. Ultrasound result is pending. Initial hemoglobin returns at 13; will likely need recheck. Has been up to the bathroom already and thinks bleeding might actually be lightening now. Did speak with director museum or zoo noting rather thick endometrial tissue particularly upper uterus. Almost appearance of endometritis. The latter diagnosis though inconsistent with exam which was nontender. On follow-up as discussed with nursing apparently is soaking through pads standing up continues to drip blood. Have paged OB and will be doing a quick speculum exam. Soft clot noted on speculum exam and bright red blood briskly feels vaginal vault. Discussed with OB on-call and anticipating D&C at this point. Lab Data Lab results reviewed: Yes I reviewed the patient's lab results Labs: Lab Results 04/18/23 Range/Units 20:21 WBC 7.34 (4.50-11.00) K/uL RBC 4.24 (4.00-5.20) m/uL Hgb 13.0 (12.0-16.0) gm/dL Hct 37.5 (33.0-51.0) % MCV 88 (80-100) fL MCH 31 (26-34) pg MCHC 35 (32-36) gm/dL RDW Coeff of Michaela 11.8 (11.5-15.5) % Plt Count 164 (140-440) K/uL Neut % (Auto) 73.4 H (42.0-72.0) % Lymph % (Auto) 21.5 (20-44) % [place] % (Auto) 4.6 (0.0-11.0) % Eos % (Auto) 0.3 (0.0-7.0) % Baso % (Auto) 0.1 (0.0-3.0) % Neut # (Auto) 5.40 (1.7-7.0) K/uL Lymph # (Auto) 1.58 (0.90-2.90) K/uL [place] # (Auto) 0.30 (0.00-0.90) K/UL Eos # (Auto) 0.02 (0.00-0.50) K/uL Baso # (Auto) 0.01 (0.00-0.30) K/uL Abs Immat Gran (auto) 0.01 (0.00-0.30) K/uL Imm/Tot Granulo (auto) 0.1 % Blood Type A Positive Antibody Screen NEGATIVE Discharge Plan Discharge Clinical Impression: Miscarriage, Abnormal vaginal bleeding Patient Disposition: XFER to OR Condition: Guarded
--- NOTE | 2023-04-18 20:24 | CRLHL7_ITS ---
For Patients: As a result of the Century Cures Act, medical imaging exams and procedure reports are released immediately into your electronic medical record. You may view this report before your referring provider. If you have questions, please contact your health care provider. INDICATION: Heavy bleeding with miscarriage. TECHNIQUE: Transabdominal OB ultrasound with grayscale and color Doppler images. COMPARISON: 04/15/2023. FINDINGS: There is no longer a visible intrauterine . Endometrium is heterogeneous and thickened at 3 cm. Some color-flow within the fundal endometrium. The right ovary appears normal. Left ovary was not visible. No adnexal mass or significant free fluid identified. IMPRESSION: Heterogeneous thickened endometrium with no visible intrauterine . Findings are compatible with a miscarriage in progress. Dictated by Barrington Winter MD @ 04/18/2023 10:51:22 PM (Electronically Signed)
[2023-04-18 20:31] LABS: Basophils Absolute Auto 0.01 K/uL (0.00-0.30); Basophils Percent Auto 0.1 % (0.0-3.0); Eosinophils Absolute Auto 0.02 K/uL (0.00-0.50); Eosinophils Percent Auto 0.3 % (0.0-7.0); Hematocrit 37.5 % (33.0-51.0); Immature Granulocytes Abs Auto 0.01 K/uL (0.00-0.30); Immature Granulocytes Pct Auto 0.1 %; Lymphocytes Absolute Auto 1.58 K/uL (0.90-2.90); Lymphocytes Percent Auto 21.5 % (20-44); Mean Corpuscular HGB Conc 35 gm/dL (32-36); Mean Corpuscular Hemoglobin 31 pg (26-34); Mean Corpuscular Volume 88 fL (80-100); Monocytes Percent Auto 4.6 % (0.0-11.0); Neutrophils Percent Auto 73.4 % (42.0-72.0); Platelet Count* 164 K/uL (140-440); RDW Coefficient of Variation % 11.8 % (11.5-15.5); Red Blood Count 4.24 m/uL (4.00-5.20); White Blood Count* 7.34 K/uL (4.50-11.00)
[2023-04-18 20:36] LABS: Slide Review Reflex No
[2023-04-18] MEDS: 0.9 % SODIUM CHLORIDE 1000 ml 1,000 ML IV (20:38)
--- NOTE | 2023-04-18 20:38 | ED.NURSE ---
patients radha, underwear and pad soaked. Patient changed into new pads and underwear. Patient passed 4 large clots while changing. Md pierce notified.
--- NOTE | 2023-04-18 22:10 | ED.NURSE ---
patient had large amount of bleeding with clots. patient pad changed. bed chucks changed.
--- NOTE | 2023-04-18 22:33 | PM.GYNCN1 ---
ORACLE APPLICATION ARCHITECT - CN: HPI Data of Consult Time Seen by Provider: 22:34 Date Seen: 04/18/23 Patient: [facility] Patient Consult date: 04/18/23 Requesting Physician: Robert Barksdale MD Primary Care Provider: Not a Local Provider Consult Narrative Reason for consult: vaginal bleeding Narrative: Vin Canada is a 32 year old female here for vaginal bleeding secondary to spontaneous early loss. She was diagnosed with an early loss on 04/15/2023. She opted for expected management at that time with precautions to come in if she has increased bleeding. At the time of her diagnosis, she was completely asymptomatic. She reported having bleeding a day later. She passed the gestational sac today and experienced decrease in vaginal bleeding. However, at around 6:00 p.m., her vaginal bleeding got significantly worse. She described the has gushing with clots so she proceeded to the emergency room to be evaluated. She is currently hemodynamically stable but with continued vaginal bleeding. Hgb is 13.0 and plt [address]. Barksdale, she had brisk filling of vaginal vault during attempted speculum exam. Transabdominal ultrasound showed heterogenous thickened endometrium with no visible intrauterine . Findings are compatible with a miscarriage in progress. She currently has moderate amount of blood on her pad but no brisk bleeding or fundal tenderness. Discussed with patient the ultrasound findings and her clinical picture. Reviewed her options again. We discussed expected management, medication management, or surgical management with suction dilation curettage. Patient favors suction dilation and curettage as she does not want to be monitoring this much bleeding at home. She has a [id number] child at home that she feels that she will be able to care for with continued bleeding. She reports that expectant management or medical management would make her nervous and she would end up going to the emergency room again. Patient denies fever, chills, chest pain, SOB, n/v, headache, vision changes, or dizziness. Endorses uterine cramping keri to a heavy menstrual cycle. cc:: CC: Review of Systems Status of ROS: Reports: 10 or more systems reviewed and unremarkable except as noted in History and below [facility] Medical History Infertility Nevus of face (09/08/17) ?D22.30 - Melanocytic nevi of unspecified part of face (ICD-10) Endometriosis (11/05/20) ?N80.9 - Endometriosis, unspecified (ICD-10) History of third degree perineal laceration ?Z87.59 - Personal history of other complications of , childbirth and the puerperium (ICD-10) NVD (normal vaginal delivery) ?O80 - Encounter for full-term uncomplicated delivery (ICD-10) Active labor at term Ectopic ?O00.90 - Unspecified ectopic without intrauterine (ICD-10) Surgical History [place] teeth extracted ?K08.409 - Partial loss of teeth, unspecified cause, unspecified class (ICD-10) Hx of unilateral salpingectomy ?Z90.79 - Acquired absence of other genital organ(s) (ICD-10) Family History Mother High blood pressure Social History Narrative: SOCIAL Education: bachelors 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, [employer]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, , 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 Lives with: Pavan Pets: denies Abuse: Denies past/denies present Special Diet: Denies Ok with a blood transfusion: yes Culture or holiness beliefs: denies RISK FACTORS Exercise Times/wk: skiing, run, walk, bike, tennis Depression/Anxiety: denies CHERIE: 1 PHQ 9: 0 Seat Belt Use: Routinely Smoking: Denies past/present Alcohol/day: Denies while Caffeine: minimal Drug Use: Denies past/present Chicken Pox: vaccine as a child MRSA: Denies What is your current living situation?: I presently have a place to live Problems where you live: no known problems In the past 12 months, utilities in danger of being shut off: no In past 12 months, lack of transportation kept you from medical appts, meetings, work, or getting things needed for daily living: no In the past 12 mos, have been you worried that your food would run out before you had money to buy more?: never true In the past 12 mos, the food you bought just didn't last and you didn't have money to buy more?: never true Smoking Status: Never smoker How often does anyone, including family, friends and others, physically hurt you: never How often does anyone, including family, friends and others, insult or talk down to you: never How often does anyone, including family, friends and others, threaten you with harm: never How often does anyone, including family, friends and others, scream or curse at you: never Little interest or pleasure in doing things: not at all Feeling down, depressed, or hopeless: not at all Meds Home Medications and Allergies Home Medications Medication Instructions Recorded Confirmed Type prenat.vits,socrates,[id number]-hpuq-nvkuy 1 tab PO QDAY 11/12/21 04/18/23 History cholecalciferol (vitamin D3) 50 50 mcg PO QDAY 04/15/23 04/18/23 History mcg (2,000 unit) capsule Allergies Allergy/AdvReac Type Severity Reaction Status Date / Time No Known Drug Allergies Allergy Verified 04/18/23 20:09 ORACLE APPLICATION ARCHITECT - Exam Physical Exam: Vital signs: Temp Pulse Resp BP Pulse Ox O2 Del Method 97.7 F 82 16 125/84 97 Room Air 04/18/23 20:09 04/18/23 20:09 04/18/23 20:09 04/18/23 20:09 04/18/23 20:09 04/18/23 20:09 Narrative: Physical exam: General: Patient is tearful in bed. Psych: Alert and oriented x3, full affect HEENT: Normocephalic, atraumatic Lungs: Unlabored breathing Neuro: No focal deficit. Mentating appropriately Abdominal: soft, no tenderness, rebound, or guarding. No fundal tenderness noted Pelvic exam: Moderate amount of blood on her pad with no brisk bleeding or clots. ORACLE APPLICATION ARCHITECT - Results Labs Labs: Short CBC 04/18/23 Range/Units 20:21 WBC 7.34 (4.50-11.00) K/uL Hgb 13.0 (12.0-16.0) gm/dL Hct 37.5 (33.0-51.0) % Plt Count 164 (140-440) K/uL
--- NOTE | 2023-04-18 22:46 | ED.NURSE ---
nurse to nurse report given to fernando CROUCH. patient to go to 263 after surgery
--- NOTE | 2023-04-18 23:04 | P.PCNOB_ITS ---
Procedure Pre-op/Post-op diagnoses: Pre-Op/Post-Op Diagnoses Operation Date: 04/18/23 23:10 <No data on this case meets the specified criteria> Procedure: Procedures Operation Date: 04/18/23 23:10 Exam under anesthesia, suction dilation and curettage Estimated blood loss (mL): 20 Anesthesia type: MAC Complications: none Specimen: uterine contents Narrative: DILATION AND CURETTAGE PREOPERATIVE DIAGNOSIS: 1. Spontaneous early loss 2. Possible retained products of conception POSTOPERATIVE DIAGNOSIS: Same PROCEDURE: 1. EUA 2. Suction dilation and curettage SURGEON: Renuka Ty MD ANESTHESIA: MAC FINDINGS: 1. A 8 size mobile anteverted uterus, no adnexal masses on EUA 2. Normal external genitalia, cervix dilated to 1.5 cm with retained products protruding through FLUIDS: 600 mL ESTIMATED BLOOD LOSS: 20 mL URINE OUTPUT: 50 mL COMPLICATIONS: None PREOP ANTIBIOTIC: 200 mg of doxycycline SPECIMEN: 1. Products of conception INDICATIONS: Vin is a 32 yo G 3 P 1021, with diagnosis of in her early loss at 11 weeks. DESCRIPTION OF PROCEDURE: The patient was taken to the operating room where MAC was administered. She was prepared and draped in normal sterile fashion in the dorsal lithotomy position in [facility], taking care to avoid lower extremity hyperextension, hyperflexion or compression. A surgical time-out was performed with the entire operative staff per protocol. Perioperative antibiotics were given. EUA revealed the above findings. Bladder was drained with a red rubber. A speculum was placed in the patient's vagina and a long Allis was placed on the anterior lip of the cervix. The cervix was gently dilated to a 8 [place] diameter to accommodate the 8 suction curettage. The suction curettage was then inserted under direct visualization. The uterus was then gently suction curetted and rotated to clear the uterus of products of conception. This was performed until a gritty texture was noted and the uterus was cleared of all remaining products of conception. There was minimal bleeding noted after the suction curettage was removed. The long Allis was removed from the anterior lip of the cervix and excellent hemostasis was noted. Bimanual exam review excellent uterine tone. All instruments were removed. Debrief performed per protocol and specimen reviewed. Specimen was sent to pathology. The patient tolerated the procedure well. Sponge, lap and needle counts were correct x 2. The patient was taken to the recovery room in stable condition.
[2023-04-18] MEDS: DOXYCYCLINE HYCLATE 200 MG in 0.9 % SODIUM CHLORIDE 250 ml 250 ML 250 MG IVPB (23:30)
[2023-04-18 23:53] VITALS: BP 100/56; PULSE 69; RESP 13; TEMP 36.6; O2SAT 98
[2023-04-18 23:55] VITALS: BP 96/59; PULSE 69; RESP 12; TEMP 36.6; O2SAT 98
[2023-04-19] VITALS (7 sets, daily range): BP systolic 93–109; BP diastolic 57–73; PULSE 55–69; RESP 12–19; TEMP 36.6; O2SAT 97–100
--- NOTE | 2023-04-19 00:05 | P.ANES_ITS ---
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
--- NOTE | 2023-04-19 00:31 | SUR.PHASEI ---
patient met discharge criteria per anesthesia
--- NOTE | 2023-04-19 02:03 | PC.NURSE ---
Addendum entered by Colleen Dickerson RN 04/19/23 02:15: Medium amount of bloody vaginal discharge. One deborah pad was changed during pt stay. Original Note: DC note: Pt arrived from PACU awake and alert. Some numbness in lower extremities bilat. Pt tolerated ice chips, fluids and food PO with no c/o nausea. Pt denies pain, independent ambulation, is voiding. DC instructions provided to the pt and significant other, pt verbalized understanding. No lower extremities numbness prior to discharge. IV removed. Pt DC at 0155 via W/C accompanied by her spouse.
== END 2023-04-19 01:55 | disposition home or self-care (01) ==
LOC: ED 22:36 → SS 23:23 → MEDSURG 04-19 00:17
PROVIDERS: Emergency Provider Family Medicine; Visit Provider Obstetrics & Gynecology
PROC: (CPT 59812; principal; 2023-04-18 23:00)
DX: O03.6 Delayed or excessive hemorrhage following complete or unspecified spontaneous abortion (principal); Z3A.11 11 weeks gestation of pregnancy
CPT/HCPCS: 59812; 01965; 36415; 76815; 85025; 86850; 86900; 86901; 88305; 99140; 99284; J1100; J1885; J2250; J2405; J2704; J3010; J7030; J7050

== ENCOUNTER 2023-09-11 10:07 | Outpatient (CLI) | payer OTHER, SELFPAY ==
--- NOTE | 2023-09-11 10:15 | US_ITS ---
Patient: GUERRERO ASTUDILLO Facility:?[facility] Patient ID:?[id number] Site Patient ID:?[id number]. Site :?[id number] Study:?US-OB Pelvis OB TV-09/11/2023 10:53:36 AM Ordering Physician:?MARCIANO FLYNN CNM Final Report: INDICATION: First trimester scan, establish dates. COMPARISON: None. TECHNIQUE: Real-time johnson-scale imaging of the pelvis was performed. FINDINGS: Sonographic imaging demonstrates a single living intrauterine gestation. The embryo demonstrates a regular cardiac rate measuring 167 beats per minute. The embryo`s crown-rump length measurement of 2.0 cm corresponds to a gestational age of 8 weeks 4 days with a sonographic due date of 04/18/2024. There is a normal-appearing yolk sac. There are no gross abnormalities noted within the embryo at this early state of development. The gestational sac has a normal appearance. There is no evidence of a perigestational hemorrhage. The amount of fluid within the sac appears appropriate for gestational age. The cervix is closed. The myometrium appears normal. Corpus luteal cyst left ovary. There are no suspicious fluid collections noted in the cul-de-sac. IMPRESSION: Normal first trimester OB ultrasound exam. Gestational age calculated at 8 weeks 4 days with a sonographic due date of 04/18/2024. Dictated by Robert Hinojosa MD @ 09/11/2023 1:01:35 PM Signed by:?Robert Hinojosa MD @09/11/2023 1:01:35 PM (Electronic Signature)
--- OUTSIDE RECORDS SUMMARY | 2023-09-11 10:37 | XMS_ITS | Clinical Summary ---
Author Name Unknown Organization [facility] Address [address] [place] [id number] Care Team Providers Care Ground Services Instructor Name Role Phone Unavailable Primary Care Provider Unavailabl e Social History Tobacco Use Types Packs/Day Years Used Date Smoking Tobacco: Never Assessed [facility] Housing Answer Date Recorded Living Situation Not on file 04/09/2023 Housing Problems Not on file 04/09/2023 [facility] Safety Answer Date Recorded Threatened Not on file 04/09/2023 Insulted Not on file 04/09/2023 Physically Hurt Not on file 04/09/2023 Scream Not on file 04/09/2023 Sex and Gender Information Value Date Recorded Sex Assigned at Not on file Gender Identity Not on file Sexual Orientation Not on file Plan of Treatment Not on file
== END 2023-09-11 10:08 | disposition home or self-care (01) ==
LOC: US 10:07
PROVIDERS: Visit Provider Advanced Practice Midwife
DX: Z34.91 Encounter for supervision of normal pregnancy, unspecified, first trimester (principal); Z3A.08 8 weeks gestation of pregnancy
CPT/HCPCS: 76817; 86592; 86703; 86704; 86706; 86803; 87086; 87340

== ENCOUNTER 2023-11-27 10:10 | Outpatient (CLI) | payer OTHER, SELFPAY ==
--- OUTSIDE RECORDS SUMMARY | 2023-11-27 10:12 | XMS_ITS | Clinical Summary ---
Author Organization [facility] Address [address] [id number] Care Team Providers Care Entry Operator Name Role Phone Unavailable Primary Care Provider Unavailabl e Social History Tobacco Use Types Packs/Day Years Used Date Smoking Tobacco: Never Assessed [facility] Housing Answer Date Recorded Living Situation Not on file 04/09/2023 Housing Problems Not on file 04/09/2023 [facility] Safety Answer Date Recorded Threatened Not on file 04/09/2023 Insulted Not on file 04/09/2023 Physically Hurt Not on file 04/09/2023 Scream Not on file 04/09/2023 Sex and Gender Information Value Date Recorded Sex Assigned at Not on file Gender Identity Not on file Sexual Orientation Not on file Plan of Treatment Not on file
--- NOTE | 2023-11-27 10:15 | CRLHL7_ITS ---
For Patients: As a result of the Century Cures Act, medical imaging exams and procedure reports are released immediately into your electronic medical record. You may view this report before your referring provider. If you have questions, please contact your health care provider. INDICATION: Evaluate anatomy. COMPARISON: 09/11/2023 TECHNIQUE: Real time johnson scale imaging of the fetus was performed as well as color Doppler analysis of the umbilical vessels. FINDINGS: Sonographic imaging demonstrates a single living intrauterine gestation. Fetus demonstrates a regular cardiac rate of 150 beats per minute. Fetus has a variable position. The placenta lies left-sided without evidence of placenta previa. Edge of the placenta located 6.2 cm from the internal cervical os. Amniotic fluid volume appears normal. Single deepest vertical pocket: 4.3 cm. The cervix is closed and measures 3.2 cm in length. The composite ultrasound gestational age is calculated at 20 weeks 1 day with an estimated sonographic due date of 04/14/2024. The estimated weight is 315 grams which lies at the 60th %. The following biometric measurements were obtained: Biparietal diameter: 4.7 cm/20 weeks 2 day 80th% Head circumference: 17.1 cm/19 weeks 5 day 49th% Abdominal circumference: 14.5 cm/19 weeks 5 days 52nd% Femur length: 3.2 cm/19 weeks 6 day 53rd% The HC/AC ratio measures: 1.18 range (1.07-1.25) On anatomic survey, there is a normal appearance of the cerebral ventricles, cavum septi pellucidi, cisterna magna and cerebellum. The nose, lips, and facial profile appear normal. The cervical, thoracic and lumbar spine are well visualized and appear normal. There is a normal four-chamber heart view and the left and right ventricular outflow tracts appear normal. The diaphragm and stomach appear normal. The kidneys and bladder also appear normal. There is a normal three-vessel cord and cord insertion site. The four extremities appear normal. IMPRESSION: Normal OB ultrasound exam with concordance of clinical and sonographic dating. No intrinsic abnormalities noted on anatomic survey. Dictated by Robert Hinojosa MD @ 11/27/2023 10:19:43 PM (Electronically Signed)
== END 2023-11-27 10:11 | disposition home or self-care (01) ==
LOC: US 10:11
PROVIDERS: Visit Provider Advanced Practice Midwife
DX: Z34.92 Encounter for supervision of normal pregnancy, unspecified, second trimester (principal); Z3A.20 20 weeks gestation of pregnancy
CPT/HCPCS: 76805

== ENCOUNTER 2024-03-22 09:54 | Outpatient (CLI) | payer OTHER, SELFPAY ==
--- OUTSIDE RECORDS SUMMARY | 2024-03-22 10:00 | XMS_ITS | Clinical Summary ---
Author Organization [facility] Address [address] [id number] Care Team Providers Care Automotive Repair Technician Name Role Phone Unavailable Primary Care Provider Unavailabl e Social History Tobacco Use Types Packs/Day Years Used Date Smoking Tobacco: Never Assessed [facility] Housing Answer Date Recorded Living Situation Not on file 04/09/2023 Housing Problems Not on file 04/09/2023 [facility] Safety Answer Date Recorded Threatened Not on file 04/09/2023 Insulted Not on file 04/09/2023 Physically Hurt Not on file 04/09/2023 Scream Not on file 04/09/2023 Sex and Gender Information Value Date Recorded Sex Assigned at Not on file Gender Identity Not on file Sexual Orientation Not on file Plan of Treatment Not on file
[2024-03-23 09:58] LABS: Strep B DNA Probe Negative (Negative)
[2024-03-23 11:46] LABS: Strep B Susceptibility Needed? No
== END 2024-03-22 09:55 | disposition home or self-care (01) ==
LOC: NFLDREF 09:55
PROVIDERS: Visit Provider Obstetrics & Gynecology
DX: Z34.93 Encounter for supervision of normal pregnancy, unspecified, third trimester (principal); Z3A.36 36 weeks gestation of pregnancy
CPT/HCPCS: 87081; 87653

== ENCOUNTER 2024-04-05 11:10 | Outpatient (CLI) | payer OTHER, SELFPAY ==
--- OUTSIDE RECORDS SUMMARY | 2024-04-05 11:12 | XMS_ITS | Clinical Summary ---
Author Organization [facility] Address [address] [id number] Care Team Providers Care Youth Support Worker Name Role Phone Unavailable Primary Care Provider Unavailabl e Social History Tobacco Use Types Packs/Day Years Used Date Smoking Tobacco: Never Assessed [facility] Housing Answer Date Recorded Living Situation Not on file 04/09/2023 Housing Problems Not on file 04/09/2023 [facility] Safety Answer Date Recorded Threatened Not on file 04/09/2023 Insulted Not on file 04/09/2023 Physically Hurt Not on file 04/09/2023 Scream Not on file 04/09/2023 Sex and Gender Information Value Date Recorded Sex Assigned at Not on file Gender Identity Not on file Sexual Orientation Not on file Plan of Treatment Not on file
--- NOTE | 2024-04-05 11:15 | CRLHL7_ITS ---
For Patients: As a result of the Cures Act, medical imaging exams and procedure reports are released immediately into your electronic medical record. You may view this report before your referring provider. If you have questions, please contact your health care provider. Indication: uterine size-date discrepancy ESTIMATED DATE OF DELIVERY (KERI): 04/18/2024. Technique: Real-time sonographic images of the pelvis were obtained transabdominally using grayscale, color, and Doppler imaging. Comparison: 11/27/2023 Findings: Placenta: Anterior. No previa. : Number: Single. Position: Cephalic. Cardiac activity: 154 BPM. Amniotic fluid: Single deepest pocket measures 3.5 cm. GROWTH PARAMETER SIZE (cm) ESTIMATED AGE Biparietal diameter: 9.1 37 weeks 0 days Head circumference: 33.7 38 weeks 4 days Abdominal circumference: 34.5 38 weeks 3 days Femur length: 7.2 37 weeks 0 days Average Ultrasound Age (AUA) based on this exam: 37 weeks 5 days. KERI based on the AUA from this exam: 04/21/2024. Estimated weight (EFW): 3349 gm +/-502 gm. This corresponds to the 58.0 percentile based on the established KERI. HC/AC= 0.98 FL/AC= 21.0% Impression: 1. Single live intrauterine measuring 37 weeks 5 days by ultrasound. 2. Amniotic fluid single deepest pocket measures 3.5 centimeter. Dictated by Vin Canas MD @ 04/05/2024 5:53:07 PM (Electronically Signed)
== END 2024-04-05 11:11 | disposition home or self-care (01) ==
LOC: US 11:10
PROVIDERS: Visit Provider Advanced Practice Midwife
DX: O26.843 Uterine size-date discrepancy, third trimester (principal); Z3A.37 37 weeks gestation of pregnancy
CPT/HCPCS: 76816

== ENCOUNTER 2024-04-18 09:20 | Inpatient (IN) | payer OTHER, SELFPAY ==
[2024-04-18] VITALS (13 sets, daily range): BP systolic 104–144; BP diastolic 60–81; PULSE 59–77; RESP 16–19; TEMP 36.4–36.9; O2SAT 98; BMI 26.2
--- NOTE | 2024-04-18 09:12 | W.PM.LDBA ---
Subjective History of Present Illness Time Seen by Provider: 09:13 Date Seen: 04/18/24 Narrative: Patient is being admitted to Labor and Delivery for active labor. She is a 33 year old at weeks gestation. Her full history and physical was dictated by Michelle Núñez CNM on 03/29/2024. Please see this for details. 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 H&P done by Esperanza Núñez CNM on 03/29/24 # Hx 3rd degree laceration # Hx infertility but conceived spontaneously each time # Hx ectopic with left salpingectomy # Hx ASCUS in 2019, NIL in 2021 # Low platelets at 28 weeks-139 CBC at 34 weeks: 131, stable Recommend CBC on admission #Measuring small for dates growth US at 38 weeks EFW 58%, SDP 3.5 COVID: Elvira Flu: TDAP:02/08/24 RSV: 03/22/2024 GBS negative Anatomy US: 11/27/2023 Normal findings. Left posterior placenta. OB - Problem Based A/P Additional Plan (1) : Status: Acute Plan: Delivering team:? CNMs? Waterbirth:? desires, laboring in tub? AMTSL:? yes?? Feeding plan: ?breast (2) Thrombocytopenia affecting : Status: Acute Plan CBC ordered. Delivery/Labor/Induction Plan Plan: expectant management OB Result Labs Blood Type: A (+) positive Rubella: immune RPR/VDLR: nonreactive GBS Status: negative HBsAG: negative OB Exam Physical Exam Vital signs: Temp Resp 97.6 F 19 04/18/24 08:39 04/18/24 08:39 Detailed Labor and Delivery Exam Patient Gravid: Yes Dilation (cm): 6 Effacement (%): 80 Cervix position: anterior Consistency: soft Contraction Frequency: q2-3min Contraction duration (sec): 60 Tachysystole: No Contraction intensity: Strong/Firm Fetus (Single) Station: -1 Amniotic Membrane Status: intact Heart Rate Baseline: 130 Monitor Accelerations: Present Monitor Decelerations: Episodic Health Care / Medical Job Titles Variability: Moderate (6-25)
[2024-04-18] MEDS: LIDOCAINE 1 % PF 30 ML INJECTION (12:45)
[2024-04-18] MEDS: OXYTOCIN 10 UNIT/ML INJ IM (12:46)
--- NOTE | 2024-04-18 13:28 | W.PM.OBVAGDE ---
OB Procedure Vag Delivery Mother Details Mother Details: The patient is a 33 year-old, 4, Para 1, admitted on 04/18/24 at Days gestation. : 4 Para: 2 Weeks Gestation: 40 Admission Date: 04/18/24 Additional Details Amniotic Membrane Status: SROM Amniotic Membrane Rupture Date: 04/18/24 Amniotic Membrane Rupture Time: 12:08 Amniotic Membrane Fluid Description: Clear Analgesia/Anesthesia Type: None Waterbirth: Yes Pitcoin: No Intrapartal Events: None Labor Onset: 06:00 Complete: 12:05 Pushin:05 Heart: heart tones during second stage were monitored via intermittent auscultation Delivery Details Delivery Date: 04/18/24 Delivery Time: 12:25 Route of delivery: Gender: Male Infant Viability: Alive; Heart Rate Present Position at Delivery: OA Delivery Details: Delivered via spontaneous vaginal delivery in the waterbirth tub. Vigorous male was placed on maternal abdomen. Cord was clamped and cut after a 120 second delay. Vin then moved back to the bed to deliver the placenta. weight pending. Stable and bonding at this author's exit. 1 Minute Interval Total Score: 8 5 Minute Interval Total Score: 9 Additional Details Shoulder Dystocia: No Placenta Delivery Time: 12:31 Placental Delivery Description: Spontaneous Delivery repair: Vicryl Procedure Done: Global Blood Loss: 400 Laceration: Perineal - 2nd Degree (with significant edema, L>R. ) Episiotomy Description: None Blood Loss Measurement Type: EBL Bakri Used: No Sponge/Need Count Correct: Yes Cord Vessel Description: 3 Vessels, Nuchal Cord, Loose and Delivered through Event Summary Status: Mother and were stable after delivery. Advised ice packs to perineum and sitz baths. Pt advised to notify staff if edema is worsening or has increasing pelvic pain. Disposition: floor
[2024-04-18] MEDS: IBUPROFEN 600 MG TABLET PO ×2 (13:30→19:26)
[2024-04-18 13:52] LABS: Basophils Percent Auto 0.1 % (0.0-3.0); Eosinophils Percent Auto 0.1 % (0.0-7.0); Hematocrit 38.2 % (33.0-51.0); Hemoglobin* 12.8 gm/dL (12.0-16.0); Immature Granulocytes Pct Auto 0.8 %; Lymphocytes Percent Auto 7.3 % (20-44); Mean Corpuscular HGB Conc 34 gm/dL (32-36); Mean Corpuscular Hemoglobin 30 pg (26-34); Mean Corpuscular Volume 91 fL (80-100); Monocytes Percent Auto 3.2 % (0.0-11.0); Neutrophils Percent Auto 88.5 % (42.0-72.0); Platelet Count* 142 K/uL (140-440); RDW Coefficient of Variation % 12.6 % (11.5-15.5); Red Blood Count 4.21 m/uL (4.00-5.20); White Blood Count* 17.49 K/uL (4.50-11.00)
[2024-04-18 13:59] LABS: Slide Review Reflex No
[2024-04-18] MEDS: ACETAMINOPHEN 500 MG TABLET 1000 MG PO (15:26)
[2024-04-19] MEDS: ACETAMINOPHEN 500 MG TABLET 1000 MG PO ×2 (00:10→08:33)
[2024-04-19 00:14] VITALS: BP 116/75; PULSE 65; RESP 16; TEMP 36.6; O2SAT 98
[2024-04-19] MEDS: IBUPROFEN 600 MG TABLET PO ×2 (02:48→10:04)
[2024-04-19 05:19] VITALS: BP 127/85; PULSE 82; RESP 20; TEMP 36.6; O2SAT 98
[2024-04-19] MEDS: DOCUSATE SODIUM 100 MG CAPSULE PO (08:33)
[2024-04-19 08:36] VITALS: BP 125/83; PULSE 82; TEMP 36.4
--- NOTE | 2024-04-19 09:22 | PM.OBDSVD1 ---
DS: Providers Provider Date Seen: 04/19/24 Date of admission: 04/18/24 09:20 Primary care physician: Not a Local Provider Admitting Clinician: Amada Flynn CNM Attending Physician on discharge: Mavis Quinones CNM DS: Diagnosis Discharge Diagnosis (1) care and examination immediately after delivery: Status: Acute (2) Lactating mother: Status: Acute Exam Narrative: Exam Narrative: GENERAL APPEARANCE:? normal affect, alert, no distress MOOD:? appropriate CHEST:? clear to auscultation HEART:? regular rate and rhythm ABDOMEN:? soft, non-tender the uterine fundus is At Umbilicus, Midline and is appropriate for the stage of recovery. PERINEUM:? mild edema of the perineum, there is a Perineal Laceration,?2nd degree, that is healing well. There is a small skin tag about mid positoin of the repaired laceration, ecchymotic in appearance. EXTREMITIES:? normal and no edema Const: Vital Signs, click to edit/add: Vital Signs - 24 hr 04/18/24 12:36 04/18/24 12:51 04/18/24 13:06 Temperature Pulse Rate 70 75 74 Pulse Rate [Pulse Oximeter] Respiratory Rate Blood Pressure 124/60 124/61 128/76 Blood Pressure [Ri ght Arm] Pulse Oximetry Oxygen Delivery Me thod 04/18/24 13:42 04/18/24 13:51 04/18/24 14:06 Temperature Pulse Rate 70 72 65 Pulse Rate [Pulse Oximeter] Respiratory Rate Blood Pressure 120/69 115/63 115/70 Blood Pressure [Ri ght Arm] Pulse Oximetry Oxygen Delivery Me thod 04/18/24 14:06 04/18/24 14:21 04/18/24 14:36 Temperature 97.9 F Pulse Rate 76 77 Pulse Rate [Pulse Oximeter] Respiratory Rate 17 Blood Pressure 123/70 121/68 Blood Pressure [Ri ght Arm] Pulse Oximetry 98 Oxygen Delivery Me thod 04/18/24 15:21 04/18/24 17:34 04/18/24 20:48 Temperature 97.9 F 98.4 F Pulse Rate Pulse Rate [Pulse Oximeter] 59 L 69 Respiratory Rate 17 16 Blood Pressure Blood Pressure [Ri ght Arm] 144/81 H 104/68 122/81 Pulse Oximetry 98 98 Oxygen Delivery Me thod Room Air Room Air 04/19/24 00:14 04/19/24 05:19 04/19/24 08:36 Temperature 97.8 F 97.8 F 97.6 F Pulse Rate Pulse Rate [Pulse Oximeter] 65 82 82 Respiratory Rate 16 20 Blood Pressure Blood Pressure [Ri ght Arm] 116/75 127/85 125/83 Pulse Oximetry 98 98 Oxygen Delivery Me thod Room Air Room Air OB - DS: Summary Hospital Course Hospital Course: The patient is a 33 year old G [] P [] at [] weeks gestation that was admitted to the Center on 04/18/24 for []. She had an [uncomplicated/complicated] [vaginal/] delivery. She delivered a viable [male/female] infant. She is [breast/bottle] feeding. the patient has done well. Infant Gender: Male Time Spent with Patient Time attestation: Total time spent providing and/or coordinating discharge services: Discharge Plan Discharge Disposition: Home, Self-Care Date of Admission: 04/18/24 09:20 Attending Provider on Discharge: Mavis Quinones Primary Care Provider: Provider,Not a Local Condition: Stable Anticipated Discharge Date/Time: 04/19/24 12:00 Discharge Medications: New acetaminophen 500 mg Tablet 1,000 mg PO Q6H PRNQty: 0 0RF docusate sodium 100 mg Capsule 100 mg PO DAILY Qty: 0 0RF ibuprofen 600 mg Tablet 600 mg PO Q6H PRNQty: 0 0RF Continued cholecalciferol (vitamin D3) 50 mcg (2,000 unit) capsule 50 mcg PO QDAY floradix PO prenat.vits,socrates,[id number] Tablet 1 tab PO QDAY magnesium 200 mg tablet 200 mg PO QDAY Discharge Orders: Discharge Order (Routine); Ordered 04/19/24 Ordered By: Mavis Quinones Patient Education: OB Over the Counter Medication Information, OB Vaginal/Breast Feeding Additional Instructions: Discharge instructions were reviewed with the patient including signs and symptoms of infection and home going medications Nothing vaginally for 6 weeks: no tampons or intercourse Off Work or School for 6 weeks 2-week visit: discuss feeding concerns, review control options and screen for anxiety/depression. 6-week visit for an annual exam. consultation services are available to all mothers and babies for the first year after delivery.? To make an appointment, please call [phone]. Activity Level: Activity as Tolerated Discharge Diet: Regular Follow Up Appointments: [facility] [Provider Group] Forms: [email or web address] Info Instructions
[2024-04-19 14:43] VITALS: BP 125/83; PULSE 82; RESP 20; TEMP 36.4; O2SAT 98
[2024-04-20 17:01] LABS: Rapid Plasma Reagin (RPR) Non Reactive (Non Reactive)
== END 2024-04-19 15:08 | disposition home or self-care (01) | DRG 806 ==
LOC: OB OUT 09:20 → OB 15:33
PROVIDERS: Admitting Provider Advanced Practice Midwife; Visit Provider Advanced Practice Midwife
DX: O70.1 Second degree perineal laceration during delivery (principal); O99.12 Other diseases of the blood and blood-forming organs and certain disorders involving the immune mechanism complicating childbirth; Z37.0 Single live birth; Z3A.40 40 weeks gestation of pregnancy; D69.6 Thrombocytopenia, unspecified
CPT/HCPCS: 36415; 85018; 85025; 86592; G0463; A9270; J2003; J2590

== ENCOUNTER 2024-05-02 12:59 | Outpatient (CLI) | payer OTHER, SELFPAY ==
--- NOTE | 2024-05-02 14:45 | W.PM.LAC.MC ---
Consult Note - Mom Date of Visit Date of visit: 05/02/24 Reason for consultation: Assistance Needed (lastch assessment, spitty baby) Visit Code: Visit Patient's Information Phone number: [phone] : 4 Para: 2 Allergies No Known Drug Allergies Allergy (Verified 04/18/24 08:41) Mother's Medical History: Medical History (Updated 04/20/24 @ 00:01 by Background Daemon) Polycystic ovary syndrome (11/05/20) ?E28.2 - Polycystic ovarian syndrome (ICD-10) Irregular menstrual cycle ?N92.6 - Irregular menstruation, unspecified (ICD-10) Gastroesophageal reflux disease (09/10/18) ?K21.9 - Gastro-esophageal reflux disease without esophagitis (ICD-10) Miscarriage ?O03.9 - Complete or unspecified spontaneous without complication (ICD-10) Missed with demise before 20 completed weeks of gestation ?O02.1 - Missed (ICD-10) Infertility Nevus of face (09/08/17) ?D22.30 - Melanocytic nevi of unspecified part of face (ICD-10) Endometriosis (11/05/20) ?N80.9 - Endometriosis, unspecified (ICD-10) History of third degree perineal laceration ?Z87.59 - Personal history of other complications of , childbirth and the puerperium (ICD-10) NVD (normal vaginal delivery) ?O80 - Encounter for full-term uncomplicated delivery (ICD-10) Active labor at term Ectopic ?O00.90 - Unspecified ectopic without intrauterine (ICD-10) Delivery Information Delivery type: Vaginal Gestational Age: 40 w Gestational Weight For Age: AGA Weight: 3.4 kg Discharge Weight: 3.216 kg Percentage weight loss: 5.5 Baby's Information Baby's Age at Visit: 14 days Baby's Provider or Clinic: [facility] Jaundice: No Past Experience Past Experience: Yes (BF 1st child for 1 year) Current Frequency of Day Feedings: every 2-2.5 hours, wakes independently for about 50% of feeds Frequency of Night Feedings: 3-4 hr stretches Both Breasts: Yes (sometimes) Suck: strong Latch: good per mom Length of Time: sometimes 5 min on 1 side; sometimes 7-8min ea side Goals: 1 year Pumping Pumping: Yes Quantity Pumped: 2-3 oz as needed to relieve fullness Supplementing EBM Supplement: No Formula Supplement: No Baby Elimination Number of Wet Diapers a Day: ea feeding Number of BM a Day: almost ea feeding; yellow and seedy Breast/Nipple Condition Breast Information: Breasts are symmetrical with rounded lower quadrants, intramammary distance is less than 1.5 inches. No erythema. Nipples are supple, everted prior to feeding. Breast Shape: Round Engorgement: No Maternal Nipple Condition - Left: Common Nipple Maternal Nipple Condition - Right: Common Nipple Sore Nipples: No Baby Assessment Skin: Normal Tongue/frenulum: Normal/elastic Palate: Average Lips: Relaxed and Symmetrical Jaw Alignment: Symmetrical Mucosa: [place], moist Onsite Observation Pre-Feed weight: 3.566 kg (up 376 gms in 11 days; average 34 gms/day) Post-Feed weight: 3.628 kg Milk Transferred (mL): 62 Position: Cross cradle Attachment/latch-on achieved: Easily Suck pattern: Suck burst and normal rest Swallow: Gulping Behavior following feed: Relaxed, sleepy (after 2nd side) and Alert, content (after 1st side) Pre-Nursing Left Nipple: Within Normal Limits Pre-Nursing Right Nipple: Within Normal Limits Post-Nursing Left Nipple: Within Normal Limits Post-Nursing Right Nipple: Within Normal Limits Assessments/Interventions Assessments/Interventions: Mom concerned about nursing sessions and spitting up observation Babe latches easily to left breast; nurses strongly for about 5 minutes. On and off a few times but relatches easily each time he comes off. Has a small amount of spit up after done nursing; estimate less than 2 tsp in total. Effortless spit up and baby not seem bothered by occurrence. Rests after nursing on 1st breast; has a bowel movement and then latches to mom's right breast. Nurses for about 5 more minutes. No spitting up noted after this part of the feeding. Babe transferred 40ml after 1st breast and another 22 ml on 2nd breast for 62 ml total for the feeding. Reassured mom that baby is feeding well and getting what he needs both based on milk transferred and excellent weight gain noted. Discussed pumping routine to be careful not to pump too much and develop an oversupply but pump as needed while milk supply is settling in to needed amount Expect as milk supply levels out, his nursing behavior may change management administrator the next 1-2 weeks, but assured he is gaining well at this time. Education provided: Supply/demand nature of milk supply and Pumping for milk management Follow-Up Suggested follow up: Appointment as needed Time Spent Time spent with patient (min): 60 Meds Home Medications and Allergies Home Medications ?Medication ?Instructions ?Recorded ?Confirmed ?Type prenat.vits,socrates,[id number] 1 tab PO QDAY 11/12/21 04/18/24 History cholecalciferol (vitamin D3) 50 50 mcg PO QDAY 02/09/24 04/18/24 History mcg (2,000 unit) capsule floradix PO 03/08/24 04/12/24 History magnesium 200 mg tablet 200 mg PO QDAY 04/05/24 04/18/24 History Allergies Allergy/AdvReac Type Severity Reaction Status Date / Time No Known Drug Allergies Allergy Verified 04/18/24 08:41
== END 2024-05-02 13:00 | disposition home or self-care (01) ==
LOC: OB LAC 13:01
PROVIDERS: Visit Provider Advanced Practice Midwife
DX: Z39.1 Encounter for care and examination of lactating mother (principal)
CPT/HCPCS: G0463

== ENCOUNTER 2024-05-31 14:23 | Outpatient (CLI) | payer OTHER, SELFPAY ==
[2024-06-08 22:46] LABS: HPV Source Cervical; HPV, High Risk by TMA Not Detected
== END 2024-05-31 14:24 | disposition home or self-care (01) ==
PROVIDERS: Visit Provider Midwife
DX: Z12.4 Encounter for screening for malignant neoplasm of cervix (principal); Z39.2 Encounter for routine postpartum follow-up
CPT/HCPCS: 87624; 87625; 88141; 88142

== ENCOUNTER 2024-06-14 13:30 | Outpatient (RCR) | payer OTHER, SELFPAY | END 2024-10-12 23:59 | disposition home or self-care (01) | PROVIDERS: Visit Provider Advanced Practice Midwife | DX: N81.89 Other female genital prolapse (principal); Z87.59 Personal history of other complications of pregnancy, childbirth and the puerperium; Z39.2 Encounter for routine postpartum follow-up; Z51.89 Encounter for other specified aftercare | CPT/HCPCS: 97112; 97161; 97535 ==

== ENCOUNTER 2024-07-15 15:29 | Outpatient (CLI) | payer OTHER, SELFPAY ==
--- NOTE | 2024-07-15 16:56 | W.PM.LAC.MC ---
Consult Note - Mom Date of Visit Date of visit: 07/15/24 Reason for consultation: Assistance Needed and Low Milk Supply (questioning vs milk transfer issue) Visit Code: Visit Patient's Information Phone number: [phone] : 4 Para: 2 Allergies No Known Drug Allergies Allergy (Verified 05/31/24 13:29) Mother's Medical History: Medical History (Updated 05/31/24 @ 11:24 by Carolyn Cooper CNM) Polycystic ovary syndrome (11/05/20) ?E28.2 - Polycystic ovarian syndrome (ICD-10) Irregular menstrual cycle ?N92.6 - Irregular menstruation, unspecified (ICD-10) Gastroesophageal reflux disease (09/10/18) ?K21.9 - Gastro-esophageal reflux disease without esophagitis (ICD-10) Miscarriage ?O03.9 - Complete or unspecified spontaneous without complication (ICD-10) Missed with demise before 20 completed weeks of gestation ?O02.1 - Missed (ICD-10) Infertility Nevus of face (09/08/17) ?D22.30 - Melanocytic nevi of unspecified part of face (ICD-10) Endometriosis (11/05/20) ?N80.9 - Endometriosis, unspecified (ICD-10) History of third degree perineal laceration ?Z87.59 - Personal history of other complications of , childbirth and the puerperium (ICD-10) NVD (normal vaginal delivery) ?O80 - Encounter for full-term uncomplicated delivery (ICD-10) Active labor at term Ectopic ?O00.90 - Unspecified ectopic without intrauterine (ICD-10) Delivery Information Delivery type: Vaginal Gestational Age: 40 Gestational Weight For Age: AGA Weight: 3.4 kg Discharge Weight: 3.216 kg Baby's Information Baby's Age at Visit: 3 months Baby's Provider or Clinic: [facility] Jaundice: No Past Experience Past Experience: Yes Current Frequency of Day Feedings: every 2-3 hrs Frequency of Night Feedings: one 5hr stretch, then one 3-4 hr stretch Both Breasts: Yes (offered, sometimes only nurses from one side) Suck: strong Latch: deep, comfortable Length of Time: 6 min ea side, doesn't always take both sides Goals: 1 year at least Pumping Pumping: Yes Quantity Pumped: 3-5 oz depending on time of day Supplementing EBM Supplement: Yes (will take 3 oz if takes bottle) Formula Supplement: No Baby Elimination Number of Wet Diapers a Day: 5-6/day Number of BM a Day: 2-3 minimum, yellow, seedy Breast/Nipple Condition Breast Information: Breasts are symmetrical with rounded lower quadrants, intramammary distance is less than 1.5 inches. No erythema. Nipples are supple, everted prior to feeding. Breast Shape: Round Maternal Nipple Condition - Left: Common Nipple Maternal Nipple Condition - Right: Common Nipple Sore Nipples: No Baby Assessment Skin: Normal Tongue/frenulum: Normal/elastic Palate: Average Lips: Relaxed and Symmetrical Jaw Alignment: Symmetrical Mucosa: [place], moist Onsite Observation Pre-Feed weight: 4.824 kg (up 194gm in 21 days; average 9gm/day) Post-Feed weight: 4.888 kg Milk Transferred (mL): 64 (6 min nursing on left side, refused the right) Position: Cross cradle Attachment/latch-on achieved: Easily Suck pattern: Suck burst and normal rest Swallow: Audible, consistent Behavior following feed: Alert, content Pre-Nursing Left Nipple: Within Normal Limits Pre-Nursing Right Nipple: Within Normal Limits Post-Nursing Left Nipple: Within Normal Limits Assessments/Interventions Assessments/Interventions: observation Dale latched easily to mom's left breast; nursed well for 6 minutes. on and off a few times but relatched well. Came off the breast; mom burped him and baby weighed. He transferred 64 ml in 6 min Mom offered her right breast; dale not interested, fussy, pushing away mom tried to burp him again and then latch, tried both cross-cradle and football hold babe fussy, pushing away when mom sat him up, happy and smiling he then proceeded to burp up several Tbsp of milk, and made a very sour face in the process mom then tried to latch him again after the spit up to no avail Mom does report he has been having a more difficult time latching to her right breast for about 3-4 weeks now; sometimes easier in football hold, but not always PLAN Discussed low weight gain from visit 3 weeks ago, need for more milk intake - recom she contact Dr. Reaves to discuss possible medicine for reflux to see if this helps him accept larger feedings Explained based on his weight, he needs about 3.5-4 oz/feeding for 8 feedings a day to gain weight as expected Discussed concern re: not latching to her right breast; she will add in some pumping a few times a day to be sure supply on her right side stays adequate Also discussed concern for torticollis as it relates to difficulty latching to just the right side Discussed role of day care assistant for tension release but if true torticollis will want/need physical therapy evaluation and treatment Feeding: option to try pumping and bottling EBM 1-2x/day to see if baby can/will take more from bottle vs ; not typically the case and mom definitely has the milk but an option to see if this would help. Offer 3-4 oz of EBM and monitor intake, speed, and spitting up after feeding to evaluate success of this option. Education provided: Need for frequent stimulation/milk removal and Pumping for milk management Follow-Up Suggested follow up: Appointment in 1 week (as needed depending on f/u with Peds ) Time Spent Time spent with patient (min): 75 (reviewing EMR and face to face with mom/baby) Meds Home Medications and Allergies Home Medications ?Medication ?Instructions ?Recorded ?Confirmed ?Type prenat.vits,socrates,[id number] 1 tab PO QDAY 11/12/21 05/31/24 History cholecalciferol (vitamin D3) 50 50 mcg PO QDAY 02/09/24 05/31/24 History mcg (2,000 unit) capsule Allergies Allergy/AdvReac Type Severity Reaction Status Date / Time No Known Drug Allergies Allergy Verified 05/31/24 13:29
== END 2024-07-15 15:30 | disposition home or self-care (01) ==
PROVIDERS: Visit Provider Obstetrics & Gynecology
DX: Z39.1 Encounter for care and examination of lactating mother (principal)
CPT/HCPCS: G0463